=== PATIENT | male | born 1940 | race Caucasian/White ===

== ENCOUNTER → 2023-09-11 | Outpatient (CLI) | payer MEDICARE, OTHER, SELFPAY ==
--- NOTE | 2023-09-11 16:02 | CT_ITS ---
INDICATION: SIXTH NERVE PALSY RIGHT EYE EXAMINATION: CT BRAIN WITH AND WITHOUT CONTRAST - CT Head or Brain WO/W Contrast Injection TECHNIQUE: Multiple axial images were obtained of the brain with and without IV contrast. A radiation dose optimization technique was used for this scan. IV Contrast dosage and agent: RADIATION DOSAGE (If Supplied By Facility): CTDIvol = ( 44.99 ) mGy, DLP = ( 1715.95 ) mGycm COMPARISON: FINDINGS: BRAIN PARENCHYMA: No intra- or extra-axial hemorrhage. No evidence of acute infarct. No intracranial mass or mass effect. There is preservation of the pendleton/white matter interface. Posterior fossa structures are unremarkable. No abnormal contrast enhancement. Questionable 2 mm slightly hyperdense nodular density may be present in the region of the foramen of Sullivan. A small colloid cyst cannot be excluded. CSF SPACES: Appropriate for age. No hydrocephalus. Basal cisterns are patent. CALVARIUM, SKULL BASE, PARANASAL SINUSES AND MASTOID AIR CELLS: Clear. No discrete lytic or blastic abnormalities. ORBITS: Both globes, extraocular muscles, optic nerves and retrobulbar fat appear unremarkable. CT/Brain/Head W/WO Contrast IMPRESSION: Questionable 2 mm slightly hyperdense nodular density may be present in the region of the foramen of Sullivan. A small colloid cyst cannot be excluded. Correlate with MRI if needed. Electronically Signed: Nikos Olvera DO at 17:03 EST ,
[2023-09-11 16:30] LABS: CREATININE FINGERSTICK 1.3 mg/dL (0.70-1.30)
== END | disposition home or self-care (01) ==
PROVIDERS: PCP Internal Medicine; Referring Provider Ophthalmology; Visit Provider Ophthalmology
DX: H49.21 Sixth [abducent] nerve palsy, right eye (principal)
CPT/HCPCS: 70470; Q9967

== ENCOUNTER 2025-05-08 11:43 | Day surgery (SDC) | payer MEDICARE, OTHER, SELFPAY ==
[2025-05-08] VITALS (10 sets, daily range): BP systolic 141–154; BP diastolic 70–89; PULSE 71–83; RESP 16–18; TEMP 36.3–37.1; O2SAT 92–99; BMI 44.0
--- OUTSIDE RECORDS SUMMARY | 2025-05-08 12:11 | XMS RPT_ITS | CCD ---
Author Organization [facility] Care Team Providers Care Water Commissioner Name Role Phone Gonzales Gray Unavailable Unavailable Unavailable Gonzales Gray Primary Care Provider Gonzales Gray Primary Care Provider ANGELA MENDIOLA Admitting Unavailable ITZ TERAN Referring Unavailable OBGONZALES VALENZUELA Primary Care Unavailable JAYA NEGRON Attending Unavailable TERRY JULIAN Consulting Unavailabl e Obsy, Dr. Gonzales Estevez Referring Unava ilable Oberhauser, Dr. Gonzales Estevez Attending Unava ilable Oberhauser, Dr. Gonzales Estevez Primary Care Unava ilable Oberhauser, Dr. Gonzales Estevez Referring Unava ilable Oberhauser, Dr. Gonzales Estevez Attending Unava ilable Oberhauser, Dr. Gonzales Estevez Primary Care Unava ilable Oberhauser, Dr. Gonzales Estevez Referring Unava ilable Oberhauser, Dr. Gonzales Estevez Attending Unava ilable Oberhauser, Dr. Gonzales Estevez Primary Care Unava ilable Oberhauser, Dr. Gonzales Estevez Referring Unava ilable Oberhauser, Dr. Gonzales Estevez Attending Unava ilable Oberhauser, Dr. Gonzales Estevez Primary Care Unava ilable Zanthony, Dr. Sara Juarez Attending Unav ailable Oberhauser, Dr. Gonzales Estevez Primary Care Unava ilable Malvin, Dr. Sara Juarez Attending Unav ailable Oberhauser, Dr. Gonzales Estevez Primary Care Unava ilable Malvin, Dr. Sara Juarez Attending Unav ailable Oberhauser, Dr. Gonzales Estevez Primary Care Unava ilable Radhaumbpierre, Dr. Sara Juarez Attending Unav ailable Oberhauser, Dr. Gonzales Estevez Primary Care Unava ilable Oberhauser DO, Gonzales L Primary Care Provider Oberhauser DO, Gonzales L Primary Care Provider Oberhauser DO, Gonzales L Unavailable Jessy Sweet MD Unavailable Oberhauser DO, Gonzales L Primary Care Provider EMANUEL COLON Attending Unavailable OBERHAUSER, GONZALES L Primary Care Unavailable Oberhauser DO, Gonzales L Primary Care Provider OBERHAUSER, GONZALES L Referring Unavailable OBERHAUSER, GONZALES L Primary Care Unavailable OBERHAUSER, GONZALES L Referring Unavailable OBERHAUSER, GONZALES L Primary Care Unavailable Oberhauser DO, Gonzales Primary Care Provider Oberhauser DO, Gonzales L Unavailable Yimi De La Cruz PA-C Unavailable Oberhauser DO, Gonzales L Primary Care Provider Jessy Sweet MD Unavailable Oberhauser DO, Gonzales L Unavailable Gaby Mendez Primary Care Provider Oberhauser, Gonzales L Unavailable Unavailable Gaby Ann CNP Primary Care Provider Oberhauser DO, Gonzales L Unavailable OBERHAUSER, GONZALES Primary Care Unavailable REHAN LALA Attending Unavailable SPIKEREHAN Attending Unavailable OBERHAUSER, GONZALES Primary Care Unavailable REHAN LALA Attending Unavailable GABY ANN Primary Care Unavailable REHAN LALA Attending Unavailable GABY ANN Primary Care Unavailable Oberhauser DO, Gonzales L Unavailable DANICA QUIÑONEZ Attending Unavailable ANN, GABY M Primary Care Unavailable ANN, GABY M Referring Unavailable ANN, GABY M Primary Care Unavailable ANN, GABY M Referring Unavailable ANN, GABY M Primary Care Unavailable ANN, GABY M Referring Unavailable ANN, GABY M Primary Care Unavailable ANN, GABY M Referring Unavailable ANN, GABY M Primary Care Unavailable ANN, GABY M Referring Unavailable ANN, GABY M Primary Care Unavailable OBERHAUSER, GONZALES L Primary Care Unavailable JESSY KRAMER Attending Unavailable DANICA QUIÑONEZ Attending Unavailable OBERHAUSER, GONZALES L Primary Care Unavailable AROLDO ANN Attending Unavailable DANICA QUIÑONEZ Referring Unavailable OBERHAUSER, GONZALES L Primary Care Unavailable MELISA STREETER Attending Unavailable OBERHAUSER, GONZALES L Primary Care Unavailable ANN, GABY M Primary Care Unavailable DANICA QUIÑONEZ Attending Unavailable ANN, GABY M Primary Care Unavailable ANN, GABY M Primary Care Unavailable JOSE E OSPINA Attending Unavailable ANN, GABY M Primary Care Unavailable MEI MAYO Attending Unavailable MEI MAYO Referring Unavailable MELISA STREETER Referring Unavailable OBERHAUSER, GONZALES L Primary Care Unavailable MELISA STREETER C Attending Unavailable OBERHAUSER, GONZALES L Primary Care Unavailable ELIZABETH MANRIQUEZ Attending Unavailable ANN, GABY M Primary Care Unavailable ANN, GABY M Attending Unavailable ANN, GABY M Primary Care Unavailable OBERHAUSER, GONZALES L Attending Unavailable OBERHAUSER, GONZALES L Referring Unavailable OBERHAUSER, GONZALES L Primary Care Unavailable ANN, GABY M Attending Unavailable ANN, GABY M Primary Care Unavailable GRIS DÍAZ Attending Unavailable ANN, GABY M Primary Care Unavailable ANN, GABY M Attending Unavailable ANN, GABY M Primary Care Unavailable ANN, GABY M Attending Unavailable MADDIE SCOTT Referring Unavailable ANN, GABY M Primary Care Unavailable Oberhauser, Gonzales Primary Care Unavailable Matheus Mckinley Attending Unavailable Allergies Allergy Classification Reported Allergen(s) Allergy Type Date of Onset Reaction(s) Facility Acetaminophen (1 source) Acetaminophen Drug Allergy 6 Other: See Comments [facility] (20 sources) Acetaminophen; Translations: [ACETAMINOPHEN] Drug Allergy 6 Other: See Comments, Other (See Comments), Other, Hallucinations [facility] (17 sources) Metoprolol; Translations: [METOPROLOL] Drug Allergy 5 Diarrhea [facility] Work Phone: (2 sources) Sulfonamides (Antibiotic); Translations: [SULFA (SULFONAMIDE ANTIBIOTICS)] Drug Allergy 5 Hives [facility] Work Phone: (1 source) Metoprolol Drug Allergy 5 [facility] Repository Medications Current Medications Medication Drug Class(es) Dates Sig (Normalized) Sig (Original) acetaminophen 325 mg / oxyCODONE hydrochloride 5 mg oral tablet (7 sources) Opioid Agonist Start: 07-22-2024 End: 10-21-2024 take 1 tablet by mouth every six hours for pain oxyCODONE-acetaminop hen (Percocet) 5-325 mg tablet Indications: Sciatica, unspecified laterality Take 1 tablet by mouth every 6 hours if needed for severe pain (7 - 10). 15 tablet 07/22/2024 10/21/2024 Discontinued (Med List Cleanup) amitriptyline hydrochloride 10 mg oral tablet (3 sources) Tricyclic Antidepressant Start: 10-09-2024 End: 10-09-2025 take 1 tablet by mouth once daily at bedtime amitriptyline (Elavil) 10 mg tablet Indications: Lumbar radiculopathy , Postlaminectomy syndrome, lumbar region , S/P spinal fusion , 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 stenosis Take 1 tablet (10 mg) by mouth once daily at bedtime. TAKE 1 TABLET at bedtime X 1 WEEK AND IF DOING WELL STAY THERE. IF TOLERATING BUT NO IMPROVEMENT GO TO 20 MG QHS 60 tablet 1 10/09/2024 10/21/2024 Discontinued (Med List Cleanup) aspirin 81 mg delayed release oral tablet (20 sources) Platelet Aggregation Inhibitor, Nonsteroidal Anti-inflammatory Drug Start: 05-05-2016 take 1 tablet by mouth once daily aspirin 81 mg EC tablet Take 1 tablet (81 mg) by mouth once daily. 11/22/2021 Active Comment on above: Take 1 tablet by sancho once daily. baclofen 5 mg oral tablet (10 sources) gamma-Aminobutyric Acid-ergic Agonist Start: 12-23-2024 End: 02-21-2025 take 1 tablet by mouth once daily at bedtime baclofen (Lioresal) 5 mg tablet Indications: Spondylosis of lumbosacral region without myelopathy or radiculopathy Take 1 tablet (5 mg) by mouth once daily at bedtime. 30 tablet 1 12/23/2024 Active blood-glucose meter misc (20 sources) Start: 10-09-2023 blood-glucose meter misc Indications: Controlled type 2 diabetes mellitus without complication, without long-term current use of insulin TEST SUGARS ONCE DAILY 1 each 10/09/2023 Active Start: 10-09-2023 blood-glucose meter misc Indications: Controlled type 2 diabetes mellitus without complication, without long-term current use of insulin (Multi) TEST SUGARS ONCE DAILY 1 each 10/09/2023 Active Start: 10-09-2023 blood-glucose meter misc Indications: Controlled type 2 diabetes mellitus without complication, without long-term current use of insulin (CMS/HCC) TEST SUGARS ONCE DAILY 1 each 0 10/09/2023 Active celecoxib 100 mg oral capsule (12 sources) Nonsteroidal Anti-inflammatory Drug Start: 12-26-2022 End: 09-18-2024 celecoxib (CeleBREX) 100 mg capsule Indications: Thoracic myofascial strain, initial encounter , Hand arthritis Take one pill twice daily for one week then take twice daily as needed thereafter 60 capsule 2 12/26/2022 09/18/2024 Discontinued (Therapy completed) cyclobenzaprine hydrochloride 10 mg oral tablet (7 sources) Muscle Relaxant Start: 12-18-2024 End: 02-16-2025 take 1 tablet by mouth three times daily as needed for muscle spasms cyclobenzaprine (Flexeril) 10 mg tablet Indications: Acute exacerbation of chronic low back pain , Sciatica of left side Take 1 tablet (10 mg) by mouth 3 times a day as needed for muscle spasms. 30 tablet 12/18/2024 02/09/2025 Discontinued (Med List Cleanup) Start: 12-10-2024 End: 12-13-2024 take 1 tablet by mouth three times daily as needed for muscle spasms cyclobenzaprine (Flexeril) 10 mg tablet Indications: Acute exacerbation of chronic low back pain , Sciatica of left side Take 1 tablet (10 mg) by mouth 3 times a day as needed for muscle spasms for up to 3 days. 9 tablet 12/10/2024 12/13/2024 Active Start: 07-22-2024 End: 09-20-2024 cyclobenzaprine (Flexeril) 5 mg tablet Indications: Sciatica, unspecified laterality Take 1 tablet (5 mg) by mouth as needed at bedtime for muscle spasms. 30 tablet 07/22/2024 09/18/2024 Discontinued (Therapy completed) doxycycline hyclate 100 mg oral capsule (3 sources) Tetracycline-class Drug Start: 03-10-2025 End: 03-15-2025 doxycycline (Vibramycin) 100 mg capsule Indications: Cellulitis of leg, right Take 1 capsule (100 mg) by mouth 2 times a day for 5 days. Take with at least 8 ounces (large glass) of water, do not lie down for 30 minutes after 10 capsule 03/10/2025 03/15/2025 Active Start: 03-02-2025 End: 03-12-2025 take 1 tablet by mouth twice daily in the evening doxycycline (Adoxa) 100 mg tablet Indications: Cellulitis of right anterior lower leg Take 1 tablet (100 mg) by mouth 2 times a day for 10 days. Take with a full glass of water and do not lie down for at least 30 minutes after 20 tablet 03/02/2025 4:27 PM EDT 03/02/2025 03/12/2025 Active gabapentin 300 mg oral capsule (20 sources) Anti-epileptic Agent Start: 01-09-2025 End: 02-08-2025 take 1 capsule by mouth once daily at bedtime gabapentin (Neurontin) 300 mg capsule Indications: Acute exacerbation of chronic low back pain Take 1 capsule (300 mg) by mouth once daily at bedtime. 30 capsule 01/09/2025 Active Start: 04-05-2022 End: 10-24-2022 take 1 capsule by mouth three times daily gabapentin (Neurontin) 100 mg capsule Take 1 capsule (100 mg) by mouth. 3 times daily 0 04/05/2022 10/24/2022 Discontinued (Therapy completed) Start: 04-05-2022 End: 09-18-2024 take 1 capsule by mouth three times daily Gabapentin 300 MG Oral Capsule TAKE 1 CAPSULE 3 times daily Quantity: 270 Refills: 0 Ordered: 25-Jul-2022 Sara Coombs MD Start : 05-Apr-2022 Active glipiZIDE 10 mg oral tablet (20 sources) Sulfonylurea Start: 10-29-2024 End: 04-27-2025 take 1 tablet by mouth twice daily before mealtime glipiZIDE (Glucotrol) 10 mg tablet Indications: Controlled type 2 diabetes mellitus without complication, without long-term current use of insulin Take 1 tablet (10 mg) by mouth 2 times a day before meals. 180 tablet 1 10/29/2024 Active Start: 09-19-2022 End: 08-04-2024 take 1 tablet by mouth once daily glipiZIDE XL (Glucotrol XL) 5 mg 24 hr tablet Take 1 tablet (5 mg) by mouth once daily. 10/19/2022 Active take 1 tablet by sancho th once daily glipiZIDE 5 MG Oral Tablet TAKE 1 TABLET DAILY. Quantity: 0 Refills: 0 Ordered: 26-Sep-2022 DO Active Comment on above: Take 1 tablet by sancho th once daily. 3 ml insulin degludec 100 unt/ml pen injector (20 sources) Insulin Analog Start: 02-19-2024 insulin degludec 100 unit/mL (3 mL) InPn Inject 16 (sixteen) Units under the skin every morning . 02/19/2024 Active Start: 02-19-2024 insulin deglud ec (TRESIBA FLEXTOUCH U-100) 100 unit/mL (3 mL) injection pen Inject subcutaneous 17 units daily in the morning. 15 mL 3 02/19/2024 Active Start: 10-23-2023 End: 02-19-2024 insulin degludec (TRESIBA FL EXTOUCH U-100) 100 unit/mL (3 mL) injection pen Indications: Poorly controlled type 2 diabetes mellitus (HCC) Inject subcutaneous 15 units daily in the morning. 15 mL 3 10/30/2023 02/19/2024 Discontinued (Adjust Sig - Block E-Cancel) Comment on above: Inject subcutaneous 15 units daily in the morning. 3 ml insulin glargine 100 unt/ml pen injector (20 sources) Insulin Analog Start: 02-04-2025 End: 02-14-2026 insulin glargine (Basaglar KwikPen U-100 Insulin) 100 unit/mL (3 mL) pen Indications: Controlled type 2 diabetes mellitus without complication, without long-term current use of insulin Inject 16 Units under the skin once daily at bedtime. Take as directed per insulin instructions. 6 mL 9 04/24/2025 4:03 PM EDT 02/04/2025 02/14/2026 Active Start: 08-15-2023 End: 11-27-2023 insulin glargine (LANTUS CHARLEE OSTAR U-100 INSULIN) 100 unit/mL (3 mL) Inject 15 Units subcutaneously every morning. 15 mL 3 08/15/2023 10/23/2023 Discontinued Start: 09-19-2022 inject 16 [IU] by schwarz bcutaneous injection every twenty-four hours insulin glargine (LANTUS) 100 unit/mL injection Inject 16 Units subcutaneously every 24 hours. 10 mL 5 09/19/2022 Active Start: 09-13-2022 Lantus SoloSta r 100 UNIT/ML Subcutaneous Solution Pen-injector INJECT 20 units DAILY Quantity: 1 Refills: 3 Ordered: 13-Sep-2022 Gonzales Gray DO Start : 13-Sep-2022 Active Start: 09-11-2022 End: 09-19-2022 inject 20 [IU] by subcutaneous injection every twenty-four hours insulin glargine (LANTUS) 100 unit/mL injection Inject 20 Units subcutaneously every 24 hours. 10 mL 5 09/11/2022 09/19/2022 Discontinued insulin glargine (Lantus Solostar U-100 Insulin) 100 unit/mL (3 mL) pen Inject 15 Units under the skin once daily in the morning. Take as directed per insulin instructions. 0 Active Comment on above: Inject 16 Units subc utaneously every 24 hours. Inject 20 Units subc utaneously every 24 hours. Inject 15 Units subc utaneously every morning. metFORMIN hydrochloride 1000 mg oral tablet (20 sources) Biguanide Start: 05-24-20 23 take 1 tablet by mouth twice daily at mealtime metFORMIN (Glucophage) 1,000 mg tablet Indications: Controlled type 2 diabetes mellitus without complication, without long-term current use of insulin Take 1 tablet (1,000 mg) by mouth 2 times a day with meals. 180 tablet 3 04/21/2024 Active Start: 11-22-2021 End: 12-10-2022 take 1 tablet by mouth twice daily metFORMIN (Glucophage) 1,000 mg tablet Take 1 tablet (1,000 mg) by mouth. 2 times daily 0 11/22/2021 Active Start: 09-14-2021 take 1 tablet by sancho th twice daily at mealtime metFORMIN (GLUCOPHAGE) 500 mg tablet Take 1 tablet by mouth twice daily with meals. 180 tablet 1 09/14/2021 Active Comment on above: Take 1 tablet by sancho th twice daily with meals. Take 1 tablet by sancho th two times a day with meals. methocarbamol 500 mg oral tablet (15 sources) Muscle Relaxant Start: End: take 1 tablet by mouth four times daily as needed methocarbamoL (ROBAXIN) 500 MG tablet Take 1 (one) tablet (500 mg total) by mouth 4 (four) times a day as needed . 11/07/2023 Active Start: 08-08-2023 take 1 tablet by sancho th four times daily as needed for muscle spasms methocarbamol (Robaxin) 500 mg tablet Indications: Thoracic myofascial strain, initial encounter TAKE 1 TABLET BY MOUTH FOUR TIMES DAILY NEEDED FOR MUSCLE SPASMS 40 tablet 0 08/08/2023 Active Start: 12-26-2022 End: 02-24-2023 take 1 tablet by mouth four times daily as needed for muscle spasms methocarbamol (Robaxin) 500 mg tablet Indications: Thoracic myofascial strain, initial encounter TAKE 1 TABLET BY MOUTH FOUR TIMES DAILY NEEDED FOR MUSCLE SPASMS 40 tablet 0 02/07/2023 Active 24 hr metoprolol succinate 25 mg extended release oral tablet (20 sources) beta-Adrenergic Cindy Start: 11-22-2021 take 1 tablet by mouth once daily Metoprolol Tartrate 25 MG Oral Tablet TAKE 1 TABLET DAILY. Quantity: 90 Refills: 3 Ordered: 22-Nov-2021 Gonzales Gray DO Start : 22-Nov-2021 Active Start: 09-14-2021 take 1 tablet by sancho th once daily metoprolol succinate XL (Toprol-XL) 25 mg 24 hr tablet Indications: Essential (primary) hypertension TAKE 1 TABLET BY MOUTH ONCE DAILY 90 tablet 3 02/12/2024 Active Comment on above: Take 1 tablet by sancho th once daily. multivitamin (THERAGRAN) per tablet (6 sources) Start: 11-22-2021 take 1 tablet by mouth once daily multivitamin (THERAGRAN) per tablet Take 1 (one) tablet by mouth daily . 11/22/2021 Active multivitamin tablet (20 sources) Start: 11-22-2021 take 1 tablet by mouth once daily multivitamin tablet Take 1 tablet by mouth once daily. 11/22/2021 Active Start: 11-22-2021 take 1 tablet by sancho th once daily multivitamin tablet Take 1 tablet by mouth once daily. 0 11/22/2021 Active Start: 11-22-2021 take 1 tablet by sancho th once daily multivitamin tablet Take 1 tablet by mouth 1 (one) time each day. 0 11/22/2021 Active naproxen sodium 220 mg oral capsule (19 sources) Nonsteroidal Anti-inflammatory Drug take 1 capsule by mouth twice daily naproxen sodium 220 mg cap Take 1 capsule by mouth 2 (two) times a day . Active Comment on above: Take 1 capsule by mo ut twice daily. Take 1 capsule by mo [facility] twice daily. PRN NON FORMULARY (1 source) End: 10-25-19 take 1 tablet by mouth once daily NON FORMULARY Prevagen 10 MG Oral Capsule; Take 1 tablet by mouth daily. 0 10/24/2022 Discontinued (Therapy completed) predniSONE 10 mg oral tablet (2 sources) Start: 04-27-20 predniSONE (Deltasone) 10 mg tablet Indications: Allergic reaction, initial encounter 60 mg once daily x 1 days, then 50 mg once daily x 1 days, then 40 mg once daily x 1 days, then 30 mg once daily x 1 days, then 20 mg once daily x 1 days, then 10 mg once daily x 1 days. 21 tablet 04/27/2025 Active Start: 12-10-2024 End: 12-15-2024 take 1 tablet by mouth once daily predniSONE (Deltasone) 50 mg tablet Indications: Acute exacerbation of chronic low back pain , Sciatica of left side Take 1 tablet (50 mg) by mouth once daily for 5 days. 5 tablet 12/10/2024 12/15/2024 Active simvastatin 40 mg oral tablet (20 sources) HMG-CoA Reductase Inhibitor Start: 04-23-2024 take 1 tablet by mouth at bedtime simvastatin (Zocor) 40 mg tablet Indications: Controlled type 2 diabetes mellitus without complication, without long-term current use of insulin TAKE 1 TABLET BY MOUTH AT BEDTIME 90 tablet 3 04/23/2024 Active Start: 10-24-2022 take 1 tablet by sancho th once daily at bedtime simvastatin (Zocor) 40 mg tablet Indications: Controlled type 2 diabetes mellitus without complication, without long-term current use of insulin (CMS/HCC) Take 1 tablet (40 mg) by mouth once daily at bedtime. 90 tablet 1 10/24/2022 Active Start: 09-14-2021 End: 10-24-2022 take 1 tablet by mouth once daily simvastatin (ZOCOR) 40 MG tablet Take 1 (one) tablet (40 mg total) by mouth nightly . 09/14/2021 Active Comment on above: Take 1 tablet by sancho th daily at bedtime. solifenacin succinate 5 mg oral tablet (2 sources) Cholinergic Muscarinic Antagonist Start: 04-14-20 take 1 tablet by mouth in the morning solifenacin (VESIcare) 5 mg tablet Take 1 tablet (5 mg) by mouth early in the morning.. 04/14/2025 Active traMADol hydrochloride 50 mg oral tablet (1 source) Opioid Agonist Start: 12-11-19 End: 12-14-19 take 1 tablet by mouth every six hours for pain traMADol (Ultram) 50 mg tablet Indications: Acute exacerbation of chronic low back pain , Sciatica of left side Take 1 tablet (50 mg) by mouth every 6 hours if needed for severe pain (7 - 10) for up to 3 days. 12 tablet 12/10/2024 12/13/2024 Active valACYclovir 1000 mg oral tablet (9 sources) Herpesvirus Nucleoside Analog DNA Polymerase Inhibitor, Herpes Simplex Virus Nucleoside Analog DNA Polymerase Inhibitor, Herpes Zoster Virus Nucleoside Analog DNA Polymerase Inhibitor take 1 tablet by mouth three times daily valACYclovir (VALTREX) 1 gram Take 1,000 mg by mouth once daily. 1 tablet TID for 21 doses Active Comment on above: Take 1,000 mg by sancho th once daily. 1 tablet TID for 21 doses Completed/Discontinued Medications Medication Drug Class(es) Dates Sig (Normalized) Sig (Original) 30 ml bupivacaine hydrochloride 5 mg/ml injection (1 source) Amide Local Anesthetic Start: 08-29-2024 End: 08-29-2024 As needed, Starting on Sun08/29/24 at 1400, Intraprocedure dapagliflozin 10 mg oral tablet (1 source) Sodium-Glucose Cotransporter 2 Inhibitor Start: 07-11-2022 take 1 tablet by mouth once daily in the morning Farxiga 10 MG Oral Tablet TAKE 1 TABLET BY MOUTH EVERY MORNING Quantity: 90 Refills: 3 Ordered: 11-Jul-2022 Gonzales Gray DO Start : 11-Jul-2022 Active 1 ml HYDROmorphone hydrochloride 1 mg/ml cartridge (2 sources) Opioid Agonist Start: 12-10-2024 End: 12-10-2024 inject 1 mg by intramuscular injection once 1 mg, intramuscular, Once, On Sun12/10/24 at 1540, For 1 dose Start: 07-22-2024 End: 07-22-2024 inject 1 mg by intramuscular injection once 1 mg, intramuscular, Once, On Sun07/22/24 at 1300, For 1 dose iohexol (OMNIPaque) 300 mg iodine/mL solution (1 source) Start: 08-29-2024 End: 08-29-2024 As needed, Starting on Sun08/29/24 at 1401, Intraprocedure 10 ml lidocaine hydrochloride 20 mg/ml injection (1 source) Antiarrhythmic, Amide Local Anesthetic Start: 08-29-2024 End: 08-29-2024 As needed, Starting on Sun08/29/24 at 1401, Intraprocedure 1 ml methylPREDNISolone acetate 80 mg/ml injection (8 sources) Corticosteroid Start: 04-27-2025 End: 04-27-2025 methylPREDNISolone sodium succinate (PF) (SOLU-Medrol) injection 62.5 mg Start: 04-27-2025 End: 04-27-2025 inject 62.5 mg by intramuscular injection once 62.5 mg, intramuscular, Once, On Sun04/27/25 at 1335, For 1 dose Start: 04-27-2025 End: 04-27-2025 methylPREDNISolone acetate (DEPO-Medrol) injection 40 mg Start: 04-27-2025 End: 04-27-2025 inject 40 mg by intramuscular injection once 40 mg, intramuscular, Once, On Sun04/27/25 at 1335, For 1 dose Start: 12-10-2024 End: 12-10-2024 inject 125 mg by intramuscular injection once 125 mg, intramuscular, Once, On Sun12/10/24 at 1540, For 1 dose Start: 08-29-2024 End: 08-29-2024 As needed, Starting on Sun at 1400, Intraprocedure Start: 07-22-2024 End: 07-28-2024 methylPREDNISolone (Medrol D [place]) 4 mg tablets Indications: Sciatica, unspecified laterality Take as directed on package. 21 tablet 07/22/2024 07/28/2024 Active Start: 07-22-2024 End: 07-22-2024 inject 125 mg by intramuscular injection once 125 mg, intramuscular, Once, On Sun07/22/24 at 1300, For 1 dose Multivitamin Oral Tablet (13 sources) Start: 11-22-2021 take 1 tablet by mouth once daily Multivitamin Oral Tablet TAKE 1 TABLET DAILY. Quantity: 90 Refills: 3 Ordered: 22-Nov-2021 Gonzales Gray DO Start : 22-Nov-2021 Active ondansetron 4 mg disintegrating oral tablet (1 source) Serotonin-3 Receptor Antagonist Start: 12-10-2024 End: 12-10-2024 take 4 mg by mouth once 4 mg, oral, Once, On Sun12/10/24 at 1540, For 1 dose Prevagen 10 MG Oral Capsule (12 sources) Start: 11-22-2021 End: 09-26-2022 take 1 tablet by mouth once daily Prevagen 10 MG Oral Capsule TAKE 1 TABLET BY MOUTH DAILY Quantity: 90 Refills: 1 Ordered: 22-Nov-2021 Gonzales Gray DO Start : 22-Nov-2021 End : 26-Sep-2022 Complete Start: 11-22-2021 take 1 tablet by sancho th once daily Prevagen 10 MG Oral Capsule TAKE 1 TABLET BY MOUTH DAILY Quantity: 90 Refills: 1 Ordered: 22-Nov-2021 Gonzales Gray DO Start : 22-Nov-2021 Active sulfamethoxazole 800 mg / trimethoprim 160 mg oral tablet (2 sources) Dihydrofolate Reductase Inhibitor Antibacterial, Sulfonamide Antimicrobial Start: 04-17-2025 End: 05-01-2025 take 2 tablets by mouth twice daily in the evening sulfamethoxazole-trimethoprim (Bactrim DS) 800-160 mg tablet Indications: Cellulitis of right lower extremity Take 2 tablets by mouth 2 times a day for 14 days. 56 tablet 04/18/2025 1:41 PM EDT 04/17/2025 04/27/2025 Discontinued (Side effects) tamsulosin hydrochloride 0.4 mg oral capsule (8 sources) alpha-Adrenergic Cindy Start: 08-16-2023 End: 08-15-2024 take 1 capsule by mouth once daily tamsulosin (Flomax) 0.4 mg 24 hr capsule Indications: Benign prostatic hyperplasia with urinary frequency Take 1 capsule (0.4 mg) by mouth once daily. 30 capsule 11 08/16/2023 06/24/2024 Discontinued (Therapy completed) Problems Active Problems Problem Classification Problem Date Documented Da te Episodic/Chronic Acute cerebrovascular disease (10 sources) Cerebral infarction, unspecified; Translations: [Cerebrovascular accident] Onset: 09-11-2022 09-11-2022 Chronic Allergic reactions (4 sources) Allergic reaction; Translations: [Allergy, unspecified, initial encounter] Onset: 04-27-2025 04-27-2025 Episodic Chronic kidney disease (13 sources) Chronic kidney disease stage 3; Translations: [CKD (chronic kidney disease) stage 3, GFR 30-59 ml/min] Onset: 08-11-2018 08-12-2018 Chronic Chronic ulcer of skin (1 source) Pressure ulcer of unspecified ankle, unspecified stage; Translations: [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 (HCC)] Onset: 04-28-2023 Chronic Deficiency and other anemia (1 source) Iron deficiency anemia; Translations: [Iron deficiency anemia, unspecified] 04-26-2023 Episodic Diabetes mellitus with complications (14 sources) Type 2 diabetes mellitus; Translations: [Type 2 diabetes mellitus with hyperglycemia] Onset: 08-26-2024 Chronic Diabetes mellitus without complication (20 sources) Diabetes mellitus; Translations: [Diabetes mellitus without mention of complication, type II or unspecified type, not stated as uncontrolled] Onset: 09-04-2022 09-11-2022 Chronic Disorders of lipid metabolism (20 sources) Hyperlipidemia; Translations: [Other and unspecified hyperlipidemia] Onset: 09-04-2022 09-04-2022 Chronic Diverticulosis and diverticulitis (20 sources) Diverticulitis of sigmoid colon; Translations: [Diverticulitis of large intestine without perforation or abscess without bleeding] Onset: 08-11-2018 08-12-2018 Chronic Essential hypertension (20 sources) Hypertensive disorder; Translations: [Unspecified essential hypertension] Onset: 09-04-2022 04-20-2016 Chronic Hyperplasia of prostate (20 sources) Urinary frequency due to benign prostatic hypertrophy; Translations: [Benign prostatic hyperplasia with lower urinary tract symptoms] Onset: 09-19-2023 09-19-2023 Chronic Osteoarthritis (1 source) Arthritis of hand; Translations: [Primary osteoarthritis, unspecified hand] 12-26-2022 Chronic Other acquired deformities (1 source) Spondylolisthesis, lumbar region; Translations: [Spondylolisthesis, lumbar region] Onset: 07-14-2022 Episodic Other connective tissue disease (1 source) History of spinal fusion; Translations: [Arthrodesis status] 10-09-2024 Episodic Other eye disorders (1 source) Esotropia of right eye; Translations: [Monocular esotropia, right eye] 09-06-2023 Episodic Other male genital disorders (3 sources) Swelling of scrotum ; Translations: [Other specified disorders of the male genital organs] 09-20-2023 Episodic Other male genital disorders (2 sources) Other specified disorders of the male genital organs; Translations: [Other specified disorders of the male genital organs] Onset: 03-02-2025 Episodic Other nervous system disorders (5 sources) Other chronic pain; Translations: [Other chronic pain] Onset: 07-11-2022 Chronic Other nervous system disorders (1 source) Disorder of left sciatic nerve 12-10-2024 Chronic Other nervous system disorders (4 sources) Neurogenic claudication 08-29-2024 Episodic Other non-traumatic joint disorders (1 source) Osteophyte, vertebrae; Translations: [Osteophyte, vertebrae] Onset: 07-14-2022 Chronic Other nutritional; endocrine; and metabolic disorders (20 sources) Body mass index 40+ - severely obese; Translations: [Morbid (severe) obesity due to excess calories] Onset: 03-27-2018 Resolved: 05-20-2020 05-20-2020 Chronic Residual codes; unclassified (13 sources) History finding; Translations: [Other specified conditions influencing health status] Episodic Skin and subcutaneous tissue infections (7 sources) Cellulitis of lower leg; Translations: [Cellulitis of right lower limb] Onset: 03-02-2025 03-02-2025 Episodic Spondylosis; intervertebral disc disorders; other back problems (20 sources) Lumbosacral spondylosis; Translations: [Lumbosacral spondylosis without myelopathy] Onset: 07-14-2022 Chronic Sprains and strains (1 source) Strain of muscle at thorax level; Translations: [Strain of muscle and tendon of unspecified wall of thorax, initial encounter] 12-26-2022 Episodic Unclassified (2 sources) Diabetic Foot Exam Onset: 05-26-2024 Unclassified (2 sources) Low back pain, unspecified; Translations: [Low back pain, unspecified] Onset: 12-10-2024 Past or Other Problems Problem Classification Problem Date Documented Date Episodic/Chronic Deficiency and other anemia (1 source) Iron deficiency anemia, unspecified; Translations: [Normocytic hypochromic anemia] Onset: 04-28-2023 Episodic Diabetes mellitus without complication (13 sources) Hyperglycemia; Translations: [Hyperglycemia, unspecified] Onset: 08-11-2018 08-12-2018 Episodic Genitourinary symptoms and ill-defined conditions (20 sources) Increased frequency of urination; Translations: [Frequency of micturition] Onset: 09-19-2023 09-19-2023 Episodic Immunizations and screening for infectious disease (4 sources) Needs influenza immunization; Translations: [Encounter for immunization] Onset: 06-24-2024 04-26-2023 Episodic Mycoses (20 sources) Onychomycosis; Translations: [Tinea unguium] Onset: 08-26-2024 05-26-2024 Episodic Nonspecific chest pain (13 sources) Chest pain; Translations: [Chest pain, unspecified] Onset: 08-11-2018 08-12-2018 Episodic Other aftercare (1 source) 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; Translations: [Encounter for long-term (current) use of insulin (HCC)] Onset: 04-28-2023 Episodic Other connective tissue disease (13 sources) Swelling of bilateral lower limbs; Translations: [Other specified soft tissue disorders] Onset: 08-11-2018 08-12-2018 Episodic Other connective tissue disease (9 sources) Weakness of face muscles; Translations: [Facial weakness] Onset: 09-11-2022 09-11-2022 Episodic Other connective tissue disease (2 sources) Pain in left toe(s); Translations: [Pain in left toe(s)] Onset: 08-26-2024 Episodic Other connective tissue disease (2 sources) Pain in right toe(s); Translations: [Pain in right toe(s)] Onset: 08-26-2024 Episodic Other connective tissue disease (2 sources) Arthrodesis status; Translations: [Arthrodesis status] Onset: 10-09-2024 Episodic Other lower respiratory disease (13 sources) Nodule of lung; Translations: [Solitary pulmonary nodule] Onset: 08-11-2018 10-14-2018 Episodic Other male genital disorders (4 sources) Disorder of male genital organ; Translations: [Hydrocele, unspecified] 09-19-2023 Episodic Other male genital disorders (19 sources) Adult hydrocele; Translations: [Hydrocele, unspecified] Onset: 04-30-2024 04-30-2024 Episodic Other nervous system disorders (20 sources) Numbness; Translations: [Disturbance of skin sensation] Onset: 09-04-2022 09-04-2022 Episodic Other nervous system disorders (15 sources) Abnormal gait; Translations: [Unspecified abnormalities of gait and mobility] Onset: 08-08-2022 Episodic Other nervous system disorders (12 sources) Kiser's palsy; 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] Onset: 09-11-2022 09-11-2022 Episodic Other nervous system disorders (9 sources) H/O: Kiser's palsy; Translations: [Personal history of other diseases of the nervous system and sense organs] Onset: 09-11-2022 09-11-2022 Episodic Other nervous system disorders (9 sources) Reduced mobility; Translations: [Other abnormalities of gait and mobility] Onset: 10-27-2024 10-27-2024 Episodic Other nervous system disorders (2 sources) Other abnormalities of gait and mobility; Translations: [Other abnormalities of gait and mobility] Onset: 10-27-2024 Episodic Other nervous system disorders (2 sources) Anesthesia of skin; Translations: [Anesthesia of skin] Onset: 09-04-2022 Episodic Other screening for suspected conditions (not mental disorders or infectious disease) (6 sources) Patient encounter status; Translations: [Encounter for screening for malignant neoplasm of prostate] Onset: 04-28-2023 04-26-2023 Episodic Spondylosis; intervertebral disc disorders; other back problems (20 sources) Spinal stenosis of lumbar region; Translations: [Spinal stenosis, lumbar region without neurogenic claudication] Onset: 03-29-2016 03-29-2016 Episodic Unclassified (20 sources) Onset: 12-26-2022 Resolved: 04-17-2025 12-26-2022 Unclassified (2 sources) Low back pain, unspecified; Translations: [Low back pain, unspecified] Onset: 12-10-2024 Results Test Name Value Interpretation Reference Range Facility ALBUMIN, RANDOM URINE W/CREA TININEon 04-20-2025 ALBUMIN, URINE 2.3 mg/dL Normal See Note: [facility] Comment on above: Order Comment: SPLIT 04/17/2025 FROM [id number] Result Comment: Refe rence Range: Reference Range Not established Performed By: #### 6 517 #### [facility] [address], [address] [place] [address] Survey Rodman: Derick Wilson MD ALBUMIN/CREATININE RATIO, RANDOM URINE 28 mg/g creat Normal <30 [facility] Comment on above: Order Comment: SPLIT 04/17/2025 FROM [id number] Result Comment: The ADA defines abnormalities in albumin excretion as follows: Albuminuria Category Result (mg/g creatinine) Normal to Mildly increased <30 Moderately increased 30-299 Severely increased > OR = 300 The ADA recommends that at least two of three specimens collected within a 3-6 month period be abnormal before considering a patient to be within a diagnostic category. Performed By: #### 6 517 #### [facility] [address], [address] [place] [address] Survey Rodman: Derick Wilson MD Creatinine (U) [Mass/Vol] 82 mg/dL Normal 20-320 [facility] Comment on above: Order Comment: SPLIT 04/17/2025 FROM [id number] Performed By: #### 6 517 #### [facility] [address], [address] [place] [address] Survey Rodman: Derick Wilson MD BASIC METABOLIC PANEL WITH A NION GAPon 04-18-2025 Calcium [Mass/Vol] 9.7 mg/dL Normal 8.6-10.3 [facility] Comment on above: Order Comment: COLLE CTION KIT GIVEN TO PATIENT. PATIENT ADVISED TO RETURN. Performed By: #### 1 680, [id number] #### [facility] [address], [address] [place] [address] Survey Rodman: Derick Wilson MD Chloride [Moles/Vol] 104 mmol/L Normal 98-110 [facility] Comment on above: Order Comment: COLLE CTION KIT GIVEN TO PATIENT. PATIENT ADVISED TO RETURN. Performed By: #### 1 6802, 73276 #### [facility] [address], [address] [place] [address] Survey Rodman: Derick Wilson MD CO2 [Moles/Vol] 22 mmol/L Normal 20-32 [facility] Comment on above: Order Comment: COLLE CTION KIT GIVEN TO PATIENT. PATIENT ADVISED TO RETURN. Performed By: #### 1 6801, [id number] #### [facility] [address], [address] [place] [address] Survey [employer]man: Derick Wilson MD Creatinine [Mass/Vol] 1.44 mg/dL High 0.70-1.22 [facility] Comment on above: Order Comment: COLLE CTION KIT GIVEN TO PATIENT. PATIENT ADVISED TO RETURN. Performed By: #### 1 680, 74519 #### [facility] [address], [address] [place] [address] Survey Rodman: Derick Wilson MD ELECTROLYTE BALANCE 12 mmol/L (calc) Normal 7-17 [facility] Comment on above: Order Comment: COLLE CTION KIT GIVEN TO PATIENT. PATIENT ADVISED TO RETURN. Performed By: #### 1 6802, 07962 #### [facility] [place] [address] Survey Rodman: Derick Wilson MD GFR/1.73 sq M.predicted among non-blacks MDRD (S/P/Bld) [Vol rate/Area] 48 mL/min/{1.73_m2} Low > OR = 60 [facility] Comment on above: Order Comment: COLLE CTION KIT GIVEN TO PATIENT. PATIENT ADVISED TO RETURN. Performed By: #### 1 680, 22588 #### [facility] [address], [address] [place] [address] Survey Rodman: Derick Wilson MD Glucose [Mass/Vol] 183 mg/dL High 65-99 [facility] Comment on above: Order Comment: COLLE CTION KIT GIVEN TO PATIENT. PATIENT ADVISED TO RETURN. Result Comment: Fasting reference interval For someone without known diabetes, a glucose value >125 mg/dL indicates that they may have diabetes and this should be confirmed with a follow-up test. Performed By: #### 1 680, 25504 #### [facility] [address], [address] [place] [address] Survey Rodman: Derick Wilson MD Potassium [Moles/Vol] 4.7 mmol/L Normal 3.5-5.3 [facility] Comment on above: Order Comment: COLLE CTION KIT GIVEN TO PATIENT. PATIENT ADVISED TO RETURN. Performed By: #### 1 6801, 80495 #### [facility] [address], [address] [place] [address] Survey Rodman: Derick Wilson MD Sodium [Moles/Vol] 138 mmol/L Normal 135-146 [facility] Comment on above: Order Comment: COLLE CTION KIT GIVEN TO PATIENT. PATIENT ADVISED TO RETURN. Performed By: #### 1 680, 13509 #### [facility] [address], [address] [place] [address] Survey Rodman: Derick Wilson MD Urea nitrogen [Mass/Vol] 16 mg/dL Normal 7-25 [facility] Comment on above: Order Comment: COLLE CTION KIT GIVEN TO PATIENT. PATIENT ADVISED TO RETURN. Performed By: #### 1 6802, 60928 #### [facility] [address], [address] [place] [address] Survey Rodman: Derick Wilson MD Urea nitrogen/Creatinine [Mass ratio] 11 mg/mg Normal 6-22 [facility] Comment on above: Order Comment: COLLE CTION KIT GIVEN TO PATIENT. PATIENT ADVISED TO RETURN. Performed By: #### 1 6802, 68548 #### [facility] [address], [address] [place] [address] Survey Rodman: Derick Wilson MD HEMOGLOBIN A1c WITH eAGon eAG (mmol/L) 9.0 mmol/L Normal [facility] Comment on above: Performed By: #### 1 6802, 63178 #### [facility] [address], [address] [place] [address] Survey Rodman: Derick Wilson MD HbA1c (Bld) [Mass fraction] 7.3 % High <5.7 [facility] Comment on above: Result Comment: For someone without known diabetes, a hemoglobin A1c value of 6.5% or greater indicates that they may have diabetes and this should be confirmed with a follow-up test. For someone with known diabetes, a value <7% indicates that their diabetes is well controlled and a value greater than or equal to 7% indicates suboptimal control. A1c targets should be individualized based on duration of diabetes, age, comorbid conditions, and other considerations. Currently, no consensus exists regarding use of hemoglobin A1c for diagnosis of diabetes for children. Performed By: #### 1 6802, 47490 #### [facility] [address], [address] [place] [address] Survey Rodman: Derick Wilson MD Magnesium [Mass/Vol] 163 mg/dL Normal [facility] Comment on above: Performed By: #### 1 6802, 84039 #### [facility] [address], [address] [place] [address] Survey Rodman: Derick Wilson MD No Panel Informationon 02-24 Double layer tubigri p Rt leg [facility] No Panel InformationOrdered By: Carleen Rowell on 02-24-2025 [facility] REFLEXIVE URINE CULTUREon REFLEXIVE URINE CULTURE Normal [facility] Comment on above: Result Comment: NO C ULTURE INDICATED Performed By: #### 1 7667, %SBNOCULI #### [facility] [address], [address] [place] [address] Survey Rodman: Derick Wilson MD URINALYSIS, COMPLETE W/RFL C ULTURE (REFL)on 12-24-2024 Appearance (U) CLEAR Normal CLEAR [facility] Comment on above: Performed By: #### 1 5475, %SBNOCULI #### [facility] of [place] [address] , [address] [place] [address] Survey Rodman: Derick Wilson MD BACTERIA NONE SEEN Normal NONE SEEN [facility] Comment on above: Performed By: #### 1 2293, %SBNOCULI #### [facility] [place] [address] , [address] [place] [address] Survey Rodman: Derick Wilson MD Bilirubin Ql (U) Negative Normal NEGATIVE [facility] Comment on above: Performed By: #### 1 0685, %SBNOCULI #### [facility] [place] [address] , [address] [place] [address] Survey Rodman: Derick Wilson MD Color (U) YELLOW Normal YELLOW [facility] Comment on above: Performed By: #### 1 1673, %SBNOCULI #### [facility] [place] [address] [place] [address] Survey Rodman: Derick Wilson MD Glucose Ql (U) Negative Normal NEGATIVE [facility] Comment on above: Performed By: #### 1 8492, %SBNOCULI #### [facility] of [place] [address] Survey Rodman: Derick Wilson MD HYALINE CAST NONE SEEN Normal NONE SEEN [facility] Comment on above: Performed By: #### 1 2114, %SBNOCULI #### [facility] of [address], [address] [place] [address] Survey Rodman: Derick Wilson MD Ketones Ql (U) TRACE Abnormal NEGATIVE [facility] Comment on above: Performed By: #### 1 3017, %SBNOCULI #### [facility] of [address], [address] [place] [address] Survey Rodman: Derick Wilson MD Leukocyte esterase Test strip Ql (U) Negative Normal NEGATIVE [facility] Comment on above: Performed By: #### 1 7644, %SBNOCULI #### [facility] of [place] [address] Survey Rodman: Derick Wilson MD Nitrite Ql (U) Negative Normal NEGATIVE [facility] Comment on above: Performed By: #### 1 7600, %SBNOCULI #### [facility] [place] [address] Survey [employer]man: Derick Wilson MD NOTE Normal [facility] Comment on above: Result Comment: This urine was analyzed for the presence of WBC, RBC, bacteria, casts, and other formed elements. Only those elements seen were reported. Performed By: #### 1 7679, %SBNOCULI #### [facility] of [place] [address] Survey [employer]man: Derick Wilson MD OCCULT BLOOD Negative Normal NEGATIVE [facility] Comment on above: Performed By: #### 1 7626, %SBNOCULI #### [facility] [place] [address] Survey Rodman: Derick Wilson MD pH (U) 7.0 [pH] Normal 5.0-8.0 [facility] Comment on above: Performed By: #### 1 7661, %SBNOCULI #### [facility] [place] [address] Survey Rodman: Derick Wilson MD Protein Ql (U) TRACE Abnormal NEGATIVE [facility] Comment on above: Performed By: #### 1 7654, %SBNOCULI #### [facility] [place] [address] Survey Rodman: Derick Wilson MD RBC NONE SEEN Normal < OR = 2 [facility] Comment on above: Performed By: #### 1 7685, %SBNOCULI #### [facility] [address] Survey [place]man: Derick Wilson MD Specific gravity (U) [Rel density] 1.013 Normal 1.001-1.035 [facility] Comment on above: Performed By: #### 1 7667, %SBNOCULI #### [facility] of [address], [address] [place] [address] Survey Rodman: Derick Wilson MD SQUAMOUS EPITHELIAL CELLS NONE SEEN Normal < OR = 5 [facility] Comment on above: Performed By: #### 1 7667, %SBNOCULI #### [facility] of [address], [address] [place] [address] Survey Rodman: Derick Wilson MD WBC NONE SEEN Normal < OR = 5 [facility] Comment on above: Performed By: #### 1 7667, %SBNOCULI #### [facility] of [place] [address] Survey Rodman: Derick Wilson MD BASIC METABOLIC PANEL WITH A AIDA THORNTONpranav 10-17-2024 Calcium [Mass/Vol] 9.5 mg/dL Normal 8.6-10.3 [facility] Comment on above: Order Comment: FASTI NG:NO FASTING: NO Performed By: #### 1 6802, 5363, 16209 #### [facility] [address], [address] [place] [address] Survey Rodman: Derick Wilson MD Chloride [Moles/Vol] 104 mmol/L Normal 98-110 [facility] Comment on above: Order Comment: FASTI NG:NO FASTING: NO Performed By: #### 1 6802, 5363, 78617 #### [facility] of [place] [address] Survey Rodman: Derick Wilson MD CO2 [Moles/Vol] 25 mmol/L Normal 20-32 [facility] Comment on above: Order Comment: FASTI NG:NO FASTING: NO Performed By: #### 1 6802, 5363, 80728 #### [facility] of [address], [address] [place] [address] Survey Rodman: Derick Wilson MD Creatinine [Mass/Vol] 1.52 mg/dL High 0.70-1.22 [facility] Comment on above: Order Comment: FASTI NG:NO FASTING: NO Performed By: #### 1 6802, 5363, 01557 #### [facility] [address], [address] [place] [address] Survey Rodman: Derick Wilson MD ELECTROLYTE BALANCE 10 mmol/L (calc) Normal 7-17 [facility] Comment on above: Order Comment: FASTI NG:NO FASTING: NO Performed By: #### 1 6802, 5363, 34634 #### [facility] [place] [address] Survey Rodman: Derick Wilson MD GFR/1.73 sq M.predicted among non-blacks MDRD (S/P/Bld) [Vol rate/Area] 45 mL/min/{1.73_m2} Low > OR = 60 [facility] Comment on above: Order Comment: FASTI NG:NO FASTING: NO Performed By: #### 1 6802, 5363, 29941 #### [facility] [place] [address] Survey Rodman: Derick Wilson MD Glucose [Mass/Vol] 126 mg/dL Normal 65-139 [facility] Comment on above: Order Comment: FASTI NG:NO FASTING: NO Result Comment: Non-fasting reference interval For someone without known diabetes, a glucose value >125 mg/dL indicates that they may have diabetes and this should be confirmed with a follow-up test. Performed By: #### 1 6802, 5363, 66953 #### [facility] [address], [address] [place] [address] Survey Rodman: Derick Wilson MD Potassium [Moles/Vol] 4.6 mmol/L Normal 3.5-5.3 [facility] Comment on above: Order Comment: FASTI NG:NO FASTING: NO Performed By: #### 1 6802, 5363, 64604 #### [facility] of [address], [address] [place] [address] Survey Rodman: Derick Wilson MD Sodium [Moles/Vol] 139 mmol/L Normal 135-146 [facility] Comment on above: Order Comment: FASTI NG:NO FASTING: NO Performed By: #### 1 6802, 5363, 85650 #### [facility] of [address], [address] [place] [address] Survey Rodman: Derick Wilson MD Urea nitrogen [Mass/Vol] 14 mg/dL Normal 7- [facility] Comment on above: Order Comment: FASTI NG:NO FASTING: NO Performed By: #### 1 6802, 5363, 43576 #### [facility] of [address], [address] [place] [address] Survey Rodman: Derick Wilson MD Urea nitrogen/Creatinine [Mass ratio] 9 mg/mg Normal - [facility] Comment on above: Order Comment: FASTI NG:NO FASTING: NO Performed By: #### 1 6802, 5363, 63568 #### [facility] of [address], [address] [place] [address] Survey Rodman: Derick Wilson MD HEMOGLOBIN A1c WITH eAGon eAG (mg/dL) Normal [facility] Comment on above: Performed By: #### 1 6802, 5363, 24377 #### [facility] of [address], [address] [place] [address] Survey Rodman: Derick Wilson MD eAG (mmol/L) Normal [facility] Comment on above: Performed By: #### 1 6802, 5363, 01714 #### [facility] of [address], [address] [place] [address] Survey Rodman: Derick Wilson MD HEMOGLOBIN A1c Normal [facility] Comment on above: Performed By: #### 1 6802, 5363, 92241 #### [facility] of [address], [address] [place] [address] Survey Rodman: Derick Wilson MD PSA, TOTALon 10-17-2024 PSA, TOTAL 0.54 ng/mL Normal < OR = 4.00 [facility] Comment on above: Result Comment: The total PSA value from this assay system is standardized against the WHO standard. The test result will be approximately 20% lower when compared to the equimolar-standardized total PSA (Argenis Barnard). Comparison of serial PSA results should be interpreted with this fact in mind. This test was performed using the Siemens chemiluminescent method. Values obtained from different assay methods cannot be used interchangeably. PSA levels, regardless of value, should not be interpreted as absolute evidence of the presence or absence of disease. Performed By: #### 1 6802, 5363, 26356 #### [facility] [address], [address] [place] [address] Survey Rodman: Derick Wilson MD MR LUMBAR SPINE WO IV CONTRA STon 09-19-2024 MR LUMBAR SPINE WO IV CONTRAST Interpreted By: Cy Marie, and Phil Larios STUDY: MR LUMBAR SPINE WO IV CONTRAST; 09/19/2024 2:14 pm INDICATION: Signs/Symptoms:lower back and leg pain and leg fatigue and coldness. ,M54.16 Radiculopathy, lumbar region,M48.062 Spinal stenosis, lumbar region with neurogenic claudication,M54.42 Lumbago with sciatica, left side,M54.41 Lumbago with sciatica, right side,G89.29 Other chronic pain,M47.27 Other spondylosis with radiculopathy, lumbosacral region,R20.0 Anesthesia of skin COMPARISON: MR lumbar spine 07/14/2022. ACCESSION NUMBER(S): [id number] ORDERING CLINICIAN: MELISA STREETER TECHNIQUE: Sagittal T1, T2, STIR, axial T1 and T2 weighted images of the lumbar spine were acquired. FINDINGS: Segmentation: 5 lumbar-type vertebrae are noted. Alignment: Grade 1 retrolisthesis of L1 on L2, L2 on L3, and L3 on L4 is noted. Grade 1 anterolisthesis of L5 on S1 is noted. Findings are similar compared to 07/14/2022. Vertebrae/Intervertebral Discs: Status post laminectomies of L2 through L5. The vertebral bodies demonstrate expected height. Multilevel disc height loss and disc desiccation is noted, most pronounced and severe at L5-S1 with associated type 2 Modic changes, similar prior. Additional [id number] disc height loss and disc desiccation is present at L2-L3 and L3-L4. mixed type 1 and type 2 Modic changes noted involving the endplates of at L4-L5. Surgical hyperintensity is noted in the mid to posterior aspect of the L1-L2 intervertebral disc. Conus medullaris: The lower thoracic cord appears unremarkable. The conus medullaris terminates at L2. T12-L1: Disc osteophyte complex minimally effaces the ventral thecal sac. No spinal canal stenosis or neural foraminal narrowing. L1-2: Disc osteophyte complex asymmetric to the right and facet arthropathy. Minimal effacement of ventral thecal sac without significant spinal canal stenosis. Moderate right neural foraminal narrowing, similar to prior. No left neural foraminal narrowing. L2-3: Status post laminectomy. Disc osteophyte complex and facet arthropathy. No spinal canal stenosis. Moderate bilateral neural foraminal narrowing, similar to prior. L3-4: Status post laminectomy. Disc bulge and facet arthropathy. No spinal canal stenosis. Moderate to severe bilateral neural foraminal narrowing, similar to prior. L4-5: Status post laminectomy. Disc bulge and facet arthropathy. Interval development of a 5 mm x 10 mm herniated disc fragment ventral to the thecal sac and extending into the left lateral recess best appreciated on axial T2 weighted image 06/04 flattening and deformity of the anterior contour of the thecal sac in the interval since the previous exam. Marked narrowing of the left lateral recess and neural foramen. L5-S1: Status post laminectomy. Trace spondylolisthesis with pseudo bulging intervertebral disc. No measurable canal stenosis. Severe bilateral foraminal narrowing. Diffuse fatty atrophy of the paraspinal musculature. There is similar nonspecific STIR hyperintensity within the posterior spinal soft tissues L4 through S1. IMPRESSION: 1. Postsurgical changes from laminectomies of L2 through L5. 2. Interval progression of broad-based bulging or herniated nucleus polyposis at L4/L5 to the left since the previous exam. Marked narrowing of the left lateral recess and neural foramen 3. Spondylolisthesis with severe bilateral foraminal narrowing at L5/S1 is unchanged compared to the previous exam 4. Severe foraminal narrowing at L3/L4 bilaterally is unchanged compared to the previous exam. I personally reviewed the images/study and I agree with the findings as stated by Harriet Villarreal MD. This study was interpreted at [facility], [place], [place]. MACRO: None Signed by: Cy Marie 09/22/2024 6:55 AM Dictation workstation: [id number] Normal [facility] [place] PAIN MANAGEMENTon 025 [place] PAIN MANAGEMENT These images are not reportable by radiology and will not be interpreted by Radiologists. Normal [facility] FL pain managementon 025 These images are not reportable by radiology and will not be interpreted by Radiologists. [facility] Work Phone: Glucose Test strip manual (B ld) [Mass/Vol]on 08-29-2024 Glucose [Mass/Vol] 183 mg/dL High 74 - 99 mg/dL [facility] Interpretation and review of laboratory results Abnormal [facility] Glucose [Mass/Vol] 183 mg/dL High 74-99 [facility] Comment on above: Performed By: #### 2 341-6 #### AISHWARYA CELESTIN ([id number]) [facility] ([facility]) [address] [place] [address] Transforaminalon 08-29-2024 [facility] Work Phone: Radiology Study observation (narrative) [facility] Work Phone: CBC W Auto Differential pane l (Bld)on 03-20-2024 Basophils (Bld) [#/Vol] 0.04 10*3/uL Normal <0.11 [facility] Comment on above: Order Comment: Speci men Type: BLOOD SPECIMEN Ordering Facility: External Submitter Address: , , Performed By: #### 5 7021-8 #### [facility] CLIA [id number] [address] [place] [address] [place] Basophils/100 WBC (Bld) 0.6 % Normal [facility] Comment on above: Order Comment: Speci men Type: BLOOD SPECIMEN Ordering Facility: External Submitter Address: , , Performed By: #### 5 7021-8 #### [facility] CLIA [id number] [address] [place] [address] [facility] [place] Differential cell count method Nom (Bld) Auto Normal [facility] Comment on above: Order Comment: Speci men Type: BLOOD SPECIMEN Ordering Facility: External Submitter Address: , , Performed By: #### 5 7021-8 #### [facility] CLIA [id number] [address] [place] [address] [facility] [place] Eosinophils (Bld) [#/Vol] 0.14 10*3/uL Normal <0.46 [facility] Comment on above: Order Comment: Speci men Type: BLOOD SPECIMEN Ordering Facility: External Submitter Address: , , Performed By: #### 5 7021-8 #### [facility] CLIA [id number] [address] [place], [place] [address] [place] [address] [place] Eosinophils/100 WBC (Bld) 2.1 % Normal [facility] Comment on above: Order Comment: Speci men Type: BLOOD SPECIMEN Ordering Facility: External Submitter Address: , , Performed By: #### 5 7021-8 #### [facility] CLIA [id number] [address] [place] [address] [facility] [place] Erythrocyte distribution width (RBC) [Ratio] 13.0 % Normal 11.5-15.0 [facility] Comment on above: Order Comment: Speci men Type: BLOOD SPECIMEN Ordering Facility: External Submitter Address: , , Performed By: #### 5 7021-8 #### [facility] CLIA [id number] [address] [place] [address] [facility] [place] Hematocrit (Bld) [Volume fraction] 44.3 % Normal 39.0-51.0 [facility] Comment on above: Order Comment: Speci men Type: BLOOD SPECIMEN Ordering Facility: External Submitter Address: , , Performed By: #### 5 7021-8 #### [facility] CLIA [id number] [address] [place] [address] [facility] [place] Hemoglobin (Bld) [Mass/Vol] 14.3 g/dL Normal 13.0-17.0 [facility] Comment on above: Order Comment: Speci men Type: BLOOD SPECIMEN Ordering Facility: External Submitter Address: , , Performed By: #### 5 7021-8 #### [facility] CLIA [id number] [address] [place], [place] [id number] [place] [address] [place] Immature granulocytes (Bld) [#/Vol] 10*3/uL Normal <0.10 [facility] Comment on above: Order Comment: Speci men Type: BLOOD SPECIMEN Ordering Facility: External Submitter Address: , , Performed By: #### 5 7021-8 #### [facility] CLIA [id number] [address] [place], [place] [address] [place] [address] Immature granulocytes/100 WBC (Bld) 0.2 % Normal [facility] Comment on above: Order Comment: Speci men Type: BLOOD SPECIMEN Ordering Facility: External Submitter Address: , , Performed By: #### 5 7021-8 #### [facility] CLIA [id number] [address] [place] Lymphocytes (Bld) [#/Vol] 1.50 10*3/uL Normal 1.00-4.00 [facility] Comment on above: Order Comment: Speci men Type: BLOOD SPECIMEN Ordering Facility: External Submitter Address: , , Performed By: #### 5 7021-8 #### [facility] CLIA [id number] [address] [place], [place] [address] [place] [address] [place] Lymphocytes/100 WBC (Bld) 22.7 % Normal [facility] Comment on above: Order Comment: Douglasi men Type: BLOOD SPECIMEN Ordering Facility: External Submitter Address: , , Performed By: #### 5 7021-8 #### [facility] CLIA [id number] [address] [place] [address] [place] MCH (RBC) [Entitic mass] 32.9 pg Normal 26.0-34.0 [facility] Comment on above: Order Comment: Speci men Type: BLOOD SPECIMEN Ordering Facility: External Submitter Address: , , Performed By: #### 5 7021-8 #### [facility] CLIA [id number] [address] [place] [address] MCHC (RBC) [Mass/Vol] 32.3 g/dL Normal 30.5-36.0 [facility] Comment on above: Order Comment: Speci men Type: BLOOD SPECIMEN Ordering Facility: External Submitter Address: , , Performed By: #### 5 7021-8 #### [facility] CLIA [id number] [address] [place] [address] MCV (RBC) [Entitic vol] 101.8 fL High 80.0-100.0 [facility] Comment on above: Order Comment: Speci men Type: BLOOD SPECIMEN Ordering Facility: External Submitter Address: , , Performed By: #### 5 7021-8 #### [facility] CLIA [id number] [address] [place] [address] Monocytes (Bld) [#/Vol] 0.39 10*3/uL Normal <0.87 [facility] Comment on above: Order Comment: Speci men Type: BLOOD SPECIMEN Ordering Facility: External Submitter Address: , , Performed By: #### 5 7021-8 #### [facility] CLIA [id number] [address] [place] [address] Monocytes/100 WBC (Bld) 5.9 % Normal [facility] Comment on above: Order Comment: Speci men Type: BLOOD SPECIMEN Ordering Facility: External Submitter Address: , , Performed By: #### 5 7021-8 #### [facility] CLIA [id number] [address] [place] [address] Neutrophils (Bld) [#/Vol] 4.53 10*3/uL Normal 1.45-7.50 [facility] Comment on above: Order Comment: Speci men Type: BLOOD SPECIMEN Ordering Facility: External Submitter Address: , , Performed By: #### 5 7021-8 #### [facility] CLIA [id number] [address] [place] [address] [facility] [place] Neutrophils/100 WBC (Bld) 68.5 % Normal [facility] Comment on above: Order Comment: Speci men Type: BLOOD SPECIMEN Ordering Facility: External Submitter Address: , , Performed By: #### 5 7021-8 #### [facility] CLIA [id number] [address] [place] [address] [place] Nucleated RBC (Bld) [#/Vol] Normal [facility] Comment on above: Order Comment: Douglasi men Type: BLOOD SPECIMEN Ordering Facility: External Submitter Address: , , Performed By: #### 5 7021-8 #### [facility] CLIA [id number] [address] [place] [address] [facility] [place] Nucleated RBC/100 WBC (Bld) [Ratio] Normal [facility] Comment on above: Order Comment: Speci men Type: BLOOD SPECIMEN Ordering Facility: External Submitter Address: , , Performed By: #### 5 7021-8 #### [facility] CLIA [id number] [address] [place] [address] [place] Platelet mean volume (Bld) [Entitic vol] 10.5 fL Normal 9.0-12.7 [facility] Comment on above: Order Comment: Speci men Type: BLOOD SPECIMEN Ordering Facility: External Submitter Address: , , Performed By: #### 5 7021-8 #### [facility] CLIA [id number] [address] [place] [address] [place] Platelets (Bld) [#/Vol] 256 10*3/uL Normal 150-400 [facility] Comment on above: Order Comment: Speci men Type: BLOOD SPECIMEN Ordering Facility: External Submitter Address: , , Performed By: #### 5 7021-8 #### [facility] CLIA [id number] [address] [place] [address] [place] RBC (Bld) [#/Vol] 4.35 10*6/uL Normal 4.20-6.00 [facility] Comment on above: Order Comment: Speci men Type: BLOOD SPECIMEN Ordering Facility: External Submitter Address: , , Performed By: #### 5 7021-8 #### [facility] CLIA [id number] [address] [place] [address] [facility] WBC (Bld) [#/Vol] 6.61 10*3/uL Normal 3.70-11.00 [facility] Comment on above: Order Comment: Speci men Type: BLOOD SPECIMEN Ordering Facility: External Submitter Address: , , Performed By: #### 5 7021-8 #### [facility] CLIA [id number] [address] [place] [address] [facility] Comprehensive metabolic 2000 panelon 03-20-2024 Albumin [Mass/Vol] 4.3 g/dL Normal 3.9-4.9 [facility] Comment on above: Order Comment: Speci men Type: BLOOD SPECIMEN Ordering Facility: External Submitter Address: , , Performed By: #### 2 4331-1, 23785-7 #### [facility] CLIA [id number] [address] ALP [Catalytic activity/Vol] 73 U/L Normal 38-113 [facility] Comment on above: Order Comment: Speci men Type: BLOOD SPECIMEN Ordering Facility: External Submitter Address: , , Performed By: #### 2 4331-1, 40341-7 #### [facility] CLIA [id number] [address] [place] [address] [facility] ALT With P-5'-P [Catalytic activity/Vol] 36 U/L Normal 10-54 [facility] Comment on above: Order Comment: Speci men Type: BLOOD SPECIMEN Ordering Facility: External Submitter Address: , , Performed By: #### 2 4331-1, 65318-7 #### [facility] CLIA [id number] [address] [place], [place] [address] [place] [address] [place] Anion gap [Moles/Vol] 16 mmol/L High 8-15 [facility] Comment on above: Order Comment: Speci men Type: BLOOD SPECIMEN Ordering Facility: External Submitter Address: , , Performed By: #### 2 433-1, #### [facility] CLIA [id number] [address] [facility] [place] [address] [place] AST With P-5'-P [Catalytic activity/Vol] 42 U/L High 14-40 [facility] Comment on above: Order Comment: Speci men Type: BLOOD SPECIMEN Ordering Facility: External Submitter Address: , , Performed By: #### 2 489-1, #### [facility] CLIA [id number] [address] [facility] [address] [place] Bilirubin [Mass/Vol] 1.4 mg/dL High 0.2-1.3 [facility] Comment on above: Order Comment: Speci men Type: BLOOD SPECIMEN Ordering Facility: External Submitter Address: , , Performed By: #### 2 433-1, #### [facility] CLIA [id number] [address] [place] [address] [place] Calcium [Mass/Vol] 9.3 mg/dL Normal 8.5-10.2 [facility] Comment on above: Order Comment: Speci men Type: BLOOD SPECIMEN Ordering Facility: External Submitter Address: , , Performed By: #### 2 4331-1, #### [facility] CLIA [id number] [address] [place] [address] [place] Chloride [Moles/Vol] 105 mmol/L Normal 98-107 [facility] Comment on above: Order Comment: Speci men Type: BLOOD SPECIMEN Ordering Facility: External Submitter Address: , , Performed By: #### 2 4331-1, #### [facility] CLIA [id number] [address] [facility] [address] [place] CO2 [Moles/Vol] 21 mmol/L Low 22-30 [facility] Comment on above: Order Comment: Megan harris Type: BLOOD SPECIMEN Ordering Facility: External Submitter Address: , , Performed By: #### 2 4331-1, #### [facility] CLIA [id number] [address] [place] [address] [place] Creatinine [Mass/Vol] 1.34 mg/dL High 0.73-1.22 [facility] Comment on above: Order Comment: Megan harris Type: BLOOD SPECIMEN Ordering Facility: External Submitter Address: , , Performed By: #### 2 4331-1, #### [facility] CLIA [id number] [address] [place] [address] [facility] Creatinine and Glomerular filtration rate.predicted panel (S/P/Bld) 53 mL/min/1.73m??? Low >=60 [facility] Comment on above: Order Comment: Megan harris Type: BLOOD SPECIMEN Ordering Facility: External Submitter Address: , , Result Comment: Akila mated Glomerular Filtration Rate (eGFR) is calculated using the 2020 CKD-EPI creatinine equation. This equation utilizes serum creatinine, sex, and age as parameters. The creatinine assay has traceable calibration to isotope dilution-mass spectrometry. Refer to KDIGO guidelines for clinical interpretation. In patients with unstable renal function, e.g. those with acute kidney injury, the eGFR may not accurately reflect actual GFR. Performed By: #### 2 4331-1, #### [facility] CLIA [id number] [address] [place] [address] [place] Glucose [Mass/Vol] 179 mg/dL High 74-99 [facility] Comment on above: Order Comment: Megan harris Type: BLOOD SPECIMEN Ordering Facility: External Submitter Address: , , Result Comment: The [place] Diabetes Association (ADA) provides guidance for cutoff values for fasting glucose and random glucose. The ADA defines fasting as no caloric intake for at least 8 hours. Fasting plasma glucose results between 100 to 125 mg/dL indicate increased risk for diabetes (prediabetes). Fasting plasma glucose results greater than or equal to 126 mg/dL meet the criteria for diagnosis of diabetes. In the absence of unequivocal hyperglycemia, results should be confirmed by repeat testing. In a patient with classic symptoms of hyperglycemia or hyperglycemic crisis, random plasma glucose results greater than or equal to 200 mg/dL meet the criteria for diagnosis of diabetes. Reference: Standards of Medical Care in Diabetes 2016, [place] Diabetes Association. Diabetes Care. 2016.39(Suppl 1). Performed By: #### 2 4330-, #### [facility] CLIA [id number] [address] [place] [address] [place] Potassium [Moles/Vol] 4.5 mmol/L Normal 3.7-5.1 [facility] Comment on above: Order Comment: Megan harris Type: BLOOD SPECIMEN Ordering Facility: External Submitter Address: , , Performed By: #### 2 4330-08, #### [facility] CLIA [id number] [address] [place] [address] [place] Protein [Mass/Vol] 7.3 g/dL Normal 6.3-8.0 [facility] Comment on above: Order Comment: Megan harris Type: BLOOD SPECIMEN Ordering Facility: External Submitter Address: , , Performed By: #### 2 4330-08, #### [facility] CLIA [id number] [address] [place] [address] [place] Sodium [Moles/Vol] 142 mmol/L Normal 136-144 [facility] Comment on above: Order Comment: Megan harris Type: BLOOD SPECIMEN Ordering Facility: External Submitter Address: , , Performed By: #### 2 4330-08, #### [facility] CLIA [id number] [address] [place] [address] [place] Urea nitrogen [Mass/Vol] 14 mg/dL Normal 9-24 [facility] Comment on above: Order Comment: Megan harris Type: BLOOD SPECIMEN Ordering Facility: External Submitter Address: , , Performed By: #### 2 4330-08, #### [facility] CLIA [id number] [address] [place], [place] [address] [place] [address] [place] Ferritin SerPl-mCncon 2023 Ferritin [Mass/Vol] 109.0 ng/mL Normal 30.3-565.7 [facility] Comment on above: Order Comment: Megan harris Type: BLOOD SPECIMEN Ordering Facility: External Submitter Address: , , Performed By: #### 5 0190-8, PSAS1, 2276-4 #### [facility] CLIA [id number] [address] HbA1c (Bld)on 03-20-2024 Average glucose Estimated from glycated hemoglobin (Bld) [Mass/Vol] 157 mg/dL Normal [facility] Comment on above: Order Comment: Megan harris Type: BLOOD SPECIMEN Ordering Facility: External Submitter Address: , , Result Comment: eAG: (Estimated average glucose) is a calculated value from HgbA1c and is patient service representative of the average blood glucose level in the last 2-3 month period. Performed By: #### 5 7021-8 #### [facility] CLIA [id number] [address] OF [facility] HbA1c (Bld) [Mass fraction] 7.1 % High 4.3-5.6 [facility] Comment on above: Order Comment: Megan harris Type: BLOOD SPECIMEN Ordering Facility: External Submitter Address: , , Result Comment: [place] Diabetes Association guidelines indicate that patients with HgbA1c in the range 5.7-6.4% are at increased risk for development of diabetes, and intervention by lifestyle modification may be beneficial. HgbA1c greater or equal to 6.5% is considered diagnostic of diabetes. Performed By: #### 5 7021-8 #### [facility] CLIA [id number] [address] [place] [id number] [facility] Iron and Iron binding capaci ty panelon 03-20-2024 Iron [Mass/Vol] 121 ug/dL Normal 41-186 [facility] Comment on above: Order Comment: Megan kimberly Type: BLOOD SPECIMEN Ordering Facility: External Submitter Address: , , Performed By: #### 5 0190-8, PSAS1, 2275-11 #### [facility] CLIA [id number] [address] Iron binding capacity [Mass/Vol] 396 ug/dL High 232-386 [facility] Comment on above: Order Comment: Speci men Type: BLOOD SPECIMEN Ordering Facility: External Submitter Address: , , Performed By: #### 5 0190-8, PSAS1, 2275-11 #### [facility] CLIA [id number] [address] Iron saturation [Mass fraction] 30.6 % Normal 15.0-57.0 [facility] Comment on above: Order Comment: Speci men Type: BLOOD SPECIMEN Ordering Facility: External Submitter Address: , , Performed By: #### 5 0190-8, PSAS1, 2275-11 #### [facility] CLIA [id number] [address] Lipid 1996 panelon 4 Cholesterol [Mass/Vol] 92 mg/dL Normal <200 [facility] Comment on above: Order Comment: Speci men Type: BLOOD SPECIMEN Ordering Facility: External Submitter Address: , , Result Comment: <200 mg/dL, Desirable 200-239 mg/dL, Borderline high >239 mg/dL, High Performed By: #### 2 4331-1, 36829-9 #### [facility] CLIA [id number] [address] [place] [address] [place] Cholesterol in HDL [Mass/Vol] 29 mg/dL Low >39 [facility] Comment on above: Order Comment: Speci men Type: BLOOD SPECIMEN Ordering Facility: External Submitter Address: , , Result Comment: 40-5 9 mg/dL, Acceptable >59 mg/dL, High: Negative risk factor for coronary heart disease <40 mg/dL, Low: Positive risk factor for coronary heart disease Performed By: #### 2 4331-1, 09460-4 #### [facility] CLIA [id number] [address] [place] [address] Cholesterol in LDL [Mass/Vol] 31 mg/dL Normal <100 [facility] Comment on above: Order Comment: Megan kimberly Type: BLOOD SPECIMEN Ordering Facility: External Submitter Address: , , Result Comment: <100 mg/dL, Optimal 100-129 mg/dL, Near optimal/above optimal 130-159 mg/dL, Borderline high 160-189 mg/dL, High >189 mg/dL, Very high Secondary prevention optimal LDL Cholesterol levels are recommended to be < 70 mg/dL Performed By: #### 2 4331-1, #### [facility] CLIA [id number] [address] [place] [address] [facility] Cholesterol in LDL/Cholesterol in HDL [Mass ratio] 1.07 {ratio} Normal <2.54 [facility] Comment on above: Order Comment: Megan kimberly Type: BLOOD SPECIMEN Ordering Facility: External Submitter Address: , , Result Comment: Refe rence: 1. National Cholesterol Education Program ATP III Guideline At-A-Glance Quick Desk Reference: National Heart, Lung, and Blood [place]. National Institutes of Health. 2001: NIH Publication No. 01-3305. 2. An International Atherosclerosis Society position paper: global recommendations for the management of dyslipidemia: executive summary, Atherosclerosis. 2014: 232(2):410-413. Performed By: #### 2 433-, #### [employer] [facility] CLIA [id number] [address] [place] [address] [facility] Cholesterol in VLDL [Mass/Vol] 32 mg/dL High <30 [facility] Comment on above: Order Comment: Douglasyareli harris Type: BLOOD SPECIMEN Ordering Facility: External Submitter Address: , , Performed By: #### 2 4331-1, #### [facility] [employer] [facility] CLIA [id number] [address] [place] [address] [facility] Cholesterol non HDL [Mass/Vol] 63 mg/dL Normal <130 [facility] Comment on above: Order Comment: Megan kimberly Type: BLOOD SPECIMEN Ordering Facility: External Submitter Address: , , Result Comment: <130 mg/dL, Optimal 130-159 mg/dL, Near optimal/above optimal 160-189 mg/dL, Borderline high 190-219 mg/dL, High >219 mg/dL, Very high Secondary prevention optimal non HDL Cholesterol levels are recommended to be <100 mg/dL Performed By: #### 2 4331-1, #### [facility] [employer] [facility] CLIA [id number] [address] [place] [address] [facility] Cholesterol.total/Ch olesterol in HDL [Mass ratio] 3.17 {ratio} Normal <5.10 [facility] Comment on above: Order Comment: Speci men Type: BLOOD SPECIMEN Ordering Facility: External Submitter Address: , , Performed By: #### 2 4331-1, #### [employer] [facility] CLIA [id number] [address] [place] [address] [facility] FASTING TIME 12 hrs Normal [facility] Comment on above: Order Comment: Speci men Type: BLOOD SPECIMEN Ordering Facility: External Submitter Address: , , Performed By: #### 2 4331-1, #### [employer] [facility] CLIA [id number] [address] [place] [address] [facility] Triglyceride [Mass/Vol] 158 mg/dL High <150 [facility] Comment on above: Order Comment: Speci men Type: BLOOD SPECIMEN Ordering Facility: External Submitter Address: , , Result Comment: <150 mg/dL, Normal 150-199 mg/dL, Borderline high 200-499 mg/dL, High >499 mg/dL, Very high Performed By: #### 2 4331-1, #### [facility] [employer] [facility] CLIA [id number] [address] [place] [address] [facility] PSA/PROSTATE SPECIFIC ANTIGE N SCREENINGon 03-20-2024 Prostate specific Ag [Mass/Vol] 0.63 ng/mL Normal <2.60 [facility] Comment on above: Order Comment: Speci men Type: BLOOD SPECIMEN Ordering Facility: External Submitter Address: , , Result Comment: Tota l PSA test methodology used is the Electrochemiluminescence Immunoassay by Karie Jounce. Total PSA values by differing methodologies cannot be interchanged. Performed By: #### 5 0190-8, PSAS1, 2276-4 #### [facility] CLIA [id number] [address] [place] [address] [place] HEMOGLOBIN A1C (POC)on 02-18 HbA1c (Bld) [Mass fraction] 6.8 % Abnormal 4.3 - 5.6 % [facility] Comment on above: Location:[facility], [address] [place] [address], [address] Point of care (POC) Hemoglobin A1c (HGBA1C) testing is intended to assess glucose control and provide a management tool for patients known to have diabetes and their healthcare providers. Target HGBA1C levels may depend on specific clinical circumstances. POC HGBA1C is not intended for use as a diagnostic or screening test; laboratory-based testing should be used for diagnostic purposes. The following information is supplemental and may not be applicable to specific diabetes management situations: The POC device theatrical rigger provides a normal range of 4.2% to 6.5% for the HGBA1C POC test. However, the [place] [employer] guidelines indicate that patients with HGBA1C in the range of 5.7% to 6.4% are at increased risk for development of diabetes and that intervention by lifestyle modification may be beneficial. A HGBA1C level greater than or equal to 6.5% is considered diagnostic of diabetes, pending confirmatory testing. Use of HGBA1C testing to evaluate glucose control may not be appropriate for patients with hemoglobin variants or other conditions (e.g. anemia) that alter red blood cell lifespan. Interpretation and review of laboratory results Abnormal [facility] Dilan 10-26-2023 PATRICIA Telephone (KYRIE) -- DEVI THOMPSON ([id number]) 1940 M Date Time Provider Department 10/26/23 EMANUEL COLON During your visit today, we recorded the following information about you: Rajesh Ponce 10/26/2023 4:07 PM Signed Patient went to [facility] at the pharmacy and it will cost $150. Patient would like an alternative RX. Please advise and call patient [phone]. Thank you Mariana Reyes RN 10/30/2023 11:02 AM Signed Please advise. Emanuel Colon MD 10/30/2023 12:42 PM Signed There was a message about formulary switch from Lantus to Tresiba on 10/23/2023. I am not sure which one is covered by his insurance Thank you Mariana Harmon RN 10/30/2023 2:29 PM Signed Called and spoke to the pharmacy, patient got generic medication for $62.95. Will send a refill request for generic. Closed Allergies As of Date: 10/26/2023 Noted Allergy Reaction ACETAMINOPHEN 03/23/2016 14 - Other: See Comments Comments: Hallucinations-doesn't like it either Date Reviewed: 08/15/2023 Reviewed by: Katherin Steen MA - Fully Assessed Prescriptions as of 11/21/2023 - insulin degludec (TRESIBA FLEXTOUCH U-100) 100 unit/mL (3 mL) injection pen Inject subcutaneous 15 units daily in the morning. - metFORMIN (GLUCOPHAGE) 1,000 mg tablet Take 1 tablet by mouth two times a day with meals. - glipiZIDE (GLUCOTROL XL) 5 mg 24 hr tablet Take 1 tablet by mouth once daily. - insulin needles, DISPOSABLE, (PEN NEEDLE) 31 gauge x 5/16" 1 Each once daily. - valACYclovir (VALTREX) 1 gram Take 1,000 mg by mouth once daily. 1 tablet TID for 21 doses - metoprolol succinate ER (TOPROL XL) 25 mg 24 hr tablet Take 1 tablet by mouth once daily. - simvastatin (ZOCOR) 40 mg tablet Take 1 tablet by mouth daily at bedtime. - naproxen sodium 220 mg cap Take 1 capsule by mouth twice daily. PRN - aspirin, enteric coated (ADULT LOW DOSE ASPIRIN) 81 mg EC tablet Take 1 tablet by mouth once daily. Problem List As Of Date 10/26/2023 Noted Resolved Spinal stenosis, lumbar region, without neuroge*03/29/2016 Essential hypertension [I10] Radiculopathy, lumbar region [M54.16] Chronic bilateral low back pain without sciatic*05/25/2016 Morbid obesity with body mass index (BMI) of 40*03/27/2018 Sigmoid diverticulitis [K57.32] 08/11/2018 Chest pain [R07.9] 08/11/2018 CKD (chronic kidney disease) stage 3, GFR 30-59*08/11/2018 Hyperglycemia [R73.9] 08/11/2018 Lung nodule - Right upper lobe [R91.1] 08/11/2018 Swelling of both lower extremities [M79.89] 08/11/2018 Diverticulitis [K57.92] Obesity, Class III, BMI >= 40 [E66.01] 05/02/2019 05/20/2020 Abnormality of gait [R26.9] 08/08/2022 Lumbosacral spondylosis without myelopathy [M47*08/08/2022 Type 2 diabetes mellitus, without long-term cur*09/11/2022 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] 09/11/2022 Facial droop [R29.810] 09/11/2022 CVA (cerebral vascular accident) (HCC) [I63.9] 09/11/2022 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 Please contact Elida at [phone] to inform them when RX is sent to preferred pharmacy. Katherin Blum MA 10/24/2023 2:10 PM Signed The patient is able to call and have this transferred themselves if it is retail to retail. Isabel Bai 10/24/2023 3:40 PM Signed Called and relayed update to Elida. She confirmed understanding. Isabel Bai Allergies As of Date: 10/24/2023 Noted Allergy Reaction ACETAMINOPHEN 03/23/2016 14 - Other: See Comments Comments: Hallucinations-doesn't like it either Date Reviewed: 08/15/2023 Reviewed by: Katherin Steen MA - Fully Assessed Reason for Visit: Medication Problem [65] Cmt: TRESIBA FLEXTOUCH U-100 100 unit/mL (3 mL) injection pen Prescriptions as of 10/24/2023 - TRESIBA FLEXTOUCH U-100 100 unit/mL (3 mL) injection pen Inject subcutaneous 15 units daily in the morning. - metFORMIN (GLUCOPHAGE) 1,000 mg tablet Take 1 tablet by mouth two times a day with meals. - glipiZIDE (GLUCOTROL XL) 5 mg 24 hr tablet Take 1 tablet by mouth once daily. - insulin needles, DISPOSABLE, (PEN NEEDLE) 31 gauge x 5/16" 1 Each once daily. - valACYclovir (VALTREX) 1 gram Take 1,000 mg by mouth once daily. 1 tablet TID for 21 doses - metoprolol succinate ER (TOPROL XL) 25 mg 24 hr tablet Take 1 tablet by mouth once daily. - simvastatin (ZOCOR) 40 mg tablet Take 1 tablet by mouth daily at bedtime. - naproxen sodium 220 mg cap Take 1 capsule by mouth twice daily. PRN - aspirin, enteric coated (ADULT LOW DOSE ASPIRIN) 81 mg EC tablet Take 1 tablet by mouth once daily. Problem List As Of Date 10/24/2023 Noted Resolved Spinal stenosis, lumbar region, without neuroge*03/29/2016 Essential hypertension [I10] Radiculopathy, lumbar region [M54.16] Chronic bilateral low back pain without sciatic*05/25/2016 Morbid obesity with body mass index (BMI) of 40*03/27/2018 Sigmoid diverticulitis [K57.32] 08/11/2018 Chest pain [R07.9] 08/11/2018 CKD (chronic kidney disease) stage 3, GFR 30-59*08/11/2018 Hyperglycemia [R73.9] 08/11/2018 Lung nodule - Right upper lobe [R91.1] 08/11/2018 Swelling of both lower extremities [M79.89] 08/11/2018 Diverticulitis [K57.92] Obesity, Class III, BMI >= 40 [E66.01] 05/02/2019 05/20/2020 Abnormality of gait [R26.9] 08/08/2022 Lumbosacral spondylosis without myelopathy [M47*08/08/2022 Type 2 diabetes mellitus, without long-term cur*09/11/2022 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 - Chemistry and C hemistry - challengeOrdered By: Justino Rios on 09-11-2023 GFR/1.73 sq M.predicted among non-blacks MDRD (S/P/Bld) [Vol rate/Area] 57.0000 mL/min/{1.73_m2} >60 [facility] CNOVon 08-15-2023 CNOV Office Visit (ENDMED ) -- DEVI THOMPSON ([id number]) 1940 M Date Time Provider Department 08/15/23 4:40 PM EMANUEL COLON ENDMED During your visit today, we recorded the following information about you: Pulse Blood pressure Weight Height 85/minute 138/75 144.8 kg 1.763 m Emanuel Colon MD 08/15/2023 4:58 PM Signed ENDOCRINOLOGY CLINIC NOTE Mr. Thompson is a 83 year old male with T2DM, HTN, CKD stage 2presented for post hospital follow up of diabetes HPI He was not sure when he was diagnosed with diabetes. He was admitted to the hospital in 08/2022 with facial droop. His glucose was 427. He was on metformin, and was started on basal insulin during and after the hospitalization. He was diagnosed Farxiga was suggested but cost was an issue, same with GLP-1 agonist. We added glipizide A1c: 6.6% today 07/10/22 09:32 09/11/22 04:54 04/28/23 09:45 Hemoglobin A1C 10.9 (H) 10.0 (H) 7.0 (H) Current regimen: Metformin 1000 mg twice a day Glipizide XL 5 mg once a day Lantus 15 units daily in the morning Home glucose monitoring: He checks once a day in the morning and the range is in the mid 100s Hypoglycemia: None Diet: He eats 3 meals Complications: Retinopathy: last year with no reported retinopathy Nephropathy: GFR 48 in 04/2023 Neuropathy: no suggestive of neuropathy CVS: lipid profile 06/2023: LDL 42, TG 106 on simvastatin 40 mg BP: 138/75 PAST MEDICAL HISTORY Diagnosis Date Abnormal stress test Angina pectoris (HCC) Kiser's palsy Chronic kidney disease (CKD) Stage 2 Diverticulitis Essential hypertension Impaired fasting glucose Influenza vaccination declined by patient 05/24/2015 Lumbar radiculopathy Urinary outflow obstruction PAST SURGICAL HISTORY Procedure Laterality Date CHOLECYSTECTOMY CHOLECYSTECTOMY HX LOW BACK DISK SURGERY NUCLEAR STRESS LEXISCAN (CARD) 04/03/2016 PAST SURGICAL HISTORY OF 1986 back surgery TONSILLECTOMY HX FAMILY HISTORY Problem Relation Age of Onset Hypertension Mother Diabetes Mother other (lung cancer) Father Hearing Loss Paternal Grandfather Heart Brother Heart Sister Social History Tobacco Use Smoking status: Former Packs/day: 2.00 Years: 10.00 Additional pack years: 0.00 Total pack years: 20.00 Types: Cigarettes Start date: 08/13/1960 Quit date: 12/13/1970 Years since quittin.7 Smokeless tobacco: Never Substance Use Topics Alcohol use: Yes Comment: yearly use Drug use: No (Not in a hospital admission) Allergies As of Date: 08/15/2023 Allergen Noted Reaction ACETAMINOPHEN 03/23/2016 Other: See Comments Fully Assessed 09/19/2022 Current Outpatient Medications Medication Sig Dispense Refill glipiZIDE (GLUCOTROL XL) 5 mg 24 hr tablet take 1 tablet by mouth once daily 30 tablet 3 valACYclovir (VALTREX) 1 gram Take 1,000 mg by mouth once daily. 1 tablet TID for 21 doses insulin glargine (LANTUS) 100 unit/mL injection Inject 16 Units subcutaneously every 24 hours. 10 mL 5 metFORMIN (GLUCOPHAGE) 1,000 mg tablet Take 1 tablet by mouth twice daily with meals. 180 tablet 0 metoprolol succinate ER (TOPROL XL) 25 mg 24 hr tablet Take 1 tablet by mouth once daily. 90 tablet 1 simvastatin (ZOCOR) 40 mg tablet Take 1 tablet by mouth daily at bedtime. 90 tablet 1 naproxen sodium 220 mg cap Take 1 capsule by mouth twice daily. PRN aspirin, enteric coated (ADULT LOW DOSE ASPIRIN) 81 mg EC tablet Take 1 tablet by mouth once daily. 30 tablet 4 No current facility-administered medications for this visit. COMPLETE REVIEW OF SYSTEMS: 10 point review of systems was negative other than what is mentioned in the HANDP PHYSICAL EXAM: 08/15/23 1632 BP: 138/75 Pulse: 85 SpO2: 96% Weight: (!) 144.8 kg (319 lb 3.6 oz) Height: 176.3 cm (5' 9.41") General: NAD, alert and cooperative, no facial plethora Previous exam: HEENT: EOMI, no proptosis/stare. Cardiovascular: RRR, +S1 and S2, no MRG appreciated Lungs: Clear to auscultation bilaterally Extremities: No LE oedema Neuro: Alert and oriented Psych: Normal affect Labs: As mentioned above Assessment and Recommendations: Mr. Thompson is a pleasant 83-year-old man presented with his for follow-up of T2DM with CKD stage III. Our goal is to achieve an A1c around 7.5% to lower the risks of diabetes related complications, while not significantly increasing the risk of hypoglycemia. Has been significant improvement in the glycemic control. We will continue with the current doses of metformin, glipizide and Lantus. However, we switched from Lantus vials to Lantus pens and he received teaching by my colleague nurse today. The use of SGLT2 inhibitors and GLP-1 agonists is limited by cost. Instructions on how to adjust the Lantus doses were discussed and provided in the after visit summary Follow-up in 6 months Some of the above has (more content not included)... Normal [facility] CBC W Auto Differential pane l (Bld)on 04-28-2023 Basophils (Bld) [#/Vol] 0.04 10*3/uL Normal <0.11 [facility] Comment on above: Order Comment: Megan harrsi Type: BLOOD SPECIMEN Ordering Facility: External Submitter Address: , , Performed By: #### 5 7021-8 #### [facility] CLIA [id number] [address] Basophils/100 WBC (Bld) 0.6 % Normal [facility] Comment on above: Order Comment: Megan harris Type: BLOOD SPECIMEN Ordering Facility: External Submitter Address: , , Performed By: #### 5 7021-8 #### [facility] CLIA [id number] [address] [place] [address] [facility] Differential cell count method Nom (Bld) Auto Normal [facility] Comment on above: Order Comment: Megan harris Type: BLOOD SPECIMEN Ordering Facility: External Submitter Address: , , Performed By: #### 5 7021-8 #### [facility] CLIA [id number] [address] [place] [address] [facility] Eosinophils (Bld) [#/Vol] 0.20 10*3/uL Normal <0.46 [facility] Comment on above: Order Comment: Megan harris Type: BLOOD SPECIMEN Ordering Facility: External Submitter Address: , , Performed By: #### 5 7021-8 #### [facility] CLIA [id number] [address] [place] [address] [place] Eosinophils/100 WBC (Bld) 2.9 % Normal [facility] Comment on above: Order Comment: Megan harris Type: BLOOD SPECIMEN Ordering Facility: External Submitter Address: , , Performed By: #### 5 7021-8 #### [facility] CLIA [id number] [address] [place] Erythrocyte distribution width (RBC) [Ratio] 13.2 % Normal 11.5-15.0 [facility] Comment on above: Order Comment: Speci men Type: BLOOD SPECIMEN Ordering Facility: External Submitter Address: , , Performed By: #### 5 7021-8 #### [facility] CLIA [id number] [address] [place] [address] Hematocrit (Bld) [Volume fraction] 43.7 % Normal 39.0-51.0 [facility] Comment on above: Order Comment: Megan harris Type: BLOOD SPECIMEN Ordering Facility: External Submitter Address: , , Performed By: #### 5 7021-8 #### [facility] CLIA [id number] [address] [place] [address] [place] Hemoglobin (Bld) [Mass/Vol] 14.0 g/dL Normal 13.0-17.0 [facility] Comment on above: Order Comment: Megan harris Type: BLOOD SPECIMEN Ordering Facility: External Submitter Address: , , Performed By: #### 5 7021-8 #### [facility] CLIA [id number] [address] [place] [address] Immature granulocytes (Bld) [#/Vol] 10*3/uL Normal <0.10 [facility] Comment on above: Order Comment: Megan harris Type: BLOOD SPECIMEN Ordering Facility: External Submitter Address: , , Performed By: #### 5 7021-8 #### [facility] CLIA [id number] [address] [place] Immature granulocytes/100 WBC (Bld) 0.3 % Normal [facility] Comment on above: Order Comment: Speci men Type: BLOOD SPECIMEN Ordering Facility: External Submitter Address: , , Performed By: #### 5 7021-8 #### [facility] CLIA [id number] [address] [place], [place] [address] [place] [address] Lymphocytes (Bld) [#/Vol] 1.66 10*3/uL Normal 1.00-4.00 [facility] Comment on above: Order Comment: Speci men Type: BLOOD SPECIMEN Ordering Facility: External Submitter Address: , , Performed By: #### 5 7021-8 #### [facility] CLIA [id number] [address] Lymphocytes/100 WBC (Bld) 23.9 % Normal [facility] Comment on above: Order Comment: Speci men Type: BLOOD SPECIMEN Ordering Facility: External Submitter Address: , , Performed By: #### 5 7021-8 #### [facility] CLIA [id number] [address] [place], [place] [id number] [place] [address] MCH (RBC) [Entitic mass] 32.3 pg Normal 26.0-34.0 [facility] Comment on above: Order Comment: Speci men Type: BLOOD SPECIMEN Ordering Facility: External Submitter Address: , , Performed By: #### 5 7021-8 #### [facility] CLIA [id number] [address] MCHC (RBC) [Mass/Vol] 32.0 g/dL Normal 30.5-36.0 [facility] Comment on above: Order Comment: Speci men Type: BLOOD SPECIMEN Ordering Facility: External Submitter Address: , , Performed By: #### 5 7021-8 #### [facility] CLIA [id number] [address] MCV (RBC) [Entitic vol] 100.9 fL High 80.0-100.0 [facility] Comment on above: Order Comment: Speci men Type: BLOOD SPECIMEN Ordering Facility: External Submitter Address: , , Performed By: #### 5 7021-8 #### [facility] CLIA [id number] [address] [place] [address] [place] Monocytes (Bld) [#/Vol] 0.50 10*3/uL Normal <0.87 [facility] Comment on above: Order Comment: Speci men Type: BLOOD SPECIMEN Ordering Facility: External Submitter Address: , , Performed By: #### 5 7021-8 #### [facility] CLIA [id number] [address] [place] [address] [place] Monocytes/100 WBC (Bld) 7.2 % Normal [facility] Comment on above: Order Comment: Speci men Type: BLOOD SPECIMEN Ordering Facility: External Submitter Address: , , Performed By: #### 5 7021-8 #### [facility] CLIA [id number] [address] [place] [address] [place] Neutrophils (Bld) [#/Vol] 4.52 10*3/uL Normal 1.45-7.50 [facility] Comment on above: Order Comment: Speci men Type: BLOOD SPECIMEN Ordering Facility: External Submitter Address: , , Performed By: #### 5 7021-8 #### [facility] CLIA [id number] [address] [place] [address] [facility] [place] Neutrophils/100 WBC (Bld) 65.1 % Normal [facility] Comment on above: Order Comment: Speci men Type: BLOOD SPECIMEN Ordering Facility: External Submitter Address: , , Performed By: #### 5 7021-8 #### [facility] CLIA [id number] [address] [place] [address] [place] Nucleated RBC (Bld) [#/Vol] Normal [facility] Comment on above: Order Comment: Speci men Type: BLOOD SPECIMEN Ordering Facility: External Submitter Address: , , Performed By: #### 5 7021-8 #### [facility] CLIA [id number] [address] [place] [address] [place] Nucleated RBC/100 WBC (Bld) [Ratio] Normal [facility] Comment on above: Order Comment: Speci men Type: BLOOD SPECIMEN Ordering Facility: External Submitter Address: , , Performed By: #### 5 7021-8 #### [facility] CLIA [id number] [address] [place] [address] [place] Platelet mean volume (Bld) [Entitic vol] 10.1 fL Normal 9.0-12.7 [facility] Comment on above: Order Comment: Speci men Type: BLOOD SPECIMEN Ordering Facility: External Submitter Address: , , Performed By: #### 5 7021-8 #### [facility] CLIA [id number] [address] [place] [address] [place] Platelets (Bld) [#/Vol] 258 10*3/uL Normal 150-400 [facility] Comment on above: Order Comment: Speci men Type: BLOOD SPECIMEN Ordering Facility: External Submitter Address: , , Performed By: #### 5 7021-8 #### [facility] CLIA [id number] [address] [place] [address] [place] RBC (Bld) [#/Vol] 4.33 10*6/uL Normal 4.20-6.00 [facility] Comment on above: Order Comment: Speci men Type: BLOOD SPECIMEN Ordering Facility: External Submitter Address: , , Performed By: #### 5 7021-8 #### [facility] CLIA [id number] [address] [place] [address] [place] WBC (Bld) [#/Vol] 6.94 10*3/uL Normal 3.70-11.00 [facility] Comment on above: Order Comment: Speci men Type: BLOOD SPECIMEN Ordering Facility: External Submitter Address: , , Performed By: #### 5 7021-8 #### [facility] CLIA [id number] [address] [place] [address] [facility] [place] Comprehensive metabolic 2000 panelon 04-28-2023 Albumin [Mass/Vol] 4.3 g/dL Normal 3.9-4.9 [facility] Comment on above: Order Comment: Speci men Type: BLOOD SPECIMEN Ordering Facility: External Submitter Address: , , Performed By: #### 2 4331-1, #### [facility] CLIA [id number] [address] [facility] [place] [address] [facility] ALP [Catalytic activity/Vol] 74 U/L Normal 38-113 [facility] [facility] Comment on above: Order Comment: Speci men Type: BLOOD SPECIMEN Ordering Facility: External Submitter Address: , , Performed By: #### 2 4331-1, #### [facility] CLIA [id number] [address] [place] [address] [facility] ALT With P-5'-P [Catalytic activity/Vol] 23 U/L Normal 10-54 [facility] Comment on above: Order Comment: Speci men Type: BLOOD SPECIMEN Ordering Facility: External Submitter Address: , , Performed By: #### 2 4331-1, #### [facility] CLIA [id number] [address] [place] [address] [facility] Anion gap [Moles/Vol] 11 mmol/L Normal 9-18 [facility] Comment on above: Order Comment: Speci men Type: BLOOD SPECIMEN Ordering Facility: External Submitter Address: , , Performed By: #### 2 4331-1, #### [facility] CLIA [id number] [address] [facility] [place] [address] [facility] AST With P-5'-P [Catalytic activity/Vol] 26 U/L Normal 14-40 [facility] Comment on above: Order Comment: Speci men Type: BLOOD SPECIMEN Ordering Facility: External Submitter Address: , , Performed By: #### 2 4331-1, #### [facility] CLIA [id number] [address] [facility] [address] [place] Bilirubin [Mass/Vol] 1.3 mg/dL Normal 0.2-1.3 [facility] Comment on above: Order Comment: Speci men Type: BLOOD SPECIMEN Ordering Facility: External Submitter Address: , , Performed By: #### 2 4331-1, #### [facility] CLIA [id number] [address] [place] [address] [place] Calcium [Mass/Vol] 9.3 mg/dL Normal 8.5-10.2 [facility] Comment on above: Order Comment: Speci men Type: BLOOD SPECIMEN Ordering Facility: External Submitter Address: , , Performed By: #### 2 4331-1, #### [facility] CLIA [id number] [address] [place] [address] [place] Chloride [Moles/Vol] 104 mmol/L Normal 97-105 [facility] Comment on above: Order Comment: Speci men Type: BLOOD SPECIMEN Ordering Facility: External Submitter Address: , , Performed By: #### 2 43308-13, #### [facility] CLIA [id number] [address] [place] [address] [place] CO2 [Moles/Vol] 24 mmol/L Normal 22-30 [facility] Comment on above: Order Comment: Speci men Type: BLOOD SPECIMEN Ordering Facility: External Submitter Address: , , Performed By: #### 2 4331-, #### [facility] CLIA [id number] [address] [place] [address] [place] Creatinine [Mass/Vol] 1.47 mg/dL High 0.73-1.22 [facility] Comment on above: Order Comment: Speci men Type: BLOOD SPECIMEN Ordering Facility: External Submitter Address: , , Performed By: #### 2 4331-, #### [facility] CLIA [id number] [address] [place] [address] [place] Creatinine and Glomerular filtration rate.predicted panel (S/P/Bld) 48 mL/min/1.73m??? Low >=60 [facility] Comment on above: Order Comment: Megan harris Type: BLOOD SPECIMEN Ordering Facility: External Submitter Address: , , Result Comment: Akila mated Glomerular Filtration Rate (eGFR) is calculated using the 2020 CKD-EPI creatinine equation. This equation utilizes serum creatinine, sex, and age as parameters. The creatinine assay has traceable calibration to isotope dilution-mass spectrometry. Refer to KDIGO guidelines for clinical interpretation. In patients with unstable renal function, e.g. those with acute kidney injury, the eGFR may not accurately reflect actual GFR. Performed By: #### 2 4331-1, 74779-2 #### [facility] CLIA [id number] [address] [place] [address] [place] Glucose [Mass/Vol] 170 mg/dL High 74-99 [facility] Comment on above: Order Comment: Megan harris Type: BLOOD SPECIMEN Ordering Facility: External Submitter Address: , , Result Comment: The [place] Diabetes Association (ADA) provides guidance for cutoff values for fasting glucose and random glucose. The ADA defines fasting as no caloric intake for at least 8 hours. Fasting plasma glucose results between 100 to 125 mg/dL indicate increased risk for diabetes (prediabetes). Fasting plasma glucose results greater than or equal to 126 mg/dL meet the criteria for diagnosis of diabetes. In the absence of unequivocal hyperglycemia, results should be confirmed by repeat testing. In a patient with classic symptoms of hyperglycemia or hyperglycemic crisis, random plasma glucose results greater than or equal to 200 mg/dL meet the criteria for diagnosis of diabetes. Reference: Standards of Medical Care in Diabetes 2016, [place] Diabetes Association. Diabetes Care. 2016.39(Suppl 1). Performed By: #### 2 4331-1, 75482-2 #### [facility] CLIA [id number] [address] [place] [address] [place] Potassium [Moles/Vol] 4.6 mmol/L Normal 3.7-5.1 [facility] Comment on above: Order Comment: Megan harris Type: BLOOD SPECIMEN Ordering Facility: External Submitter Address: , , Performed By: #### 2 4331-1, 27295-2 #### [facility] CLIA [id number] [address] [place] [address] [place] Protein [Mass/Vol] 7.3 g/dL Normal 6.3-8.0 [facility] Comment on above: Order Comment: Megan harris Type: BLOOD SPECIMEN Ordering Facility: External Submitter Address: , , Performed By: #### 2 4331-1, #### [facility] CLIA [id number] [address] [place] [address] [place] Sodium [Moles/Vol] 139 mmol/L Normal 136-144 [facility] Comment on above: Order Comment: Megan harris Type: BLOOD SPECIMEN Ordering Facility: External Submitter Address: , , Performed By: #### 2 4331-1, #### [facility] CLIA [id number] [address] [place] [address] [place] Urea nitrogen [Mass/Vol] 16 mg/dL Normal 9-24 [facility] Comment on above: Order Comment: Megan harris Type: BLOOD SPECIMEN Ordering Facility: External Submitter Address: , , Performed By: #### 2 4331-1, #### [facility] CLIA [id number] [address] [place] [address] [place] Ferritin SerPl-mCncon 2022 Ferritin [Mass/Vol] 88.1 ng/mL Normal 30.3-565.7 [facility] Comment on above: Order Comment: Megan harris Type: BLOOD SPECIMEN Ordering Facility: External Submitter Address: , , Performed By: #### 5 0190-8, PSAS1, 2276-4 #### [facility] CLIA [id number] [address] [place] [address] [place] HbA1c (Bld)on 04-28-2023 Average glucose Estimated from glycated hemoglobin (Bld) [Mass/Vol] 154 mg/dL Normal [facility] Comment on above: Order Comment: Megan harris Type: BLOOD SPECIMEN Ordering Facility: External Submitter Address: , , Result Comment: eAG: (Estimated average glucose) is a calculated value from HgbA1c and is patient service representative of the average blood glucose level in the last 2-3 month period. Performed By: #### 5 5454-3 #### [facility] CLIA [id number] [address] HbA1c (Bld) [Mass fraction] 7.0 % High 4.3-5.6 [facility] Comment on above: Order Comment: [facility] Type: BLOOD SPECIMEN Ordering Facility: External Submitter Address: , , Result Comment: Amer [place] Diabetes Association guidelines indicate that patients with HgbA1c in the range 5.7-6.4% are at increased risk for development of diabetes, and intervention by lifestyle modification may be beneficial. HgbA1c greater or equal to 6.5% is considered diagnostic of diabetes. Performed By: #### 5 5454-3 #### [facility] CLIA [id number] [address] Iron and Iron binding capaci ty panelon 04-28-2023 Iron [Mass/Vol] 99 ug/dL Normal 41-186 [facility] Comment on above: Order Comment: [facility] Type: BLOOD SPECIMEN Ordering Facility: External Submitter Address: , , Performed By: #### 5 7021-8 #### [facility] CLIA [id number] [address] Iron binding capacity [Mass/Vol] 369 ug/dL Normal 232-386 [facility] Comment on above: Order Comment: [facility] Type: BLOOD SPECIMEN Ordering Facility: External Submitter Address: , , Performed By: #### 5 7021-8 #### [facility] CLIA [id number] [address] [place] [address] [facility] Iron saturation [Mass fraction] 26.8 % Normal 15.0-57.0 [facility] Comment on above: Order Comment: [facility] Type: BLOOD SPECIMEN Ordering Facility: External Submitter Address: , , Performed By: #### 5 7021-8 #### [facility] CLIA [id number] [address] [place] [address] [facility] Lipid 1996 panelon Cholesterol [Mass/Vol] 97 mg/dL Normal <200 [facility] Comment on above: Order Comment: Megan kimberly Type: BLOOD SPECIMEN Ordering Facility: External Submitter Address: , , Result Comment: <200 mg/dL, Desirable 200-239 mg/dL, Borderline high >239 mg/dL, High Performed By: #### 2 4331-1, #### [facility] CLIA [id number] [address] [place] [address] [facility] Cholesterol in HDL [Mass/Vol] 34 mg/dL Low >39 [facility] Comment on above: Order Comment: Megan kimberly Type: BLOOD SPECIMEN Ordering Facility: External Submitter Address: , , Result Comment: 40-5 9 mg/dL, Acceptable >59 mg/dL, High: Negative risk factor for coronary heart disease <40 mg/dL, Low: Positive risk factor for coronary heart disease Performed By: #### 2 4331-1, #### [facility] CLIA [id number] [address] [place] [address] [facility] Cholesterol in LDL [Mass/Vol] 42 mg/dL Normal <100 [facility] Comment on above: Order Comment: Megan kimberly Type: BLOOD SPECIMEN Ordering Facility: External Submitter Address: , , Result Comment: <100 mg/dL, Optimal 100-129 mg/dL, Near optimal/above optimal 130-159 mg/dL, Borderline high 160-189 mg/dL, High >189 mg/dL, Very high Secondary prevention optimal LDL Cholesterol levels are recommended to be < 70 mg/dL Performed By: #### 2 4331-1, #### [facility] CLIA [id number] [address] [place] [address] [facility] Cholesterol in LDL/Cholesterol in HDL [Mass ratio] 1.24 {ratio} Normal <2.54 [facility] Comment on above: Order Comment: Megan harris Type: BLOOD SPECIMEN Ordering Facility: External Submitter Address: , , Result Comment: Refe rence: 1. National Cholesterol Education Program ATP III Guideline At-A-Glance Quick Desk Reference: National Heart, Lung, and Blood [place]. National Institutes of Health. 2001: NIH Publication No. 01-3305. 2. An International Atherosclerosis Society position paper: global recommendations for the management of dyslipidemia: executive summary, Atherosclerosis. 2014: 232(2):410-413. Performed By: #### 2 4331-1, #### [facility] CLIA [id number] [address] [place] [address] [facility] Cholesterol in VLDL [Mass/Vol] 21 mg/dL Normal <30 [facility] Comment on above: Order Comment: [facility] Type: BLOOD SPECIMEN Ordering Facility: External Submitter Address: , , Performed By: #### 2 4330-1, #### [facility] CLIA [id number] [address] [place] [address] [facility] Cholesterol non HDL [Mass/Vol] 63 mg/dL Normal <130 [facility] Comment on above: Order Comment: [facility] Type: BLOOD SPECIMEN Ordering Facility: External Submitter Address: , , Result Comment: <130 mg/dL, Optimal 130-159 mg/dL, Near optimal/above optimal 160-189 mg/dL, Borderline high 190-219 mg/dL, High >219 mg/dL, Very high Secondary prevention optimal non HDL Cholesterol levels are recommended to be <100 mg/dL Performed By: #### 2 4330-, #### [facility] CLIA [id number] [address] [place] [address] [facility] Cholesterol.total/Ch olesterol in HDL [Mass ratio] 2.85 {ratio} Normal <5.10 [facility] Comment on above: Order Comment: [facility] Type: BLOOD SPECIMEN Ordering Facility: External Submitter Address: , , Performed By: #### 2 433-1, #### [facility] CLIA [id number] [address] [place] [address] [facility] FASTING TIME 12 hrs Normal [facility] Comment on above: Order Comment: [facility] Type: BLOOD SPECIMEN Ordering Facility: External Submitter Address: , , Performed By: #### 2 433-1, #### [facility] CLIA [id number] [address] [place] [address] [place] Triglyceride [Mass/Vol] 106 mg/dL Normal <150 [facility] Comment on above: Order Comment: Speci men Type: BLOOD SPECIMEN Ordering Facility: External Submitter Address: , , Result Comment: <150 mg/dL, Normal 150-199 mg/dL, Borderline high 200-499 mg/dL, High >499 mg/dL, Very high Performed By: #### 2 4331-1, #### [facility] CLIA [id number] [address] [place] [address] [facility] [place] PSA/PROSTSPECAG SCRNon 04-28 Prostate specific Ag [Mass/Vol] 0.53 ng/mL Normal <2.60 [facility] Comment on above: Order Comment: Speci men Type: BLOOD SPECIMEN Ordering Facility: External Submitter Address: , , Result Comment: Tota brayden PSA test methodology used is the Electrochemiluminescence Immunoassay by Karie Jounce. Total PSA values by differing methodologies cannot be interchanged. 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 He has a grade 1 anterolisthesis of L5 on S1. He has had a previous L2-5 laminectomy and has a patent central canal. He has numerous areas of severe neuroforaminal stenosis particularly at the L3-4, L4-5, and L5-S1 levels bilaterally. At say the L4-5 level is the worst. We discussed options and he is still having significant functional limitations due to his lumbar issues that are not responded to therapy or medications he would be an appropriate candidate for a bilateral L4 transforaminal epidural steroid injection. I went over the pros and cons of this plan and he voiced understanding. He is going to think it over and let us know 1 where the other. I will see him for follow-up on a as needed basis. Chief Complaint Pain In relationFUV for abundio low back pain; 03/22 today. Was doing PT once a week x 3 weeks until diagnosed with [place] Palsy. Patient states pain increases when standing or walking. This is an 82-year-old male here for a follow-up appointment for chief complaint of bilateral lower back pain. He reports since his last visit the symptoms have been persistent and unchanged. He reports the pain is constant to an extent but its only severe when he is standing or walking. It limits his. He will get a sensation of heaviness in the legs when he stands. He reports the pain starts on the left but it will eventually get to both sides and both sides are bad enough to limit his function. He reports at this point the 2 sides are roughly equal. He went through physical therapy but did not get any real long-term relief. He has also not sure that the gabapentin is doing much. He denies side effects. He is undergoing more treatment now for his diabetes and has been able to lose a little bit of weight. He is hopeful that would help. He denies additional neurologic symptoms or issues with bladder or bowel control. The patient's past medical, social, and family history along with medications and allergies are available and were reviewed. Adult Risk Screening Living Will. Living Will: Living will on file. Healthcare POA: Health care proxy on file. Domestic Violence Screen: Does not feel threatened or abused physically, emotionally or sexually. Do you feel UNSAFE? The patient feels safe in the home. Depression/Suicide Screening: He does not have a risk of suicide. He has not had thoughts of harming others. History of Present Illness On a scale of 0 to 10, the patient rates the pain at 8. Pain Location: Low Back Pain. Pain Quality: Aching. Sensory/ Motor: Numbness, Pins and [place] and fingers on left hand. Timing/Duration: Intermittent and > 12 weeks duration. Controlled Substance: I have personally reviewed the [place]AR[place] report for DEVI THOMPSON. I have considered the risks of abuse, dependence, addiction and diversion. Goals for Pain Management: Oswestry Disability Index = 21. Review of Systems All 13 systems were reviewed and are within normal levels except as noted below or per HPI. Positive and pertinent negative responses are noted below or in the HPI. 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) Past Medical History No pertinent past medical history (V49.89) (Z78.9) Surgical History History of Back surgery History of Gallbladder surgery History of Tonsillectomy Family History Family history of myocardial infarction (V17.3) (Z82.49) Family history of Non-small cell carcinoma of lung Family history of malignant neoplasm of breast (V16.3) (Z80.3) Family history of malignant neoplasm (V16.9) (Z80.9) Social History Daily caffeine consumption, 2-3 servings a day Former smoker (V15.82) (Z87.891) No illicit drug use Social alcohol use (V49.89) (Z78.9) Allergies No Known Drug Allergies Recorded By: Janay Juan; 11/22/2021 2:25:06 PM Current Meds Medication NameInstruction Aspirin 81 MG Oral Tablet Delayed ReleaseTAKE 1 TABLET DAILY. Gabapentin 300 MG Oral CapsuleTAKE 1 CAPSULE 3 times daily glipiZIDE 5 MG Oral TabletTAKE 1 TABLET VICKI (more content not included)... 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 Type II DM - a1c was 9.3%, then 10.2% - farxiga and jardiance were too expensive as had tried to add another agent - continue metformin 1000mg po bid - started on lantus 20 units qhs in the hospital - was referred to endocrinology 2. HLD - continue simvastatin 40mg po daily 3. HTN - continue metoprolol Er 25mg po daily 4. Chronic back pain s/p surgery - seeing Dr Coombs - uses nsaids prn - gabapenin 100mg po tid 5. Hospital admission for bells palsy - CT head, brain mri negative - sent home with valtrex, advised to finish whole course - use refresh eye drops and may need to tape eye shut Addendum: Pt checking blood sugars 2-3 x a day, has hypoglycemia unawareness and hyperglycemia often, needs to check more often to try to improve glycemic control, has difficulty utilizing regular strips so will order FreeStyle marshall to improve compliance and glycemic control1 1 Amended By: Gonzales Gray; Oct 04 2022 2:26 PM ESTChief Complaint 82 y/o male presents for hospital f/u for [place] Palsy Pt is currently on Valtrex for treatment and feels it is not helping He states his LT eyes has also been watering constantly He was also placed on insulin which he states he has been having trouble with Requesting that the Lantus pen be sent instead of the solution Originally they thought the patient had a stroke but that was ruled out after brain MRI and echo History of Present IllnessPatient is here today for hospital follow up Pt presented to [facility] on 08/3022 for facial droop, he has a History of bells palsy but this seemed different. Pt was noted to have a glucose of 427, negative troponins, CXR negative, CT brain negative. We got the original ED note but no further notes. Pt STAtes that he had Brain MRI and saw neurology and they did not think that he had a stroke. Patient was discharged home with valtrex. Was started on Insulin. Lantus. A1c was 10.9.% Pt has been having trouble with getting reading of blood sugars Able to check it in the office and it was 329. He has an appt with an [facility] on 09/19 at [facility]. Review of Systems Constitutional: no fever, no chills and not feeling poorly. ENT: no nosebleeds, no nasal discharge and no sore throat. Cardiovascular: no chest pain, no palpitations and no intermittent leg claudication. Respiratory: no cough and not coughing up sputum. 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) Past Medical History Problems No pertinent past medical history (V49.89) (Z78.9) Surgical History Problems History of Back surgery History of Gallbladder surgery History of Tonsillectomy Family History Mother Family history of myocardial infarction (V17.3) (Z82.49) Father Family history of Non-small cell carcinoma of lung Sister Family history of malignant neoplasm of breast (V16.3) (Z80.3) Other Family history of malignant neoplasm (V16.9) (Z80.9) Social History Problems Daily caffeine consumption, 2-3 servings a day Former smoker (V15.82) (Z87.891) No illicit drug use Social alcohol use (V49.89) (Z78.9) Allergies Medication No Known Drug Allergies Recorded By: Janay Juan; 11/22/2021 2:25:06 PM Current Meds Medication NameInstruction Aspirin 81 MG Oral Tablet Delayed ReleaseTAKE 1 TABLET DAILY. Gabapentin 300 MG Oral CapsuleTAKE 1 CAPSULE 3 times daily Lantus SoloStar 100 UNIT/ML Subcutaneous Solution Pen-injectorINJECT 20 units DAILY metFORMIN HCl - 1000 MG Oral TabletTAKE 1 TABLET BY MOUTH TWICE DAILY Metoprolol Succinate ER 25 MG Oral Tablet Extended Release 24 Ngoc (more content not included)... Normal [facility] Tobacco Screening.on 023 Fall risk assessment a) No falls within the last year [facility] Work Phone: Tobacco use status [facility] b) No [facility] Work Phone: [facility] 09-11-2022 [facility] HNO ID: [id number] Author: CARRIE Luque Service: Radiology Author Type: Technologist Type: Allied Health Filed: 09/11/2022 12:11 PM Note Text: Radiology Service Progress Note PATIENT NAME: Devi Thompson DATE OF SERVICE: September 11, 2022 TIME: 12:10 PM PATIENT IDENTITY VERIFICATION COMPLETED USING TWO (2) IDENTIFIERS: Name and Date of confirmed by patient verbally. FALL SCREENING: Has the patient had 2 falls in the last year or 1 fall with injury or currently using an Ambulatory Assistive Device (Walker, Cane, Wheelchair, Crutches, etc.)? Inpatient: Screened on floor PATIENT GENDER DATA: Male PATIENT RELEVANT IMPLANT DATA REVIEWED: Yes RADIOLOGY DEPARTMENT: MR; Exam(s) Completed: Head: Routine Brain [place] MRA MRA Carotid PERIPHERAL IV DATA: Not applicable SIGNED BY: CARRIE Luque September 11, 2022 12:10 PM Normal [facility] Basic metabolic 2000 panelon 09-11-2022 Anion gap [Moles/Vol] 9 mmol/L Normal 9-18 [facility] Comment on above: Order Comment: Speci men Type: BLOOD SPECIMENOrdering Facility: [facility] Address: [address] [place] [address] Performed By: #### 2 4321-2, LIPNF ####[facility]ATORYCLIA [id number] [place] [address] [place] Calcium [Mass/Vol] 9.6 mg/dL Normal 8.5-10.2 [facility] Comment on above: Order Comment: Speci men Type: BLOOD SPECIMENOrdering Facility: [facility] Address: [address] [place] [address] Performed By: #### 2 4321-2, LIPNF ####[facility]ORYCLIA [id number] [place] [address] [place] Chloride [Moles/Vol] 103 mmol/L Normal 97-105 [facility] Comment on above: Order Comment: Speci men Type: BLOOD SPECIMENOrdering Facility: [facility] Address: [address] [place] [address] Performed By: #### 2 4321-2, LIPNF ####[facility]ORYCLIA [id number] [place] [address] [place] CO2 [Moles/Vol] 27 mmol/L Normal 22-30 [facility] Comment on above: Order Comment: Speci men Type: BLOOD SPECIMENOrdering Facility: [facility] Address: [address] [address] Performed By: #### 2 4321-2, LIPNF ####[facility]ORYCLIA [id number] [address] Creatinine [Mass/Vol] 1.29 mg/dL High 0.73-1.22 [facility] Comment on above: Order Comment: Megan men Type: BLOOD SPECIMENOrdering Facility: [facility] Address: [address] [address] Performed By: #### 2 4321-2, LIPNF ####[facility]ORYCLIA [id number] [address] ESTIMATED GLOMERULAR FILTRATION RATE 56 mL/min/1.73m??? Low >=60 [facility] Comment on above: Order Comment: Megan harris Type: BLOOD SPECIMENOrdering Facility: [facility] Address: [address] [place] [address] Result Comment: Akila mated Glomerular Filtration Rate (eGFR) is calculated using the 2020 CKD-EPI creatinine equation. This equation utilizes serum creatinine, sex, and age as parameters. The creatinine assay has traceable calibration to isotope dilution-mass spectrometry. Refer to KDIGO guidelines for clinical interpretation. In patients with unstable renal function, e.g. those with acute kidney injury, the eGFR may not accurately reflect actual GFR. Performed By: #### 2 4321-2, LIPNF ####[facility]ORYCL[facility] [id number] [address] [place] Glucose [Mass/Vol] 278 mg/dL High 74-99 [facility] Comment on above: Order Comment: Megan harris Type: BLOOD SPECIMENOrdering Facility: [facility] Address: [address] [place] [address] Result Comment: The [place] Diabetes Association (ADA) provides guidance for cutoff values for fasting glucose and random glucose. The ADA defines fasting as no caloric intake for at least 8 hours. Fasting plasma glucose results between 100 to 125 mg/dL indicate increased risk for diabetes (prediabetes). Fasting plasma glucose results greater than or equal to 126 mg/dL meet the criteria for diagnosis of diabetes. In the absence of unequivocal hyperglycemia, results should be confirmed by repeat testing. In a patient with classic symptoms of hyperglycemia or hyperglycemic crisis, random plasma glucose results greater than or equal to 200 mg/dL meet the criteria for diagnosis of diabetes. Reference: Standards of Medical Care in Diabetes 2016, [place] [employer] Association. Diabetes Care. 2016.39(Suppl 1). Performed By: #### 2 4321-2, LIPNF ####[facility]ORYCLIA [id number] [address] STATES OF [facility] Potassium [Moles/Vol] 4.8 mmol/L Normal 3.7-5.1 [facility] Comment on above: Order Comment: Megan harris Type: BLOOD SPECIMENOrdering Facility: [facility] Address: [address] [place] [address] Performed By: #### 2 4321-2, LIPNF ####[facility]ORYCLIA [id number] [address] Sodium [Moles/Vol] 139 mmol/L Normal 136-144 [facility] Comment on above: Order Comment: Megan harris Type: BLOOD SPECIMENOrdering Facility: [facility] Address: [address] [place] [address] Performed By: #### 2 4321-2, LIPNF ####[facility]ORYCLIA [id number] [address] STATES [facility] Urea nitrogen [Mass/Vol] 14 mg/dL Normal 9-24 [facility] Comment on above: Order Comment: Megan harris Type: BLOOD SPECIMENOrdering Facility: [facility] Address: [address] [place] [address] Performed By: #### 2 4321-2, LIPNF ####[facility]ORYCLIA [id number] [address] OF [facility] CASE MANAGEMon 09-11-2022 CASE MANAGEM HNO ID: [id number] Author: ERNESTO Whittington Service: ASSESSMENT Author Type: Program Dir Type: Care Mgt Progress Note Filed: 09/11/2022 3:28 PM Note Text: CARE MANAGEMENT DISCHARGE NOTE SERVICE DATE: 09/11/2022 SERVICE TIME: 3:27 PM LOS: 0 days Admission Date: 09/11/2022 DISCHARGE ARRANGEMENT (list agency and phone number) Discharge Arrangement: Home with Relative Provider Name: N/A Phone: N/A CAREGIVER ASSESSMENT: Caregiver is ready, willing and able to meet the patient's needs as recommended by the inter-professional team:: No Caregiver needed Patient's transition needs and plan for meeting these needs: Pt. able to meet his own basic needs upon discharge. HANDOFF COMMUNICATION: Handoff to: Primary Care Physician Primary Care Physician Name/Phone: Dr. Gray [phone] TRANSPORTATION ARRANGEMENTS: Transportation Arrangements: Car ADDITIONAL CONTACT RESOURCES: N/A Needs Prior to Discharge: None;Ready for Discharge Transportation Arrangements: Car Discharge Time Out Yes Bedside RN present No Does pt have transport home? Yes Did pt use bedside pharmacy? No Pt. Will discharge home today w/basic needs. Pts. Spouse will transport him home. SW will remain available should any further discharge planning needs arise. SIGNATURE: ERNESTO Beltran PATIENT NAME: Devi Thompson DATE: September 11, 2022 TIME: 3:27 PM PAGER/CONTACT #: [facility] CASE MGT INIT [facility] 2022 CASE MGT INIT [facility] HNO ID: [id number] Author: ERNESTO Whittington Service: ASSESSMENT Author Type: Program Dir Type: Care Mgt Initial Assessment Filed: 09/11/2022 11:41 AM Note Text: CARE MANAGEMENT: ASSESSMENT AND DISCHARGE PLAN SERVICE DATE: September 11, 2022 SERVICE TIME: 11:38 AM PRIMARY CARE PHYSICIAN: Gonzales Gray DO-ranjith Primary Contact: Extended Emergency Contact Information Primary Emergency Contact: Elida Thompson Address: [address] [place] [address] [id number] [address] Relation: Spouse ADMISSION STATUS: Observation Insurance Provider: MEDICARE A AND B NEEDS PRIOR TO DISCHARGE Needs Prior to Discharge: To Be Determined POTENTIAL TRANSITION PLANS Home;Outpatient Therapy;To Be Determined Based on clinical judgement, Care Management will address the following needs: Medical;Cognitive;Social;F unctional Patient's perception of need for this admission: Facial Droop ADVANCE DIRECTIVES Current Advance Directive: None [place] Management Professor Attempted to Assist with AD Completion: Yes Action: Education Provided MS/BEHAVIOR Baseline Mental Status Prior to this Illness what was the patient's Baseline Mental Status?: Alert AND Oriented Prior to this illness, has anyone described the patient having any of the following behaviors?: Not Applicable Relationship of the informant to the patient:: Self READMISSION Last Discharge Date: 09/11/22 Is this Within the Past 30 days? 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 Gray [phone] Last Known Visit: This summer. Upcoming visit September 2022 Does the patient have transportation upon discharge?: Yes Situation: Spouse to transort pt. home. Use of any community resources?: Yes Situation: Outpatient PT through [facility]. Recommendation: Continue upon discharge. Does the patient have a stable and supportive living arrangement and home setting?: Yes Situation: From home w/spouse Recommendation: Will return home upon discharge. Are there any potential risks or gaps identified by risk/functional/fall,etc. scores in the EMR?: (TBD) Situation: TBD Recommendation: TBD closer to discharge Any potential risks related to substance abuse and/or behavioral health?: No Situation: N/A Recommendation: N/A Based on clinical judgement, Care Management will address the following needs: Medical, Cognitive, Social, Functional CAREGIVER ASSESSMENT Caregiver is ready, willing and able to meet the patient's needs as recommended by the inter-professional team:: Yes Name of Caregiver: SpouseElida Patient's transition needs and plan for meeting these needs: Spouse to assist pt. in meeting his needs upon discharge. MEDICAL Medical Needs: Two or more chronic diseases Health Issues Impacting Discharge Plan: Newly diagnosed;Chronic Newly Diagnosed: Facial Droop Chronic: Hx. Kiser's Palsy, Angina PEctoris, CKD Stage II, Diverticulitis, HTN, DM Type II Medication Adherance I am convinced of the importance of my prescription medication: 0 - Agree Completely I worry that my prescription medication will do more harm than good to me : 0 - Disagree Completely I feel financially burdened by my [id number]-[id number] expenses for my prescription medication:: 0 - Disagree Completely Risk Score: 0 Patient is categorized as: Low risk < 2 SOCIAL Living Arrangements: Home Lives With: Spouse Financial Resources: Retired Supportive Patient Contact:: Yes Is Patient Psychosocially Complex?: No Health Literacy How often do you need to have someone help you when you read instructions, pamphlets, or other written material from your doctor or pharmacy? : 2 - Rarely How confident are you filling out medical forms by yourself?: 2 - Quite a bit If Patient scores > 3 on either question, the following interventions were put into place:: Sit with Patient;Gave Patient the opportunity to ask questions Food Insecurity: No Food Insecurity Worried About Running Out of Food in the Last Year: Never true Ran Out of Food in the Last Year: Never true Financial Resource Strain: Low Risk Difficulty of Paying Living Expenses: Not hard at all Transportation Needs: No Transportation Needs Lack of Transportation (Medical): No Lack of Transportation (Non-Medical): No Housing Stability: Low Risk Unable to Pay for Housing in the Last Year: No Number of Places Lived in the Last Year: 1 Unstable Housing in the Last Year: No BEHAVIORAL/COGNITIVE Psychosocial Psychosocial Needs: None FUNCTIONAL How do you manage to accomplish the following: Independent: Bathe/Shower;Dress;Meals/M eal Prep;Going to the bathroom;Medication Management;Transportation to appointments/comm (more content not included)... Normal [facility] CBC panel Auto (Bld)on 09-11 Erythrocyte distribution width (RBC) [Ratio] 13.4 % Normal 11.5-15.0 [facility] Comment on above: Order Comment: Speci men Type: BLOOD SPECIMENOrdering Facility: [facility] Address: [address] [place] [address] Performed By: #### 5 8410-2 ####[facility]ORYCLIA [id number] [address] Hematocrit (Bld) [Volume fraction] 43.4 % Normal 39.0-51.0 [facility] Comment on above: Order Comment: Speci men Type: BLOOD SPECIMENOrdering Facility: [facility] Address: [address] [place] [address] Performed By: #### 5 8410-2 ####[facility]ORYCLIA [id number] [address] Hemoglobin (Bld) [Mass/Vol] 14.1 g/dL Normal 13.0-17.0 [facility] Comment on above: Order Comment: Speci men Type: BLOOD SPECIMENOrdering Facility: [facility] Address: [address] [place] [address] Performed By: #### 5 8410-2 ####[facility]ORYCLIA [id number] [address] MCH (RBC) [Entitic mass] 31.8 pg Normal 26.0-34.0 [facility] Comment on above: Order Comment: Speci men Type: BLOOD SPECIMENOrdering Facility: [facility] Address: [address] [place] [address] Performed By: #### 5 8410-2 ####[facility]ORYCLIA [id number] [address] MCHC (RBC) [Mass/Vol] 32.5 g/dL Normal 30.5-36.0 [facility] Comment on above: Order Comment: Speci men Type: BLOOD SPECIMENOrdering Facility: [facility] Address: [address] [place] [address] Performed By: #### 5 8410-2 ####[facility]ORYCLIA [id number] [address] MCV (RBC) [Entitic vol] 98.0 fL Normal 80.0-100.0 [facility] Comment on above: Order Comment: Speci men Type: BLOOD SPECIMENOrdering Facility: [facility] Address: [address] [address] Performed By: #### 5 8410-2 ####[facility]ORYCLIA [id number] [address] Nucleated RBC (Bld) [#/Vol] 10*3/uL Normal <0.01 [facility] Comment on above: Order Comment: Speci men Type: BLOOD SPECIMENOrdering Facility: [facility] Address: [address] [place] [address] Performed By: #### 5 8410-2 ####[facility]ORYCLIA [id number] [place] [address] [facility] [place] Platelet mean volume (Bld) [Entitic vol] 10.3 fL Normal 9.0-12.7 [facility] Comment on above: Order Comment: Speci men Type: BLOOD SPECIMENOrdering Facility: [facility] Address: [address] [place] [address] Performed By: #### 5 8410-2 ####[facility]ATORYCLIA [id number] [place] [address] [facility] [place] Platelets (Bld) [#/Vol] 263 10*3/uL Normal 150-400 [facility] Comment on above: Order Comment: Speci men Type: BLOOD SPECIMENOrdering Facility: [facility] Address: [address] [place] [address] Performed By: #### 5 8410-2 ####[facility]ATORYCLIA [id number] [place] [address] [facility] [place] RBC (Bld) [#/Vol] 4.43 10*6/uL Normal 4.20-6.00 [facility] Comment on above: Order Comment: Speci men Type: BLOOD SPECIMENOrdering Facility: [facility] Address: [address] [place] [address] Performed By: #### 5 8410-2 ####[facility]ORYCLIA [id number] [address] [place] WBC (Bld) [#/Vol] 7.72 10*3/uL Normal 3.70-11.00 [facility] Comment on above: Order Comment: Speci men Type: BLOOD SPECIMENOrdering Facility: [facility] Address: [address] [place] [address] Performed By: #### 5 8410-2 ####[facility]ORYCLIA [id number] [address] [place] CNCOon 09-11-2022 CNCO Letter Text Normal [facility] CNDSon 09-11-2022 CNDS HNO ID: [id number] Author: Jaya Negron MD Service: Hospital Medicine Author Type: Physician Type: Discharge Summary Filed: 09/11/2022 5:35 PM Note Text: DISCHARGE SUMMARY PATIENT NAME: Devi Thompson ADMISSION DATE: 09/11/2022 DISCHARGE DATE: 09/11/2022 ATTENDING PHYSICIAN: Jaya Negron MD Code Status: Not on file PCP: Gonzales Gray DO Highest Readmission Risk Score: 9 The 30 day readmissions risk score is derived from an internally validated risk model which evaluates patient level characteristics, utilization history, medication orders and lab results up until the day of discharge. Patients with a score of 40 or above are considered highest risk for readmission. Specific patient level drivers will be listed at the bottom of the summary. TRANSITIONS OF CARE CRITICAL ISSUES: ALVAREZ MEDICATION CHANGES: Valtrex x1 week, Metformin 1g BID, Lantus 20 units QHS LAB MONITORING NEEDED: Not applicable IMAGING FOLLOW-UP: Not applicable LABS AND PROCEDURES PENDING AT DISCHARGE: Test Results Not Yet Available from This Hospitalization: Please Review at Your Follow Up Appointment Order Current Status PROTEIN CREATININE RATIO In process No pending results. FOLLOW UP: PCP, Endocrinology REASON FOR HOSPITALIZATION: Facial Droop PRINCIPAL DIAGNOSIS: Kiser's Palsy SECONDARY DIAGNOSIS: Principal Problem: CVA (cerebral vascular accident) ([facility]) POA: Yes Active Problems: Essential hypertension POA: Yes Morbid obesity with body mass index (BMI) of 40.0 to 44.9 in adult ([facility]) POA: Yes CKD (chronic kidney disease) stage 3, GFR 30-59 ml/min ([facility]) POA: Yes Type 2 diabetes mellitus, without long-term current use of insulin ([facility]) POA: Yes History of Kiser's palsy POA: Yes Resolved Problems: * No resolved hospital problems. * HOSPITAL COURSE: Mr. Thompson is an 82 y/o M with a hx of Kiser's Palsy, CKD Stage III, T2DM, HTN presentign with facial droop; he woke up at the patience of last week with trouble drinking and chewing, and Sunday morning felt a facial droop on the left side. He had an MRI performed that was negative for acute stroke, and patient will be discharged on a course of Valtrex. He is notably hyperglycemic, and after discussions with Endocrinology, we are now initiating lantus at 20 units every night and metformin 1g BID. He will follow with Endocrinology at discharge. CONSULTS DURING HOSPITALIZATION: Treatment Team: Attending Provider: Jaya Negron MD Primary Service: [facility] 1 Consulting: Terry Julian MD Orders Placed This Encounter CONSULT TO NEUROLOGY (TELEMEDICINE) PHYSICIAN CONSULT FOLLOW UP PROVIDER FOR SUMMARY OF CARE - MEASURE PATIENT CONDITION AT DISCHARGE: Stable DISCHARGE DISPOSITION: Home with Relative Discharge Physical Exam: VITAL SIGNS: BP 147/81 Pulse 79 Temp 36.4 ?C (97.5 ?F) (Temporal) Resp 18 Ht 182.9 cm (6') Wt 133.4 kg (294 lb 1.5 oz) SpO2 94% BMI 39.89 kg/m? GENERAL: Alert, no distress, cooperative SKIN: Skin color, texture, turgor normal. No rashes or lesions. HEAD/SINUSES: No significant findings EYES: EOMI BACK: Back symmetric, Normal curvature, ROM normal LUNGS: Lungs clear to auscultation, Good diaphragmatic excursion CARDIAC: Normal S1 and S2; no rubs, murmurs, or gallops ABDOMEN: Abdomen soft, non-tender, BS normal, No masses or organomegaly EXTREMITIES: Normal exam of the extremities NEURO: Strength and sensation 5/5 in upper and lower extremities bilaterally. Left lower facial droop noted with seemingly equal forehead frowning. Equal strength to eye closure noted. Facial sensation fully intact. DIET: Resume pre-hospital diet ACTIVITY AND EXERCISE: Resume pre-hospital activity FOLLOW UP APPOINTMENTS: Future Appointments Date Time Provider Department Center 09/19/2022 11:20 AM Emanuel Colon MD [facility] Med C ALLERGIES Allergen Reactions Acetaminophen Other: See Comments Hallucinations-doesn't like it either DISCHARGE MEDICATION: Current Discharge Medication List START taking these medications valACYclovir (VALTREX) 1,000 mg Take 1,000 mg by mouth three times daily. Qty: 21 tablet Refills: 0 insulin glargine (LANTUS) 20 Units Inject 20 Units subcutaneously every 24 hours. Qty: 10 mL Refills: 5 Comments: Generic or brand: dispense product preferred by patient/insurance unless VANNESSA flag is selected. Insulin Syringe-Needle U-100 1 Each Inject 1 Each subcutaneously q 24 HR. class="HTML_HHS"> Give with each insulin administration. Qty: 90 Each Refills: 0 Comments: Please fill with brand covered by patient's insurance CONTINUE these medications which have CHANGED metFORMIN (GLUCOPHAGE) 1,000 mg Take 1,000 mg by mouth twice daily with meals. Qty: 180 tablet Refills: 0 CONTINUE these medications which have NOT CHANGED metoprolol succinate ER (TOPROL XL) 25 mg Take 25 mg by mouth once daily. Qty: 90 tablet Refills: 1 simvastati (more content not included)... [facility] CONSULTon 09-11-2022 CONSULT HNO ID: [id number] Author: Leilani Castellanos MD Service: Endocrinology Author Type: Physician Type: Consults Filed: 09/11/2022 10:57 AM Note Text: DIABETES INITIAL CONSULT PATIENT NAME: Devi Thompson SERVICE DATE: 09/11/2022 REASON FOR CONSULT: DM Type 2 and Uncontrolled blood glucose REQUESTING PHYSICIAN:Jaya Negron MD PRIMARY CARE PHYSICIAN: Gonzales Gray DO Subjective HISTORY OF PRESENT ILLNESS: Mr. Thompson is a 82 year old male with PMH significant for Kiser's Palsy, Stage III CKD, T2- DM, Hypertension, and Hyperlipidemia admitted to the hospital with facial droop. At the time of admission, his BG was 427 Patient is unsure when he was diagnosed with diabetes. He does have a family history of diabetes mellitus in his Mother. The patient reports the following microvascular complications: CKD. Devi reports the following diabetic macrovascular complications: Angina. He has been on oral agents the time of diagnosis- metformin 500 mg BID His current diabetes regimen is Metformin 500 mg BID Lantus 20 units daily Admelog 7 units with meals. Regarding symptoms of hyperglycemia, he is experiencing polyuria and weight loss. PAST MEDICAL HISTORY Diagnosis Date Abnormal stress test Angina pectoris (HCC) Kiser's palsy Chronic kidney disease (CKD) Stage 2 Diverticulitis Essential hypertension Impaired fasting glucose Influenza vaccination declined by patient 05/24/2015 Lumbar radiculopathy Urinary outflow obstruction PAST SURGICAL HISTORY Procedure Laterality Date CHOLECYSTECTOMY CHOLECYSTECTOMY HX LOW BACK DISK SURGERY NUCLEAR STRESS LEXISCAN (CARD) 04/03/2016 PAST SURGICAL HISTORY OF 1986 back surgery TONSILLECTOMY HX FAMILY HISTORY Problem Relation Age of Onset Hypertension Mother Diabetes Mother other (lung cancer) Father Hearing Loss Paternal Grandfather Heart Brother Heart Sister Social History Tobacco Use Smoking status: Former Packs/day: 2.00 Years: 10.00 Pack years: 20.00 Types: Cigarettes Start date: 08/13/1960 Quit date: 12/13/1970 Years since quittin.7 Smokeless tobacco: Never Substance Use Topics Alcohol use: Yes Comment: yearly use Drug use: No CURRENT MEDICATION: Current Facility-Administered Medications Medication Dose Route Frequency Provider Last Rate Last Admin dextrose 40 % 15 g 15 g ORAL PRN Glenny Lindsey PA-C Or glucagon 1 mg injection 1 mg INTRAMUSCULAR PRN Glenny Lindsey PA-C Or dextrose 10% iv bolus 12.5 g INTRAVENOUS PRN Glenny Lindsey PA-C sodium chloride 0.9 % (flush) 2-10 mL (BD POSIFLUSH) 2-10 mL INTRAVENOUS DIRECTED PRN Glenny Lindsey PA-C And perflutren lipid microspheres 1.1 mg/mL 1.3 mL injection (DEFINITY) 1.3 mL INTRAVENOUS DIRECTED PRN Glenny Lindsey PA-C NaCl 0.9% iv flush bag 20 mL INTRAVENOUS PRN Glenny Lindsey PA-C aluminum-magnesium hydroxide-simethicone 200-200-20 mg/5 mL 30 mL (MAALOX,MYLANTA,MAG-AL PLUS) 30 mL ORAL q 6 H PRN Glenny Lindsey PA-C aspirin, enteric coated 81 mg tab(s) 81 mg ORAL DAILY Glenny Lindsey PA-C 81 mg at 09/11/22 0814 atorvastatin 40 mg tab(s) (LIPITOR) 40 mg ORAL AT BEDTIME Jaya Negron MD insulin glargine 20 Units pen (long acting) (LANTUS SOLOSTAR, BASAGLAR KWIKPEN) 20 Units SUBCUTANEOUS DAILY (8 AM) Jaya Negron MD 20 Units at 09/11/22 1034 insulin lispro 7 Units injection (rapid acting) (ADMELOG) 7 Units SUBCUTANEOUS w MEALS aJya Negron MD 7 Units at 09/11/22 0926 insulin lispro injection (rapid acting) (ADMELOG) SUBCUTANEOUS w MEALS Jaya Negron MD 6 Units at 09/11/22 0926 insulin lispro injection (rapid acting) (ADMELOG) SUBCUTANEOUS AT BEDTIME Jaya Negron MD metFORMIN 1,000 mg tab(s) (GLUCOPHAGE) 1,000 mg ORAL BID w MEALS Jaya Negron MD 1,000 mg at 09/11/22 0926 Allergies As of Date: 09/11/2022 Allergen Noted Reaction ACETAMINOPHEN 03/23/2016 Other: See Comments Fully Assessed 09/11/2022 General: no fever, chills or acute changes in weight in the last 6 months Skin: no rashes, pruritis or dry skin Eyes: no blurred or double vision or eye pain Cardiac: denies chest pain, heart palpitations or orthopnea Pulmonary: denies wheezing, productive cough or exertional dyspnea GI: denies nausea, vomiting, diarrhea or constipation Neuro: see HPI Musc: denies history of upper or lower extremity weakness Endocrine: complains of polydipsia Hematology: Negative for anemia, easy bleeding and bruising. Objective PHYSICAL EXAM: BP 147/81 Pulse 79 Temp 36.4 ?C (97.5 ?F) (Temporal) Resp 18 Ht 182.9 cm (6') Wt 133.4 kg (294 lb 1.5 oz) SpO2 94% BMI 39.89 kg/m2 General: Well appearing, alert, in no acute distress, sitting in chair Skin: skin color, texture, turgor normal, no rashes or lesions. Head: normocephalic, no masses, lesions, tenderness or abnormalities. Eyes: Anicteric sclera. Extraocular movements are intact. Neck: Supple, no adenopathy; thyroid symmetric, no (more content not included)... [facility] CONSULT HNO ID: [id number] Author: Adriano Cisneros MD, PhD Service: Neurology General Author Type: Physician Type: Consults Filed: 09/11/2022 9:12 AM Note Text: TELENEUROLOGY INITIAL CONSULT Patient seen using [facility]. Recommendations are placed in the chart. Please review. For questions after hours, when teleneurologist is not available, for [place]: Please Page [phone] for the [facility] from 5 PM to 8 AM Please follow normal inpatient acute stroke procedures per routine as needed. SERVICE DATE: 09/11/2022 SERVICE TIME: 8:51 AM PRIMARY CARE PHYSICIAN: Gonzales Gray DO CURRENT ATTENDING PROVIDER: Jaya Negron MD Subjective REASON FOR EVALUATION: left facial droop HISTORY OF PRESENT ILLNESS / CHIEF COMPLAINT: Devi Thompson is a 82 year old right handed man seen for left facial droop. He has a history of left Kiser's palsy, recovered. He noted weakness on the left face, trouble holding liquids. Same type as before. Eyes is weeping. No hyperacuisis. He has some pain in the back of he head, no rash, no pain into the face or numbness. No other focal symptoms. Her has some trouble walking from surgery, but not focal weakness or numbness in the UE or LE. He has some tingling in his hands on the left which appears chronic. May have had recent cold. DATA: IMPRESSION: No acute intracranial findings. Component Latest Ref Rng AND Units 09/10/2022 09/10/2022 09/10/2022 09/11/2022 8:44 PM 10:14 PM 11:42 PM WBC 3.70 - 11.00 k/uL 6.08 7.72 RBC 4.20 - 6.00 m/uL 4.57 4.43 Hemoglobin 13.0 - 17.0 g/dL 14.7 14.1 Hematocrit 39.0 - 51.0 % 44.9 43.4 MCV 80.0 - 100.0 fL 98.2 98.0 MCH 26.0 - 34.0 pg 32.2 31.8 MCHC 30.5 - 36.0 g/dL 32.7 32.5 RDW-CV 11.5 - 15.0 % 13.3 13.4 Platelet Count 150 - 400 k/uL 260 263 MPV 9.0 - 12.7 fL 10.1 10.3 Neut% % 57.5 Abs Neut (ANC) 1.45 - 7.50 k/uL 3.50 Lymph% % 29.6 Abs Lymph 1.00 - 4.00 k/uL 1.80 Butte% % 8.7 Abs [place]te <0.87 k/uL 0.53 Eosin% % 3.3 Abs Eosin <0.46 k/uL 0.20 Baso% % 0.7 Abs Baso <0.11 k/uL 0.04 Immature Gran % % 0.2 IMMATURE GRANS (ABS) <0.10 k/uL <0.03 DTYPE Auto Absolute nRBC <0.01 k/uL <0.01 Glucose 74 - 99 mg/dL 427 (H) 278 (H) BUN 9 - 24 mg/dL 15 14 Creatinine 0.73 - 1.22 mg/dL 1.24 (H) 1.29 (H) Sodium 136 - 144 mmol/L 138 139 Potassium 3.7 - 5.1 mmol/L 4.4 4.8 Chloride 97 - 105 mmol/L 101 103 CO2 22 - 30 mmol/L 25 27 Anion Gap 9 - 18 mmol/L 12 9 Calcium 8.5 - 10.2 mg/dL 9.6 9.6 eGFR >=60 mL/min/1.73mA? 58 (L) 56 (L) Total Cholesterol, Nonfasting <200 mg/dL 89 Triglycerides, Nonfasting <150 mg/dL 124 HDL Cholesterol, Nonfasting >39 mg/dL 30 (L) LDL Cholesterol, Nonfasting <100 mg/dL 34 Non HDL Cholesterol, Nonfasting <130 mg/dL 59 VLDL Cholesterol, Nonfasting <30 mg/dL 25 Total Chol/HDL Ratio, Nonfasting <5.10 mg/dL 2.97 LDL/HDL Ratio, Nonfasting <2.54 mg/dL 1.13 COVID 19 Result Not Detected SARS-CoV-2 (Agent of COVID-19) Not Detected by RT-PCR or equivalent method. Influenza A PCR Negative for Influenza A by RT-PCR Negative for Influenza A by RT-PCR Influenza B PCR Negative for Influenza B by RT-PCR Negative for Influenza B by RT-PCR RSV PCR Negative for Respiratory Syncytial Virus (RSV) by PCR Negative for Respiratory Syncytial Virus (RSV) by PCR KENISHA High Sensitivity <12 ng/L 19 (H) 18 (H) 18 (H) Glucose, Point of Care 74 - 99 mg/dL 257 (A) FUNCTIONAL STATUS: Independent PAST MEDICAL HISTORY Diagnosis Date Abnormal stress test Angina pectoris (HCC) Kiser's palsy Chronic kidney disease (CKD) Stage 2 Diverticulitis Essential hypertension Impaired fasting glucose Influenza vaccination declined by patient 05/24/2015 Lumbar radiculopathy Urinary outflow obstruction Diabetes Hyperlipidemia PAST SURGICAL HISTORY Procedure Laterality Date CHOLECYSTECTOMY CHOLECYSTECTOMY HX LOW BACK DISK SURGERY NUCLEAR STRESS LEXISCAN (CARD) 04/03/2016 PAST SURGICAL HISTORY OF 1986 back surgery TONSILLECTOMY HX FAMILY HISTORY Problem Relation Age of Onset Hypertension Mother Diabetes Mother other (lung cancer) Father Hearing Loss Paternal Grandfather Heart Brother Heart Sister Social History Tobacco Use Smoking status: Former Packs/day: 2.00 Years: 10.00 Pack years: 20.00 Types: Cigarettes Start date: 08/13/1960 Quit date: 12/13/1970 Years since quittin.7 Smokeless tobacco: Never Substance Use Topics Alcohol use: Yes Comment: yearly use Drug use: No metoprolol succinate ER (TOPROL XL) 25 mg 24 hr tablet, Take 1 tablet by mouth once daily., Disp: 90 tablet, Rfl: 1 simvastatin (ZOCOR) 40 mg tablet, Take 1 tablet by mouth daily at bedtime., Disp: 90 tablet, Rfl: 1 metFORMIN (GLUCOPHAGE) 500 mg tablet, Take 1 tablet by mouth twice daily with meals., Disp: 180 tablet, Rfl: 1 aspirin, enteric coated (ADULT LOW DOSE ASPIRIN) 81 mg EC tablet, Take 1 tablet by mouth once daily., Disp: 30 tablet, R (more content not included)... Normal [facility] ECHO WITH AGITATED SALINE CO NTRASTon 09-11-2022 ECHO WITH AGITATED SALINE CONTRAST Echocardiography Report: Transthoracic Echo [facility] Date of service: 09/11/2022 1:02:09 PM Ordering physician: KAITLIN GALVEZ Indication: stroke Technologist: Luz Marina Melton [facility] Interpreting physician: Joshua Garcia DO PATIENT: Name: MR. DEVI THOMPSON : 1940 Age: 82 years Gender: M History of diabetes mellitus, chronic kidney disease, hypertension and dyslipidemia. Primary rhythm: sinus. Height: 180.30 cm BSA: 2.61 m Weight: 136.08 kg BMI: 41.9 kg/m Heart rate 78 bpm Blood pressure 134/68 mmHg Technically difficult exam due to body habitus. Agitated saline was administered to rule out shunt. Color Doppler was utilized to interrogate the cardiac valves assessed and spectral Doppler was utilized to determine the flow velocities and pressure gradients reported in this exam. MEASUREMENTS: Value Indexed Normal Max aortic dimension 3.5 cm Ao < 3.8 Left atrium diameter 3.9 cm (2D) Left atrial volume 51 ml (biplane A-L) 20 ml/m Arlyn <= 34 LV ID (diastole) 4.6 cm (2D) 1.77 cm/m LV ID (systole) 3.1 cm (2D) 1.20 cm/m IVS, leaflet tips 1.1 cm (2D) Posterior wall thickness 1.1 cm (2D) Left ventricular mass 180 g (2D) 69 g/m LV stroke volume 91 ml (2D biplane) LV end diastolic volume 143 ml (2D biplane) 54.7 ml/m 34<=EDVi<75 LV end systolic volume 52 ml (2D biplane) 19.8 ml/m Ejection Fraction 64 % (2D biplane) EF > 52 FINDINGS: LEFT VENTRICLE The left ventricle is normal in size. Left ventricular systolic function is normal. Normal left ventricular diastolic function. Mitral annular lateral E/e': 12.4. Mitral annular septal E/e': 9.8. Definity contrast used for endocardial border detection. Wall Motion: All scored segments are normal. RIGHT VENTRICLE The right ventricle is normal in size. Right ventricular systolic function is normal. RV systolic tissue Doppler velocity is 14.5 cm/s. Tricuspid annular displacement is 1.5 cm. LEFT ATRIUM The left atrial cavity is normal in size. Pulmonary Veins: The pulmonary venous pattern showed normal systolic flow. RIGHT ATRIUM The right atrial cavity is normal in size. MITRAL VALVE The mitral valve leaflets are structurally normal. There is no mitral valve regurgitation. The pressure half time is 73 msec. The peak mitral E/A ratio is 0.57. The average mitral E/e' ratio is 11.1. The mitral flow deceleration time is 251 msec. TRICUSPID VALVE The tricuspid valve leaflets are structurally normal. There is trace tricuspid valve regurgitation. AORTIC VALVE There is no aortic valve regurgitation. Tricuspid aortic valve. There is mild calcification. The peak gradient is 13 mmHg (peak velocity = 183.0 cm/s). The LVOT diameter is 2.2 cm. PULMONIC VALVE The pulmonic valve was not seen or not interrogated. There is trace pulmonic valve regurgitation. AORTA The visualized aorta is normal in size. Measurements - Aortic valve annulus 2.2 cm. Mid ascending aorta 3.5 cm. Visualized segments of the ascending, arch, and descending aorta without evidence of dissection. PULMONARY ARTERIES The pulmonary arteries are unseen or not interrogated. INTERATRIAL SEPTUM There is no patent foramen ovale as detected by saline contrast with valsalva. PERICARDIUM There is no pericardial effusion. CONCLUSIONS: - Technically difficult exam due to body habitus. - Exam indication: stroke - The left ventricle is normal in size. Left ventricular systolic function is normal. EF = 64 5% (2D biplane) Definity contrast used for endocardial border detection. Normal left ventricular diastolic function. - The right ventricle is normal in size. Right ventricular systolic function is normal. - There is no patent foramen ovale as detected by saline contrast with valsalva. Saline contrast study appears negative by limitations of this study. - Exam was compared with the prior CC echocardiographic exam performed on 08/12/18. * * * Final * * * CC Context Relevant Medical Image : [id number] Normal [facility] HISTORY PHYSICALon HISTORY PHYSICAL HNO ID: [id number] Author: Glenny Lindsey PA-C Service: Hospital Medicine Author Type: Physician Costume Director Type: HANDP Filed: 09/11/2022 3:43 AM Note Text: -- Attestation signed by Angela Mendiola MD at 09/11/2022 6:42 AM Attending Note I have personally performed assessment of the patient and have reviewed the FAIZAN note. I performed a substantive portion of the visit including all aspects of the following. My alvarez findings include: Medical Decision Making CVA; stroke pathway, ASA/statin, consult neuro, PT/OT Other additions or changes: None Signature: Angela Mendiola MD Date: 09/11/2022 Time: 6:41 AM -- DEPARTMENT OF [facility] MEDICINE HISTORY AND PHYSICAL EXAM SERVICE DATE: 09/11/2022 Code Status: Not on file SERVICE TIME: 3:10 AM Primary Care Physician: Gonzales Gray, NIGHT AND WEEKEND COVERAGE: [facility] COVERAGE: Days: [phone], please page attending physician. Nights: [phone], please page [place] Hospitalist Night coverage pager [phone]. Subjective CHIEF COMPLAINT: Facial droop HPI: This is a 82 year old male with a PMH significant for Kiser's Palsy, Stage III CKD, DM2, Hypertension, and Hyperlipidemia who presents today for evaluation of facial droop. The patient tells me that at the end of last week he noticed he was having trouble drinking or chewing his food on the left side. He tells me he didn't think much of it until he woke up with a left sided facial droop on Sunday morning. He has a history of Kiser's palsy and thought that might be what was going on however he does feel his symptoms and presentation seem different. No prior history of TIA or CVA. He denies GAMBLE, visual changes, other unilateral paresthesias or paralysis. No recent illnesses or sick contacts. No fever, chills, GAMBLE, visual changes, URI symptoms, chest pain, palpitations, SOB, cough, abdominal pain, N/V/D, urinary symptoms, skin changes, peripheral edema, or malaise/fatigue. [place] ED Course: HDS, afebrile. COVID negative. Glucose 427, Cr 1.24. HS Troponins 19, 18, 18. EkG negative for ST-T changes or STEMI. CXR negative for acute process. CT Brain negative for acute intracranial process. Patient transferred to [facility] under Medicine for further stroke evaluation. PAST MEDICAL HISTORY Diagnosis Date Abnormal stress test Angina pectoris (HCC) Kiser's palsy Chronic kidney disease (CKD) Stage 2 Diverticulitis Essential hypertension Impaired fasting glucose Influenza vaccination declined by patient 05/24/2015 Lumbar radiculopathy Urinary outflow obstruction PAST SURGICAL HISTORY Procedure Laterality Date CHOLECYSTECTOMY CHOLECYSTECTOMY HX LOW BACK DISK SURGERY NUCLEAR STRESS LEXISCAN (CARD) 04/03/2016 PAST SURGICAL HISTORY OF 1986 back surgery TONSILLECTOMY HX FAMILY HISTORY Problem Relation Age of Onset Hypertension Mother Diabetes Mother other (lung cancer) Father Hearing Loss Paternal Grandfather Heart Brother Heart Sister Social History Tobacco Use Smoking status: Former Packs/day: 2.00 Years: 10.00 Pack years: 20.00 Types: Cigarettes Start date: 08/13/1960 Quit date: 12/13/1970 Years since quittin.7 Smokeless tobacco: Never Substance Use Topics Alcohol use: Yes Comment: yearly use Drug use: No PRIOR TO ADMISSION MEDICATIONS: metoprolol succinate ER (TOPROL XL) 25 mg 24 hr tablet, Take 1 tablet by mouth once daily., Disp: 90 tablet, Rfl: 1 simvastatin (ZOCOR) 40 mg tablet, Take 1 tablet by mouth daily at bedtime., Disp: 90 tablet, Rfl: 1 metFORMIN (GLUCOPHAGE) 500 mg tablet, Take 1 tablet by mouth twice daily with meals., Disp: 180 tablet, Rfl: 1 naproxen sodium (ALEVE) 220 mg cap, Take 1 capsule by mouth twice daily., Disp: , Rfl: aspirin, enteric coated (ADULT LOW DOSE ASPIRIN) 81 mg EC tablet, Take 1 tablet by mouth once daily., Disp: 30 tablet, Rfl: 4 ALLERGIES Allergen Reactions Acetaminophen Other: See Comments Hallucinations-doesn't like it either REVIEW OF SYSTEM: GENERAL: No weight loss, malaise or fevers HEENT: Negative for frequent or significant headaches, No changes in hearing or vision, no nose bleeds or other nasal problems NECK: Negative for lumps, goiter, pain and significant neck swelling RESPIRATORY: Negative for cough, hemoptysis, wheezing, COPD, dyspnea or shortness of breath CARDIOVASCULAR: Negative for chest pain, leg swelling, hypertension, CHF or palpitations GI: No nausea, vomiting, or diarrhea : No history of dysuria, frequency or incontinence MUSCULOSKELETAL: Negative for joint pain or swelling, back pain or muscle pain SKIN: Negative for lesions, rash, and itching PSYCH: Negative for sleep disturbance, mood disorder and recent psychosocial stressors HEMATOLOGY/LYMPHOLOGY: Negative for prolonged b (more content not included)... Normal [facility] HbA1c (Bld)on 09-11-2022 Average glucose Estimated from glycated hemoglobin (Bld) [Mass/Vol] 240 mg/dL Normal [facility] Comment on above: Order Comment: Speci men Type: BLOOD SPECIMENOrdering Facility: [facility] Address: [address] [place] [id number] Result Comment: eAG: (Estimated average glucose) is a calculated value from HgbA1c and is patient service representative of the average blood glucose level in the last 2-3 month period. Performed By: #### 5 5454-3 ####[facility] LABCLIA [id number] [place] [address] [place] HbA1c (Bld) [Mass fraction] 10.0 % High 4.3-5.6 [facility] Comment on above: Order Comment: Megan harris Type: BLOOD SPECIMENOrdering Facility: [facility] Address: [address] [address] Result Comment: Amer ican Diabetes Association guidelines indicate that patients with HgbA1c in the range 5.7-6.4% are at increased risk for development of diabetes, and intervention by lifestyle modification may be beneficial. HgbA1c greater or equal to 6.5% is considered diagnostic of diabetes. Performed By: #### 5 5454-3 ####[facility] LABCLIA [id number] [address] [place] Hcys SerPl-sCncon 09-11-2022 Homocysteine [Moles/Vol] 9.4 umol/L Normal <15.1 [facility] Comment on above: Order Comment: Megan harris Type: BLOOD SPECIMENOrdering Facility: [facility] Address: [address] [place] [place] [address] Performed By: #### 1 3965-9 ####[facility] LABCLIA [id number] [address] [place] LIPID PANEL, NONFASTINGon Cholesterol [Mass/Vol] 89 mg/dL Normal <200 [facility] Comment on above: Order Comment: Megan harris Type: BLOOD SPECIMENOrdering Facility: [facility] Address: [address] Result Comment: <200 mg/dL, Desirable 200-239 mg/dL, Borderline high >239 mg/dL, High Performed By: #### 2 4321-2, LIPNF ####[facility]ORATORYCLIA [id number] [place], [place] [id number] [place] [address] [place] HDL CHOLESTEROL, NF 30 mg/dL Low >39 [facility] Comment on above: Order Comment: Specyareli harris Type: BLOOD SPECIMENOrdering Facility: [facility] Address: [address] [place] [address] Result Comment: 40-5 9 mg/dL, Acceptable >59 mg/dL, High: Negative risk factor for coronary heart disease <40 mg/dL, Low: Positive risk factor for coronary heart disease Performed By: #### 2 4321-2, LIPNF ####[facility] [id number] [address] LDL CHOLESTEROL, NF 34 mg/dL Normal <100 [facility] Comment on above: Order Comment: Douglasyareli harris Type: BLOOD SPECIMENOrdering Facility: [facility] Address: [address] [place] [address] Result Comment: <100 mg/dL, Optimal 100-129 mg/dL, Near optimal/above optimal 130-159 mg/dL, Borderline high 160-189 mg/dL, High >189 mg/dL, Very high Secondary prevention optimal LDL Cholesterol levels are recommended to be < 70 mg/dL Performed By: #### 2 4321-2, LIPNF ####[facility] [id number] [address] LDL/HDL RATIO, NF 1.13 mg/dL Normal <2.54 [facility] Comment on above: Order Comment: Megan harris Type: BLOOD SPECIMENOrdering Facility: [facility] Address: [address] [place] [address] Result Comment: Refe rence: 1. National Cholesterol Education Program ATP III Guideline At-A-Glance Quick Desk Reference: National Heart, Lung, and Blood [place]. National Institutes of Health. 2001: NIH Publication No. 01-3305. 2. An International Atherosclerosis Society position paper: global recommendations for the management of dyslipidemia: executive summary, Atherosclerosis. 2014: 232(2):410-413. Performed By: #### 2 4321-2, LIPNF ####[facility]ORY[facility] [id number] [address] NON HDL CHOL, NF 59 mg/dL Normal <130 [facility] Comment on above: Order Comment: Megan harris Type: BLOOD SPECIMENOrdering Facility: [facility] Address: [address] [place] [address] Result Comment: <130 mg/dL, Optimal 130-159 mg/dL, Near optimal/above optimal 160-189 mg/dL, Borderline high 190-219 mg/dL, High >219 mg/dL, Very high Secondary prevention optimal non HDL Cholesterol levels are recommended to be <100 mg/dL Performed By: #### 2 4321-2, LIPNF ####[facility] [id number] [address] T CHOL/HDL RATIO NF 2.97 mg/dL Normal <5.10 [facility] Comment on above: Order Comment: Speci men Type: BLOOD SPECIMENOrdering Facility: [facility] Address: [address] [place] [address] Performed By: #### 2 4321-2, LIPNF ####[facility] [id number] [address] TRIGLYCERIDES, NF 124 mg/dL Normal <150 [facility] Comment on above: Order Comment: Speci men Type: BLOOD SPECIMENOrdering Facility: [facility] Address: [address] [place] [address] Result Comment: <150 mg/dL, Normal 150-199 mg/dL, Borderline high 200-499 mg/dL, High >499 mg/dL, Very high Performed By: #### 2 4321-2, LIPNF ####[facility]ORY[facility] [id number] [address] VLDL CHOLESTEROL, NF 25 mg/dL Normal <30 [facility] Comment on above: Order Comment: Speci men Type: BLOOD SPECIMENOrdering Facility: [facility] Address: [address] [place] [address] Performed By: #### 2 4321-2, LIPNF ####[facility]ORY[facility]IA [id number] [address] MRA BRAIN WO IVCONon 023 MRA BRAIN WO IVCON * * *Final Report* * * DATE OF EXAM: Sep 11 2022 12:29PM [facility] 0272 - MRA BRAIN WO IVCON / PROCEDURE REASON: Transient ischemic attack (TIA) * * * * Physician Interpretation * * * * EXAMINATION: MRI BRAIN WO IVCON, MRA CAROTID WO IVCON, MRA BRAIN WO IVCON HISTORY: Transient ischemic attack (TIA) left-sided facial droop TECHNIQUE: Routine noncontrast MRI protocol including diffusion and gradient echo images. Intracranial and extracranial 3D [id number] MRA with 2D multiplanar and 3D maximum intensity projections calculated on the imaging workstation under physician supervision. MQ: [id number] COMPARISON: CT brain 09/10/2022 RESULT: BRAIN: Acute Change: Linear increased signal on diffusion imaging within the left inferomedial cerebellar hemisphere without associated signal abnormality on ADC or other pulse sequences is most likely artifactual. Hemorrhage: Curvilinear susceptibility with associated T2 hypointense hemosiderin deposition along the cerebellar vermis superiorly could reflect sequela of remote subarachnoid hemorrhage. Mass Lesion/ Mass Effect: No evidence of an intracranial mass or extra-axial fluid collection. No significant mass effect. Chronic Change: Scattered patchy areas of increased T2 and FLAIR signal are present in the supratentorial white matter which is a nonspecific finding but likely represents mild chronic microvascular ischemia. Parenchyma: There is moderate generalized parenchymal volume loss. The brain parenchyma is otherwise within normal limits of signal intensity and morphology. Ventricles: Ventriculomegaly corresponds to the degree of parenchymal volume loss. Skull Base: Hypothalamic and pituitary region are grossly normal. Craniocervical junction is normal. No significant marrow replacement process. Vasculature: Major intracranial arterial structures, and dural venous sinuses show typical flow void, suggesting patency by spin echo criteria. Other: Mucous retention cysts in the bilateral maxillary sinuses. The visualized paranasal sinuses and mastoid air cells are clear. The orbits and extracranial soft tissues are unremarkable. INTRACRANIAL MRA: Visualized distal cervical ICAs are patent and normal in caliber. Bilateral intracranial ICAs are patent without significant stenosis. There are codominant A1 segments with a small patent anterior communicating artery. The proximal LIZZY and MCA branches are patent without significant stenosis. Bilateral intradural vertebral arteries and basilar artery are patent without significant stenosis. The proximal bilateral second officer are patent and normal in caliber. There are patent bilateral posterior communicating arteries. The proximal bilateral SCA, right AICA and left PICA are patent. EXTRACRANIAL MRA: Carotid Stenosis: Right Common: No significant stenosis. Right Internal Plaque: No significant plaque formation. Right Internal Carotid Stenosis (% by NASCET Criteria): 0% Left Common: No significant stenosis. Left Internal Carotid Plaque: No significant plaque formation. Left Internal Carotid Stenosis (% by NASCET Criteria): 0% Cervical Vertebral Arteries: Patency: Bilateral Dominance: Left IMPRESSION: No evidence of an acute infarct or other acute intracranial process. Chronic microvascular ischemic changes and moderate generalized volume loss. Patent intracranial and extracranial arterial vasculature without significant stenosis, proximal occlusion or aneurysm. Oil Well Logger: ANH Transcribe Date/Time: Sep 11 2022 1:26P Dictated by : MICKEY SANCHEZ MD This examination was interpreted and the report reviewed and electronically signed by: MICKEY SANCHEZ MD on Sep 11 2022 1:39PM EST [id number] [facility] MRA CAROTID WO IVCONon 09-11 MRA CAROTID WO IVCON * * *Final Report* * * DATE OF EXAM: Sep 11 2022 12:29PM [facility] 0275 - MRA CAROTID WO IVCON / PROCEDURE REASON: Transient ischemic attack (TIA) * * * * Physician Interpretation * * * * EXAMINATION: MRI BRAIN WO IVCON, MRA CAROTID WO IVCON, MRA BRAIN WO IVCON HISTORY: Transient ischemic attack (TIA) left-sided facial droop TECHNIQUE: Routine noncontrast MRI protocol including diffusion and gradient echo images. Intracranial and extracranial 3D dwln-xn-fctovd MRA with 2D multiplanar and 3D maximum intensity projections calculated on the imaging workstation under physician supervision. MQ: [id number]_2 COMPARISON: CT brain 09/10/2022 RESULT: BRAIN: Acute Change: Linear increased signal on diffusion imaging within the left inferomedial cerebellar hemisphere without associated signal abnormality on ADC or other pulse sequences is most likely artifactual. Hemorrhage: Curvilinear susceptibility with associated T2 hypointense hemosiderin deposition along the cerebellar vermis superiorly could reflect sequela of remote subarachnoid hemorrhage. Mass Lesion/ Mass Effect: No evidence of an intracranial mass or extra-axial fluid collection. No significant mass effect. Chronic Change: Scattered patchy areas of increased T2 and FLAIR signal are present in the supratentorial white matter which is a nonspecific finding but likely represents mild chronic microvascular ischemia. Parenchyma: There is moderate generalized parenchymal volume loss. The brain parenchyma is otherwise within normal limits of signal intensity and morphology. Ventricles: Ventriculomegaly corresponds to the degree of parenchymal volume loss. Skull Base: Hypothalamic and pituitary region are grossly normal. Craniocervical junction is normal. No significant marrow replacement process. Vasculature: Major intracranial arterial structures, and dural venous sinuses show typical flow void, suggesting patency by spin echo criteria. Other: Mucous retention cysts in the bilateral maxillary sinuses. The visualized paranasal sinuses and mastoid air cells are clear. The orbits and extracranial soft tissues are unremarkable. INTRACRANIAL MRA: Visualized distal cervical ICAs are patent and normal in caliber. Bilateral intracranial ICAs are patent without significant stenosis. There are codominant A1 segments with a small patent anterior communicating artery. The proximal LIZZY and MCA branches are patent without significant stenosis. Bilateral intradural vertebral arteries and basilar artery are patent without significant stenosis. The proximal bilateral second officer are patent and normal in caliber. There are patent bilateral posterior communicating arteries. The proximal bilateral SCA, right AICA and left PICA are patent. EXTRACRANIAL MRA: Carotid Stenosis: Right Common: No significant stenosis. Right Internal Plaque: No significant plaque formation. Right Internal Carotid Stenosis (% by NASCET Criteria): 0% Left Common: No significant stenosis. Left Internal Carotid Plaque: No significant plaque formation. Left Internal Carotid Stenosis (% by NASCET Criteria): 0% Cervical Vertebral Arteries: Patency: Bilateral Dominance: Left IMPRESSION: No evidence of an acute infarct or other acute intracranial process. Chronic microvascular ischemic changes and moderate generalized volume loss. Patent intracranial and extracranial arterial vasculature without significant stenosis, proximal occlusion or aneurysm. Oil Well Logger: ANH Transcribe Date/Time: Sep 11 2022 1:26P Dictated by : MICKEY SANCHEZ MD This examination was interpreted and the report reviewed and electronically signed by: MICKEY SANCHEZ MD on Sep 11 2022 1:39PM EST [id number] [facility] MRI BRAIN WO IVCONon 023 MRI BRAIN WO IVCON * * *Final Report* * * DATE OF EXAM: Sep 11 2022 12:29PM [facility] 0294 - MRI BRAIN WO IVCON / PROCEDURE REASON: Transient ischemic attack (TIA) * * * * Physician Interpretation * * * * EXAMINATION: MRI BRAIN WO IVCON, MRA CAROTID WO IVCON, MRA BRAIN WO IVCON HISTORY: Transient ischemic attack (TIA) left-sided facial droop TECHNIQUE: Routine noncontrast MRI protocol including diffusion and gradient echo images. Intracranial and extracranial 3D hsff-mm-zutdio MRA with 2D multiplanar and 3D maximum intensity projections calculated on the imaging workstation under physician supervision. MQ: [id number]_2 COMPARISON: CT brain 09/10/2022 RESULT: BRAIN: Acute Change: Linear increased signal on diffusion imaging within the left inferomedial cerebellar hemisphere without associated signal abnormality on ADC or other pulse sequences is most likely artifactual. Hemorrhage: Curvilinear susceptibility with associated T2 hypointense hemosiderin deposition along the cerebellar vermis superiorly could reflect sequela of remote subarachnoid hemorrhage. Mass Lesion/ Mass Effect: No evidence of an intracranial mass or extra-axial fluid collection. No significant mass effect. Chronic Change: Scattered patchy areas of increased T2 and FLAIR signal are present in the supratentorial white matter which is a nonspecific finding but likely represents mild chronic microvascular ischemia. Parenchyma: There is moderate generalized parenchymal volume loss. The brain parenchyma is otherwise within normal limits of signal intensity and morphology. Ventricles: Ventriculomegaly corresponds to the degree of parenchymal volume loss. Skull Base: Hypothalamic and pituitary region are grossly normal. Craniocervical junction is normal. No significant marrow replacement process. Vasculature: Major intracranial arterial structures, and dural venous sinuses show typical flow void, suggesting patency by spin echo criteria. Other: Mucous retention cysts in the bilateral maxillary sinuses. The visualized paranasal sinuses and mastoid air cells are clear. The orbits and extracranial soft tissues are unremarkable. INTRACRANIAL MRA: Visualized distal cervical ICAs are patent and normal in caliber. Bilateral intracranial ICAs are patent without significant stenosis. There are codominant A1 segments with a small patent anterior communicating artery. The proximal LIZZY and MCA branches are patent without significant stenosis. Bilateral intradural vertebral arteries and basilar artery are patent without significant stenosis. The proximal bilateral second officer are patent and normal in caliber. There are patent bilateral posterior communicating arteries. The proximal bilateral SCA, right AICA and left PICA are patent. EXTRACRANIAL MRA: Carotid Stenosis: Right Common: No significant stenosis. Right Internal Plaque: No significant plaque formation. Right Internal Carotid Stenosis (% by NASCET Criteria): 0% Left Common: No significant stenosis. Left Internal Carotid Plaque: No significant plaque formation. Left Internal Carotid Stenosis (% by NASCET Criteria): 0% Cervical Vertebral Arteries: Patency: Bilateral Dominance: Left IMPRESSION: No evidence of an acute infarct or other acute intracranial process. Chronic microvascular ischemic changes and moderate generalized volume loss. Patent intracranial and extracranial arterial vasculature without significant stenosis, proximal occlusion or aneurysm. Oil Well Logger: PSCB Transcribe Date/Time: Sep 11 2022 1:26P Dictated by : MICKEY SANCHEZ MD This examination was interpreted and the report reviewed and electronically signed by: MICKEY SANCHEZ MD on Sep 11 2022 1:39PM EST [id number] Normal [facility] Prot/Creat Uron 09-11-2022 Protein/Creatinine (U) [Mass ratio] 0.24 mg/mg High <0.15 [facility] Comment on above: Order Comment: Speci men Type: URINE SPECIMENOrdering Facility: [facility] Address: [address] [place] [address] Result Comment: Adul t Proteinuria Categories: <0.15 mg/mg is considered normal to mildly increased 0.15 - 0.50 mg/mg is considered moderately increased >0.50 mg/mg is considered severely increased KDIGO. (2013). KDIGO 2012 Clinical Practice Guideline for the Evaluation and Management of Chronic Kidney Disease. Official Journal of the International Society of Nephrology, 3(1), 1-150. Performed By: #### 2 890-2 ####[facility] [id number] [place] [address] [place] Protein/Creatinine (U) [Mass ratio]on 09-11-2022 Creatinine (U) [Mass/Vol] 144.6 mg/dL Normal 20.0-300.0 [facility] Comment on above: Order Comment: Speci men Type: URINE SPECIMENOrdering Facility: [facility] Address: [address] [id number] Performed By: #### 2 890-2 ####[facility] [id number] [place] [address] [place] Protein (U) [Mass/Vol] 34 mg/dL High 0-20 [facility] Comment on above: Order Comment: Speci men Type: URINE SPECIMENOrdering Facility: [facility] Address: [address] [address] Performed By: #### 2 890-2 ####[facility] LABCLIA [id number] [facility] [id number] URINALYSIS, REFLEX MICROSCOP ICon 09-11-2022 Bacteria LM.HPF (Urine sed) [#/Area] Rare Abnormal None Seen [facility] Comment on above: Order Comment: Speci men Type: URINE SPECIMENOrdering Facility: [facility] Address: [address] [place] [address] Performed By: #### L [id number] ####[facility] [id number] [address] [place] Bilirubin Ql (U) Negative Normal Negative [facility] Comment on above: Order Comment: Speci men Type: URINE SPECIMENOrdering Facility: [facility] Address: [address] [place] [address] Performed By: #### L [id number] ####[facility] [id number] [address] Clarity (Unsp spec) Clear Normal Clear [facility] Comment on above: Order Comment: Speci men Type: URINE SPECIMENOrdering Facility: [facility] Address: [address] [place] [address] Performed By: #### L [id number] ####[facility] [id number] [address] Color (U) Yellow Normal Yellow [facility] Comment on above: Order Comment: Speci men Type: URINE SPECIMENOrdering Facility: [facility] Address: [address] [place] [address] Performed By: #### L [id number] ####[facility] [id number] [address] Glucose Test strip (U) [Mass/Vol] 3+ Abnormal Negative [facility] Comment on above: Order Comment: Speci men Type: URINE SPECIMENOrdering Facility: [facility] Address: [address] [address] Performed By: #### L [id number] ####[facility] [id number] [place] [address] [place] Hemoglobin Ql (U) Negative Normal Negative, Trace [facility] Comment on above: Order Comment: Speci men Type: URINE SPECIMENOrdering Facility: [facility] Address: [address] [place] [address] Performed By: #### L [id number] ####[facility] [id number] [place] [address] [place] Ketones Ql (U) Negative Normal Negative [facility] Comment on above: Order Comment: Speci men Type: URINE SPECIMENOrdering Facility: [facility] Address: [address] [place] [address] Performed By: #### L [id number] ####[facility] [id number] [address] [place] Leukocyte esterase Test strip Ql (U) Negative Normal Negative [facility] Comment on above: Order Comment: Speci men Type: URINE SPECIMENOrdering Facility: [facility] Address: [address] [place] [address] Performed By: #### L [id number] ####[facility] [id number] [place] [address] [place] Nitrite Ql (U) Negative Normal Negative [facility] Comment on above: Order Comment: Speci men Type: URINE SPECIMENOrdering Facility: [facility] Address: [address] [place] [address] Performed By: #### L [id number] ####[facility] [id number] [place] [address] [facility] [place] pH (U) 7.0 [pH] Normal 5.0-8.0 [facility] Comment on above: Order Comment: Speci men Type: URINE SPECIMENOrdering Facility: [facility] Address: [address] [place] [address] Performed By: #### L [id number] ####[facility] [id number] [place] [address] [place] Protein (U) [Mass/Vol] 1+ Abnormal Negative [facility] Comment on above: Order Comment: Speci men Type: URINE SPECIMENOrdering Facility: [facility] Address: [address] [place] [address] Performed By: #### L [id number] ####[facility] [id number] [address] RBC LM.HPF (Urine sed) [#/Area] 0-3 /HPF Normal 0-3 /HPF [facility] Comment on above: Order Comment: Speci men Type: URINE SPECIMENOrdering Facility: [facility] Address: [address] [place] [address] Performed By: #### L [id number] ####[facility] [id number] [address] Specific gravity (U) [Rel density] 1.020 Normal 1.005-1.030 [facility] Comment on above: Order Comment: Speci men Type: URINE SPECIMENOrdering Facility: [facility] Address: [address] [place] [address] Performed By: #### L [id number] ####[facility] [id number] [address] Urobilinogen Ql (U) 1.0 EU/dL Normal 0.2-1.0 EU/dL [facility] Comment on above: Order Comment: Speci men Type: URINE SPECIMENOrdering Facility: [facility] Address: [address] [place] [address] Performed By: #### L [id number] ####[facility] [id number] [address] WBC LM.HPF (Urine sed) [#/Area] 0-5 /HPF Normal 0-5 /HPF [facility] Comment on above: Order Comment: Speci men Type: URINE SPECIMENOrdering Facility: [facility] Address: [address] [place] [address] Performed By: #### L [id number] ####[facility] [id number] [address] [place] Established Visit (Pain Medi cine)on 2022 Established Visit (Pain Medicine) Diagnoses/Problems 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 stenosis (724.03) (M48.062) 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 He has a grade 1 anterolisthesis of L5 on S1. He has had a previous L2-5 laminectomy and has a patent central canal. He has numerous areas of severe neuroforaminal stenosis particularly at the L4-5 and L5-S1 levels bilaterally. We discussed options and he had to postpone physical therapy due to an illness so he is going to get started on that. If that is ineffective we will consider a transforaminal epidural injection. If that is ineffective then we could consider having a reconsult with a spine surgeon. I went over the pros and cons of this plan and he was in agreement with it. In the interim I am to try increasing the gabapentin to 300 mg 3 times a day and I will see her for follow-up in 8 weeks or sooner if needed. Chief Complaint Pain FUV for abundio low back pain -03/22 today. Patient states he has pain when walking or standing. Minimal pain when sitting. MRI done 07-14-2022 at . This is an 82-year-old male here for a follow-up for chief complaint of low back pain. He reports that the pain is still intermittent and only bothers him when he standing. It still significantly limits his function. It is pretty equal into his sides. He is using 100 mg of gabapentin 3 times a day. He has not noticed much benefit. He denies new neurologic symptoms or issues with bladder or bowel control. He got the MRI that I had ordered and is here to go over the results. The patient's past medical, social, and family history along with medications and allergies are available and were reviewed. Adult Risk Screening Living Will. Living Will: Living will on file. Healthcare POA: Health care proxy on file. Domestic Violence Screen: Does not feel threatened or abused physically, emotionally or sexually. Do you feel UNSAFE? The patient feels safe in the home. Depression/Suicide Screening: He does not have a risk of suicide. He has not had thoughts of harming others. History of Present Illness On a scale of 0 to 10, the patient rates the pain at 8. Pain Location: Low Back Pain. Pain Quality: Aching. Timing/Duration: Constant and > 12 weeks duration. Controlled Substance: I have personally reviewed the [place] report for DEVI THOMPSON. I have considered the risks of abuse, dependence, addiction and diversion. Review of Systems All 13 systems were reviewed and are within normal levels except as noted below or per HPI. Positive and pertinent negative responses are noted below or in the HPI. 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.26) Past Medical History No pertinent past medical history (V49.89) (Z78.9) Surgical History History of Back surgery History of Gallbladder surgery History of Tonsillectomy Family History Family history of myocardial infarction (V17.3) (Z82.49) Family history of Non-small cell carcinoma of lung Family history of malignant neoplasm of breast (V16.3) (Z80.3) Family history of malignant neoplasm (V16.9) (Z80.9) Social History Daily caffeine consumption, 2-3 servings a day Former smoker (V15.82) (Z87.891) No illicit drug use Social alcohol use (V49.89) (Z78.9) Allergies No Known Drug Allergies Recorded By: Janay Juan; 11/22/2021 2:25:06 PM Current Meds Medication NameInstruction Aspirin 81 MG Oral Tablet Delayed ReleaseTAKE 1 TABLET DAILY. Gabapentin 100 MG Oral Capsuletake 1 capsule by mouth three times a day metFORMIN HCl - 1000 MG Oral TabletTAKE 1 TABLET BY MOUTH TWICE DAILY Metoprolol Succinate ER 25 MG Oral Tablet Extended Release 24 Hourtake 1 tablet by mouth once daily Multivitamin Oral TabletTAKE 1 TABLET DAILY. Prevagen 10 MG Oral CapsuleTAKE 1 TABLET BY MOUTH DAILY Simvastatin 40 MG Oral TabletTAKE 1 TABLET AT BEDTIME. Vitals Vital Signs Recorded: [id number] 03:30PM Heart Rate89 Yncyxrrbclv72 Uokwdygf270 Hourjszrw49 Emnrnw296 lb BMI Kdjzwohatt45.7 kg/m2 BSA Calculated2 (more content not included)... Normal [facility] MRI L Spine without Contrast on 07-14-2022 MR Lumbar spine WO contrast Normal [facility] Work Phone: NR MRI L-SPINE WOon 07-14-20 22 NR MRI L-SPINE WO Patient Name: DEVI THOMPSON STUDY: MRI L-SPINE WO; 07/14/2022 7:30 pm INDICATION: pain M48.062: 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 stenosis M47.817: Lumbosacral spondylosis. COMPARISON: None. ACCESSION NUMBER(S): [id number] ORDERING CLINICIAN: SARA COOMBS TECHNIQUE: Sagittal T1, T2, STIR, axial T1 and T2 weighted images of the lumbar spine were acquired. FINDINGS: There are 5 lumbar type non rib-bearing vertebral bodies, with the lowest well-formed intervertebral disc space labeled L5-S1. There are postsurgical changes consistent with posterior decompression and laminectomies of L2 through L5. There is a 1-2 mm retrolisthesis of L1 on L2, 3-4 mm retrolisthesis of L2 on L3, 3-4 mm retrolisthesis of L3 on L4, and a 5-6 mm anterolisthesis of L5 on S1. There are multilevel insufficiency endplate changes, with mild associated height loss present along the L3-L4 and L5-S1 endplates, with minimal STIR hyperintense edema. There is no evidence of compression fractures. There is STIR hyperintense edema present along the L4-L5 facet joints bilaterally, and within the adjacent paraspinal musculature. No well-circumscribed fluid collections are identified. There is multilevel intervertebral disc height loss, severe at L5-S1, and mild to moderate at L2-L3 and L3-L4. Visualized lower thoracic spinal cord terminates at L2 and is unremarkable in appearance. T12-L1: Disc osteophyte complex, eccentric to the right, slightly deforms the anterior subarachnoid space, without significant spinal canal stenosis. No significant neural foraminal narrowing is present. L1-L2: Posterior disc bulge, eccentric to the right, slightly deforms the subarachnoid space, without significant spinal canal stenosis, and in combination with hypertrophic facet changes, causes tord-ua-afupmurl right-sided neural foraminal stenosis. No significant left-sided neural foraminal stenosis is present. L2-L3: Combination of disc bulge, spondylolisthesis, and hypertrophic facet changes deform the subarachnoid space, without significant spinal canal stenosis. There is moderate bilateral neural foraminal stenosis due to hypertrophic facet changes and para foraminal osteophytic spurring. L3-L4: Combination of disc osteophyte complex and hypertrophic facet changes with ligamentum flavum thickening somewhat deform the subarachnoid space without significant spinal canal stenosis. Moderate to severe bilateral neural foraminal stenosis is present due to hypertrophic facet changes and endplate spurring. L4-L5: Hypertrophic facet changes and disc osteophyte spurring deform the subarachnoid space and partially efface the subarticular recesses bilaterally, without significant spinal canal stenosis. There is severe bilateral neural foraminal narrowing due to endplate spurring and hypertrophic facet changes. L5-S1: Spondylolisthesis and endplate spurring slightly deform the subarachnoid space, without significant spinal canal stenosis. There is gyvb-si-ycupzfhx right-sided and moderate to severe right-sided neural foraminal stenosis due to spondylolisthesis and hypertrophic facet changes of endplate spurring. Diffuse fatty atrophy of the paraspinal musculature is present. STIR hyperintense signal within the paraspinal musculature overlying the posterior elements of L4 through S1 is nonspecific. IMPRESSION: 1. Postsurgical changes suggestive of prior laminectomy and posterior decompression of L2 through L5. 2. Multilevel degenerative changes of the cervical spine, with without evidence of high-grade spinal canal stenosis, although there are varying degrees of moderate to severe neural foraminal narrowing present at several levels, as detailed above. 3. STIR hyperintense signal is present within the paraspinal musculature overlying the lower lumbar spine, surrounding the L4-5 and L5-S1 facets, favored to be degenerative secondary to facet osteoarthropathy, although other infectious and inflammatory etiologies cannot be entirely excluded. 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 : No What are the patient's signs and symptoms? : pain Physical Therapy - General Referral Evaluation and Treatment Evaluate AND Treat Status: Hold For - Scheduling Requested for: 11Jul2022 Xray Lumbosacral Spine Complete (Bending); Status:Hold For - Scheduling; Requested for:11Jul2022; Radiologist to Determine Optimal Study : Y What are the patient's signs and symptoms? : pain Patient Discussion/Summary I discussed with the patient the likely etiology of his symptoms, as well as potential treatment options I addressed options with him. His signs and symptoms are very consistent with spinal stenosis. He has not had imaging in quite a while so we will obtain a new x-ray and MRI to evaluate for the degree of stenosis. I am also going to start him in some physical therapy. Depending on how he does we could consider epidural injections. I went over the pros and cons of this plan and he was in agreement with it. I will see him for follow-up after the MRI for repeat evaluation. Over 45 minutes was spent caring for the patient in total. Chief Complaint NPV here for evaluation of bilat lower back pain rates 1/10 sitting and 9/10 standing or walking describes as a ache that gets more intense with walking or standing, feels like his legs are weak and rt leg drags when walking, pain is relieved with sitting. The pain started years ago 1979's no obvious injury, he had surgery discectomy 1984 at [facility] in [place], he tried Aleve use to get relief and now no relief, GPN 100mg TID reports no side effects but no real pain relief, Chiropractor before surgery, no PT. This is an 81-year-old male here for a new patient appointment for chief complaint of bilateral lower back pain. He reports this has been going on for many years. He reports the pain is mild when he is sitting but gets much more severe when he stands and walks. It limits his ambulation. He has found that it will help if he can lean forward on something. He will get weakness and heaviness in the legs. He states the right is worse than the left. He underwent back surgery 30 years ago for right leg pain. He reports at that time the right leg was not completely numb and the surgery was successful. He has tried NSAIDs and gabapentin with limited relief. He has tried chiropractic treatments but no therapy recently. He denies additional neurologic symptoms or issues with bladder or bowel control. The patient's past medical, social, and family history along with medications and allergies are available and were reviewed. Adult Risk Screening Living Will. Living Will: Living will on file. Healthcare POA: Health care proxy on file. Domestic Violence Screen: Does not feel threatened or abused physically, emotionally or sexually. Do you feel UNSAFE? The patient feels safe in the home. Depression/Suicide Screening: He does not have a risk of suicide. He has not had thoughts of harming others. Reference Documentation See scanned note Opioid Risk Tool . History of Present Illness On a scale of 0 to 10, the patient rates the pain at 1. now and 9/10 with standing or walking. Pain Quality: Aching and gets very intense with standing. Sensory/ Motor: Weakness and Rt leg >lt leg. Timing/Duration: Constant and > 12 weeks duration. Controlled Substance: I have personally reviewed the [place]AR[place] report for DEVI NEFFY. I have considered the risks of abuse, dependence, addiction and diversion. Exacerbating Factors: standing, stairs, walking and weightbearing. Alleviating Factors: Moist Heat, Repositioning, Other: ___. 24 Hour Behavior: Symptoms are the same in the am. Symptoms are the same as the day progresses. Symptoms are the same in the pm. Symptoms are the same when lying down. Effect of Movement on Symptoms: Bending doesn't change symptoms. is unsteady. Lying doesn't change symptoms. Rising from sitting doesn't change symptoms. Sitting makes symptoms worse. gets stiff. Standing makes symptoms worse. Rising from supine to sitting doesn't change symptoms. Turning doesn't change symptoms. Walking makes symptoms worse. Twisting doesn't change symptoms. Weather doesn't change symptoms. Pushing motion doesn't change symptoms. Pulling motion doesn't change symptoms. Lifting: Same. cannot lift anymore. Psychosocial Factors vs Last Visit: Physical Functioning: Worse. Family Relationships: Same. Social Relationships: Same. Mood: Same. Sleep Pa (more content not included)... Normal [facility] - Chemistry and C hemistry - challengeon 07-10-2022 Glucose [Mass/Vol] 266 mg/dL Normal -[facility] n Management-[facility] Work Phone: Comment on above: eAG: (Estimated aver age glucose) is a calculated value from HgbA1c and is patient service representative of the average blood glucose level in the last 2-3 month period. Laboratory - Hematology and Cell countson 07-10-2022 HbA1c (Bld) [Mass fraction] 10.9 % above high threshold 4.3-5.6 [facility] Management-[facility] Work Phone: Comment on above: [place] Diabetes As sociation guidelines indicate that patients with HgbA1c in the range 5.7-6.4% are at increased risk for development of diabetes, and intervention by lifestyle modification may be beneficial. HgbA1c greater or equal to 6.5% is considered diagnostic of diabetes. No Panel Informationon 07-10 55 {mL/min/1.73m???} below low threshold >=60 [facility] Work Phone: Comment on above: Estimated Glomerular Filtration Rate (eGFR) is calculated using the 2020 CKD-EPI creatinine equation. This equation utilizes serum creatinine, sex, and age as parameters. The creatinine assay has traceable calibration to isotope dilution-mass spectrometry. Refer to KDIGO guidelines for clinical interpretation. In patients with unstable renal function, e.g. those with acute kidney injury, the eGFR may not accurately reflect actual GFR. 4.4 mmol/L Normal 3.7-5.1 [facility] Work Phone: [phone] mmol/L Normal 136-144 [facility] [place] Work Phone: [phone] 1.32 mg/dL above high threshold 0.73-1.22 [facility] Work Phone: [phone] 17 mg/dL Normal 9-24 [facility] Work Phone: [phone] mg/dL above high threshold 74-99 [facility] Work Phone: [phone] Comment on above: The [place] Diabete s Association (ADA) provides guidance for cutoff values for fasting glucose and random glucose. The ADA defines fasting as no caloric intake for at least 8 hours. Fasting plasma glucose results between 100 to 125 mg/dL indicate increased risk for diabetes (prediabetes).Fasting plasma glucose results greater than or equal to 126 mg/dL meet the criteria for diagnosis of diabetes. In the absence of unequivocal hyperglycemia, results should be confirmed by repeat testing. In a patient with classic symptoms of hyperglycemia or hyperglycemic crisis, random plasma glucose results greater than or equal to 200 mg/dL meet the criteria for diagnosis of diabetes.Reference: Standards of Medical Care in Diabetes 2016, [place] Diabetes Association. Diabetes Care. 2016.39(Suppl 1). 21 U/L Normal 10-54 [facility] Work Phone: [phone] mmol/L Normal 9-18 [facility] Work Phone: [phone] mmol/L Normal 22-30 [facility] Work Phone: [phone] mmol/L Normal 97-105 [facility] Work Phone: [phone] U/L Normal 14-40 [facility] Work Phone: [phone] 73 U/L Normal 38-113 [facility] Work Phone: [phone] 1.0 mg/dL Normal 0.2-1.3 [facility] Work Phone: [phone] 9.4 mg/dL Normal 8.5-10.2 [facility] Work Phone: [phone] 4.4 g/dL Normal 3.9-4.9 [facility] Work Phone: [phone] 7.3 g/dL Normal 6.3-8.0 [facility] Work Phone: [phone] Blood Pressure Cuff Sizeon 1 09-03-2021 Fall risk assessment a) No falls within the last year [facility] Work Phone: [phone] [facility] b) No [facility] Work Phone: [phone] Blood Pressure Cuff Size Adult [facility] Work Phone: Office Visit (Internal Medic ine)on 07-04-2022 Follow-up visit Diagnoses/Problems Assessed Chronic back pain (724.5,338.29) (M54.9,G89.29) Morbid obesity with BMI of 40.0-44.9, adult (278.01,V85.41) (E66.01,Z68.41) DM II (diabetes mellitus, type II), controlled (250.00) (E11.9) BMI 40.0-44.9, adult (V85.41) (Z68.41) HTN (hypertension) (401.9) (I10) Hyperlipidemia (272.4) (E78.5) Orders Chronic back pain Pain Management Referral Evaluation and Treatment Evaluate AND Treat Status: Hold For - Scheduling Requested for: 04Jul2022 Ordered;For: Chronic back pain; Ordered By: Gonzales Gray Performed: Due: 02Oct2022 Provider Impressions 1. Type II DM - a1c was 9.3%, will update - continue metformin 1000mg po bid 2. HLD - continue simvastatin 40mg po daily 3. HTN - continue metoprolol Er 25mg po daily 4. Chronic back pain s/p surgery - has seen pain management through [facility] 3 years ago, will refer to local pain - uses nsaids prn - gabapenin 100mg po tid Chief Complaint 81 y/o male presents for 3 month f/u Denies needing medication RF's Pt states it hurts to walk and it hurts to stand States its been this way for awhile History of Present IllnessPatient is here today for 3 mo follow up Patient reports that he has been having some back pain when he walks. He had a disc removed years ago. He does nnot have numbness or tingling or sciatica. Patient reports that he has to sit down after he walks for a while. He is not sure if the injection helped or not. LAst saw [facility] years ago. Tolerating higher dose of metformin well, doesn ot check blood sugars. Review of Systems Constitutional: no fever, no chills and not feeling poorly. ENT: no nosebleeds, no nasal discharge and no sore throat. Cardiovascular: no chest pain, no palpitations and no intermittent leg claudication. Respiratory: no cough and not coughing up sputum. Gastrointestinal: no abdominal pain and no melena. Musculoskeletal: arthralgias and back pain. Active Problems Problems BMI 40.0-44.9, adult (V85.41) (Z68.41) Chronic back pain (724.5,338.29) (M54.9,G89.29) Diabetes (250.00) (E11.9) DM II (diabetes mellitus, type II), controlled (250.00) (E11.9) HTN (hypertension) (401.9) (I10) Hyperlipidemia (272.4) (E78.5) Medicare annual wellness visit, subsequent (V70.0) (Z00.00) Morbid obesity with BMI of 40.0-44.9, adult (278.01,V85.41) (E66.01,Z68.41) Numbness (782.0) (R20.0) Past Medical History Problems No pertinent past medical history (V49.89) (Z78.9) Surgical History Problems History of Back surgery History of Gallbladder surgery History of Tonsillectomy Family History Mother Family history of myocardial infarction (V17.3) (Z82.49) Father Family history of Non-small cell carcinoma of lung Sister Family history of malignant neoplasm of breast (V16.3) (Z80.3) Other Family history of malignant neoplasm (V16.9) (Z80.9) Social History Problems Daily caffeine consumption, 2-3 servings a day Former smoker (V15.82) (Z87.891) No illicit drug use Social alcohol use (V49.89) (Z78.9) Allergies Medication No Known Drug Allergies Recorded By: Janay Juan; 11/22/2021 2:25:06 PM Current Meds Medication NameInstruction Aspirin 81 MG Oral Tablet Delayed ReleaseTAKE 1 TABLET DAILY. Gabapentin 100 MG Oral Capsuletake 1 capsule by mouth three times a day metFORMIN HCl - 1000 MG Oral TabletTAKE 1 TABLET BY MOUTH TWICE DAILY Metoprolol Succinate ER 25 MG Oral Tablet Extended Release 24 Hourtake 1 tablet by mouth once daily Multivitamin Oral TabletTAKE 1 TABLET DAILY. Prevagen 10 MG Oral CapsuleTAKE 1 TABLET BY MOUTH DAILY Simvastatin 40 MG Oral TabletTAKE 1 TABLET AT BEDTIME. Vitals Vital Signs Recorded: 04Jul2022 09:45AM Heart Rate83 [id number] [id number] Blood Pressure Cuff SizeAdult Height5 ft 11 in Yiqxku586 lb BMI Kfsekhdoma43.84 kg/m2 BSA Calculated2.51 Tobacco Useb) No Falls Screening (Age 18+)a) No falls within the last year Physical Exam Constitutional General appearance: Alert and in no acute distress. Eyes Inspection of eyes: Sclera and conjunctiva were normal. Pupil exam: Pupils were equal in size. Extraocular movements were intact. Pulmonary Respiratory assessment: No respiratory distress, normal respiratory rhythm and effort. Auscultation of Lungs: Clear bilateral breath sounds. Cardiovascular Auscultation of heart: Apical pulse normal, heart rate and rhythm normal, normal S1 and S2, no murmurs and no pericardial rub. Exam for edema: No peripheral edema. Musculoskeletal Inspection/palpation of joints, bones and muscles: No joint swelling. Normal movement of all extremities. Skin Skin inspection: Normal skin color and pigmentation, normal skin turgor and no visible rash. Psychiatric Orientation: Oriented to person, place, and time. Mood and affect: Normal. Signatures Electronically signed by : Gonzales Gray DO; Jul 04 2022 10:23AM EST (Author) Normal [facility] - Chemistry and C hemistry - challengeon 04-06-2022 Glucose [Mass/Vol] 235 mg/dL Normal [facility] Work Phone: [phone] Comment on above: eAG: (Estimated aver age glucose) is a calculated value from HgbA1c and is patient service representative of the average blood glucose level in the last 2-3 month period. Laboratory - Hematology and Cell countson 04-06-2022 HbA1c (Bld) [Mass fraction] 9.8 % above high threshold 4.3-5.6 [facility] Work Phone: [phone] Comment on above: [place] Diabetes As sociation guidelines indicate that patients with HgbA1c in the range 5.7-6.4% are at increased risk for development of diabetes, and intervention by lifestyle modification may be beneficial. HgbA1c greater or equal to 6.5% is considered diagnostic of diabetes. No Panel Informationon 04-06 49 {mL/min/1.73m???} below low threshold >=60 [facility] Work Phone: Comment on above: Estimated Glomerular Filtration Rate (eGFR) is calculated using the 2020 CKD-EPI creatinine equation. This equation utilizes serum creatinine, sex, and age as parameters. The creatinine assay has traceable calibration to isotope dilution-mass spectrometry. Refer to KDIGO guidelines for clinical interpretation. In patients with unstable renal function, e.g. those with acute kidney injury, the eGFR may not accurately reflect actual GFR. 4.5 mmol/L Normal 3.7-5.1 [facility] Work Phone: [phone] mmol/L Normal 136-144 [facility] Work Phone: [phone] 1.44 mg/dL above high threshold 0.73-1.22 [facility] Work Phone: [phone] 15 mg/dL Normal 9-24 [facility] Work Phone: [phone] mg/dL above high threshold 74-99 [facility] Work Phone: [phone] Comment on above: The [place] Diabete s Association (ADA) provides guidance for cutoff values for fasting glucose and random glucose. The ADA defines fasting as no caloric intake for at least 8 hours. Fasting plasma glucose results between 100 to 125 mg/dL indicate increased risk for diabetes (prediabetes).Fasting plasma glucose results greater than or equal to 126 mg/dL meet the criteria for diagnosis of diabetes. In the absence of unequivocal hyperglycemia, results should be confirmed by repeat testing. In a patient with classic symptoms of hyperglycemia or hyperglycemic crisis, random plasma glucose results greater than or equal to 200 mg/dL meet the criteria for diagnosis of diabetes.Reference: Standards of Medical Care in Diabetes 2016, [place] Diabetes Association. Diabetes Care. 2016.39(Suppl 1). 19 U/L Normal 10-54 [facility] Work Phone: [phone] mmol/L Normal 9-18 [facility] Work Phone: [phone] mmol/L Normal 22-30 [facility] Work Phone: [phone] mmol/L Normal 97-105 [facility] Work Phone: [phone] U/L Normal 14-40 [facility] Work Phone: [phone] U/L Normal 38-113 [facility] Work Phone: [phone] 0.9 mg/dL Normal 0.2-1.3 [facility] Work Phone: [phone] 9.3 mg/dL Normal 8.5-10.2 [facility] Work Phone: [phone] 4.2 g/dL Normal 3.9-4.9 [facility] Work Phone: [phone] 7.2 g/dL Normal 6.3-8.0 [facility] Work Phone: [phone] Medicare Annual Wellness Vis iton 04-05-2022 Medicare Annual Wellness Visit *Chief Complaint 81 y/o male presents for Medicare wellness and 3 month f/u Medications proposed History of Present Illness The patient is being seen for the subsequent annual wellness visit. Past Medical, Surgical and Family History: reviewed and updated in chart. Interval History: Patient has not been hospitalized previously. Medications and Supplements: Review of all medications by a prescribing practitioner or clinical pharmacist (such as prescriptions, OTCs, herbal therapies and supplements) documented in the medical record. No, the patient is not using opioids. Health Risk Assessment: During the past 4 weeks: How much have you been bothered by feeling anxious, depressed, irritable or sad, downhearted or blue? Not at all. Has your physical and emotional health limited your social activities with family, friends, neighbors or groups? Not at all. In general bodily pain: Moderate pain. Was someone available to help you if you needed or wanted help: Yes, as much as I wanted. The hardest physical activity you could do for at least 2 minutes: Light. Yes, can get to places out of walking distance without help. Yes, can shop for groceries or clothes without help. Yes, does prepare meals. Yes, does housework without help. Yes, handles money without help. Does not need help eating, bathing, dressing, or getting around home. Rates health in general: Good. How have things been going for you? Very well, could hardly be better. Having difficulties driving a car: No. Always fastens seatbelt when in a car: Yes, usually. Has fallen or gotten dizzy when standing up: Never Sexual problems: Never Has trouble eating: Never Has problems with teeth or dentures: Never Has problems using the telephone: Never Tired or fatigued: Never No, has not fallen 2 or more times in the past year. No, not afraid of falling. Number of drinks of wine, beer or other alcoholic beverages: No alcohol at all. Exercise for about 20 minutes 3 or more days a week: No, I usually do not exercise this much. Have you been given any information to help you with the following: Yes, has given information regarding hazards in the home that might hurt you. Yes, has been given information regarding keeping track of medications. Do you have trouble taking medicines the way told to take them: I always take them as prescribed. Confidence in control and management of most health problems: Somewhat cofident. Patient Self Assessment of Health Status: good. Tobacco use: Non-User Alcohol use: Non-User Illicit drug use: Non-User Current diet: well balanced diet, does consume adequate fluids and does consume caffeine. Exercise Frequency: the patient does not exercise. Depression/Suicide Screening: . During the past 2 weeks, the patient has not felt down, depressed or hopeless. During the past 2 weeks, the patient has not felt little interest or pleasure in doing things. Hearing Impairment: none. Cognitive Impairment: No cognitive impairment observed. Bathing: performs independently. Dressing: performs independently. Walking: performs independently. Toileting: performs independently. Feeding: performs independently. Personal Hygiene: performs independently. Bowels: continent. Bladder: continent. Managing Finances: performs independently. Shopping: performs independently. Managing Medications: performs independently. Housework / Basic Home Maintenance: performs independently. Handling Transportation: performs independently. Preparing Meals: performs independently. Using the Telephone/ Communication Devices: performs independently. Falls Risk Screening:. DEVI has not fallen in the last 6 months. Home safety risk factors: none. Advance directives:. Advanced Care Planning discussed and documented advance care plan or surrogate decision maker documented in the medical record. Patient has living will. Patient has healthcare POA. Patient's End of Life Decisions: I agree to follow the patient's decisions. Patient is here today for 3 mo follow up Patient states that he feels like he coughs a lot while he is walking and sometimes gets dizzy. He also has some numbness in his fingers. Patient denies any injury. patient is right handed . PAtients Blood work showed that he is diabetic. His a1c was 9.3% He has Tani taking metformin. He is finding that his back is getting worse. He had seen pain management. He has seen [facility]. He cannot do that Activities that he wants to do because his back. Review of Systems Constitutional: no fever, no chills and not feeling poorly. ENT: no nosebleeds, no nasal discharge and no sore throat. Cardiovascular: no chest pain, no palpitations and no lower extremity edema. Respiratory: no cough and not coughing up sputum. Gastrointestinal: no abdominal pain and no constipation. Musculoskeletal: arthralgias and back pain, but no joint swelling and no joint stiffness. *Acti (more content not included)... Normal [facility] PHQ-2 VITALSon 04-05-2022 Adult depression screening assessment No [facility] Work Phone: Fall risk assessment a) No falls within the last year [facility] Work Phone: [phone] Tobacco use status [facility] b) No [facility] Work Phone: [phone] PHQ-2 VITALS Adult [facility] Work Phone: [phone] Laboratory - Chemistry and C hemistry - challengeon 11-26-2021 Glucose [Mass/Vol] 232 mg/dL Normal [facility] Work Phone: Comment on above: eAG: (Estimated aver age glucose) is a calculated value from HgbA1c and is patient service representative of the average blood glucose level in the last 2-3 month period. Laboratory - Hematology and Cell countson 11-26-2021 HbA1c (Bld) [Mass fraction] 9.7 % above high threshold 4.3-5.6 [facility] Work Phone: Comment on above: [place] Diabetes As sociation guidelines indicate that patients with HgbA1c in the range 5.7-6.4% are at increased risk for development of diabetes, and intervention by lifestyle modification may be beneficial. HgbA1c greater or equal to 6.5% is considered diagnostic of diabetes. No Panel Informationon 11-26 52 {mL/min/1.73m???} below low threshold >=60 [facility] Work Phone: Comment on above: Estimated Glomerular Filtration Rate (eGFR) is calculated using the 2020 CKD-EPI creatinine equation. This equation utilizes serum creatinine, sex, and age as parameters. The creatinine assay has traceable calibration to isotope dilution-mass spectrometry. Refer to KDIGO guidelines for clinical interpretation. In patients with unstable renal function, e.g. those with acute kidney injury, the eGFR may not accurately reflect actual GFR. 10 mmol/L Normal 9-18 [facility] Work Phone: mmol/L Normal 22-30 [facility] Work Phone: [phone] mmol/L Normal 97-105 [facility] Work Phone: [phone] 4.4 mmol/L Normal 3.7-5.1 [facility] Work Phone: [phone] mmol/L Normal 136-144 [facility] Work Phone: [phone] 1.37 mg/dL above high threshold 0.73-1.22 [facility] Work Phone: [phone] 12 mg/dL Normal 9-24 [facility] Work Phone: [phone] mg/dL above high threshold 74-99 [facility] Work Phone: [phone] Comment on above: The [place] Diabete s Association (ADA) provides guidance for cutoff values for fasting glucose and random glucose. The ADA defines fasting as no caloric intake for at least 8 hours. Fasting plasma glucose results between 100 to 125 mg/dL indicate increased risk for diabetes (prediabetes).Fasting plasma glucose results greater than or equal to 126 mg/dL meet the criteria for diagnosis of diabetes. In the absence of unequivocal hyperglycemia, results should be confirmed by repeat testing. In a patient with classic symptoms of hyperglycemia or hyperglycemic crisis, random plasma glucose results greater than or equal to 200 mg/dL meet the criteria for diagnosis of diabetes.Reference: Standards of Medical Care in Diabetes 2016, [place] [employer]. Diabetes Care. 2016.39(Suppl 1). 25 U/L Normal 10-54 [facility] Work Phone: [phone] U/L Normal 14-40 [facility] Work Phone: [phone] U/L Normal 38-113 [facility] Work Phone: [phone] 0.9 mg/dL Normal 0.2-1.3 [facility] Work Phone: [phone] 9.4 mg/dL Normal 8.5-10.2 [facility] Work Phone: [phone] 4.3 g/dL Normal 3.9-4.9 [facility] Work Phone: [phone] 7.3 g/dL Normal 6.3-8.0 [facility] Work Phone: [phone] 30 mg/dL above high threshold <30 [facility] Work Phone: [phone] 1.00 1 Normal <2.54 [facility] Work Phone: [phone] Comment on above: Reference:1. [facility] Cholesterol Education Program ATP III Guideline At-A-Glance Quick Desk Reference: National Heart, Lung, and Blood [place]. National Institutes of Health. 2001: NIH Publication No. 01-3305.2. An International Atherosclerosis Society position paper: global recommendations for the management of dyslipidemia: executive summary, Atherosclerosis. 2014: 232(2):410-413. 31 mg/dL below low threshold >39 [facility] Work Phone: [phone] Comment on above: <100 mg/dL, Optimal 100-129 mg/dL, Near optimal/above optimal 130-159 mg/dL, Borderline high 160-189 mg/dL, High>189 mg/dL, Very highSecondary prevention optimal LDL Cholesterol levels are recommended to be < 70 mg/dL 40-59 mg/dL, Accepta ble>59 mg/dL, High: Negative risk factor for coronary heart disease<40 mg/dL, Low: Positive risk factor for coronary heart disease 2.97 1 Normal <5.10 [facility] Work Phone: [phone] 12 {hrs} Normal [facility] Work Phone: [phone] 61 mg/dL Normal <130 [facility] Work Phone: [phone] Comment on above: <130 mg/dL, Optimal 130-159 mg/dL, Near optimal/above optimal 160-189 mg/dL, Borderline high 190-219 mg/dL, High>219 mg/dL, Very highSecondary prevention optimal non HDL Cholesterol levels are recommended to be <100 mg/dL 150 mg/dL above high threshold <150 [facility] Work Phone: [phone] Comment on above: <150 mg/dL, Normal 1 50-199 mg/dL, Borderline high 200-499 mg/dL, High>499 mg/dL, Very high 92 mg/dL Normal <200 [facility] Work Phone: Comment on above: <200 mg/dL, Desirabl e 200-239 mg/dL, Borderline high>239 mg/dL, High 905 pg/mL Normal 232-1,245 [facility] Work Phone: Blood Pressure Cuff Sizeon 0 11-22-2021 Adult depression screening assessment No [facility] Work Phone: Fall risk assessment a) No falls within the last year [facility] Work Phone: Tobacco use status CPHS b) No [facility] Work Phone: Blood Pressure Cuff Size Adult [facility] Work Phone: Office Visit (Internal Medic ine)on 11-22-2021 Follow-up visit Diagnoses/Problems Assessed Numbness (782.0) (R20.0) HTN (hypertension) (401.9) (I10) Hyperlipidemia (272.4) (E78.5) DM II (diabetes mellitus, type II), controlled (250.00) (E11.9) Orders Diabetes Comprehensive Metabolic Panel; Status:Active; Requested for:22Nov2021; Perform:Lab Services - Lab To Draw (Blood Test); Due:[id number];Ordered; For:Diabetes; Ordered By:Gonzales Gray; Hemoglobin A1C; Status:Active; Requested for:[id number]; Perform:Lab Services - Lab To Draw (Blood Test); Due:[id number];Ordered; For:Diabetes; Ordered By:Gonzales Gray; Lipid Panel; Status:Active; Requested for:22Nov2021; Perform:Lab Services - Lab To Draw (Blood Test); Due:[id number];Ordered; For:Diabetes; Ordered By:Gonzales Gray; Numbness Vitamin B12, Serum; Status:Active; Requested for:22Nov2021; Perform:Lab Services - Lab To Draw (Blood Test); Due:[id number];Ordered; For:Numbness; Ordered By:Gonzales Gray; Provider Impressions 1. Type II DM - will order a1c, cmp and lipid panel - continue metformin 500mg po bid 2. HLD - continue simvastatin 40mg po daily 3. HTN - continue metoprolol Er 25mg po daily 4. 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 Tobacco Screening: DEVI does not use tobacco. History of Present Illness Patient is an 81 y.o. male patient who is here today He states that he has not seen a Dr in person in several years since 2019 when the pandemic started. Patient reports chronic back pain. He has seen pain management and he had cortisone injections a few years ago. Then he states that they told him that he was too overweight to do another one He had back surgery in 1984, 1985. DMII - need to update a1c , currently on metformin 500mg po bid and simvastatin 40mg po daily Review of Systems Constitutional: no fever, no chills, not feeling poorly, not feeling tired, no recent weight gain and no recent weight loss. ENT: no earache, no hearing loss, no nosebleeds, no nasal discharge, no sore throat and no hoarseness. Cardiovascular: the heart rate was not slow, the heart rate was not fast, no chest pain, no palpitations, no intermittent leg claudication and no lower extremity edema. Respiratory: no cough, not coughing up sputum and no wheezing that is consistent with asthma. Gastrointestinal: no abdominal pain, no constipation, no melena, no nausea, no diarrhea, no vomiting and no blood in stools. Musculoskeletal: back pain, but no arthralgias, no myalgias, no joint swelling, no joint stiffness, no limb pain and no limb swelling. Integumentary: no rashes, no skin lesions, no itching, no skin wound and no dry skin. Neurological: no headache, no confusion, no numbness, no dizziness, no tingling and no fainting. All other systems have been reviewed and are negative for complaint. Active Problems Problems Diabetes (250.00) (E11.9) HTN (hypertension) (401.9) (I10) Hyperlipidemia (272.4) (E78.5) Past Medical History Problems No pertinent past medical history (V49.89) (Z78.9) Surgical History Problems History of Back surgery History of Gallbladder surgery History of Tonsillectomy Family History Mother Family history of myocardial infarction (V17.3) (Z82.49) Father Family history of Non-small cell carcinoma of lung Sister Family history of malignant neoplasm of breast (V16.3) (Z80.3) Other Family history of malignant neoplasm (V16.9) (Z80.9) Social History Problems Daily caffeine consumption, 2-3 servings a day Former smoker (V15.82) (Z87.891) No illicit drug use Social alcohol use (V49.89) (Z78.9) Allergies Medication No Known Drug Allergies Recorded By: Janay Juan; 11/22/2021 2:25:06 PM Current Meds Medication NameInstruction Aspirin 81 MG Oral Tablet Delayed ReleaseTAKE 1 TABLET DAILY. metFORMIN HCl - 500 MG Oral TabletTAKE 1 TABLET TWICE DAILY WITH FOOD. Metoprolol Succinate ER 25 MG Oral Tablet Extended Release 24 HourTAKE 1 TABLET BY MOUTH ONCE DAILY Multivitamin Oral TabletTAKE 1 TABLET DAILY. Prevagen 10 MG Oral CapsuleTAKE 1 TABLET BY MOUTH DAILY Simvastatin 40 MG Oral TabletTAKE 1 TABLET AT BEDTIME. Vitals Vital Signs Recorded: [id number] 02:34PM Heart Rate80 [id number] Wryquqnza75 Blood Pressure Cuff SizeAdult Height5 ft 11 in Ehqbpx459 lb BMI Htnlmbaujg25.54 kg/m2 BSA Calculated2.52 Tobacco Useb) No PHQ-2 #1. Over the last 2 weeks have you felt down, depressed or hopeless? (If yes, answer PHQ-9 below)No Fall Screeninga) No falls within the last year Physical Exam Constitutional (more content not included)... Normal [place]unch US ANKLE BRACHIAL INDICESon 06-04-2019 US ANKLE BRACHIAL INDICES * * *Final Report* * * DATE OF EXAM: Jun 04 2019 12:00AM A2U 1086 - US ANKLE BRACHIAL INDICES / PROCEDURE REASON: pvd * * * * Physician Interpretation * * * * Non-Invasive Vascular Laboratory [facility] Lower Extremity Arterial Physiology Study Bilateral/Complete Date of service/time: 06/04/2019 9:09:00 AM Name: MR. DEVI THOMPSON Date of : 1940 Age: 78 years Gender: M Medical History Tobacco: Former Hypertension: Yes Diabetes: Yes Clinical Indication Pain in leg. TECHNIQUE -------- An arterial physiological examination was performed, including measurement of blood pressures using continuous wave Doppler and recording of plethysmographic with or without Doppler waveforms at the below-mentioned limb segments. FINDINGS -------- RIGHT SIDE AT REST Right Pressures Brachial: 140 mmHg Ankle dorsalis pedis: 175 mmHg JAZ: 1.25 Ankle posterior tibial: 174 mmHg JAZ: 1.24 Right PVR Waveforms Ankle: Normal. LEFT SIDE AT REST Left Pressures Brachial: 139 mmHg Ankle dorsalis pedis: 160 mmHg JAZ: 1.14 Ankle posterior tibial: 178 mmHg JAZ: 1.27 Left PVR Waveforms Ankle: Normal. IMPRESSION Pt has numerous complaints of back pain. he states legs hurt but most of his pain is in his back with and without walking. RIGHT SIDE Resting right ankle brachial index: 1.25 Normal ankle brachial index at rest in the right leg. LEFT SIDE Resting left ankle brachial index: 1.27 Normal ankle brachial index at rest in the left leg. Technologist: Emy Leigh Ordering physician: LELAND FRANCIS Interpreting physician: Bhavesh Montes MD Final RP Oil Well Logger: JAIME Transcribe Date/Time: Jun 04 2019 9:09A Dictated by : BHAVESH MONTES MD This examination was interpreted and the report reviewed and electronically signed by: BHAVESH MOTNES MD on Jun 04 2019 2:26PM EST Normal [facility] Vital Signs Date Time Vital Sign Value Performing Clinician Facility 04-27-2025 13:16-0400 Body temperature 98.1 [degF] Mei Mayo STUDENT 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 Work Phone: [facility] 04-27-2025 13:16-0400 Diastolic blood pressure 83 mm[Hg] Mei Mayo STUDENT 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 Work Phone: [facility] 04-27-2025 13:16-0400 Heart rate 87 /min Mei Mayo STUDENT 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 Work Phone: [facility] 04-27-2025 13:16-0400 Respiratory rate 14 /min Mei Mayo STUDENT 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 Work Phone: [facility] 04-27-2025 13:16-0400 SaO2% (BldA) [Mass fraction] 95 % Mei Mayo STUDENT 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 Work Phone: [facility] 04-27-2025 13:16-0400 Systolic blood pressure 170 mm[Hg] Mei Mayo STUDENT 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 Work Phone: [facility] 04-17-2025 10:19-0400 Body height 182.9 cm Gaby Ann STUDENT 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 Work Phone: [facility] 04-17-2025 10:19-0400 Body mass index (BMI) [Ratio] 44.21 kg/m2 Gaby Ann STUDENT 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 Work Phone: [facility] 04-17-2025 10:19-0400 Body weight 147.87 kg Gaby Ann STUDENT 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 Work Phone: [facility] 04-17-2025 10:19-0400 Diastolic blood pressure 83 mm[Hg] Gaby Ann STUDENT 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 Work Phone: [facility] 04-17-2025 10:19-0400 Heart rate 76 /min Gaby Ann STUDENT 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 Work Phone: [facility] 04-17-2025 10:19-0400 SaO2% (BldA) [Mass fraction] 98 % Gaby Ann STUDENT 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 Work Phone: [facility] 04-17-2025 10:19-0400 Systolic blood pressure 155 mm[Hg] Gaby Ann STUDENT 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 Work Phone: [facility] 03-10-2025 17:47-0400 Body height 182.9 cm Gaby Ann STUDENT 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 Work Phone: [facility] 03-10-2025 17:47-0400 Body mass index (BMI) [Ratio] 44.01 kg/m2 Gaby Ann STUDENT 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 Work Phone: [facility] 03-10-2025 17:47-0400 Body weight 147.19 kg Gaby Ann STUDENT 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 Work Phone: [facility] 03-10-2025 17:47-0400 Diastolic blood pressure 80 mm[Hg] Gaby Ann STUDENT 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 Work Phone: [facility] 03-10-2025 17:47-0400 Heart rate 83 /min Gaby Ann STUDENT 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 Work Phone: [facility] 03-10-2025 17:47-0400 SaO2% (BldA) [Mass fraction] 95 % Gaby Ann STUDENT 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 Work Phone: [facility] 03-10-2025 17:47-0400 Systolic blood pressure 124 mm[Hg] Gabyblake Ann STUDENT 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 Work Phone: [facility] 03-02-2025 14:24-0400 Body height 182.9 cm Jose E Ospina STUDENT 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 Work Phone: [facility] 03-02-2025 14:24-0400 Body mass index (BMI) [Ratio] 44.21 kg/m2 Jose E Ospina STUDENT 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 Work Phone: [facility] 03-02-2025 14:24-0400 Body temperature 98.71 [degF] Jose E Ospina STUDENT 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 Work Phone: [facility] 03-02-2025 14:24-0400 Body weight 147.87 kg Jose E Corbyrenata STUDENT 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 Work Phone: [facility] 03-02-2025 14:24-0400 Diastolic blood pressure 78 mm[Hg] Jose E Corbyrenata STUDENT 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 Work Phone: [facility] 03-02-2025 14:24-0400 Heart rate 87 /min Jose E Corbyrenata STUDENT 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 Work Phone: [facility] 03-02-2025 14:24-0400 SaO2% (BldA) [Mass fraction] 95 % Jose E Corbyrenata STUDENT 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 Work Phone: [facility] 03-02-2025 14:24-0400 Systolic blood pressure 140 mm[Hg] Jose E Ospina STUDENT 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 Work Phone: [facility] 03-02-2025 13:39-0400 Body height 182.9 cm Elizabeth Cardoso MD MPH Work Phone: [facility] 03-02-2025 13:39-0400 Body mass index (BMI) [Ratio] 44.21 kg/m2 Elizabeth Cardoso MD MPH Work Phone: [facility] 03-02-2025 13:39-0400 Body weight 147.87 kg Elizabeth Cardoso MD MPH Work Phone: [facility] 03-02-2025 13:39-0400 Diastolic blood pressure 78 mm[Hg] Elizabeth Cardoso MD MPH Work Phone: [facility] 03-02-2025 13:39-0400 Heart rate 83 /min Elizabeth Cardoso MD MPH Work Phone: [facility] 03-02-2025 13:39-0400 Systolic blood pressure 152 mm[Hg] Elizabeth Cardoso MD MPH Work Phone: [facility] 02-24-2025 13:26-0400 Diastolic blood pressure 81 mm[Hg] Rehan Spike DPM Work Phone: [facility] 02-24-2025 13:26-0400 Heart rate 78 /min Rehan Spike DPM Work Phone: [facility] 02-24-2025 13:26-0400 Systolic blood pressure 149 mm[Hg] Rehan Spike DPM Work Phone: [facility] 02-24-2025 13:13-0400 Body temperature 98.2 [degF] Rehan Miles DPM Work Phone: [facility] 02-09-2025 10:30-0400 Body mass index (BMI) [Ratio] 44.91 kg/m2 Danica Quiñonez STUDENT 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 Work Phone: [facility] 02-09-2025 10:30-0400 Body weight 146.06 kg Danica Quiñonez STUDENT 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 Work Phone: [facility] 02-09-2025 10:30-0400 Diastolic blood pressure 76 mm[Hg] Danica Quiñonez STUDENT 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 Work Phone: [facility] 02-09-2025 10:30-0400 Heart rate 92 /min Danica Quiñonez STUDENT 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 Work Phone: [facility] 02-09-2025 10:30-0400 Respiratory rate 16 /min Danica Quiñonez STUDENT 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 Work Phone: [facility] 02-09-2025 10:30-0400 Systolic blood pressure 134 mm[Hg] Danica Quiñonez STUDENT 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 Work Phone: [facility] 01-09-2025 13:21-0400 Body height 180.3 cm Gaby Ann STUDENT 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 Work Phone: [facility] 01-09-2025 13:21-0400 Body mass index (BMI) [Ratio] 45.05 kg/m2 Gaby Ann STUDENT 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 Work Phone: [facility] 01-09-2025 13:21-0400 Body weight 146.51 kg Gaby Ann STUDENT 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 Work Phone: [facility] 01-09-2025 13:21-0400 Diastolic blood pressure 80 mm[Hg] Gaby Ann STUDENT 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 Work Phone: [facility] 01-09-2025 13:21-0400 Heart rate 82 /min Gaby Issa STUDENT 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 Work Phone: [facility] 01-09-2025 13:21-0400 SaO2% (BldA) [Mass fraction] 98 % Gaby Ann STUDENT 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 Work Phone: [facility] 01-09-2025 13:21-0400 Systolic blood pressure 152 mm[Hg] Gaby Ann STUDENT 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 Work Phone: [facility] 12-23-2024 14:02-0400 Body mass index (BMI) [Ratio] 43.24 kg/m2 Gris Phippss STUDENT 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 Work Phone: [facility] 12-23-2024 14:02-0400 Body weight 140.62 kg Gris Díaz STUDENT 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 Work Phone: [facility] 12-23-2024 14:02-0400 Diastolic blood pressure 69 mm[Hg] Gris Díaz STUDENT 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 Work Phone: [facility] 12-23-2024 14:02-0400 Heart rate 82 /min Gris Phippss STUDENT 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 Work Phone: [facility] 12-23-2024 14:02-0400 SaO2% (BldA) [Mass fraction] 100 % Gris Díaz STUDENT 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 Work Phone: [facility] 12-23-2024 14:02-0400 Systolic blood pressure 146 mm[Hg] Gris Díaz STUDENT 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 Work Phone: [facility] 12-10-2024 18:30-0400 Diastolic blood pressure 87 mm[Hg] Jessy Sweet MD Work Phone: [facility] 12-10-2024 18:30-0400 Heart rate 75 /min Jessy Sweet MD Work Phone: [facility] 12-10-2024 18:30-0400 Respiratory rate 16 /min Jessy Sweet MD Work Phone: [facility] 12-10-2024 18:30-0400 SaO2% (BldA) [Mass fraction] 96 % Jessy Sweet MD Work Phone: [facility] 12-10-2024 18:30-0400 Systolic blood pressure 154 mm[Hg] Jessy Sweet MD Work Phone: [facility] 12-10-2024 15:18-0400 Body height 180.3 cm Jessy Sweet MD Work Phone: [facility] 12-10-2024 15:18-0400 Body mass index (BMI) [Ratio] 44.35 kg/m2 Jessy Sweet MD Work Phone: [facility] 12-10-2024 15:18-0400 Body temperature 98.2 [degF] Jessy Sweet MD Work Phone: [facility] 12-10-2024 15:18-0400 Body weight 144.24 kg Jessy Sweet MD Work Phone: [facility] 11-25-2024 13:51-0400 Diastolic blood pressure 85 mm[Hg] Rehan Miles DPM Work Phone: [facility] 11-25-2024 13:51-0400 Heart rate 80 /min Rehan Miles DPM Work Phone: [facility] 11-25-2024 13:51-0400 Systolic blood pressure 156 mm[Hg] Rehan Spike DPM Work Phone: [facility] 11-25-2024 13:18-0400 Body temperature 97.59 [degF] Rehan Spike DPM Work Phone: [facility] 10-16-2024 13:58-0500 Body height 175.9 cm Gaby Ann STUDENT 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 Work Phone: [facility] 10-16-2024 13:58-0500 Body mass index (BMI) [Ratio] 46.62 kg/m2 Gaby Ann STUDENT 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 Work Phone: [facility] 10-16-2024 13:58-0500 Body weight 144.24 kg Gaby Ann STUDENT 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 Work Phone: [facility] 10-16-2024 13:58-0500 Diastolic blood pressure 86 mm[Hg] Gaby Ann STUDENT 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 Work Phone: [facility] 10-16-2024 13:58-0500 Heart rate 84 /min Gaby Ann STUDENT 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 Work Phone: [facility] 10-16-2024 13:58-0500 SaO2% (BldA) [Mass fraction] 98 % Gaby Ann STUDENT 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 Work Phone: [facility] 10-16-2024 13:58-0500 Systolic blood pressure 138 mm[Hg] Gaby Ann STUDENT 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 Work Phone: [facility] 10-09-2024 12:56-0500 Body mass index (BMI) [Ratio] 42.09 kg/m2 Melisa Streeter PA-C Work Phone: [facility] 10-09-2024 12:56-0500 Body weight 144.7 kg Melisa Streeter PA-C Work Phone: [facility] 10-09-2024 12:56-0500 Diastolic blood pressure 81 mm[Hg] Melisa Streeter PA-C Work Phone: [facility] 10-09-2024 12:56-0500 Heart rate 85 /min Melisa Streeter PA-C Work Phone: [facility] 10-09-2024 12:56-0500 Respiratory rate 16 /min Melisa Streeter PA-C Work Phone: [facility] 10-09-2024 12:56-0500 Systolic blood pressure 182 mm[Hg] Melisa Streeter PA-C Work Phone: [facility] 09-18-2024 11:00-0500 Body mass index (BMI) [Ratio] 41.43 kg/m2 Melisa Streeter PA-C Work Phone: [facility] 09-18-2024 11:00-0500 Body weight 142.43 kg Melisa Streeter PA-C Work Phone: [facility] 09-18-2024 11:00-0500 Diastolic blood pressure 86 mm[Hg] Melisa Streeter PA-C Work Phone: [facility] 09-18-2024 11:00-0500 Heart rate 80 /min Melisayessenia Streeter PA-C Work Phone: [facility] 09-18-2024 11:00-0500 Respiratory rate 18 /min Melisa Streeter PA-C Work Phone: [facility] 09-18-2024 11:00-0500 Systolic blood pressure 164 mm[Hg] Melisa Streeter PA-C Work Phone: [facility] 08-29-2024 14:31-0500 Diastolic blood pressure 94 mm[Hg] [address] Comment on above: no c/o at this time 08-29-2024 14:31-0500 Heart rate 83 /min [address] 08-29-2024 14:31-0500 Respiratory rate 16 /min [address] 08-29-2024 14:31-0500 SaO2% (BldA) [Mass fraction] 96 % [address] 08-29-2024 14:31-0500 Systolic blood pressure 152 mm[Hg] [address] Comment on above: no c/o at this time 08-29-2024 14:05-0500 Body temperature 97.9 [degF] [address] 08-29-2024 13:28-0500 Body height 185.[address] 08-29-2024 13:28-0500 Body mass index (BMI) [Ratio] 40.5 kg/m2 [address] 08-29-2024 13:28-0500 Body weight 139.[address] 08-26-2024 13:06-0500 Diastolic blood pressure 84 mm[Hg] Rehan Miles DPM Work Phone: [facility] 08-26-2024 13:06-0500 Heart rate 90 /min Rehan Miles DPM Work Phone: [facility] 08-26-2024 13:06-0500 Systolic blood pressure 165 mm[Hg] Rehan Miles DPM Work Phone: [facility] 08-26-2024 13:03-0500 Body temperature 98.4 [degF] Rehan Miles DPM Work Phone: [facility] 07-22-2024 14:11-0500 Diastolic blood pressure 79 mm[Hg] Jessy Kramer MD Work Phone: [facility] 07-22-2024 14:11-0500 Heart rate 67 /min Jessy Kramer MD Work Phone: [facility] 07-22-2024 14:11-0500 Respiratory rate 18 /min Jessy Kramer MD Work Phone: [facility] 07-22-2024 14:11-0500 SaO2% (BldA) [Mass fraction] 94 % Jessy Kramer MD Work Phone: [facility] 07-22-2024 14:11-0500 Systolic blood pressure 145 mm[Hg] Jessy Kramer MD Work Phone: [facility] 07-22-2024 12:50-0500 Body temperature 96.6 [degF] Jessy Kramer MD Work Phone: [facility] 06-24-2024 10:38-0500 Body height 180.3 cm Gonzales Oberhauser DO Work Phone: [facility] 06-24-2024 10:38-0500 Body mass index (BMI) [Ratio] 43.1 kg/m2 Gonzales Oberhauser DO Work Phone: [facility] 06-24-2024 10:38-0500 Body weight 140.16 kg Gonzales Oberhauser DO Work Phone: [facility] 06-24-2024 10:38-0500 Diastolic blood pressure 77 mm[Hg] Gonzales Oberhauser DO Work Phone: [facility] 06-24-2024 10:38-0500 Heart rate 92 /min Gonzales Oberhauser DO Work Phone: [facility] 06-24-2024 10:38-0500 Systolic blood pressure 146 mm[Hg] Gonzales Oberhauser DO Work Phone: [facility] 05-26-2024 13:10-0400 Body temperature 98.29 [degF] Rehan Miles DPM Work Phone: [facility] 05-26-2024 13:10-0400 Diastolic blood pressure 103 mm[Hg] Rehan Miles DPM Work Phone: [facility] 05-26-2024 13:10-0400 Heart rate 77 /min Rehan Miles DPM Work Phone: [facility] 05-26-2024 13:10-0400 Systolic blood pressure 191 mm[Hg] Rehan Spike DPM Work Phone: [facility] 04-30-2024 13:02-0400 Body height 180.3 cm Jessy Sweet MD Work Phone: [facility] 04-30-2024 13:02-0400 Body mass index (BMI) [Ratio] 44.3 kg/m2 Jessy Sweet MD Work Phone: [facility] 04-30-2024 13:02-0400 Body weight 144.06 kg Jessy Sweet MD Work Phone: [facility] 04-30-2024 13:02-0400 Diastolic blood pressure 84 mm[Hg] Jessy Sweet MD Work Phone: [facility] 04-30-2024 13:02-0400 Systolic blood pressure 136 mm[Hg] Jessy Sweet MD Work Phone: [facility] 02-19-2024 16:23-0400 Body height 176.3 cm Emanuel Colon MD Work Phone: [facility] 02-19-2024 16:23-0400 Body mass index (BMI) [Ratio] 46.01 kg/m2 Emanuel Colon MD Work Phone: [facility] 02-19-2024 16:23-0400 Body weight 143 kg Emanuel Colon MD Work Phone: [facility] 02-19-2024 16:23-0400 Diastolic blood pressure 87 mm[Hg] Emanuel Colon MD Work Phone: [facility] 02-19-2024 16:23-0400 Heart rate 87 /min Emanuel Colon MD Work Phone: [facility] 02-19-2024 16:23-0400 Respiratory rate 16 /min Emanuel Colon MD Work Phone: [facility] 02-19-2024 16:23-0400 SaO2% (BldA) [Mass fraction] 94 % Emanuel Colon MD Work Phone: [facility] 02-19-2024 16:23-0400 Systolic blood pressure 167 mm[Hg] Emanuel Colon MD Work Phone: [facility] 11-27-2023 15:38-0400 Body height 180.3 cm Gonzales Gray DO Work Phone: [facility] 11-27-2023 15:38-0400 Body mass index (BMI) [Ratio] 44.07 kg/m2 Gonzales Oberhauser DO Work Phone: [facility] 11-27-2023 15:38-0400 Body weight 143.34 kg Gonzales Oberhauser DO Work Phone: [facility] 11-27-2023 15:38-0400 Diastolic blood pressure 81 mm[Hg] Gonzales Oberhauser DO Work Phone: [facility] 11-27-2023 15:38-0400 Heart rate 82 /min Gonzales Oberhauser DO Work Phone: [facility] 11-27-2023 15:38-0400 Systolic blood pressure 143 mm[Hg] Gonzales Oberhauser DO Work Phone: [facility] 09-06-2023 10:27-0500 Body height 180.3 cm Yimi Newbill PA-C Work Phone: [facility] 09-06-2023 10:27-0500 Body mass index (BMI) [Ratio] 43.77 kg/m2 Yimi Newbill PA-C Work Phone: [facility] 09-06-2023 10:27-0500 Body temperature 97.11 [degF] Yimi Newbill PA-C Work Phone: [facility] 09-06-2023 10:27-0500 Body weight 142.34 kg Yimi Newbill PA-C Work Phone: [facility] 09-06-2023 10:27-0500 Diastolic blood pressure 75 mm[Hg] Yimi Newbill PA-C Work Phone: [facility] 09-06-2023 10:27-0500 Heart rate 75 /min Yimi Newbill PA-C Work Phone: [facility] 09-06-2023 10:27-0500 Systolic blood pressure 134 mm[Hg] Yimi Newbill PA-C Work Phone: [facility] 04-26-2023 10:27-0400 Body height 181.6 cm Gonzales Oberhauser DO Work Phone: [facility] 04-26-2023 10:27-0400 Body mass index (BMI) [Ratio] 41.95 kg/m2 Gonzales Oberhauser DO Work Phone: [facility] 04-26-2023 10:27-040 Body weight 138.35 kg Gonzales Oberhauser DO Work Phone: [facility] 04-26-2023 10:27-0400 Diastolic blood pressure 67 mm[Hg] Gonzales Oberhauser DO Work Phone: [facility] 04-26-2023 10:27-0400 Heart rate 75 /min Gonzales Oberhauser DO Work Phone: [facility] 04-26-2023 10:27-0400 Systolic blood pressure 160 mm[Hg] Gonzales Oberhauser DO Work Phone: [facility] 12-26-2022 14:45-0400 Body height 181.6 cm Yimi Newbill PA-C Work Phone: [facility] 12-26-2022 14:45-0400 Body mass index (BMI) [Ratio] 41.67 kg/m2 Yimi Newbill PA-C Work Phone: [facility] 12-26-2022 14:45-0400 Body weight 137.44 kg Yimi Newbill PA-C Work Phone: [facility] 12-26-2022 14:45-0400 Diastolic blood pressure 90 mm[Hg] Yimi Newbill PA-C Work Phone: [facility] 12-26-2022 14:45-0400 Heart rate 97 /min Yimi Newbill PA-C Work Phone: [facility] 12-26-2022 14:45-0400 Systolic blood pressure 164 mm[Hg] Yimi Newbill PA-C Work Phone: [facility] 10-24-2022 11:36-0400 Body height 180.3 cm Gonzales Oberhauser DO Work Phone: [facility] 10-24-2022 11:36-0400 Body mass index (BMI) [Ratio] 41.42 kg/m2 Gonzales Oberhauser DO Work Phone: [facility] 10-24-2022 11:36-0400 Body weight 134.72 kg Gonzales Oberhauser DO Work Phone: [facility] 10-24-2022 11:36-0400 Diastolic blood pressure 86 mm[Hg] Gonzales Oberhauser DO Work Phone: [facility] 10-24-2022 11:36-0400 Heart rate 94 /min Gonzales Oberhauser DO Work Phone: [facility] 10-24-2022 11:36-0400 Systolic blood pressure 165 mm[Hg] Gonzales Oberhauser DO Work Phone: [facility] 09-26-2022 11:50-0500 Body mass index (BMI) [Ratio] 41.56 kg/m2 Gonzales L Oberhauser Work Phone: [facility] Work Phone: 09-26-2022 11:50-0500 Body surface area Derived from formula 2.5 m2 Gonzales L Oberhauser Work Phone: [facility] Work Phone: 09-26-2022 11:50-0500 Body weight 135.17 kg Gonzales L Oberhauser Work Phone: [facility] Work Phone: 09-26-2022 11:50-0500 Diastolic blood pressure 81 mm[Hg] Gonzales L Oberhauser Work Phone: [facility] Work Phone: 09-26-2022 11:50-0500 Heart rate 80 /min Gonzales L Oberhauser Work Phone: [facility] Work Phone: 09-26-2022 11:50-0500 Respiratory rate 16 /min Gonzales L Oberhauser Work Phone: [facility] Work Phone: 09-26-2022 11:50-0500 Systolic blood pressure 133 mm[Hg] Gonzales L Oberhauser Work Phone: [facility] Work Phone: 09-19-2022 11:12-0500 Body height 176.3 cm Emanuel Colon MD Work Phone: [facility] 09-19-2022 11:12-0500 Body weight 135.99 kg Emanuel Colon MD Work Phone: [facility] 09-19-2022 11:12-0500 Diastolic blood pressure 89 mm[Hg] Emanuel Colon MD Work Phone: [facility] 09-19-2022 11:12-0500 Heart rate 70 /min Emanuel Colon MD Work Phone: [facility] 09-19-2022 11:12-0500 SaO2% (BldA) [Mass fraction] 97 % Emanuel Colon MD Work Phone: [facility] 09-19-2022 11:12-0500 Systolic blood pressure 152 mm[Hg] Emanuel Colon MD Work Phone: [facility] 09-13-2022 08:59-0500 Body height 180.34 cm Gonzales L Oberhauser Work Phone: [facility] Work Phone: 09-13-2022 08:59-0500 Body mass index (BMI) [Ratio] 41.14 kg/m2 Gonzales L Oberhauser Work Phone: [facility] Work Phone: 09-13-2022 08:59-0500 Body surface area Derived from formula 2.49 m2 Gonzales L Oberhauser Work Phone: [facility] Work Phone: 09-13-2022 08:59-0500 Body weight 133.81 kg Gonzales L Oberhauser Work Phone: [facility] Work Phone: 09-13-2022 08:59-0500 Diastolic blood pressure 79 mm[Hg] Gonzales L Oberhauser Work Phone: [facility] Work Phone: 09-13-2022 08:59-0500 Heart rate 98 /min Gonzales L Oberhauser Work Phone: [facility] Work Phone: 09-13-2022 08:59-0500 Systolic blood pressure 150 mm[Hg] Gonzales L Oberhauser Work Phone: [facility] Work Phone: 07-11-2022 10:22-0500 Body mass index (BMI) [Ratio] 42.26 kg/m2 Gonzales L Oberhauser [facility] Work Phone: 07-11-2022 10:22-0500 Body surface area Derived from formula 2.52 m2 Gonzales L Oberhauser Work Phone: [facility] Work Phone: 07-11-2022 10:22-0500 Body weight 137.44 kg Gonzales L Oberhauser Work Phone: [facility] Work Phone: 07-11-2022 10:22-0500 Diastolic blood pressure 81 mm[Hg] Gonzales L Oberhauser [facility] Work Phone: 07-11-2022 10:22-0500 Heart rate 91 /min Gonzales L Oberhauser Work [facility] Work Phone: 07-11-2022 10:22-0500 Respiratory rate 16 /min Gonzales L Oberhauser Work [facility] Work Phone: 07-11-2022 10:22-0500 Systolic blood pressure 187 mm[Hg] Gonzales L Oberhauser Work [facility] Work Phone: 07-04-2022 09:45-0500 Body height 180.34 cm Gonzales L Oberhauser Work Phone: [facility] Work Phone: 07-04-2022 09:45-0500 Body mass index (BMI) [Ratio] 41.84 kg/m2 Gonzales L Oberhauser Work Phone: [facility] Work Phone: 07-04-2022 09:45-0500 Body surface area Derived from formula 2.51 m2 Gonzales L Oberhauser Work Phone: [facility] Work Phone: 07-04-2022 09:45-0500 Body weight 136.08 kg Gonzales L Oberhauser Work Phone: [facility] Work Phone: 07-04-2022 09:45-0500 Diastolic blood pressure 80 mm[Hg] Gonzales L Oberhauser Work Phone: [facility] Work Phone: 07-04-2022 09:45-0500 Heart rate 83 /min Gonzales L Oberhauser Work Phone: [facility] Work Phone: 07-04-2022 09:45-0500 Systolic blood pressure 152 mm[Hg] Gonzales L Oberhauser Work Phone: [facility] Work Phone: 04-05-2022 09:52-0400 Body height 180.34 cm Gonzales L Oberhauser Work Phone: [facility] Work Phone: 04-05-2022 09:52-0400 Body mass index (BMI) [Ratio] 41.84 kg/m2 Gonzales L Oberhauser Work Phone: [facility] Work Phone: 04-05-2022 09:52-0400 Body surface area Derived from formula 2.51 m2 Gonzales L Oberhauser Work Phone: [facility] Work Phone: 04-05-2022 09:52-0400 Body weight 136.08 kg Gonzales L Oberhauser Work Phone: [facility] Work Phone: 04-05-2022 09:52-0400 Diastolic blood pressure 86 mm[Hg] Gonzales L Oberhauser Work Phone: [facility] Work Phone: 04-05-2022 09:52-0400 Heart rate 89 /min Gonzales L Oberhauser Work Phone: [facility] Work Phone: 04-05-2022 09:52-0400 Systolic blood pressure 140 mm[Hg] Gonzales L Oberhauser Work Phone: [facility] Work Phone: 11-22-2021 14:34-0400 Body height 180.34 cm Gonzales L Oberhauser Work Phone: [facility] Work Phone: 11-22-2021 14:34-0400 Body mass index (BMI) [Ratio] 42.54 kg/m2 Gonzales May Oberhauser Work Phone: [facility] Work Phone: 11-22-2021 14:34-0400 Body surface area Derived from formula 2.52 m2 Gonzales May Oberhauser Work Phone: [facility] Work Phone: 11-22-2021 14:34-0400 Body weight 138.35 kg Gonzales May Oberhauser Work Phone: [facility] Work Phone: 11-22-2021 14:34-0400 Diastolic blood pressure 83 mm[Hg] Gonzales L Oberhauser Work Phone: [facility] Work Phone: 11-22-2021 14:34-0400 Heart rate 80 /min Gonzales May Oberhauser Work Phone: [facility] Work Phone: 11-22-2021 14:34-0400 Systolic blood pressure 133 mm[Hg] Gonzales L Oberhauser Work Phone: [facility] Work Phone: Encounters Encounter Date Encounter Type Care Provider Facility Start: 05-08-2025 ambulatory Gonzales Oberhauser [facility] Start: 04-27-2025 End: 04-27-2025 Office outpatient visit 15 minutes Mei L Maria Esther STUDENT 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 Work Phone: [facility] Comment on above: Allergic reaction, i nitial encounter (Primary Dx) Start: 04-27-2025 End: 04-27-2025 ambulatory GABY Dalton [facility] Start: 04-17-2025 End: 04-17-2025 Office outpatient visit 25 minutes Gaby Ann STUDENT 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 Work Phone: [facility] Comment on above: Cellulitis of right lower extremity (Primary Dx) Start: 04-17-2025 End: 04-17-2025 ambulatory [facility] Start: 03-10-2025 End: 03-10-2025 ambulatory [facility] Start: 03-10-2025 End: 03-10-2025 Office outpatient visit 15 minutes Gaby Ann STUDENT 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 Work Phone: [facility] Comment on above: Cellulitis of leg, r ight (Primary Dx) Start: 03-02-2025 End: 03-02-2025 Office outpatient visit 15 minutes Jose E Ospina STUDENT 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 Work Phone: [facility] Comment on above: Cellulitis of right anterior lower leg (Primary Dx) Start: 03-02-2025 End: 03-02-2025 Office outpatient visit 25 minutes Elizabeth Cardoso MD MPH Work Phone: [facility] Comment on above: Swelling of scrotum Start: 03-02-2025 End: 03-02-2025 ambulatory GABY Dalton [facility] Start: 02-24-2025 End: 02-24-2025 Patient encounter procedure Rehan Lala DPM Work Phone: [facility] Comment on above: Onychomycosis (Prima ry Dx); Pain due to onychomycosis of toenail of left foot; Pain due to onychomycosis of toenail of right foot; Diabetic peripheral neuropathy (HCC) Start: 02-24-2025 End: 02-24-2025 ambulatory REHAN LALA [facility] Start: 02-09-2025 End: 02-09-2025 Office outpatient visit 15 minutes Danica Quiñonez STUDENT 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 Work Phone: [facility] Comment on above: Spondylosis of lumbo sacral region, unspecified spinal osteoarthritis complication status (Primary Dx); Postlaminectomy syndrome, lumbar region; 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 stenosis Start: 02-09-2025 End: 02-09-2025 ambulatory DANICA QUIÑONEZ [facility] Start: 01-09-2025 End: 01-09-2025 Office outpatient visit 25 minutes Gaby Ann STUDENT 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 Work Phone: [facility] Comment on above: Acute exacerbation o f chronic low back pain; Sciatica of left side Start: 01-09-2025 End: 01-09-2025 ambulatory [facility] Start: 12-23-2024 End: 12-23-2024 Office outpatient visit 25 minutes Gris Senlins STUDENT 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 Work Phone: [facility] Comment on above: 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); Urinary frequency Start: 12-23-2024 End: 12-23-2024 ambulatory [facility] Start: 12-10-2024 End: 12-10-2024 Emergency department patient visit GABY Dalton [facility] Comment on above: Acute exacerbation o f chronic low back pain (Primary Dx); Sciatica of left side Start: 11-26-2024 End: 11-26-2024 ambulatory [facility] Start: 11-25-2024 End: 11-25-2024 Patient encounter procedure Rehan Lala DPM Work Phone: [facility] Comment on above: Onychomycosis (Prima ry Dx); Pain due to onychomycosis of toenail of left foot; Pain due to onychomycosis of toenail of right foot; Diabetic peripheral neuropathy (HCC) Start: 11-25-2024 End: 11-25-2024 ambulatory REHAN LALA [facility] Start: 11-19-2024 End: 11-19-2024 ambulatory GABY ANN [facility] Start: 11-12-2024 End: 11-12-2024 ambulatory GABY ANN [facility] Start: 11-05-2024 End: 11-05-2024 ambulatory GABY ANN [facility] Start: 10-27-2024 End: 10-27-2024 ambulatory GABY ANN [facility] Start: 10-21-2024 End: 10-21-2024 Office outpatient visit 15 minutes Danica Quiñonez STUDENT 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 Work Phone: [facility] Comment on above: Neurogenic claudicat ion due to lumbar spinal stenosis (Primary Dx); Chronic bilateral low back pain with bilateral sciatica; Postlaminectomy syndrome, lumbar region Start: 10-21-2024 End: 10-21-2024 ambulatory DANICA QUIÑONEZ [facility] Start: 10-16-2024 End: 10-16-2024 Office outpatient visit 25 minutes Gaby Ann STUDENT 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 Work Phone: [facility] Comment on above: 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); Controlled type 2 diabetes mellitus without complication, without long-term current use of insulin (Multi); Prostate cancer screening Start: 10-16-2024 End: 10-16-2024 ambulatory GABY ANN [facility] Start: 10-09-2024 End: 10-09-2024 Office outpatient visit 25 minutes Melisa Streeter PA-C Work Phone: [facility] Comment on above: Lumbar radiculopathy (Primary Dx); Postlaminectomy syndrome, lumbar region; S/P spinal fusion; 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 stenosis Start: 10-09-2024 End: 10-09-[address] [facility] Start: 09-19-2024 End: 09-19-2024 Subsequent hospital visit by physician [facility] Comment on above: Lumbar radiculopathy ; 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 stenosis; Chronic bilateral low back pain with bilateral sciatica; Osteoarthritis of spine with radiculopathy, lumbosacral region; Numbness Start: 09-19-2024 End: 09-19-[address] [facility] Start: 09-18-2024 End: 09-18-2024 Office outpatient visit 15 minutes Melisa Streeter PA-C Work Phone: [facility] Comment on above: Lumbar radiculopathy (Primary Dx); 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 stenosis; Chronic bilateral low back pain with bilateral sciatica; Osteoarthritis of spine with radiculopathy, lumbosacral region; Numbness Start: 09-18-2024 End: 09-18-[address] [facility] Start: 08-29-2024 End: 08-29-2024 Subsequent hospital visit by physician Aroldo Ann DO Work Phone: [facility] [place] Comment on above: Neurogenic claudicat ion due to lumbar spinal stenosis Start: 08-29-2024 End: 08-29-2024 ambulatory AROLDO ANN [facility] Start: 08-26-2024 End: 08-26-2024 ambulatory REHAN LALA [facility] Start: 08-26-2024 End: 08-26-2024 Patient encounter procedure Rehan Lala DPM Work Phone: [facility] Comment on above: Onychomycosis (Prima ry Dx); Pain due to onychomycosis of toenail of left foot; Pain due to onychomycosis of toenail of right foot; Diabetic peripheral neuropathy (HCC) Start: 08-04-2024 End: 08-04-2024 Refill Emanuel Colon MD Work Phone: Endocrinology Comment on above: Refill Request Start: 07-29-2024 End: 07-29-2024 ambulatory DANICA M [facility] Start: 07-22-2024 End: 07-22-2024 Emergency department patient visit Jessy Kramer MD Work Phone: [facility] Comment on above: Acute left-sided low back pain with sciatica, sciatica laterality unspecified (Primary Dx); DJD (degenerative joint disease), lumbosacral Start: 06-24-2024 End: 06-24-2024 Patient encounter procedure Gonzales Brayden Isaac DO Work Phone: [facility] Comment on above: Need for influenza v accination (Primary Dx); Primary hypertension; Mixed hyperlipidemia; Controlled type 2 diabetes mellitus without complication, without long-term current use of insulin (Multi); Benign prostatic hyperplasia with urinary frequency; Chronic bilateral low back pain with bilateral sciatica; 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 stenosis; Prolapsed lumbar disc; Medicare annual wellness visit, subsequent Start: 06-24-2024 End: 06-24-2024 ambulatory [facility] Start: 05-26-2024 End: 05-26-2024 Office outpatient new 30 minutes Rehan Lala DPM Work Phone: [facility] Comment on above: Comprehensive diabet ic foot examination, type 2 DM, encounter for (HCC); Diabetic peripheral neuropathy (HCC); Onychomycosis; Pain due to onychomycosis of toenail of left foot; Pain due to onychomycosis of toenail of right foot Start: 05-26-2024 End: 05-26-2024 [facility] Start: 04-30-2024 End: 04-30-2024 Office outpatient visit 25 minutes Jessy Sweet MD Work Phone: [facility] Comment on above: Hydrocele in adult ( Primary Dx); Benign prostatic hyperplasia with urinary frequency; Hydrocele, unspecified hydrocele type; Nocturia; Urinary frequency Start: 03-20-2024 End: 03-20-2024 ambulatory GONZALES GRAY Facility:[facility] Start: 02-19-2024 End: 02-19-2024 Patient encounter procedure Emanuel Colon MD Work Phone: Endocrinology Comment on above: 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, with long-term current use of insulin (HCC) (Primary Dx) Start: 11-27-2023 End: 11-27-2023 Office outpatient visit 25 minutes Gonzales Gray DO Work Phone: [facility] Comment on above: Primary hypertension (Primary Dx); Mixed hyperlipidemia; Controlled type 2 diabetes mellitus without complication, without long-term current use of insulin (Multi); Benign prostatic hyperplasia with urinary frequency; 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 stenosis; Osteoarthritis of spine with radiculopathy, lumbosacral region Start: 10-30-2023 Refill Emanuel Colon MD Work Phone: Endocrinology Comment on above: Refill Request Start: 10-26-2023 Telephone encounter Emanuel Moctezuma i, MD Work Phone: Endocrinology Start: 10-24-2023 Telephone encounter Emanuel Moctezuma i, MD Work Phone: Endocrinology Comment on above: Medication Problem ( TRESIBA FLEXTOUCH U-100 100 unit/mL (3 mL) injection pen/) Start: 10-23-2023 Refill Emanuel Colon MD Work Phone: Endocrinology Comment on above: Refill Request Start: 10-10-2023 End: 10-10-2023 Phys/qhp telephone evaluation 11-20 min Jessy Sweet MD Work Phone: [facility] Comment on above: Benign prostatic hyp erplasia with urinary frequency; Hydrocele, unspecified hydrocele type; Urinary frequency; Nocturia Start: 09-20-2023 End: 09-20-2023 Subsequent hospital visit by physician Andrei Skinner [address] [place] [address] Comment on above: Hydrocele, unspecifi ed hydrocele type; Swelling of scrotum Start: 09-19-2023 End: 09-19-2023 Office outpatient new 45 minutes Jessy Sweet MD Work Phone: [facility] Comment on above: Benign prostatic hyp erplasia with urinary frequency; Urinary frequency; Nocturia; Hydrocele, unspecified hydrocele type Start: 09-11-2023 End: 09-11-[address] [facility] Work Phone: Start: 09-11-2023 End: 09-11-[address] [facility], [facility] Work Phone: Start: 09-06-2023 End: 09-06-2023 Office outpatient visit 15 minutes Yimi De La Cruz PA-C Work Phone: [facility] Comment on above: Esotropia of right e ye (Primary Dx); Chronic bilateral low back pain with bilateral sciatica; Primary hypertension Start: 08-15-2023 End: 08-15-2023 ambulatory EMANUEL COLON Facility:[facility] Start: 04-28-2023 End: 04-28-2023 ambulatory GONZALES GRAY Facility:[facility] Start: 04-26-2023 End: 04-26-2023 Patient encounter procedure Gonzales Gray DO Work Phone: [facility] Comment on above: Screening for prosta te cancer (Primary Dx); Controlled type 2 diabetes mellitus without complication, with long-term current use of insulin ([facility]); Mixed hyperlipidemia; Primary hypertension; 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 stenosis; Prolapsed lumbar disc; Osteoarthritis of spine with radiculopathy, lumbosacral region; Medicare annual wellness visit, subsequent; Need for influenza vaccination; Iron deficiency anemia, unspecified iron deficiency anemia type Start: 01-15-2023 Refill Emanuel Colon MD Work Phone: Endocrinology Comment on above: Refill Request Start: 12-26-2022 End: 12-26-2022 Office outpatient visit 25 minutes Yimi De La Cruz PA-C Work Phone: [facility] Comment on above: Thoracic myofascial strain, initial encounter (Primary Dx); Hand arthritis Start: 10-24-2022 End: 10-24-2022 Office outpatient visit 25 minutes Gonzales Gray DO Work Phone: [facility] Comment on above: Primary hypertension (Primary Dx); Controlled type 2 diabetes mellitus without complication, without long-term current use of insulin ([facility]); 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 stenosis; Osteoarthritis of spine with radiculopathy, lumbosacral region; Mixed hyperlipidemia Start: 10-04-2022 AUDIT Gonzales Steele user Work Phone: [facility] Work Phone: Start: 09-26-2022 Patient encounter procedure Gonzales Gray [facility] Phone[facility] Work Phone: Start: 09-26-[address] Sara Alvarado [facility] Facility:[id number] Start: 09-19-2022 End: 09-19-2022 Nursing evaluation of patient and report Jay Wei RN Work Phone: Diabetic [facility] Comment on above: Poorly controlled ty pe 2 diabetes mellitus (HCC) Start: 09-19-2022 End: 09-19-2022 Patient encounter procedure Emanuel Colon MD Work Phone: Endocrinology Comment on above: Poorly controlled ty pe 2 diabetes mellitus (HCC) (Primary Dx); Type 2 diabetes mellitus with diabetic chronic kidney disease (HCC) Start: 09-13-2022 Office outpatient vi sit 25 minutes Gonzales Gray Work Phone: [facility] Work Phone: Start: 09-13-[address] 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 Sara Coombs Facility:[id number] Start: 07-17-2022 Chart Update Gonzales Steele user Work Phone: [facility] Work Phone: Start: 07-14-[address] Sara Coombs Facility:[id number] Start: 07-11-2022 NPV, Provider: Sara Coombs, Status: Pen, Time: 10:00 AM Gonzales Gray Work Phone: [facility] Work Phone: Start: 07-11-2022 Patient encounter procedure Gonzales Gray Work Phone: [facility] Work Phone: Start: 07-11-[address] Sara Coombs Facility:[id number] Start: 07-10-2022 Chart Update Gonzales Steele user Work Phone: [facility] Work Phone: Start: 07-04-2022 Office outpatient vi sit 25 minutes Gonzales Gray Work Phone: [facility] Work Phone: Start: 07-04-[address] Gonzales Gray Facility:[id number] Start: 04-07-2022 AUDIT Gonzales Steele user Work Phone: [facility] Work Phone: Start: 04-05-2022 Adv care pln tlkd & alt dcsn maker docd Gonzales Gray Work Phone: [facility] Work Phone: Start: 04-05-[address] Gonzales Gray Facility:[id number] Start: 03-13-2022 Refill Leland Marcano Work Phone: [facility] Comment on above: Refill Request Start: 12-01-2021 Chart Update Gonzales Aguilarkatie user Work Phone: [facility] Work Phone: Start: 11-29-2021 Chart Update Gonzales Aguilarkatie user Work Phone: [facility] Work Phone: Start: 11-22-2021 Current tobacco non- user cad cap copd pv dm Gonzales Gray Work Phone: [facility] Work Phone: Start: 11-22-[address] Gonzales Gray Facility:[id number] Patient encounter procedure Gonzales Gray Work Phone: [facility] Work Phone: Procedures Date Procedure Procedure Detail Performing Clinician Start: 02-24-2025 APPLY DRESSING Rehan Sab ry Spike DPM Work Phone: Start: 09-18-2024 Follow-up visit Follow-up MELISA STREETER Start: 08-29-2024 FL PAIN MANAGEMENT Jaki Quiñonez STUDENT 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 Work Phone: Start: 08-29-2024 Njx anes&/strd w/img tfrml edrl lmbr/sac 1 lvl Danica Quiñonez STUDENT 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 Work Phone: Start: 08-29-2024 Glucose quantitative blood xcpt reagent strip Aroldo Ann DO Work Phone: Start: 02-19-2024 Hemoglobin A1c/Hemoglobin.total in Blood Emanuel Colon MD Work Phone: Start: 09-11-2023 CT of head without contrast Start: 05-24-2020 Adult depression scr eening assessment Leland Francis MD Work Phone: Operation on gallbladder Sheree an L Oberhauser Work Phone: Procedure on back Gonzales L Ob erhauser Work Phone: Tonsillectomy Gonzales L Oberha user Work Phone: Plan of Treatment Date Care Activity Detail Author Start: 03-02-2035 DTaP/Tdap/Td Vaccine s (2 - Td or Tdap) DTaP/Tdap/Td Vaccines (2 - Td or Tdap) [facility] Start: 04-17-2026 Urine screening for protein Diabetes: Urine Protein Screening [facility] Start: 10-16-2025 End: 10-16-2025 Patient encounter procedure 10/16/2025 10:40 AM EST Office Visit [facility] [address] [place] [phone] Gaby Ann, STUDENT 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 [address] [facility], [address] [place] [address] [facility] Start: 09-07-2025 End: 09-07-2025 Patient encounter procedure 09/07/2025 2:00 PM EST Office Visit [facility] [address] [facility] [address] [place] [phone] Elizabeth Manriquez MD MPH [address] [place] [address] [facility] Start: 08-17-2025 End: 08-17-2025 Patient encounter procedure 08/17/2025 12:15 PM EST Appointment [facility] [address] [place] [address] [facility] Start: 07-17-2025 Hemoglobin A1c measurement Diabetes: Hemoglobin A1C [facility] Start: 07-10-2025 DIABETES SCREEN DIABETES SCREEN [facility] Start: 06-25-2025 Medicare Annual Wellness Visit Medicare Annual Wellness Visit (AWV) [facility] Start: 06-24-2025 Medicare Wellness Visit Medicare Wel lness Visit [facility] Start: 05-26-2025 End: 05-26-2025 Patient encounter procedure 05/26/2025 2:15 PM EDT Office Visit [facility] Physician [facility] [address] [place] [phone] Rehan Lala, DPM [address] [place] [address] [facility] Physician [facility] Start: 05-26-2025 Diabetic foot examination Diabetic Foot Exam [facility] Start: 04-17-2025 End: 04-17-2025 Patient encounter procedure 04/17/2025 10:40 AM EDT Office Visit [facility] [address] [place] [phone] Gaby Ann, STUDENT 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 [address] [facility], [address] [place] [address] [facility] Start: 04-13-2025 COVID-19 Vaccine ( season) COVID-19 Vaccine ( season) [facility] Start: 04-13-2025 Influenza vaccination Influenza Vacc ine (#1) [facility] Start: 03-20-2025 Hepatitis B surface antibody level LDL Cholesterol [facility] Start: 03-02-2025 End: 03-02-2026 US Scrotum and testicle US scrotum w doppler Imaging Routine Swelling of scrotum Expected: 03/02/2025 (Approximate), Expires: 03/02/2026 [facility] Service Area Work Phone: Comment on above: Expected: 03/02/2025 (Approximate), Expires: 03/02/2026 Start: 02-24-2025 End: 02-24-2025 Patient encounter procedure 02/24/2025 1:30 PM EDT Office Visit [facility] Physician [facility] Pod[facility] [address] [place] [phone] Rehan Lala, DPSha [address] [place] [address] [facility] Physician [facility] Start: 02-10-2025 End: 02-10-2025 Patient encounter procedure 02/10/2025 10:15 AM EDT Office Visit [facility] Medical Office Building [address] [place] [phone] Danica Quiñonez, STUDENT 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 [address] [place] [address] [facility] Building Start: 02-09-2025 End: 02-09-2025 Patient encounter procedure 02/09/2025 10:30 AM EDT Office Visit [facility] Medical Office [facility] [address] [place] [address] Dancia Quiñonez, STUDENT 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 [address] [place] [address] [facility] Office Building Start: 02-04-2025 End: 02-04-2025 Patient encounter procedure 02/04/2025 1:20 PM EDT Office Visit [facility] [address] [place] [phone] Gaby Ann, STUDENT 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 [address] [facility], [address] [place] [address] [facility] Start: 01-16-2025 Hemoglobin A1c measurement [facility] Start: 01-09-2025 End: 01-09-2025 Patient encounter procedure 01/09/2025 1:20 PM EDT Office Visit [facility] [address] [place] [phone] Gaby Ann, STUDENT 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 [address] [facility], [address] [place] [phone] [facility] Start: 12-23-2024 End: 12-23-2025 Urinalysis complete W Reflex Culture panel - Urine Urinalysis with Reflex Culture and Microscopic Lab Routine Urinary frequency Expected: 12/23/2024 (Approximate), Expires: 12/23/2025 [facility] Service Area Work Phone: Comment on above: Expected: 12/23/2024 (Approximate), Expires: 12/23/2025 Start: 11-26-2024 DIABETES SCREEN DIABETES SCREEN [facility] Start: 11-25-2024 End: 11-25-2024 Patient encounter procedure 11/25/2024 1:30 PM EDT Office Visit [facility] Physician Group Podiatry [address] [facility] [place] [phone] Rehan Lala, DPM [address] [place] [address] [facility] Pod[facility] Start: 11-12-2024 End: 11-12-2024 Patient encounter procedure 11/12/2024 1:45 PM EDT Office Visit [facility] [address] [facility] [address] [place] [phone] Jessy Sweet MD [address] [place] [address] [facility] Start: 10-29-2024 End: 10-29-2024 Patient encounter procedure 10/29/2024 1:45 PM EDT Office Visit [facility] [address] [facility] [address] [place] [phone] Jessy Sweet MD [address] [place] [phone] [facility] Start: 10-27-2024 End: 10-27-2024 ambulatory 10/27/2024 1:45 PM EDT Evaluation [facility] [address] [place] [address] Jeremy Paez, PT [address] [facility] [place] [phone] [facility] Start: 10-21-2024 End: 10-21-2024 Patient encounter procedure 10/21/2024 1:30 PM EDT Office Visit [facility] Medical Office [facility] [address] [place] [address] Danica Quiñonez, STUDENT 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 [address] [place] [phone] [facility] Medical Office [facility] Start: 10-16-2024 End: 10-16-2025 Basic metabolic 2000 panel - Serum or Plasma Basic Metabolic Panel Lab Routine Controlled type 2 diabetes mellitus without complication, without long-term current use of insulin (Multi) Expected: 10/16/2024 (Approximate), Expires: 10/16/2025 [facility] Service Area Work Phone: Comment on above: Expected: 10/16/2024 (Approximate), Expires: 10/16/2025 Start: 10-16-2024 End: 10-16-2025 Hemoglobin A1c/Hemoglobin.total in Blood Hemoglobin A1C Lab Routine Controlled type 2 diabetes mellitus without complication, without long-term current use of insulin (Multi) Expected: 10/16/2024 (Approximate), Expires: 10/16/2025 [facility] Work Phone: Comment on above: Expected: 10/16/2024 (Approximate), Expires: 10/16/2025 Start: 10-16-2024 End: 10-16-2025 Prostate specific Ag [Mass/volume] in Serum or Plasma Prostate Specific Antigen Lab Routine Prostate cancer screening Expected: 10/16/2024 (Approximate), Expires: 10/16/2025 [facility] Work Phone: Comment on above: Expected: 10/16/2024 (Approximate), Expires: 10/16/2025 Start: 10-16-2024 End: 10-16-2024 Patient encounter procedure 10/16/2024 1:40 PM EST Office Visit [facility] [address] [place] [phone] Gaby Ann, STUDENT 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 [address] [facility], [address] [place] [address] [facility] Start: 09-25-2024 End: 09-25-2024 Patient encounter procedure 09/25/2024 10:30 AM EST Office Visit [facility] Medical Office Building [address] [place], [place] [address] [place] [phone] Melisa Streeter, SURY [address] [place] [address] [facility] Medical Office Building Start: 09-20-2024 Hemoglobin A1c measurement [facility] Start: 09-19-2024 End: 09-19-2024 Patient encounter procedure 09/19/2024 1:30 PM EST Appointment [address] [phone] [facility] Start: 09-18-2024 End: 09-18-2025 MR Lumbar spine WO contrast MR lumbar spine wo IV contrast Imaging Routine Lumbar radiculopathy 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, lumbosacral region Numbness Expected: 09/18/2024, Expires: 09/18/2025 [facility] Service Area Work Phone: Comment on above: Expected: 09/18/2024 , Expires: 09/18/2025 Start: 09-18-2024 End: 09-18-2024 Patient encounter procedure 09/18/2024 10:45 AM EST Office Visit [facility] Office [address] [place] [phone] Melisa Streeter PA-C [address] [place] [address] [place] [address] [facility] Office [facility] Start: 09-09-2024 End: 09-09-2024 Patient encounter procedure 09/09/2024 4:20 PM EST Office Visit Endocrinology [address] [phone] Emanuel Colon MD [address] [place], [place] [phone] F/U Endocrinology Comment on above: F/U Start: 08-26-2024 End: 08-26-2024 Patient encounter procedure 08/26/2024 1:00 PM EST Office Visit [facility] Physician Group Podiatry [address] [place] [address] Rehan Lala, AVINASH [address] [place] [address] [facility] Start: 08-21-2024 Hemoglobin A1c measurement HbA1C [facility] Start: 07-29-2024 End: 07-29-2024 Patient encounter procedure 07/29/2024 11:00 AM EST Office Visit [facility] Office [facility] [address] [place] [phone] Danica Quiñonez, STUDENT 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 [address] [place] [address] [facility] Office [facility] Start: 06-24-2024 End: 06-24-2024 Patient encounter procedure 06/24/2024 11:40 AM EST Office Visit [facility] [address] [place] [address] Gonzales Gray DO [address] [facility] [place] [address] [facility] Start: 06-20-2024 Hemoglobin A1c measurement Diabetes: Hemoglobin A1C [facility] Start: 05-29-2024 End: 05-29-2024 Patient encounter procedure 05/29/2024 4:00 PM EDT Office Visit [facility] [address] [place] [address] Gonzales Gray DO [address] [facility] [place] [address] [facility] Start: 05-08-2024 Glaucoma screening Diabetes: R etinopathy Screening [facility] Start: 04-30-2024 End: 04-30-2024 Patient encounter procedure 04/30/2024 1:00 PM EDT Office Visit [place] [address] [address] [phone] Jessy Sweet MD [address] [place] [address] [facility] Start: 04-28-2024 Hepatitis B surface antibody level LDL Cholesterol [facility] Start: 04-27-2024 Medicare Annual Wellness Visit Medicare Annual Wellness Visit (AWV) [facility] Start: 04-26-2024 History and physical examination, annual for health maintenance Wellness Visit [facility] Start: 04-13-2024 COVID-19 Vaccine ( season) COVID-19 Vaccine ( season) [facility] Start: 04-13-2024 COVID-19 Vaccine ( season) COVID-19 Vaccine ( season) [facility] Start: 04-13-2024 Influenza vaccination Influenza Vacc ine (#1) [facility] Start: 04-13-2024 End: 10-10-2024 Prostate specific Ag [Mass/volume] in Serum or Plasma Prostate Specific Antigen Lab Routine Nocturia Expected: 04/13/2024 (Approximate), Expires: 10/10/2024 [facility] Service Area Work Phone: Comment on above: Expected: 04/13/2024 (Approximate), Expires: 10/10/2024 Start: 02-13-2024 Hemoglobin A1c measurement HbA1C [facility] Start: 11-27-2023 End: 11-27-2023 Patient encounter procedure 11/27/2023 3:40 PM EDT Office Visit [facility] [address] [place] [address] Gonzales Gray DO [address] [facility] Physician [place] [phone] [facility] Start: 11-14-2023 Hemoglobin A1c measurement Diabetes: Hemoglobin A1C [facility] Start: 10-31-2023 End: 10-31-2023 Patient encounter procedure 10/31/2023 11:40 AM EDT Office Visit [facility] [address] [place] [address] Gonzales Gray DO [address] [facility] [place] [address] [facility] Start: 10-25-2023 End: 10-25-2023 Patient encounter procedure 10/25/2023 11:20 AM EDT Office Visit [facility] [address] [place] [phone] Gonzales Gray DO [address] [facility] [place] [address] [facility] Start: 10-10-2023 End: 10-10-2023 Telemedicine consultation with patient 10/10/2023 10:00 AM EST Telemedicine [address] [phone] Jessy Sweet MD [address] [place] [address] [facility] Start: 09-20-2023 End: 09-20-2023 Patient encounter procedure 09/20/2023 12:15 PM EST Appointment [address] [phone] [facility] Start: 09-19-2023 End: 09-19-2023 Patient encounter procedure 09/19/2023 3:00 PM EST Office Visit [address] [phone] Jessy Sweet MD [address] [place] [address] [facility] Start: 09-19-2023 End: 09-19-2024 US.doppler Scrotum and testicle US scrotum Imaging Routine Hydrocele, unspecified hydrocele type Expected: 09/19/2023 (Approximate), Expires: 09/19/2024 [facility] Service Area Work Phone: Comment on above: Expected: 09/19/2023 (Approximate), Expires: 09/19/2024 Start: 09-11-2023 Hepatitis B surface antibody level LDL CHOLESTEROL [facility] Start: 08-13-2023 Advance Directive Discussion Advance Directive Discussion [facility] Start: 08-13-2023 Behavioral Health Screening Behavioral Health Screening [facility] Start: 08-13-2023 Depression Assessment Depression Ass essment [facility] Start: 05-08-2023 Glaucoma screening Diabetes: R etinopathy Screening [facility] Start: 04-26-2023 End: 04-26-2024 CBC W Auto Differential panel - Blood CBC and Auto Differential Lab Routine Iron deficiency anemia, unspecified iron deficiency anemia type Expected: 04/26/2023 (Approximate), Expires: 04/26/2024 [facility] Work Phone: Comment on above: Expected: 04/26/2023 (Approximate), Expires: 04/26/2024 Start: 04-26-2023 End: 04-26-2024 Comprehensive metabolic 2000 panel - Serum or Plasma Comprehensive Metabolic Panel Lab Routine Controlled type 2 diabetes mellitus without complication, with long-term current use of insulin (CMS/[facility]) Expected: 04/26/2023 (Approximate), Expires: 04/26/2024 [facility] Work Phone: Comment on above: Expected: 04/26/2023 (Approximate), Expires: 04/26/2024 Start: 04-26-2023 End: 04-26-2024 Ferritin [Mass/volume] in Serum or Plasma Ferritin Lab Routine Iron deficiency anemia, unspecified iron deficiency anemia type Expected: 04/26/2023 (Approximate), Expires: 04/26/2024 [facility] Work Phone: Comment on above: Expected: 04/26/2023 (Approximate), Expires: 04/26/2024 Start: 04-26-2023 End: 04-26-2024 Hemoglobin A1c/Hemoglobin.total in Blood Hemoglobin A1C Lab Routine Controlled type 2 diabetes mellitus without complication, with long-term current use of insulin (CMS/HCC) Expected: 04/26/2023 (Approximate), Expires: 04/26/2024 [facility] Service Area Work Phone: Comment on above: Expected: 04/26/2023 (Approximate), Expires: 04/26/2024 Start: 04-26-2023 End: 04-26-2024 Iron and Iron binding capacity panel - Serum or Plasma Iron and TIBC Lab Routine Iron deficiency anemia, unspecified iron deficiency anemia type Expected: 04/26/2023 (Approximate), Expires: 04/26/2024 [facility] Work Phone: Comment on above: Expected: 04/26/2023 (Approximate), Expires: 04/26/2024 Start: 04-26-2023 End: 04-26-2024 Lipid 1996 panel - Serum or Plasma Lipid Panel Lab Routine Controlled type 2 diabetes mellitus without complication, with long-term current use of insulin ([facility]) Expected: 04/26/2023 (Approximate), Expires: 04/26/2024 [facility] Work Phone: Comment on above: Expected: 04/26/2023 (Approximate), Expires: 04/26/2024 Start: 04-26-2023 End: 04-26-2024 Prostate specific Ag [Mass/volume] in Serum or Plasma Prostate Spec.Ag,Screen Lab Routine Screening for prostate cancer Expected: 04/26/2023 (Approximate), Expires: 04/26/2024 [facility] Work Phone: Comment on above: Expected: 04/26/2023 (Approximate), Expires: 04/26/2024 Start: 04-26-2023 End: 04-26-2023 Patient encounter procedure 04/26/2023 11:00 AM EDT Office Visit [facility] [address] [place] [id number] Gonzales Gray DO [address] [facility] [place] [address] [facility] Start: 04-13-2023 COVID-19 Vaccine ( season) COVID-19 Vaccine ( season) [facility] Start: 04-13-2023 Influenza vaccination [facility] Start: 12-10-2022 Hemoglobin A1c measurement Diabetes: Hemoglobin A1C [facility] Start: 12-10-2022 Hemoglobin A1c/Hemoglobin.total in Blood HBA1C [facility] Start: 11-26-2022 SERUM CREATININE SERUM CREATININE Cl [facility] Start: 10-17-2022 FUV, Provider: Gonzales Gray, Status: Pen, Time: 10:00 AM FUV, Provider: Gonzales Gray, Status: Pen, Time: 10:00 AM [facility] Work Phone: Start: 09-26-2022 FUV, Provider: Sara Coombs, Status: Pen, Time: 11:30 AM FUV, Provider: Sara Coombs, Status: Pen, Time: 11:30 AM [facility] Work Phone: Start: 08-13-2022 ADVANCE DIRECTIVE DISCUSSION ADVANCE DIRECTIVE DISCUSSION [facility] Start: 08-13-2022 DEPRESSION ASSESSMENT DEPRESSION ASS ESSMENT [facility] Start: 2022 FUV, Provider: Sara Coombs, Status: Pen, Time: 3:00 PM FUV, Provider: Sara Coombs, Status: Pen, Time: 3:00 PM [facility] Start: 07-11-2022 NPV, Provider: Sara Coombs, Status: Pen, Time: 10:00 AM NPV, Provider: Sara Coombs, Status: Pen, Time: 10:00 AM [facility] Work Phone: Start: 07-04-2022 FUV, Provider: Gonzales Gray, Status: Pen, Time: 10:00 AM FUV, Provider: Gonzales Gray, Status: Pen, Time: 10:00 AM [facility] Work Phone: Start: 04-13-2022 Influenza vaccination [facility] Start: 03-01-2022 FUV, Provider: Gonzales Gray, Status: Pen, Time: 10:40 AM FUV, Provider: Gonzales Gray, Status: Pen, Time: 10:40 AM [facility] Work Phone: Start: 08-13-2021 ADVANCE DIRECTIVE DISCUSSION ADVANCE DIRECTIVE DISCUSSION [facility] Start: 05-27-2021 HEMOGLOBIN/HEMATOCRIT HEMOGLOBIN/HEM ATOCRIT [facility] Start: 05-24-2021 Adult depression screening assessment DEPRESSION SCREENING [facility] Start: 05-24-2021 ANNUAL PCP TEAM TRADE MARK EXAMINER BREANN DISEASE VISIT ANNUAL PCP TEAM CHRONIC DISEASE VISIT [facility] Start: 04-13-2021 COVID-19 VACCINE (3 - Booster for Pfizer series) COVID-19 VACCINE (3 - Booster for Pfizer series) [facility] Start: 01-06-2021 COVID-19 VACCINE (3 - Booster for Pfizer series) COVID-19 VACCINE (3 - Booster for Pfizer series) [facility] Start: 01-06-2021 COVID-19 Vaccine (3 - Pfizer series) COVID-19 Vaccine (3 - Pfizer series) [facility] Start: 12-09-2020 COVID-19 Vaccine (3 - Pfizer risk series) COVID-19 Vaccine (3 - Pfizer risk series) [facility] Start: 05-13-2020 Hepatitis B screening URINE ALBUMIN:CREATININE RATIO [facility] Start: 2016 Respiratory Syncytia l Virus Immunization: Risk, 60-74 Risk, or 75+ (1 - 1-dose 75+ series) Respiratory Syncytial Virus Immunization: Risk, 60-74 Risk, or 75+ (1 - 1-dose 75+ series) [facility] Start: 2016 RSV High Risk: (Elde rly (60+) or Population) (1 - 1-dose 75+ series) RSV High Risk: (Elderly (60+) or Population) (1 - 1-dose 75+ series) [facility] Start: 2016 RSV Vaccine (1 - 1-d ose 75+ series) RSV Vaccine (1 - 1-dose 75+ series) [facility] Start: 06-15-2016 Pneumococcal Vaccine : 65+ Years (2 - PPSV23 if available, else PCV20) Pneumococcal Vaccine: 65+ Years (2 - PPSV23 if available, else PCV20) [facility] Start: 2006 Fall risk assessment Falls Risk Asse ssment [facility] Start: 2001 RSV patient s and/or patients aged 60+ years (1 - 1-dose 60+ series) RSV patients and/or patients aged 60+ years (1 - 1-dose 60+ series) [facility] Start: 2001 RSV Vaccine (1 - 1-d ose 60+ series) RSV Vaccine (1 - 1-dose 60+ series) [facility] Start: 1991 Administration of herpes zoster vaccine Zoster Vaccines (1 of 2) [facility] Start: 1991 SHINGRIX VACCINE (1 of 2) SHINGRIX VACCINE (1 of 2) [facility] Start: 1991 Zoster Vaccines (1 o f 2) Zoster Vaccines (1 of 2) [facility] Start: 1963 DTaP/Tdap/Td Vaccine s (1 - Tdap) DTaP/Tdap/Td Vaccines (1 - Tdap) [facility] Start: 1960 Urine microalbumin profile [facility] Start: 1960 Urine screening for protein Diabetes: Urine Protein Screening [facility] Start: 1959 Anxiety Screening Anxiety Screening [facility] Start: 1959 BP CONTROLLED (<130/80) BP CONTROLLE D (<130/80) [facility] Start: 1959 Depression Screening Depression Scre ening [facility] Start: 1953 Depression screening using PHQ-9 (Patient Health Questionnaire 9) score Depression Screening/Follow-Up (PHQ-2/9) [facility] Start: 1951 3 comp foot exam completed DIABETIC FOOT EXAM [facility] Start: 1951 Diabetic foot examination [facility] Start: 1951 eGFR Diabetes eGFR [facility] Start: 1951 Glaucoma screening [facility] Start: 1951 Hepatitis C antibody , confirmatory test DILATED RETINAL EXAM [facility] Start: 1951 Ophthalmic examinati on and evaluation Diabetes: Retinopathy Screening [facility] Start: 1951 Urine screening for protein [facility] Start: 1948 DTaP/Tdap/Td Vaccine s (1 - Tdap) DTaP/Tdap/Td Vaccines (1 - Tdap) [facility] Start: 1941 Hemoglobin A1c measurement Diabetes: Hemoglobin A1C [facility] Start: 1941 Lipid panel Lipid Panel [facility] Start: 1941 Medicare Annual Wellness Visit Medicare Annual Wellness Visit (AWV) [facility] Start: 1941 Tetanus vaccination Tetanus: Every 1 0yrs [facility] Start: 1941 Urine screening for protein Diabetes: Urine Protein Screening [facility] End: 09-19-2024 MR Lumbar spine WO contrast [facility] Service Area Work Phone: Comment on above: Once for 1 Occurrenc es starting 09/19/2024 until 09/19/2024 End: 09-20-2023 US Scrotum and testicle [facility] Service Are a Work Phone: Comment on above: Once for 1 Occurrenc es starting 09/20/2023 until 09/20/2023 [facility] Immunizations Immunization Date Immunization Notes Care Provider Jhoan evans 03-02-2025 tetanus toxoid, redu kobi diphtheria toxoid, and acellular pertussis vaccine, adsorbed Jose E Roseline STUDENT 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 Work Phone: [facility] 06-24-2024 influenza, high dose seasonal, preservative-free Gonzales Isaac DO Work Phone: [facility] Work Phone: 06-24-2024 influenza virus vaccine, unspecified formulation Rehan Lala DPM Work Phone: [facility] 04-26-2023 Flu vaccine, quadrivalent, high-dose, preservative free, age 65y+ (FLUZONE) Gonzales Gray DO Work Phone: [facility] 04-26-2023 influenza virus vaccine, unspecified formulation Emanuel Colon MD Work Phone: [facility] 11-11-2020 Pfizer-BioNTech COVID-19 Vacc 30 MCG/0.3ML Intramuscular Suspension Gonzales L Isaac Work Phone: [facility] 10-20-2020 Pfizer-BioNTech COVID-19 Vacc 30 MCG/0.3ML Intramuscular Suspension Gonzales L Oberlidia Work Phone: [facility] 05-24-2020 Fluzone High-Dose Quadrivalent 0.7 ML Intramuscular Suspension Prefilled Syringe Gonzales Gray Work Phone: [facility] 05-24-2020 influenza, seasonal, injectable Gonzales Oberhauser DO Work Phone: [facility] Work Phone: 05-24-2020 influenza virus vaccine, unspecified formulation Gonzales Gray DO Work Phone: [facility] Work Phone: 05-02-2019 influenza, high dose seasonal, preservative-free Gonzales May Obsy Work Phone: [facility] 08-21-2018 influenza, high dose seasonal, preservative-free Gonzales L Obyawer Work Phone: [facility] 06-21-2017 influenza, high dose seasonal, preservative-free Gonzales L Obyawer Work Phone: [facility] 06-01-2016 influenza, high dose seasonal, preservative-free Gonzales Brayden Obsy Work Phone: [facility] 04-20-2016 pneumococcal conjuga te vaccine, 13 valent Gonzales Gray Work Phone: [facility] 03-13-2007 pneumococcal polysaccharide vaccine, 23 valent Leland Francis MD Work Phone: [facility] Work Phone: 08-13-1995 pneumococcal polysaccharide vaccine, 23 valjojo Francis MD Work Phone: [facility] Payers Date Payer Category Payer Self-pay 2021 Private Health Insurance [employer] Barbara RAMOS PPO [id number] 2021-Present [phone] [address] [place] [address] PPO [id number] 2021 Medicare supplementa l policy (as second payer) [id number] 2021 Private Health Insurance [id number] 2021 Medicare [id number] 2009 Private Health Insurance [facility] [id number] 2006 Medicare MEDICARE MEDICAR E A AND B [id number] 2006-Present [phone] [place] [address] Medicare [id number] 2006 Medicare [id number] [id number]. [id number] 2006 Medicare [id number] 1941 Unknown [id number] 2.16.840.1.849370.3.579. 2.356 1941 Unknown [id number] 2.16840.1.506406.3.579. 2.356 1941 Unknown [id number] 2.16.840.1.422588.3.579. 2.356 1941 Unknown [id number] 2.16840.1.379890.3.579. 2.356 1941 Unknown [id number] 2.16.840.1.921479.3.579. 2.1069 1941 Unknown [id number] 2.16.840.1.029371.3.579. 2.1069 1941 Unknown [id number] 2.16.840.1.392562.3.579. 2.1069 1941 Unknown [id number] 2.16.840.1.511821.3.579. 2.1069 1941 Unknown [id number] 2.16840.1.593598.3.579. 2.903 1941 Unknown [id number] 2.16.840.1.212135.3.579. 2.3 1941 Unknown [id number] 2.16.840.1.858765.3.579. 2.3 1941 Unknown [id number] 2.16.840.1.334604.3.579. 2.3 1941 Unknown [id number] 2.16.840.1.183355.3.579. 2.1243 1941 Unknown [id number] 2.16.840.1.884714.3.579. 2.1242 1941 Unknown [id number] 2.16.840.1.083769.3.579. 2.1242 1941 Unknown [id number] 2.16.840.1.696000.3.579. 2.1242 1941 Unknown [id number] 2.16.840.1.234215.3.579. 2.1242 1941 Unknown [id number] 2.16.840.1.476420.3.579. 2.1242 1941 Unknown [id number] 2.16.840.1.524577.3.579. 2.3 1941 Unknown [id number] 2.16.840.1.867294.3.579. 2.1242 1941 Unknown [id number] 2.16.840.1.929715.3.579. 2.3 1941 Unknown [id number] 2.16.840.1.463501.3.579. 2.3 1941 Unknown [id number] 2.16.840.1.058872.3.579. 2.3 1941 Unknown [id number] 2.16.840.1.861340.3.579. 2.1243 1941 Unknown [id number] 2.16.840.1.845293.3.579. 2.1242 1941 Unknown [id number] 2.16.840.1.319987.3.579. 2.1242 1941 Unknown [id number] 2.16.840.1.187153.3.579. 2.1242 1941 Unknown [id number] 2.16.840.1.872405.3.579. 2.1242 1941 Unknown [id number] 2.16.840.1.056859.3.579. 2.1243 1941 Unknown [id number] 2.16.840.1.338423.3.579. 2.4 1941 Unknown [id number] 2.16.840.1.444243.3.579. 2.1243 1941 Unknown [id number] 2.16.840.1.019870.3.579. 2.1243 1941 Unknown [id number] 2.16.840.1.267112.3.579. 2.1243 1941 Unknown [id number] 2.16.840.1.075909.3.579. 2.4 1941 Unknown [id number] 2.16.840.1.312351.3.579. 2.1244 [id number] Unknown Unknown [id number] 2.16.840.1.306400.3.579. 2.462 Social History Date Type Detail Facility Start: 05-08-2012 End: 04-17-2025 Daily caffeine consumption, 2-3 servings a day Daily caffeine consumption, 2-3 servings a day [facility] Start: 05-08-2012 End: 09-10-2022 Tobacco smoking status NHIS Ex-smoker [facility] Start: 08-13-1960 End: 12-13-1970 History of tobacco use Current smoker [facility] Start: 08-13-1960 End: 12-13-1970 History of tobacco use Cigarette Smoker [facility] Start: 05-08-2012 End: 10-24-2022 Tobacco use and exposure Smokeless tobacco non-user [facility] Start: 05-24-2020 End: 04-17-2025 Alcohol intake Current drinker of alcohol (finding) [facility] Start: 08-10-2018 History SDOH Alcohol Comment yearly use [facility] Start: 1941 Sex Assigned At Not on file [facility] Start: 1941 Sex Assigned At [facility] Start: 06-30-2022 End: 01-09-2025 Exposure to SARS-CoV-2 (event) Not sure [facility] Start: 09-11-2022 History SDOH Financial 5 [facility] Start: 09-11-2022 History SDOH Food Worry 1 [facility] Start: 09-11-2022 History SDOH Transpo rt Med 2 [facility] Start: 10-24-2022 End: 05-26-2024 Tobacco smoking status NHIS Never smoked tobacco [facility] Start: 10-24-2022 End: 04-17-2025 Tobacco use panel [facility] Start: 10-24-2022 Alcohol Comment Occasional [facility] Work Phone: Start: 09-30-2023 End: 10-10-2023 Exposure to SARS-CoV-2 (event) Unable to assess [facility] Start: 07-07-2022 How hard is it for y ou to pay for the very basics like food, housing, medical care, and heating Not hard at all [facility] (I/We) worried angel er (my/our) food would run out before (I/we) got money to buy more. Never true [facility] In the past 12 month s, was there a time when you were not able to pay the mortgage or rent on time? No [facility] Start: 07-14-2022 Gender identity Identifies as male gender (finding) [facility] Start: 05-26-2024 End: 02-24-2025 Alcoholic beverage intake Ex-drinker (finding) [facility] Medical Equipment Procedure Code Equipment Code Equipment Original Text Equipment Identifier Dates [id number], [id number] Start: 09-11-2022 End: 12-10-2022 Comment on above: Inject 1 Each subcut aneously q 24 HR. Give with each insulin administration. 1 Each once daily. Functional Status Date Assessment Result Facility 04-17-2025 Patient Health [facility] ionnaire 2 item (PHQ-2) [Reported] [facility] Work Phone: 03-10-2025 Patient Health [facility] ionnaire 2 item (PHQ-2) [Reported] [facility] Work Phone: 03-02-2025 Patient Health [facility] ionnaire 2 item (PHQ-2) [Reported] [facility] Work Phone: 02-09-2025 Roca - suicide s everity rating scale screener - recent [C-SSRS] [facility] Work Phone: 01-09-2025 Patient Health Quest ionnaire 2 item (PHQ-2) [Reported] [facility] Work Phone: 12-10-2024 Roca - suicide s everity rating scale screener - recent [C-SSRS] [facility] Work Phone: Clinical Notes 11-23-2018 to 04-27-2025 Mei Mayo, [facility] - 04/27/2025 1:15 PM EDRoberta Ann [facility] - 04/17/2025 10:40 AM Russell [facility] - 03/10/2025 5:40 PM EDTMparminder Ospina [facility] - 03/02/2025 2:20 PM EDT Note Date & Type Note Facility 04-27-2025 History of Present illness Narrative [facility] FAIZAN NOTE: Name: Devi Thompson, 84 y.o. CSN:[id number] ALL: Allergies[1] Chief Complaint: Rash (Rash all over x 1 week after starting Bactrim for cellulitis ) Encounter Date: 04/27/2025 HPI: The history was obtained from the patient. Devi is a 84 y.o. male, who presents with a chief complaint of rash that appeared to the general body 7 days ago after starting Bactrim double strength. Patient stopped utilizing antibiotic 2 days ago. Reports the rash is red, raised and extremely itchy. Denies any swelling or drainage to the area. No known injury to the area or known irritants. Denies any fever, chills, malaise, dyspnea, nausea, vomiting, cold symptoms, or other constitutional signs and symptoms. Has not tried any OTC medications for the rash. PMHx: Medical History[2] Current Medications[3] PMSx: Surgical History[4] Fam Hx: Family History[5] SOC. Hx: Social History Socioeconomic History Marital status: Spouse name: Not on file Number of children: Not on file Years of education: Not on file Highest education level: Not on file Occupational History Not on file Tobacco Use Smoking status: Never Smokeless tobacco: Never Vaping Use Vaping status: Never Used Substance and Sexual Activity Alcohol use: Yes Comment: Occasional Drug use: Never Sexual activity: Not on file Other Topics Concern Not on file Social History Narrative Not on file Social Drivers of Health Financial Resource Strain: Low Risk (09/11/2022) Received from [facility] Overall Financial Resource Strain (CARDIA) Difficulty of Paying Living Expenses: Not hard at all Food Insecurity: No Food Insecurity (09/11/2022) Received from [facility] Hunger Vital Sign Within the past 12 months, you worried that your food would run out before you got the money to buy more.: Never true Within the past 12 months, the food you bought just didn't last and you didn't have money to get more.: Never true Transportation Needs: No Transportation Needs (09/11/2022) Received from [facility] PRAPARE - Transportation Lack of Transportation (Medical): No Lack of Transportation (Non-Medical): No Physical Activity: Not on file Stress: Not on file Social Connections: Not on file Intimate Partner Violence: Not on file Housing Stability: Low Risk (09/11/2022) Received from [facility] Housing Stability Vital Sign Unable to Pay for Housing in the Last Year: No Number of Places Lived in the Last Year: 1 Unstable Housing in the Last Year: No Vitals: 04/27/25 1316 BP: 170/83 Pulse: 87 Resp: 14 Temp: 36.7 C (98.1 F) SpO2: 95% Physical Exam Vitals and nursing note reviewed. Constitutional: General: He is not in acute distress. Appearance: Normal appearance. He is not ill-appearing. HENT: Head: Normocephalic and atraumatic. Mouth/Throat: Mouth: Mucous membranes are moist. Cardiovascular: Rate and Rhythm: Normal rate and regular rhythm. Heart sounds: Normal heart sounds. Pulmonary: Effort: Pulmonary effort is normal. Breath sounds: Normal breath sounds. Abdominal: General: Bowel sounds are normal. Skin: General: Skin is warm and dry. Capillary Refill: Capillary refill takes less than 2 seconds. Findings: Rash present. Comments: Generalized rash over entire body that began after starting Bactrim. Neurological: Mental Status: He is alert and oriented to person, place, and time. ____ I did personally review Devi's past medical history, surgical history, social history, as well as family history (when relevant). In this case, I also oversaw the his drug management by reviewing his medication list, allergy list, as well as the medications that I prescribed during the UC course and/or recommended as an out-patient (including possible OTC medications such as acetaminophen, NSAIDs , etc). After reviewing the items above, I did look at previous medical documentation, such as recent hospitalizations, office visits, and/or recent consultations with PCP/specialist. SDOH: Another factor that I considered in Devi's care was his Social Determinants of Health (SDOH). During this UC encounter, he did not have social determinants of health. Those SDOH influencing Devi's care are: none COURSE/MEDICAL DECISION MAKING: Devi is a 84 y.o., who presents with a working diagnosis of 1. Allergic reaction, initial encounter with a differential to include: atopic dermatitis (eczema), maculopapular drug eruptions, contact dermatitis, insect bites, erythema multiforme, and pityriasis rosea Plan: Depo-Medrol/Solu-Medrol IM injection in clinic today. Start tapering dose of prednisone tomorrow. Continue Benadryl every 6 hours as needed. Recommend utilizing at minimum twice daily Monitor blood glucose closely due to history of diabetes and steroid use. Patient reports blood sugars have been controlled with current plan of care Will not restart antibiotic therapy for cellulitis to the right foot. Patient and advised to monitor skin closely if redness, warmth begins to appear call into urgent care for antibiotic therapy Return to urgent care, primary care provider, or emergency department with worsening symptoms No red flags on exam. Plan of care reviewed with patient, agreeable to discharge Ko Mayo DNP Advanced Practice Provider [facility] Please note: While the patient may or may not have received printed discharge paperwork, all relevant medical findings, test results, and treatment details are accessible through the electronic medical record system. The patient is encouraged to review their chart via the patient portal for comprehensive information and follow-up instructions. [1] Allergies Allergen Reactions Sulfa (Sulfonamide Antibiotics) Hives Acetaminophen Other and Hallucinations He thinks it was PM formula to help him sleep Metoprolol Diarrhea [2] Past Medical History: Diagnosis Date Diabetes mellitus (Multi) Hypertension Other specified health status No pertinent past medical history [3] Current Outpatient Medications Medication Sig Dispense Refill aspirin 81 mg EC tablet Take 1 tablet (81 mg) by mouth once daily. blood-glucose meter misc TEST SUGARS ONCE DAILY 1 each 0 glipiZIDE (Glucotrol) 10 mg tablet Take 1 tablet (10 mg) by mouth 2 times a day before meals. 180 tablet 1 insulin glargine (Basaglar KwikPen U-100 Insulin) 100 unit/mL (3 mL) pen Inject 16 Units under the skin once daily at bedtime. Take as directed per insulin instructions. 6 mL 9 lancets misc TEST SUGARS ONCE DAILY 50 each 11 metFORMIN (Glucophage) 1,000 mg tablet Take 1 tablet (1,000 mg) by mouth 2 times a day with meals. 180 tablet 3 multivitamin tablet Take 1 tablet by mouth once daily. OneTouch Delica Plus Lancet 30 gauge misc Use to test BLOOD SUGAR ONCE DAILY OneTouch Verio test strips strip Use to test BLOOD SUGAR TWICE DAILY 100 strip 11 simvastatin (Zocor) 40 mg tablet TAKE 1 TABLET BY MOUTH AT BEDTIME 90 tablet 3 solifenacin (VESIcare) 5 mg tablet Take 1 tablet (5 mg) by mouth early in the morning.. baclofen (Lioresal) 5 mg tablet Take 1 tablet (5 mg) by mouth once daily at bedtime. 30 tablet 1 gabapentin (Neurontin) 300 mg capsule Take 1 capsule (300 mg) by mouth once daily at bedtime. 30 capsule 0 metoprolol succinate XL (Toprol-XL) 25 mg 24 hr tablet TAKE 1 TABLET BY MOUTH ONCE DAILY 90 tablet 3 predniSONE (Deltasone) 10 mg tablet 60 mg once daily x 1 days, then 50 mg once daily x 1 days, then 40 mg once daily x 1 days, then 30 mg once daily x 1 days, then 20 mg once daily x 1 days, then 10 mg once daily x 1 days. 21 tablet 0 No current facility-administered medications for this visit. [4] Past Surgical History: Procedure Laterality Date INJECTION Bilateral 08/29/2024 Bilat L4/5 TFESI OTHER SURGICAL HISTORY 11/22/2021 Gallbladder surgery OTHER SURGICAL HISTORY 11/22/2021 Back surgery OTHER SURGICAL HISTORY 11/22/2021 Tonsillectomy [5] Family History Problem Relation Name Age of Onset Heart attack Mother Lung cancer Father non-small cell carcinoma of lung Breast cancer Sister Cancer Other documented in this encounter [facility] Work Phone: 04-17-2025 History of Present illness Narrative Subjective Patient ID: Devi Thompson is a 84 y.o. male who presents for Follow-up (6 month: leg redness/Constantly itiching). Patient presents for complaint of cellulitis. Cellulitis: Patient has chronic bilateral lower extremity edema, was treated for right lower extremity cellulitis 1 month ago with doxycycline. Condition had resolved and then has started to come back. Will treat this time with Bactrim twice daily x 14 days and he will contact me if not improved. Review of Systems Constitutional: Negative for chills, diaphoresis, fatigue and unexpected weight change. HENT: Negative for dental problem, tinnitus and trouble swallowing. Eyes: Negative for visual disturbance. Respiratory: Negative for chest tightness and shortness of breath. Cardiovascular: Positive for leg swelling. Negative for chest pain and palpitations. Gastrointestinal: Negative for abdominal pain, constipation, diarrhea, nausea and rectal pain. Endocrine: Negative for polydipsia, polyphagia and polyuria. Genitourinary: Negative for difficulty urinating, frequency and urgency. Musculoskeletal: Negative for arthralgias and myalgias. Skin: Positive for color change. Negative for pallor and wound. Neurological: Negative for syncope, weakness, numbness and headaches. Psychiatric/Behavioral: Negative for suicidal ideas. The patient is not nervous/anxious. Objective BP 155/83 Pulse 76 Ht 1.829 m (6') Wt 148 kg (326 lb) SpO2 98% BMI 44.21 kg/m Physical Exam Constitutional: Appearance: Normal appearance. HENT: Head: Normocephalic. Mouth/Throat: Mouth: Mucous membranes are moist. Pharynx: Oropharynx is clear. Eyes: Pupils: Pupils are equal, round, and reactive to light. Cardiovascular: Rate and Rhythm: Normal rate. Pulmonary: Effort: Pulmonary effort is normal. Musculoskeletal: General: Normal range of motion. Cervical back: Normal range of motion. Right lower leg: Edema present. Left lower leg: Edema present. Skin: General: Skin is warm and dry. Findings: Erythema (Right lower leg) present. Neurological: General: No focal deficit present. Mental Status: He is alert and oriented to person, place, and time. Mental status is at baseline. Psychiatric: Mood and Affect: Mood normal. Behavior: Behavior normal. Thought Content: Thought content normal. Judgment: Judgment normal. Assessment/Plan Diagnoses and all orders for this visit: Cellulitis of right lower extremity - sulfamethoxazole-trimethoprim (Bactrim DS) 800-160 mg tablet; Take 2 tablets by mouth 2 times a day for 14 days. documented in this encounter [facility] Work Phone: 03-10-2025 History of Present illness Narrative Subjective Patient ID: Devi Thompson is a 84 y.o. male who presents for Follow-up (Pt is here today for an urgent care follow up for cellulitis in the right leg. Was on abx.). Patient presents today for follow-up evaluation of cellulitis. Cellulitis: Right leg affected. States this is improving. Was seen in urgent care and was started on doxycycline. Will extend his prescription for 5 more days for 14-day total therapy. If not improved by beginning of next week he will call me. They have access to [employer] and will send pictures of the affected limb as well. No medication side effects, no open wounds, no drainage. Review of Systems Constitutional: Negative for chills, diaphoresis, fatigue and unexpected weight change. HENT: Negative for dental problem, tinnitus and trouble swallowing. Eyes: Negative for visual disturbance. Respiratory: Negative for chest tightness and shortness of breath. Cardiovascular: Positive for leg swelling. Negative for chest pain and palpitations. Gastrointestinal: Negative for abdominal pain, constipation, diarrhea, nausea and rectal pain. Endocrine: Negative for polydipsia, polyphagia and polyuria. Genitourinary: Negative for difficulty urinating, frequency and urgency. Musculoskeletal: Negative for arthralgias and myalgias. Skin: Positive for color change. Negative for pallor and wound. Neurological: Negative for syncope, weakness, numbness and headaches. Psychiatric/Behavioral: Negative for suicidal ideas. The patient is not nervous/anxious. Objective BP 124/80 (BP Location: Left arm, Patient Position: Sitting, BP Cuff Size: Large adult) Pulse 83 Ht 1.829 m (6') Wt 147 kg (324 lb 8 oz) SpO2 95% BMI 44.01 kg/m Physical Exam Constitutional: Appearance: Normal appearance. HENT: Head: Normocephalic. Mouth/Throat: Mouth: Mucous membranes are moist. Pharynx: Oropharynx is clear. Eyes: Pupils: Pupils are equal, round, and reactive to light. Cardiovascular: Rate and Rhythm: Normal rate. Pulmonary: Effort: Pulmonary effort is normal. Musculoskeletal: General: Swelling (Right lower leg) present. Normal range of motion. Cervical back: Normal range of motion. Right lower leg: Edema (Right lower leg) present. Skin: General: Skin is warm and dry. Findings: Erythema (Right lower leg) present. Neurological: General: No focal deficit present. Mental Status: He is alert and oriented to person, place, and time. Mental status is at baseline. Psychiatric: Mood and Affect: Mood normal. Behavior: Behavior normal. Thought Content: Thought content normal. Judgment: Judgment normal. Assessment/Plan Diagnoses and all orders for this visit: Cellulitis of leg, right - doxycycline (Vibramycin) 100 mg capsule; Take 1 capsule (100 mg) by mouth 2 times a day for 5 days. Take with at least 8 ounces (large glass) of water, do not lie down for 30 minutes after documented in this encounter [facility] Work Phone: 03-02-2025 History of Present illness Narrative Objective 84 y.o. male presents for evaluation of rash to right lower leg that has been present for the past few weeks. States he has noticed increased swelling to this leg as well. Denies calf tenderness, chest pains, shortness of breath, fevers, fatigue, body aches or any other associated symptom complaint. No otc meds for symptoms. No known injury to area. Pt is diabetic. No other complaints. ROS See HPI Subjective Vitals: 03/02/25 1424 BP: 140/78 Pulse: 87 Temp: 37.1 C (98.7 F) SpO2: 95% RX Allergies[1] Medication Documentation Review Audit Reviewed by Taylor Chen MA ([employer]arm [employer]) on 03/02/25 at 1421 Medication Order Taking? Sig Documenting Provider Last Dose Status aspirin 81 mg EC tablet [id number] Yes Take 1 tablet (81 mg) by mouth once daily. Historical Provider, Active baclofen (Lioresal) 5 mg tablet [id number] Yes Take 1 tablet (5 mg) by mouth once daily at bedtime. RODRIGO Rhodes Active blood-glucose meter [facility] [id number] Yes TEST SUGARS ONCE DAILY Gonzales Gray, Active gabapentin (Neurontin) 300 mg capsule [id number] Yes Take 1 capsule (300 mg) by mouth once daily at bedtime. RODRIGO Bae Active glipiZIDE (Glucotrol) 10 mg tablet [id number] Yes Take 1 tablet (10 mg) by mouth 2 times a day before meals. RODRIGO Bae Active insulin glargine (Basaglar KwikPen U-100 Insulin) 100 unit/mL (3 mL) pen [id number] Yes Inject 16 Units under the skin once daily at bedtime. Take as directed per insulin instructions. RODRIGO Bae [facility] [id number] Yes TEST SUGARS ONCE DAILY Gonzales Gray DO Active metFORMIN (Glucophage) 1,000 mg tablet [id number] Yes Take 1 tablet (1,000 mg) by mouth 2 times a day with meals. Gonzales Gray DO Active metoprolol succinate XL (Toprol-XL) 25 mg 24 hr tablet [id number] TAKE 1 TABLET BY MOUTH ONCE DAILY Gonzales Gray DO Active multivitamin tablet [id number] Yes Take 1 tablet by mouth once daily. Historical Provider, Active Kinga Delica Plus Lancet 30 gauge misc [id number] Yes Use to test BLOOD SUGAR ONCE DAILY Historical Provider, Active Kinga Verio test strips strip [id number] Yes Use to test BLOOD SUGAR TWICE DAILY Gonzales Gray DO Active simvastatin (Zocor) 40 mg tablet [id number] Yes TAKE 1 TABLET BY MOUTH AT BEDTIME Gonzales Gray DO Active Medical History[2] Surgical History[3] Physical Exam Vitals and nursing note reviewed. Constitutional: Appearance: Normal appearance. Cardiovascular: Rate and Rhythm: Normal rate. Pulses: Dorsalis pedis pulses are 2+ on the right side. Posterior tibial pulses are 2+ on the right side. Musculoskeletal: Right lower le+ Edema (no calf tenderness, negative homans) present. Left lower le+ Edema present. Skin: General: Skin is warm and dry. Findings: Rash (erythema to anterior right lower leg with areas of excoration consistent with cellulitis) present. Neurological: General: No focal deficit present. Mental Status: He is alert and oriented to person, place, and time. Psychiatric: Mood and Affect: Mood normal. Behavior: Behavior normal. Assessment Assessment/Plan/MDM Devi was seen today for rash. Diagnoses and all orders for this visit: Cellulitis of right anterior lower leg (Primary) - doxycycline (Adoxa) 100 mg tablet; Take 1 tablet (100 mg) by mouth 2 times a day for 10 days. Take with a full glass of water and do not lie down for at least 30 minutes after Tetanus updated today. Discussed worsening symptoms and when to seek further care. Discussed precautions with doxycyline use. Encouraged patient to elevate lower extremity to assist with swelling. Patient's clinical presentation is otherwise unremarkable at this time. Patient is discharged with instructions to follow-up with primary care or seek emergency medical attention for worsening symptoms or any new concerns. I did personally review Devi's past medical history, surgical history, social history, as well as family history (when relevant). In this case, I also oversaw the his drug management by reviewing his medication list, allergy list, as well as the medications that I prescribed during the UC course and/or recommended as an out-patient (including possible OTC medications such as acetaminophen, NSAIDs , etc). After reviewing the items above, I did look at previous medical documentation, such as recent hospitalizations, office visits, and/or recent consultations with PCP/specialist. SDOH: Another factor that I considered in Devi's care was his Social Determinants of Health (SDOH). During this UC encounter, he did not have social determinants of health. Those SDOH influencing Devi's care are: none Jose E Ospina CNP [facility] [1] Allergies Allergen Reactions Acetaminophen Other and Hallucinations He thinks it was PM formula to help him sleep Metoprolol Diarrhea [2] Past Medical History: Diagnosis Date Diabetes mellitus (Multi) Hypertension Other specified health status No pertinent past medical history [3] Past Surgical History: Procedure Laterality Date INJECTION Bilateral 08/29/2024 Bilat L4/5 TFESI OTHER SURGICAL HISTORY 11/22/2021 Gallbladder surgery OTHER SURGICAL HISTORY 11/22/2021 Back surgery OTHER SURGICAL HISTORY 11/22/2021 Tonsillectomy documented in this encounter [facility] Work Phone: 03-02-2025 History of Present illness Narrative Subjective Patient ID: Devi Thompson is a 84 y.o. male HPI 84 y.o. male who presents for testicular swelling. Last seen by Dr. Sweet whom noted the patient Most recent PSA is 0.54 on 10/2024. Prior was 0.63 on 04/05. Prior PSA was 0.53 on 05/05. Chronic BPH sx are mild and stable. Denies urgency and frequency. Denies dysuria. Denies hematuria. Nocturia x1. He was taking Flomax and Gemtesa in the past. He stopped both of these. Not sure they helped. ED is chronic and is not an issue. Today, he reports testicular swelling. Notes having the hydrocele aspirated by Dr. Sweet in the past. Endorses urinary frequency. The most recent PSA, conducted on 10/16/2024, revealed: 0.54 ng/mL The most recent Scrotal US, conducted on 09/19/2023, revealed: 1. Normal sonographic appearance of the testicles. 2. Large bilateral hydroceles. Review of Systems All systems were reviewed. Anything negative was noted in the HPI. Objective Physical Exam General: Well developed, well nourished, alert and cooperative, appears in no acute distress Eyes: Non-injected conjunctiva, sclera clear, no proptosis Cardiac: Extremities are warm and well perfused. No edema, cyanosis or pallor Lungs: Breathing is easy, non-labored. Speaking in clear and complete sentences. Normal diaphragmatic movement MSK: Ambulatory with steady gait, unassisted Neuro: Alert and oriented to person, place, and time Psych: Demonstrates good judgment and reason, without hallucinations, abnormal affect or abnormal behaviors Skin: No obvious lesions, no rashes No CVA tenderness bilaterally No suprapubic pain or discomfort Abundio hydrocele Medical History[1] Surgical History[2] Assessment/Plan Hydrocele, Testicular Swelling, right leg cellulitis 84 y.o. male who presents for the above condition, We had a very long and extensive discussion with the patient regarding the pathophysiology, differential diagnosis, risk factor, management, natural history, incidence and diagnostic work-up of the condition. We had a very long and extensive discussion with the patient regarding the pathophysiology, differential diagnosis, risk factor, management, natural history, incidence and diagnostic work-up of the condition. We discussed at length option of management including hydrocelectomy. Discussed the risk, benefits, potential complications adverse events. He verbalized understanding and would like to proceed.We had a long and excess discussion with the patient regarding pathophysiology, differential diagnosis, risk factor, sick condition and management of hydrocele. Explained to him that the only permanent solution for hydrocele is to proceed with a surgical hydrocelectomy. I discussed the [id number] details of hydrocelectomy. We also went at length into the discussion of the risk, benefit, potential complication, adverse events including but not limited to infection, bleeding, pain, edema and swelling, injury to the surrounding structures. Patient was understanding like to proceed with observation. Plan: - Follow-up in 6 months with Scrotal US - Proceed to the Ed for cellulitis E&M visit today is associated with current or anticipated ongoing medical care services related to a patient's single, serious condition or a complex condition. 03/02/2025 Scribe Attestation By signing my name below, I, Ashli Erickson attest that this documentation has been prepared under the direction and in the presence of Dr. Elizabeth Cardoso. [1] Past Medical History: Diagnosis Date Diabetes mellitus (Multi) Hypertension Other specified health status No pertinent past medical history [2] Past Surgical History: Procedure Laterality Date INJECTION Bilateral 08/29/2024 Bilat L4/5 TFESI OTHER SURGICAL HISTORY 11/22/2021 Gallbladder surgery OTHER SURGICAL HISTORY 11/22/2021 Back surgery OTHER SURGICAL HISTORY 11/22/2021 Tonsillectomy documented in this encounter [facility] Work Phone: 02-24-2025 Note Jeet Sommer PM Patient Name: Devi Thompson. . Date of : 1940, 84 y.o.. Gender: male. Subjective: Patient is a pleasant 84-year-old male who presents to clinic for painful elongated and thickened toenails cause him pain and discomfort with ambulation and he struggles to be able to reach his toes to cut them on his own. Admits to some numbness and tingling to his toes. Denies any recent trauma or injury. Denies fevers, chills, nausea, vomiting, chest pain, shortness of breath, or any other constitutional symptoms. 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 Chronic back pain Decreased functional mobility Diabetes mellitus (HCC) Hydrocele in adult Hyperlipidemia Hypertension Lumbar radiculopathy Lumbosacral spondylosis 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 stenosis Nocturia Numbness Postlaminectomy syndrome, lumbar region Prolapsed lumbar disc Past Surgical History: Procedure Laterality Date CHOLECYSTECTOMY DISC REMOVAL TONSILLECTOMY Social History Socioeconomic History Marital status: Tobacco Use Smoking status: Never Smokeless tobacco: Never Substance and Sexual Activity Alcohol use: Not Currently Drug use: Never Social Drivers of Health Financial Resource Strain: Low Risk (09/11/2022) Received from [facility] Overall Financial Resource Strain (CARDIA) Difficulty of Paying Living Expenses: Not hard at all Food Insecurity: No Food Insecurity (09/11/2022) Received from [facility] Hunger Vital Sign Worried About Running Out of Food in the Last Year: Never true Ran Out of Food in the Last Year: Never true Transportation Needs: No Transportation Needs (09/11/2022) Received from [facility] PRAPARE - Transportation Lack of Transportation (Medical): No Lack of Transportation (Non-Medical): No Physical Examination: BP (!) 149/81 (BP Location: Right arm, Patient Position: Sitting, BP Cuff Size: Adult) Pulse 78 Temp 98.2 degrees F (36.8 degrees C) (Oral) General Appearance: Alert, cooperative, no distress, appears stated age. Podiatric Exam Vascular: DP and PT pulses are palpable 2/4. Capillary refill time is less than 3 secs to distal digits. Skin temperature is warm to warm from proximal tibial tuberosity to distal digit. +1 pitting edema noted to the lower extremities. Neurological: Gross sensation is intact. Protective sensation is diminished using the [place] monofilament. Dermatologic: Nails x 10 are elongated, thickened, dystrophic and mycotic subungual debris. Interdigital spaces are clean dry and intact. Musculoskeletal: Pain on palpation to the elongated and thickened toenails, bilateral feet. Ankle joint range of motion is intact. Muscle strength is 5/5 to dorsiflexors, plantar flexors, inverters and everters. Compartments soft and compressible. No calf pain Diagnoses: 1. Onychomycosis 2. Pain due to onychomycosis of toenail of left foot 3. Pain due to onychomycosis of toenail of right foot 4. Diabetic peripheral neuropathy (HCC) Imaging: Not required at this visit Assessment/Plan: Patient was seen and evaluated. Discussed all clinical findings. Patient has onychomycosis of nails x 10 which require mechanical debridement. Consent was obtained prior to debridement of all toenails on the right and left foot using podiatric nail nippers down to appropriate thickness and length. Patient expressed pain relief following the procedure. Patient qualifies for nail care due to at risk foot criteria based on Q9 Modifier secondary to diabetic peripheral neuropathy. All questions were answered to patient satisfaction. Patient understands to call with any questions or concerns. Follow-up in 3 months for at risk foot care. This note was partially created using voice recognition software and is inherently subject to errors including those of syntax and sound-alike substitutions which may escape proofreading. In such instances, original meaning may be extrapolated by contextual derivation. Rehan Lala DPM, MS Podiatric Physician & Surgeon AUTHENTICATED BY REHAN LALA, [place] 02/24/2025 13:37:29 [facility] 02-24-2025 History of Present illness Narrative Images from the original note were not included. Rehan Lala DPM Patient Name: Devi Thompson. . Date of : 1940, 84 y.o.. Gender: male. Subjective: Patient is a pleasant 84-year-old male who presents to clinic for painful elongated and thickened toenails cause him pain and discomfort with ambulation and he struggles to be able to reach his toes to cut them on his own. Admits to some numbness and tingling to his toes. Denies any recent trauma or injury. Denies fevers, chills, nausea, vomiting, chest pain, shortness of breath, or any other constitutional symptoms. 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 Chronic back pain Decreased functional mobility Diabetes mellitus (HCC) Hydrocele in adult Hyperlipidemia Hypertension Lumbar radiculopathy Lumbosacral spondylosis 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 stenosis Nocturia Numbness Postlaminectomy syndrome, lumbar region Prolapsed lumbar disc Past Surgical History: Procedure Laterality Date CHOLECYSTECTOMY DISC REMOVAL TONSILLECTOMY Social History Socioeconomic History Marital status: Tobacco Use Smoking status: Never Smokeless tobacco: Never Substance and Sexual Activity Alcohol use: Not Currently Drug use: Never Social Drivers of Health Financial Resource Strain: Low Risk (09/11/2022) Received from [facility] Overall Financial Resource Strain (CARDIA) Difficulty of Paying Living Expenses: Not hard at all Food Insecurity: No Food Insecurity (09/11/2022) Received from [facility] Hunger Vital Sign Worried About Running Out of Food in the Last Year: Never true Ran Out of Food in the Last Year: Never true Transportation Needs: No Transportation Needs (09/11/2022) Received from [facility] PRAPARE - Transportation Lack of Transportation (Medical): No Lack of Transportation (Non-Medical): No Physical Examination: BP (!) 149/81 (BP Location: Right arm, Patient Position: Sitting, BP Cuff Size: Adult) Pulse 78 Temp 98.2 F (36.8 C) (Oral) General Appearance: Alert, cooperative, no distress, appears stated age. Podiatric Exam Vascular: DP and PT pulses are palpable 2/4. Capillary refill time is less than 3 secs to distal digits. Skin temperature is warm to warm from proximal tibial tuberosity to distal digit. +1 pitting edema noted to the lower extremities. Neurological: Gross sensation is intact. Protective sensation is diminished using the [place] monofilament. Dermatologic: Nails x 10 are elongated, thickened, dystrophic and mycotic subungual debris. Interdigital spaces are clean dry and intact. Musculoskeletal: Pain on palpation to the elongated and thickened toenails, bilateral feet. Ankle joint range of motion is intact. Muscle strength is 5/5 to dorsiflexors, plantar flexors, inverters and everters. Compartments soft and compressible. No calf pain Diagnoses: 1. Onychomycosis 2. Pain due to onychomycosis of toenail of left foot 3. Pain due to onychomycosis of toenail of right foot 4. Diabetic peripheral neuropathy (HCC) Imaging: Not required at this visit Assessment/Plan: Patient was seen and evaluated. Discussed all clinical findings. Patient has onychomycosis of nails x 10 which require mechanical debridement. Consent was obtained prior to debridement of all toenails on the right and left foot using podiatric nail nippers down to appropriate thickness and length. Patient expressed pain relief following the procedure. Patient qualifies for nail care due to at risk foot criteria based on Q9 Modifier secondary to diabetic peripheral neuropathy. All questions were answered to patient satisfaction. Patient understands to call with any questions or concerns. Follow-up in 3 months for at risk foot care. This note was partially created using voice recognition software and is inherently subject to errors including those of syntax and "sound-alike" substitutions which may escape proofreading. In such instances, original meaning may be extrapolated by contextual derivation. Rehan Llaa DPM, MS Podiatric Physician & Surgeon documented in this encounter [facility] 02-09-2025 History of Present illness Narrative Subjective Patient ID: Devi Thompson is a 84 y.o. male who presents for Pain (FUV for Abundio low back pain. Pain score is 0/10 when he is sitting, can be 7/10 or more when up doing daily activities or if he is in one position too long. Pain is described as an ache. He also sleeps in a chair because it is more comfortable than his bed. He went to all his PT sessions except the last one because he had an eye emergency. He also did exercises at home. He quit doing them because he felt the pain was getting worse. He is ambulating with a cane.). Marine Daley RN 02/09/25 10:35 AM The patient is an 84 year old male who presents today for a follow up appointment after undergoing PT. He did not notice any benefit from this, saying the home exercises tend to make it worse. He currently rates his pain a 0/10 while sitting, but says it gets up to a 7/10 at it's worst. The pain worsens with activity such as standing and walking and performing ADLs, or staying in 1 position for too long. He sleeps in a chair because it is more comfortable than his bed. He tried the compound cream, but did not notice much relief from this, he gets a cheaper Mandaeism made ointment from drug [facility] in [place] that he says is very effective. He is wondering what his options are for pain relief, he has been hesitant to pursue repeat injections in the past, as the TFESI he tried in August of this year provided a couple days of good relief before the pain returned to his baseline. Review of Systems Constitutional: Negative. HENT: Negative. Eyes: Negative. Respiratory: Negative for cough, shortness of breath and wheezing. Cardiovascular: Negative for chest pain, palpitations and leg swelling. Endocrine: Negative. Genitourinary: Negative. Musculoskeletal: Positive for back pain and myalgias. Negative for arthralgias. Skin: Negative. Allergic/Immunologic: Negative. Neurological: Negative for facial asymmetry, weakness and light-headedness. Hematological: Negative for adenopathy. Does not bruise/bleed easily. Psychiatric/Behavioral: Negative for dysphoric mood and suicidal ideas. Objective Physical Exam Constitutional: General: He is not in acute distress. Appearance: Normal appearance. HENT: Head: Normocephalic. Mouth/Throat: Mouth: Mucous membranes are moist. Eyes: Extraocular Movements: Extraocular movements intact. Cardiovascular: Rate and Rhythm: Normal rate and regular rhythm. Pulses: Normal pulses. Heart sounds: Normal heart sounds. No murmur heard. No friction rub. No gallop. Pulmonary: Effort: Pulmonary effort is normal. Breath sounds: Normal breath sounds. No wheezing, rhonchi or rales. Abdominal: General: Abdomen is flat. Palpations: Abdomen is soft. Musculoskeletal: Cervical back: Normal range of motion. Right lower leg: No edema. Left lower leg: No edema. Comments: Ambulates with a cane Strength 5/5 BLE Facet loading positive Lymphadenopathy: Cervical: No cervical adenopathy. Skin: General: Skin is warm and dry. Neurological: General: No focal deficit present. Mental Status: He is alert and oriented to person, place, and time. Mental status is at baseline. Psychiatric: Mood and Affect: Mood normal. Behavior: Behavior normal. Assessment/Plan Diagnoses and all orders for this visit: Spondylosis of lumbosacral region, unspecified spinal osteoarthritis complication status Postlaminectomy syndrome, lumbar region 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 stenosis The patient is an 84-year-old male with past medical history significant for the above-mentioned problems. He is following up after completing physical therapy which seemed to only make his pain a little worse. We reviewed his imaging and discussed pursuing lumbar MBB/RFA, but he would like more time to think on this before pursuing it. We will provide him with information on the injection. When offered a 3 or 6-month follow-up appointment, he would like to follow-up with us as needed and will call us if he needs us or wants to pursue the injection. documented in this encounter [facility] Work Phone: 01-09-2025 History of Present illness Narrative Subjective Patient ID: Devi Thompson is a 84 y.o. male who presents for 2 week (PT is here today for 2 week FUV. AWV due 06/25/25). Patient presents today for regular checkup. Evaluation of back pain and diabetes. Type 2 diabetes mellitus: Patient has had better sugars on his new medication regimen. Reduced readings from last 13 days. Average 140 fasting in the morning over 30 days. Denies any polys, no side effects. States that his only highs, when he does not eat correctly. No need to change medications at this time. Lumbosacral pain: Was seen by [facility]INE[facility] in this office and had Flexeril changed to baclofen. Patient states that medication is not making major difference but he is not feeling any worse either. Primary issue is sleep related. Has difficulty getting comfortable sleeping. Did discuss treatment options with him will prescribe him gabapentin 300 mg for bedtime use only. Starting with 30-day prescription he will communicate to us if he wants to continue past that. He has a appointment in 3 days with pain management, possible injection for treatment. They performed recent MRI in September which showed minimal changes from previous chronic conditions. He has also stopped physical therapy as he felt it was exacerbating his pain but is still trying to do exercises at home. Review of Systems Constitutional: Negative for chills, diaphoresis, fatigue and unexpected weight change. HENT: Negative for dental problem, tinnitus and trouble swallowing. Eyes: Negative for visual disturbance. Respiratory: Negative for chest tightness and shortness of breath. Cardiovascular: Negative for chest pain, palpitations and leg swelling. Gastrointestinal: Negative for abdominal pain, constipation, diarrhea, nausea and rectal pain. Endocrine: Negative for polydipsia, polyphagia and polyuria. Genitourinary: Negative for difficulty urinating, frequency and urgency. Musculoskeletal: Positive for arthralgias, back pain, gait problem and myalgias. Skin: Negative for pallor and wound. Neurological: Negative for syncope, weakness, numbness and headaches. Psychiatric/Behavioral: Negative for suicidal ideas. The patient is not nervous/anxious. Objective BP 152/80 Pulse 82 Ht 1.803 m (5' 11") Wt 147 kg (323 lb) SpO2 98% BMI 45.05 kg/m Physical Exam Vitals and nursing note reviewed. Constitutional: General: He is not in acute distress. Appearance: Normal appearance. HENT: Head: Normocephalic. Nose: Nose normal. Mouth/Throat: Mouth: Mucous membranes are moist. Pharynx: Oropharynx is clear. Eyes: General: No scleral icterus. Pupils: Pupils are equal, round, and reactive to light. Neck: Vascular: No carotid bruit. Cardiovascular: Rate and Rhythm: Normal rate and regular rhythm. Pulses: Normal pulses. Heart sounds: Normal heart sounds. No murmur heard. Pulmonary: Effort: Pulmonary effort is normal. No respiratory distress. Breath sounds: Normal breath sounds. No stridor. No wheezing, rhonchi or rales. Abdominal: General: Bowel sounds are normal. There is no distension. Palpations: Abdomen is soft. Tenderness: There is no abdominal tenderness. There is no right CVA tenderness or left CVA tenderness. Musculoskeletal: General: Tenderness (Lower back) present. No swelling. Normal range of motion. Cervical back: Normal range of motion. Right lower leg: No edema. Left lower leg: No edema. Skin: General: Skin is warm and dry. Capillary Refill: Capillary refill takes less than 2 seconds. Neurological: General: No focal deficit present. Mental Status: He is alert and oriented to person, place, and time. Mental status is at baseline. Psychiatric: Mood and Affect: Mood normal. Behavior: Behavior normal. Thought Content: Thought content normal. Judgment: Judgment normal. Assessment/Plan Diagnoses and all orders for this visit: Acute exacerbation of chronic low back pain - Referral to Primary Care - gabapentin (Neurontin) 300 mg capsule; Take 1 capsule (300 mg) by mouth once daily at bedtime. Sciatica of left side - Referral to Primary Care documented in this encounter [facility] Work Phone: 12-23-2024 History of Present illness Narrative Subjective Patient ID: Devi Thompson is a 84 y.o. male who presents for ER Follow-up (Back pain 12/10/24 originally was on left side down outer leg through thigh, now pain on both sides/Did PT 1 x week //), Arm Pain (Left upper arm pain with lump (under skin)), and Urinary Frequency (Previously seen Dr. Sweet ). 84 yo male patient presents today for ER follow up with complaints of chronic low back pain. ER was on 12-10-24, MRI reviewed, PT was already ordered by pcp and Tramadol, Flexeril, and Prednisone was prescribed by ER. Patient states he is now having pain down both legs. Diabetes; BS 300 yesterday and 202 BS today. Past few days has had urinary frequency. States he took Flexeril and he felt fatigued and out of sorts the next day. He does have an appt with pain mgmt end of January. ER Follow-up Pertinent negatives include no abdominal pain, chest pain, coughing, fever, nausea, numbness, vomiting or weakness. Arm Pain Pertinent negatives include no chest pain or numbness. Urinary Frequency Associated symptoms include frequency. Pertinent negatives include no nausea or vomiting. Review of Systems Constitutional: Negative for fever. Respiratory: Negative for cough, shortness of breath and wheezing. Cardiovascular: Negative for chest pain and palpitations. Gastrointestinal: Negative for abdominal distention, abdominal pain, constipation, diarrhea, nausea and vomiting. Genitourinary: Positive for frequency. Denies any urinary or bowel incontinence. Musculoskeletal: Positive for back pain. Walks with a cane. No falls. Neurological: Negative for dizziness, weakness, light-headedness and numbness. Objective Physical Exam Vitals and nursing note reviewed. Constitutional: General: He is not in acute distress. Cardiovascular: Rate and Rhythm: Normal rate and regular rhythm. Pulses: Normal pulses. Heart sounds: Normal heart sounds. No murmur heard. No friction rub. No gallop. Pulmonary: Effort: Pulmonary effort is normal. Breath sounds: Normal breath sounds. No wheezing, rhonchi or rales. Abdominal: General: Bowel sounds are normal. Musculoskeletal: General: No swelling or tenderness. Right lower leg: No edema. Left lower leg: No edema. Comments: No swelling or erythema noted to left arm where injections given at ER. Skin: General: Skin is warm and dry. Neurological: Mental Status: He is alert. Psychiatric: Mood and Affect: Mood normal. BP 146/69 Pulse 82 Wt 141 kg (310 lb) SpO2 100% BMI 43.24 kg/m Current Medications[1] Medical History[2] Surgical History[3] Family History[4] Assessment/Plan Problem List Items Addressed This Visit Lumbosacral spondylosis - Primary Relevant Medications baclofen (Lioresal) 5 mg tablet Other Visit Diagnoses Urinary frequency Relevant Orders Urinalysis with Reflex Culture and Microscopic Urinary frequency probably due to elevated BS while on Prednisone. Avoid foods high in carbs. Will get UA to r/o UTI. Pt to bring in BS readings with him to his appt with pcp in 2 wks. Stop Flexeril and start Baclofen 5mg; take 1/2 tablet at hs. If no SE then may try one tablet at hs. Get appt with pain mgmt sooner. [1] Current Outpatient Medications: aspirin 81 mg EC tablet, Take 1 tablet (81 mg) by mouth once daily., Disp: , Rfl: blood-glucose meter misc, TEST SUGARS ONCE DAILY, Disp: 1 each, Rfl: 0 glipiZIDE (Glucotrol) 10 mg tablet, Take 1 tablet (10 mg) by mouth 2 times a day before meals., Disp: 180 tablet, Rfl: 1 insulin degludec (Tresiba FlexTouch) 100 unit/mL (3 mL) injection, Inject 16 Units under the skin once daily in the morning., Disp: 3 mL, Rfl: 11 lancets misc, TEST SUGARS ONCE DAILY, Disp: 50 each, Rfl: 11 metFORMIN (Glucophage) 1,000 mg tablet, Take 1 tablet (1,000 mg) by mouth 2 times a day with meals., Disp: 180 tablet, Rfl: 3 metoprolol succinate XL (Toprol-XL) 25 mg 24 hr tablet, TAKE 1 TABLET BY MOUTH ONCE DAILY, Disp: 90 tablet, Rfl: 3 multivitamin tablet, Take 1 tablet by mouth once daily., Disp: , Rfl: OneTouch Delica Plus Lancet 30 gauge misc, Use to test BLOOD SUGAR ONCE DAILY, Disp: , Rfl: OneTouch Verio test strips strip, Use to test BLOOD SUGAR TWICE DAILY, Disp: 100 strip, Rfl: 11 simvastatin (Zocor) 40 mg tablet, TAKE 1 TABLET BY MOUTH AT BEDTIME, Disp: 90 tablet, Rfl: 3 baclofen (Lioresal) 5 mg tablet, Take 1 tablet (5 mg) by mouth once daily at bedtime., Disp: 30 tablet, Rfl: 1 cyclobenzaprine (Flexeril) 10 mg tablet, Take 1 tablet (10 mg) by mouth 3 times a day as needed for muscle spasms. (Patient not taking: Reported on 12/23/2024), Disp: 30 tablet, Rfl: 0 [2] Past Medical History: Diagnosis Date Diabetes mellitus (Multi) Hypertension Other specified health status No pertinent past medical history [3] Past Surgical History: Procedure Laterality Date INJECTION Bilateral 08/29/2024 Bilat L4/5 TFESI OTHER SURGICAL HISTORY 11/22/2021 Gallbladder surgery OTHER SURGICAL HISTORY 11/22/2021 Back surgery OTHER SURGICAL HISTORY 11/22/2021 Tonsillectomy [4] Family History Problem Relation Name Age of Onset Heart attack Mother Lung cancer Father non-small cell carcinoma of lung Breast cancer Sister Cancer Other documented in this encounter [facility] Work Phone: 12-10-2024 Physician Emergency department Note Images from the original note were not included. Patient is an 83-year-old male who presents with left back pain radiating to his hip. Patient has a history of chronic back pain. States that he had a laminectomy in 1984 and has had chronic back problems since then. He states that he had at one point was managed by pain management. Recently had an appointment with pain management who recommended that he have physical therapy. He states that he saw his PCP who scheduled him for physical therapy and he has been going to physical therapy but reports that his pain has actually worsened since starting physical therapy. He states his pain is worse with movement and certain positions. He denies any bowel or bladder incontinence or retention. No saddle anesthesia. No fever or chills. He denies any injury or trauma. He states that this is his typical pain that he has when he has a flareup of his back. He had a similar presentation recently and was treated with medication. Patient reports that he had an MRI in September. He states that after his MRI, that is when he saw pain management. Review of Systems Constitutional: Negative for chills and fever. HENT: Negative for ear pain and sore throat. Eyes: Negative for pain and visual disturbance. Respiratory: Negative for cough and shortness of breath. Cardiovascular: Negative for chest pain and palpitations. Gastrointestinal: Negative for abdominal pain and vomiting. Genitourinary: Negative for dysuria and hematuria. Musculoskeletal: Positive for back pain. Negative for arthralgias. Skin: Negative for color change and rash. Neurological: Negative for seizures, syncope, weakness and numbness. All other systems reviewed and are negative. Physical Exam Vitals and nursing note reviewed. Constitutional: General: He is not in acute distress. Appearance: Normal appearance. He is well-developed. HENT: Head: Normocephalic and atraumatic. Mouth/Throat: Pharynx: No oropharyngeal exudate or posterior oropharyngeal erythema. Eyes: Extraocular Movements: Extraocular movements intact. Conjunctiva/sclera: Conjunctivae normal. Cardiovascular: Rate and Rhythm: Normal rate and regular rhythm. Heart sounds: No murmur heard. Pulmonary: Effort: Pulmonary effort is normal. No respiratory distress. Breath sounds: Normal breath sounds. No stridor. No wheezing, rhonchi or rales. Abdominal: General: There is no distension. Palpations: Abdomen is soft. There is no mass. Tenderness: There is no abdominal tenderness. There is no guarding or rebound. Hernia: No hernia is present. Musculoskeletal: General: No swelling. Cervical back: Normal range of motion and neck supple. No rigidity. Back: Comments: No ecchymosis, rash, erythema, or signs of trauma. No swelling Skin: General: Skin is warm and dry. Capillary Refill: Capillary refill takes less than 2 seconds. Neurological: Mental Status: He is alert. Psychiatric: Mood and Affect: Mood normal. Labs Reviewed - No data to display No orders to display Procedures Medical Decision Making Patient is an 83-year-old male with a history of chronic low back pain who presents today with an acute exacerbation of his back pain radiating to his left hip. No known injury. He did recently start physical therapy per recommendation of his PCP and pain management in which he states the physical therapy is exacerbating his symptoms. He denies any signs of cauda equina. Good strength on physical examination. Given that this is chronic with no new injury and no signs of cauda equina or weakness I do not feel that any new imaging is indicated. I did review the MRI performed in September. Patient was treated symptomatically. He reports improvement of his symptoms and will be discharged home with recommended follow-up with his PCP. Tramadol was prescribed along with Flexeril and prednisone. He was instructed to return for any new or worsening symptoms. DDX includes but not limited to: Acute exasperation of chronic low back pain, DDD, sciatica, spinal abscess, cauda equina Risk Prescription drug management. Diagnoses as of 12/10/241699 Acute exacerbation of chronic low back pain Sciatica of left side Maddie Scott PA-C 12/10/241699 [facility] Work Phone: 12-10-2024 Emergency department Note Images from the original note were not included. Patient is an 83-year-old male who presents with left back pain radiating to his hip. Patient has a history of chronic back pain. States that he had a laminectomy in 1984 and has had chronic back problems since then. He states that he had at one point was managed by pain management. Recently had an appointment with pain management who recommended that he have physical therapy. He states that he saw his PCP who scheduled him for physical therapy and he has been going to physical therapy but reports that his pain has actually worsened since starting physical therapy. He states his pain is worse with movement and certain positions. He denies any bowel or bladder incontinence or retention. No saddle anesthesia. No fever or chills. He denies any injury or trauma. He states that this is his typical pain that he has when he has a flareup of his back. He had a similar presentation recently and was treated with medication. Patient reports that he had an MRI in September. He states that after his MRI, that is when he saw pain management. Review of Systems Constitutional: Negative for chills and fever. HENT: Negative for ear pain and sore throat. Eyes: Negative for pain and visual disturbance. Respiratory: Negative for cough and shortness of breath. Cardiovascular: Negative for chest pain and palpitations. Gastrointestinal: Negative for abdominal pain and vomiting. Genitourinary: Negative for dysuria and hematuria. Musculoskeletal: Positive for back pain. Negative for arthralgias. Skin: Negative for color change and rash. Neurological: Negative for seizures, syncope, weakness and numbness. All other systems reviewed and are negative. Physical Exam Vitals and nursing note reviewed. Constitutional: General: He is not in acute distress. Appearance: Normal appearance. He is well-developed. HENT: Head: Normocephalic and atraumatic. Mouth/Throat: Pharynx: No oropharyngeal exudate or posterior oropharyngeal erythema. Eyes: Extraocular Movements: Extraocular movements intact. Conjunctiva/sclera: Conjunctivae normal. Cardiovascular: Rate and Rhythm: Normal rate and regular rhythm. Heart sounds: No murmur heard. Pulmonary: Effort: Pulmonary effort is normal. No respiratory distress. Breath sounds: Normal breath sounds. No stridor. No wheezing, rhonchi or rales. Abdominal: General: There is no distension. Palpations: Abdomen is soft. There is no mass. Tenderness: There is no abdominal tenderness. There is no guarding or rebound. Hernia: No hernia is present. Musculoskeletal: General: No swelling. Cervical back: Normal range of motion and neck supple. No rigidity. Back: Comments: No ecchymosis, rash, erythema, or signs of trauma. No swelling Skin: General: Skin is warm and dry. Capillary Refill: Capillary refill takes less than 2 seconds. Neurological: Mental Status: He is alert. Psychiatric: Mood and Affect: Mood normal. Labs Reviewed - No data to display No orders to display Procedures Medical Decision Making Patient is an 83-year-old male with a history of chronic low back pain who presents today with an acute exacerbation of his back pain radiating to his left hip. No known injury. He did recently start physical therapy per recommendation of his PCP and pain management in which he states the physical therapy is exacerbating his symptoms. He denies any signs of cauda equina. Good strength on physical examination. Given that this is chronic with no new injury and no signs of cauda equina or weakness I do not feel that any new imaging is indicated. I did review the MRI performed in September. Patient was treated symptomatically. He reports improvement of his symptoms and will be discharged home with recommended follow-up with his PCP. Tramadol was prescribed along with Flexeril and prednisone. He was instructed to return for any new or worsening symptoms. DDX includes but not limited to: Acute exasperation of chronic low back pain, DDD, sciatica, spinal abscess, cauda equina Risk Prescription drug management. Diagnoses as of 12/10/241699 Acute exacerbation of chronic low back pain Sciatica of left side Maddie Scott PA-C 12/10/241699 documented in this encounter [facility] Work Phone: 11-25-2024 Note Jeet Sommer PM Patient Name: Devi Thompson. . Date of : 1940, 84 y.o.. Gender: male. Subjective: Patient is a pleasant 84-year-old male who presents to clinic for painful elongated and thickened toenails cause him pain and discomfort with ambulation and he struggles to be able to reach his toes to cut them on his own. Admits to some numbness and tingling to his toes. Denies any recent trauma or injury. Denies fevers, chills, nausea, vomiting, chest pain, shortness of breath, or any other constitutional symptoms. 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 Chronic back pain Decreased functional mobility Diabetes mellitus (HCC) Hydrocele in adult Hyperlipidemia Hypertension Lumbar radiculopathy Lumbosacral spondylosis 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 stenosis Nocturia Numbness Postlaminectomy syndrome, lumbar region Prolapsed lumbar disc Past Surgical History: Procedure Laterality Date CHOLECYSTECTOMY DISC REMOVAL TONSILLECTOMY Social History Socioeconomic History Marital status: Tobacco Use Smoking status: Never Smokeless tobacco: Never Substance and Sexual Activity Alcohol use: Not Currently Drug use: Never Social Drivers of Health Financial Resource Strain: Low Risk (09/11/2022) Received from [facility] Overall Financial Resource Strain (CARDIA) Difficulty of Paying Living Expenses: Not hard at all Food Insecurity: No Food Insecurity (09/11/2022) Received from [facility] Hunger Vital Sign Worried About Running Out of Food in the Last Year: Never true Ran Out of Food in the Last Year: Never true Transportation Needs: No Transportation Needs (09/11/2022) Received from [facility] PRAPARE - Transportation Lack of Transportation (Medical): No Lack of Transportation (Non-Medical): No Physical Examination: BP (!) 208/99 (BP Location: Left arm, Patient Position: Sitting, BP Cuff Size: X-large Adult) Pulse 87 Temp 97.6 degrees F (36.4 degrees C) (Oral) General Appearance: Alert, cooperative, no distress, appears stated age. Podiatric Exam Vascular: DP and PT pulses are palpable 2/4. Capillary refill time is less than 3 secs to distal digits. Skin temperature is warm to warm from proximal tibial tuberosity to distal digit. +1 pitting edema noted to the lower extremities. Neurological: Gross sensation is intact. Protective sensation is diminished using the [place] monofilament. Dermatologic: Nails x 10 are elongated, thickened, dystrophic and mycotic subungual debris. Interdigital spaces are clean dry and intact. Musculoskeletal: Pain on palpation to the elongated and thickened toenails, bilateral feet. Ankle joint range of motion is intact. Muscle strength is 5/5 to dorsiflexors, plantar flexors, inverters and everters. Compartments soft and compressible. No calf pain Diagnoses: 1. Onychomycosis 2. Pain due to onychomycosis of toenail of left foot 3. Pain due to onychomycosis of toenail of right foot 4. Diabetic peripheral neuropathy (HCC) Imaging: Not required at this visit Assessment/Plan: Patient was seen and evaluated. Discussed all clinical findings. Patient has onychomycosis of nails x 10 which require mechanical debridement. Consent was obtained prior to debridement of all toenails on the right and left foot using podiatric nail nippers down to appropriate thickness and length. Patient expressed pain relief following the procedure. Patient qualifies for nail care due to at risk foot criteria based on Q9 Modifier secondary to diabetic peripheral neuropathy. All questions were answered to patient satisfaction. Patient understands to call with any questions or concerns. Follow-up in 3 months for at risk foot care. This note was partially created using voice recognition software and is inherently subject to errors including those of syntax and sound-alike substitutions which may escape proofreading. In such instances, original meaning may be extrapolated by contextual derivation. Rehan Lala DPM, MS Podiatric Physician & Surgeon AUTHENTICATED BY REHAN LALA, [place] 11/25/2024 13:44:39 [facility] 11-25-2024 History of Present illness Narrative Images from the original note were not included. Rehan Lala DPM Patient Name: Devi Thompson. . Date of : 1940, 84 y.o.. Gender: male. Subjective: Patient is a pleasant 84-year-old male who presents to clinic for painful elongated and thickened toenails cause him pain and discomfort with ambulation and he struggles to be able to reach his toes to cut them on his own. Admits to some numbness and tingling to his toes. Denies any recent trauma or injury. Denies fevers, chills, nausea, vomiting, chest pain, shortness of breath, or any other constitutional symptoms. 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 Chronic back pain Decreased functional mobility Diabetes mellitus (HCC) Hydrocele in adult Hyperlipidemia Hypertension Lumbar radiculopathy Lumbosacral spondylosis 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 stenosis Nocturia Numbness Postlaminectomy syndrome, lumbar region Prolapsed lumbar disc Past Surgical History: Procedure Laterality Date CHOLECYSTECTOMY DISC REMOVAL TONSILLECTOMY Social History Socioeconomic History Marital status: Tobacco Use Smoking status: Never Smokeless tobacco: Never Substance and Sexual Activity Alcohol use: Not Currently Drug use: Never Social Drivers of Health Financial Resource Strain: Low Risk (09/11/2022) Received from [facility] Overall Financial Resource Strain (CARDIA) Difficulty of Paying Living Expenses: Not hard at all Food Insecurity: No Food Insecurity (09/11/2022) Received from [facility] Hunger Vital Sign Worried About Running Out of Food in the Last Year: Never true Ran Out of Food in the Last Year: Never true Transportation Needs: No Transportation Needs (09/11/2022) Received from [facility] PRAPARE - Transportation Lack of Transportation (Medical): No Lack of Transportation (Non-Medical): No Physical Examination: BP (!) 208/99 (BP Location: Left arm, Patient Position: Sitting, BP Cuff Size: X-large Adult) Pulse 87 Temp 97.6 F (36.4 C) (Oral) General Appearance: Alert, cooperative, no distress, appears stated age. Podiatric Exam Vascular: DP and PT pulses are palpable 2/4. Capillary refill time is less than 3 secs to distal digits. Skin temperature is warm to warm from proximal tibial tuberosity to distal digit. +1 pitting edema noted to the lower extremities. Neurological: Gross sensation is intact. Protective sensation is diminished using the [place] monofilament. Dermatologic: Nails x 10 are elongated, thickened, dystrophic and mycotic subungual debris. Interdigital spaces are clean dry and intact. Musculoskeletal: Pain on palpation to the elongated and thickened toenails, bilateral feet. Ankle joint range of motion is intact. Muscle strength is 5/5 to dorsiflexors, plantar flexors, inverters and everters. Compartments soft and compressible. No calf pain Diagnoses: 1. Onychomycosis 2. Pain due to onychomycosis of toenail of left foot 3. Pain due to onychomycosis of toenail of right foot 4. Diabetic peripheral neuropathy (HCC) Imaging: Not required at this visit Assessment/Plan: Patient was seen and evaluated. Discussed all clinical findings. Patient has onychomycosis of nails x 10 which require mechanical debridement. Consent was obtained prior to debridement of all toenails on the right and left foot using podiatric nail nippers down to appropriate thickness and length. Patient expressed pain relief following the procedure. Patient qualifies for nail care due to at risk foot criteria based on Q9 Modifier secondary to diabetic peripheral neuropathy. All questions were answered to patient satisfaction. Patient understands to call with any questions or concerns. Follow-up in 3 months for at risk foot care. This note was partially created using voice recognition software and is inherently subject to errors including those of syntax and "sound-alike" substitutions which may escape proofreading. In such instances, original meaning may be extrapolated by contextual derivation. Rehan Lala DPM, MS Podiatric Physician & Surgeon documented in this encounter [facility] 10-21-2024 History of Present illness Narrative Subjective Patient ID: Devi Thompson is a 84 y.o. male who presents for Follow-up (FUV meds he report the Elavil did nothing for his pain and made him feel off balance he stopped taking them. Today he reports having pain in Today he reports lower back pain L>R mostly on the lt side rates pain 2/10 sitting and 4-5/10 with walking any distance and rolling over in bed and wakes him every 2 hours. He is not taking anything for his pain as it does not help, he has no HEP, uses a quad cane.) LYDIA score %. Lis Marks RN 10/21/24 1:20 PM The patient is an 84-year-old male who presents today for a 6-week follow-up appointment for medication management. He currently rates his pain a 2/10, says it does get up to a 5/10 at its worst across his lower back the left side is worse than the right. At his last appointment he was started on amitriptyline 10 mg nightly, but after 3 doses he said he did not like the way it made him feel, and he sometimes stopped taking it. In general, he says he tends to be more sensitive to medications, and is hesitant about trying any other medications. He is also not interested in injections at this time, saying the ones he has had in the past have not been helpful. He is wondering what other options he has to help with his pain. He did mention that his PCP recently referred him for PT, and he is set to start that soon. Review of Systems Constitutional: Negative. HENT: Negative. Eyes: Negative. Respiratory: Negative for cough, shortness of breath and wheezing. Cardiovascular: Negative for chest pain, palpitations and leg swelling. Endocrine: Negative. Genitourinary: Negative. Musculoskeletal: Positive for back pain and myalgias. Negative for arthralgias. Skin: Negative. Allergic/Immunologic: Negative. Neurological: Negative for facial asymmetry, weakness and light-headedness. Hematological: Negative for adenopathy. Does not bruise/bleed easily. Psychiatric/Behavioral: Negative for dysphoric mood and suicidal ideas. Objective Physical Exam Constitutional: General: He is not in acute distress. Appearance: Normal appearance. HENT: Head: Normocephalic. Mouth/Throat: Mouth: Mucous membranes are moist. Eyes: Extraocular Movements: Extraocular movements intact. Cardiovascular: Rate and Rhythm: Normal rate and regular rhythm. Pulses: Normal pulses. Heart sounds: Normal heart sounds. No murmur heard. No friction rub. No gallop. Pulmonary: Effort: Pulmonary effort is normal. Breath sounds: Normal breath sounds. No wheezing, rhonchi or rales. Abdominal: General: Abdomen is flat. Palpations: Abdomen is soft. Musculoskeletal: Cervical back: Normal range of motion. Right lower leg: No edema. Left lower leg: No edema. Comments: Ambulates with a cane Strength 5/5 BLE Lymphadenopathy: Cervical: No cervical adenopathy. Skin: General: Skin is warm and dry. Neurological: General: No focal deficit present. Mental Status: He is alert and oriented to person, place, and time. Mental status is at baseline. Psychiatric: Mood and Affect: Mood normal. Behavior: Behavior normal. Assessment/Plan Diagnoses and all orders for this visit: 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 stenosis Chronic bilateral low back pain with bilateral sciatica Postlaminectomy syndrome, lumbar region The patient is an 84-year-old male with a past medical history significant for the above-mentioned problems. We discussed different medication management options in depth, but as he seems to be very sensitive to medication side effects, we have decided to try a compound cream to see if this can bring him any pain relief without the systemic side effects. He is wanting to give this a try and try to be physical therapy his PCP ordered. He does not have any further questions or concerns about his pain at this time. He would like to follow-up in 3 to 4 months, call the clinic sooner if needed. documented in this encounter [facility] Work Phone: 10-16-2024 History of Present illness Narrative Subjective Patient ID: Devi Thompson is a 84 y.o. male who presents for Establish Care (Back pain, problems with sugar). Patient presents today to establish primary care, evaluation of chronic back pain. Chronic back pain: Seen by 's office. Has had injections and used amitriptyline recently for pain relief. Still has reduced range of motion in lower extremities. He has tried PT in the past with minimal success. We did discuss his approach to PT and he stated that he only performed the exercises at the facility and not at home and did not continue any therapeutics at home. We did discuss possible options for treatment of his back including medication, surgery and extended PT. At this time he feels he would like to start physical therapy program for the next 6 to 8 weeks with dedicated home exercise to see if he can increase his strength and range of motion. After that time he will contact us for reevaluation and possible different options. Type 2 diabetes: Last A1c 7.1, 7 months ago. He has had no other baseline labs drawn. Will order baseline lab panels today. No other acute or chronic complaints at this time. Review of Systems Constitutional: Negative for chills, diaphoresis, fatigue and unexpected weight change. HENT: Negative for dental problem, tinnitus and trouble swallowing. Eyes: Negative for visual disturbance. Respiratory: Negative for chest tightness and shortness of breath. Cardiovascular: Negative for chest pain, palpitations and leg swelling. Gastrointestinal: Negative for abdominal pain, constipation, diarrhea, nausea and rectal pain. Endocrine: Negative for polydipsia, polyphagia and polyuria. Genitourinary: Negative for difficulty urinating, frequency and urgency. Musculoskeletal: Positive for arthralgias, back pain and myalgias. Skin: Negative for pallor and wound. Neurological: Negative for syncope, weakness, numbness and headaches. Psychiatric/Behavioral: Negative for suicidal ideas. The patient is not nervous/anxious. Objective BP 138/86 (BP Location: Left arm, Patient Position: Sitting) Pulse 84 Ht 1.759 m (5' 9.25") Wt 144 kg (318 lb) SpO2 98% BMI 46.62 kg/m Physical Exam Vitals and nursing note reviewed. Constitutional: General: He is not in acute distress. Appearance: Normal appearance. HENT: Head: Normocephalic. Nose: Nose normal. Mouth/Throat: Mouth: Mucous membranes are moist. Pharynx: Oropharynx is clear. Eyes: General: No scleral icterus. Pupils: Pupils are equal, round, and reactive to light. Neck: Vascular: No carotid bruit. Cardiovascular: Rate and Rhythm: Normal rate and regular rhythm. Pulses: Normal pulses. Heart sounds: Normal heart sounds. No murmur heard. Pulmonary: Effort: Pulmonary effort is normal. No respiratory distress. Breath sounds: Normal breath sounds. No stridor. No wheezing, rhonchi or rales. Abdominal: General: Bowel sounds are normal. There is no distension. Palpations: Abdomen is soft. Tenderness: There is no abdominal tenderness. There is no right CVA tenderness or left CVA tenderness. Musculoskeletal: General: Tenderness (Lower back) present. No swelling. Normal range of motion. Cervical back: Normal range of motion. Right lower leg: No edema. Left lower leg: No edema. Skin: General: Skin is warm and dry. Capillary Refill: Capillary refill takes less than 2 seconds. Neurological: General: No focal deficit present. Mental Status: He is alert and oriented to person, place, and time. Mental status is at baseline. Motor: Weakness (Bilateral legs with extension and flexion against pressure) present. Psychiatric: Mood and Affect: Mood normal. Behavior: Behavior normal. Thought Content: Thought content normal. Judgment: Judgment normal. Assessment/Plan Diagnoses and all orders for this visit: Spondylosis of lumbosacral region without myelopathy or radiculopathy - Referral to Physical Therapy; Future Controlled type 2 diabetes mellitus without complication, without long-term current use of insulin (Multi) - Basic Metabolic Panel; Future - Hemoglobin A1C; Future Prostate cancer screening - Prostate Specific Antigen; Future documented in this encounter [facility] Work Phone: 10-09-2024 History of Present illness Narrative Subjective Patient ID: Devi Thompson is a 84 y.o. male who presents for Back Pain (FOLLOW UP ON LOWER BACK PAIN, WORSE ON THE LEFT THAN RIGHT SIDE, HE HAS MORE PAIN WITH WALKING, STANDING, TRANSITIONING, TWISTING TO THE LEFT, DESCRIBES TO BE SHARP PAIN, ). HE GETS SOME RELIEF WITH SITTING, HE TRIED HOME EXERCISES AND ISN'T ABLE TO MANEUVER, HE HAS TROUBLE EVEN ROLLING OVER IN BED HE WILL HAVE TO GET OUT OF BED AND SIT IN CHAIR FOR RELIEF, HE TAKES ALEVE PRN, HE AMBULATES WITH A QUAD CANE, PAIN SCORE SITTING 3/10, PAIN AT NIGHT IN BED 9/10, LYDIA=47%, ETOH NO [place]ana Sanon, RN ASSESSMENT 10/09/24 12:54 PM Patient is an 84-year-old male following up today after undergoing an updated lumbar MRI scan. Reports, he still has lower back pain with leg pain left side greater than right side. Worse with standing, walking, being upright and active but he also has pain with laying in bed at night. He rates the discomfort during the day at 3/10 but it can get up to a 9/10 depending on his activities. The more he does the worse he gets and then when he lays down the worst it gets. He states that he tried gabapentin in the past that did not help. Recent transforaminal epidural steroid injection at the L4-5 level did not give him any significant long-term relief. It did help but only short-term. At this time, he is just not sure what he wants to do. He does not want to be too aggressive and he states that he is not sure that it is even worth it as he is 84 years old but does wonder what he can do to try to get some relief. He has taken [id number] medications that do not help. He was given a home x-rays program but he was not able to do this because of the pain. Review of Systems Constitutional: Negative. HENT: Negative. Eyes: Negative. Respiratory: Negative. Cardiovascular: Negative. Gastrointestinal: Negative. Endocrine: Negative. Genitourinary: Negative. Musculoskeletal: Positive for arthralgias, back pain, gait problem and myalgias. Skin: Negative. Allergic/Immunologic: Negative. Neurological: Positive for weakness and numbness. Hematological: Negative. Psychiatric/Behavioral: Negative. Objective Physical Exam Vitals and nursing note reviewed. Constitutional: General: He is not in acute distress. Appearance: Normal appearance. He is not ill-appearing. HENT: Head: Normocephalic and atraumatic. Right Ear: External ear normal. Left Ear: External ear normal. Nose: Nose normal. Mouth/Throat: Pharynx: Oropharynx is clear. Eyes: Conjunctiva/sclera: Conjunctivae normal. Cardiovascular: Rate and Rhythm: Normal rate and regular rhythm. Pulses: Normal pulses. Pulmonary: Effort: Pulmonary effort is normal. Breath sounds: Normal breath sounds. Musculoskeletal: General: Normal range of motion. Cervical back: Normal range of motion. Comments: 4+/5 strength in the LE Some pain with compression of lumbar facet joints Skin: General: Skin is warm and dry. Neurological: General: No focal deficit present. Mental Status: He is alert and oriented to person, place, and time. Mental status is at baseline. Psychiatric: Mood and Affect: Mood normal. Behavior: Behavior normal. Thought Content: Thought content normal. Judgment: Judgment normal. MR lumbar spine wo IV contrast Status: Final result PACS Images Show images for MR lumbar spine wo IV contrast Signed by Signed Time Phone Pager Cy Marie MD 09/22/2024 06:55 [id number] Exam Information Status Exam Begun Exam Ended Final 09/19/2024 13:16 09/19/2024 14:14 Study Result Narrative & Impression Interpreted By: Cy Marie, and Phil Larios STUDY: MR LUMBAR SPINE WO IV CONTRAST; 09/19/2024 2:14 pm INDICATION: Signs/Symptoms:lower back and leg pain and leg fatigue and coldness. ,M54.16 Radiculopathy, lumbar region,M48.062 Spinal stenosis, lumbar region with neurogenic claudication,M54.42 Lumbago with sciatica, left side,M54.41 Lumbago with sciatica, right side,G89.29 Other chronic pain,M47.27 Other spondylosis with radiculopathy, lumbosacral region,R20.0 Anesthesia of skin COMPARISON: MR lumbar spine 07/14/2022. ACCESSION NUMBER(S): [id number] ORDERING CLINICIAN: MELISA STREETER TECHNIQUE: Sagittal T1, T2, STIR, axial T1 and T2 weighted images of the lumbar spine were acquired. FINDINGS: Segmentation: 5 lumbar-type vertebrae are noted. Alignment: Grade 1 retrolisthesis of L1 on L2, L2 on L3, and L3 on L4 is noted. Grade 1 anterolisthesis of L5 on S1 is noted. Findings are similar compared to 07/14/2022. Vertebrae/Intervertebral Discs: Status post laminectomies of L2 through L5. The vertebral bodies demonstrate expected height. Multilevel disc height loss and disc desiccation is noted, most pronounced and severe at L5-S1 with associated type 2 Modic changes, similar prior. Additional [id number] disc height loss and disc desiccation is present at L2-L3 and L3-L4. mixed type 1 and type 2 Modic changes noted involving the endplates of at L4-L5. Surgical hyperintensity is noted in the mid to posterior aspect of the L1-L2 intervertebral disc. Conus medullaris: The lower thoracic cord appears unremarkable. The conus medullaris terminates at L2. T12-L1: Disc osteophyte complex minimally effaces the ventral thecal sac. No spinal canal stenosis or neural foraminal narrowing. L1-2: Disc osteophyte complex asymmetric to the right and facet arthropathy. Minimal effacement of ventral thecal sac without significant spinal canal stenosis. Moderate right neural foraminal narrowing, similar to prior. No left neural foraminal narrowing. L2-3: Status post laminectomy. Disc osteophyte complex and facet arthropathy. No spinal canal stenosis. Moderate bilateral neural foraminal narrowing, similar to prior. L3-4: Status post laminectomy. Disc bulge and facet arthropathy. No spinal canal stenosis. Moderate to severe bilateral neural foraminal narrowing, similar to prior. L4-5: Status post laminectomy. Disc bulge and facet arthropathy. Interval development of a 5 mm x 10 mm herniated disc fragment ventral to the thecal sac and extending into the left lateral recess best appreciated on axial T2 weighted image 06/04 flattening and deformity of the anterior contour of the thecal sac in the interval since the previous exam. Marked narrowing of the left lateral recess and neural foramen. L5-S1: Status post laminectomy. Trace spondylolisthesis with pseudo bulging intervertebral disc. No measurable canal stenosis. Severe bilateral foraminal narrowing. Diffuse fatty atrophy of the paraspinal musculature. There is similar nonspecific STIR hyperintensity within the posterior spinal soft tissues L4 through S1. IMPRESSION: 1. Postsurgical changes from laminectomies of L2 through L5. 2. Interval progression of broad-based bulging or herniated nucleus polyposis at L4/L5 to the left since the previous exam. Marked narrowing of the left lateral recess and neural foramen 3. Spondylolisthesis with severe bilateral foraminal narrowing at L5/S1 is unchanged compared to the previous exam 4. Severe foraminal narrowing at L3/L4 bilaterally is unchanged compared to the previous exam. I personally reviewed the images/study and I agree with the findings as stated by Harriet Villarreal MD. This study was interpreted at [facility], [place], [place]. MACRO: None Signed by: Cy Marie 09/22/2024 6:55 AM Dictation workstation: [id number] Assessment/Plan Diagnoses and all orders for this visit: Lumbar radiculopathy - amitriptyline (Elavil) 10 mg tablet; Take 1 tablet (10 mg) by mouth once daily at bedtime. TAKE 1 TABLET at bedtime X 1 WEEK AND IF DOING WELL STAY THERE. IF TOLERATING BUT NO IMPROVEMENT GO TO 20 MG QHS Postlaminectomy syndrome, lumbar region - amitriptyline (Elavil) 10 mg tablet; Take 1 tablet (10 mg) by mouth once daily at bedtime. TAKE 1 TABLET at bedtime X 1 WEEK AND IF DOING WELL STAY THERE. IF TOLERATING BUT NO IMPROVEMENT GO TO 20 MG QHS S/P spinal fusion - amitriptyline (Elavil) 10 mg tablet; Take 1 tablet (10 mg) by mouth once daily at bedtime. TAKE 1 TABLET at bedtime X 1 WEEK AND IF DOING WELL STAY THERE. IF TOLERATING BUT NO IMPROVEMENT GO TO 20 MG QHS 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 stenosis - amitriptyline (Elavil) 10 mg tablet; Take 1 tablet (10 mg) by mouth once daily at bedtime. TAKE 1 TABLET at bedtime X 1 WEEK AND IF DOING WELL STAY THERE. IF TOLERATING BUT NO IMPROVEMENT GO TO 20 MG QHS Patient is an 84-year-old male with the above-mentioned medical diagnoses following up today after undergoing updated lumbar MRI scan. We reviewed this. We discussed different options. We reviewed the pathology on his MRI and discussed referral to a surgeon. At this time, he does not want to do this. We discussed spinal cord stimulation options. He does not want to do this. We discussed potential injection options including but not limited to a caudal epidural steroid injection. He is going to think about this. He will call if he decides he wants to proceed with a caudal epidural steroid injection. Procedure was discussed. Risk and benefits were discussed. If he calls to do this we will facilitate the authorization and the orders. Otherwise, he is going to trial amitriptyline. 10 mg at bedtime x 1 week and if doing okay but needing more relief he can go to 20 mg at bedtime. Potential side effects were discussed. If he decides to pursue the injection he will follow-up 2 weeks after. Otherwise if he continues on the medication he will follow-up in 6 weeks. Call back sooner if necessary. documented in this encounter [facility] Work Phone: 09-18-2024 History of Present illness Narrative Subjective Patient ID: Devi Thompson is a 84 y.o. male who presents for Follow-up (FUV Bilat L4/5 TFESI on 08/29/24 he reports the pain is no better. Today he reports lower back pain L>R mostly on the lt side rates pain 3/10 sitting and 9/10 with walking any distance and rolling over in bed and wakes him every 2 hours. He is taking Tylenol and Aleve, he has no HEP, uses a quad cane. He stopped taking gabapentin 300mg because it did not help his pain. ) LYDIA score 42%, COMM 0, screenings: depression positive due to pain no plan to harm himself, falls and smoking negative. Lis Marks RN 09/18/24 11:00 AM Patient is an 84-year-old male following up today after undergoing a bilateral L4-5 transforaminal epidural steroid injection that unfortunate, did not give patient much by way of relief. He has a history of spine surgery in 1984. He states that Dr. Burns did a laminectomy with a fusion with a "collarbone". Patient states that unfortunate, his symptoms then returned. He has undergone a multitude of injections and a multitude of different pain management facilities without any significant relief. He states that he had some at [facility] in the [facility]. At this time, he has lower back pain with some leg pain and leg numbness and coldness that is better with sitting sometimes and worse with walking and being upright. He has a history of physical therapy home exercises but he states that a few times that he tried to do the home exercises handout with Kiser's palsy and he wondered if it was related. He states that the exercises also did not give him much by the way of relief. He is taken [id number] medication without any long-term relief and he is here today to discuss other options once again. Review of Systems Constitutional: Negative. HENT: Negative. Eyes: Negative. Respiratory: Negative. Cardiovascular: Negative. Gastrointestinal: Negative. Endocrine: Negative. Genitourinary: Negative. Musculoskeletal: Positive for arthralgias, back pain, gait problem and myalgias. Skin: Negative. Allergic/Immunologic: Negative. Neurological: Positive for weakness and numbness. Hematological: Negative. Psychiatric/Behavioral: Negative. Objective Physical Exam Vitals and nursing note reviewed. Constitutional: General: He is not in acute distress. Appearance: Normal appearance. He is not ill-appearing. HENT: Head: Normocephalic and atraumatic. Right Ear: External ear normal. Left Ear: External ear normal. Nose: Nose normal. Mouth/Throat: Pharynx: Oropharynx is clear. Eyes: Conjunctiva/sclera: Conjunctivae normal. Cardiovascular: Rate and Rhythm: Normal rate and regular rhythm. Pulses: Normal pulses. Pulmonary: Effort: Pulmonary effort is normal. Breath sounds: Normal breath sounds. Musculoskeletal: General: Normal range of motion. Cervical back: Normal range of motion. Comments: 4+/5 strength in the LE Some pain with compression of lumbar facet joints Skin: General: Skin is warm and dry. Neurological: General: No focal deficit present. Mental Status: He is alert and oriented to person, place, and time. Mental status is at baseline. Psychiatric: Mood and Affect: Mood normal. Behavior: Behavior normal. Thought Content: Thought content normal. Judgment: Judgment normal. MR lumbar spine wo IV contrast Status: Final result PACS Images Show images for MR lumbar spine wo IV contrast Signed by Signed Time Phone Pager Dalia Betancur MD 07/17/2022 01:03 Exam Information Status Exam Begun Exam Ended Final 07/14/2022 19:00 07/14/2022 19:30 Study Result Narrative & Impression Patient Name: DEVI THOMPSON STUDY: MRI L-SPINE WO; 07/14/2022 7:30 pm INDICATION: pain M48.062: 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 stenosis M47.817: Lumbosacral spondylosis. COMPARISON: None. ACCESSION NUMBER(S): [id number] ORDERING CLINICIAN: SARA COOMBS TECHNIQUE: Sagittal T1, T2, STIR, axial T1 and T2 weighted images of the lumbar spine were acquired. FINDINGS: There are 5 lumbar type non rib-bearing vertebral bodies, with the lowest well-formed intervertebral disc space labeled L5-S1. There are postsurgical changes consistent with posterior decompression and laminectomies of L2 through L5. There is a 1-2 mm retrolisthesis of L1 on L2, 3-4 mm retrolisthesis of L2 on L3, 3-4 mm retrolisthesis of L3 on L4, and a 5-6 mm anterolisthesis of L5 on S1. There are multilevel insufficiency endplate changes, with mild associated height loss present along the L3-L4 and L5-S1 endplates, with minimal STIR hyperintense edema. There is no evidence of compression fractures. There is STIR hyperintense edema present along the L4-L5 facet joints bilaterally, and within the adjacent paraspinal musculature. No well-circumscribed fluid collections are identified. There is multilevel intervertebral disc height loss, severe at L5-S1, and mild to moderate at L2-L3 and L3-L4. Visualized lower thoracic spinal cord terminates at L2 and is unremarkable in appearance. T12-L1: Disc osteophyte complex, eccentric to the right, slightly deforms the anterior subarachnoid space, without significant spinal canal stenosis. No significant neural foraminal narrowing is present. L1-L2: Posterior disc bulge, eccentric to the right, slightly deforms the subarachnoid space, without significant spinal canal stenosis, and in combination with hypertrophic facet changes, causes [id number] right-sided neural foraminal stenosis. No significant left-sided neural foraminal stenosis is present. L2-L3: Combination of disc bulge, spondylolisthesis, and hypertrophic facet changes deform the subarachnoid space, without significant spinal canal stenosis. There is moderate bilateral neural foraminal stenosis due to hypertrophic facet changes and para foraminal osteophytic spurring. L3-L4: Combination of disc osteophyte complex and hypertrophic facet changes with ligamentum flavum thickening somewhat deform the subarachnoid space without significant spinal canal stenosis. Moderate to severe bilateral neural foraminal stenosis is present due to hypertrophic facet changes and endplate spurring. L4-L5: Hypertrophic facet changes and disc osteophyte spurring deform the subarachnoid space and partially efface the subarticular recesses bilaterally, without significant spinal canal stenosis. There is severe bilateral neural foraminal narrowing due to endplate spurring and hypertrophic facet changes. L5-S1: Spondylolisthesis and endplate spurring slightly deform the subarachnoid space, without significant spinal canal stenosis. There is whzn-[id number] right-sided and moderate to severe right-sided neural foraminal stenosis due to spondylolisthesis and hypertrophic facet changes of endplate spurring. Diffuse fatty atrophy of the paraspinal musculature is present. STIR hyperintense signal within the paraspinal musculature overlying the posterior elements of L4 through S1 is nonspecific. IMPRESSION: 1. Postsurgical changes suggestive of prior laminectomy and posterior decompression of L2 through L5. 2. Multilevel degenerative changes of the cervical spine, with without evidence of high-grade spinal canal stenosis, although there are varying degrees of moderate to severe neural foraminal narrowing present at several levels, as detailed above. 3. STIR hyperintense signal is present within the paraspinal musculature overlying the lower lumbar spine, surrounding the L4-5 and L5-S1 facets, favored to be degenerative secondary to facet osteoarthropathy, although other infectious and inflammatory etiologies cannot be entirely excluded. Assessment/Plan Diagnoses and all orders for this visit: Lumbar radiculopathy - MR lumbar spine wo IV contrast; Future 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 stenosis - MR lumbar spine wo IV contrast; Future Chronic bilateral low back pain with bilateral sciatica - MR lumbar spine wo IV contrast; Future Osteoarthritis of spine with radiculopathy, lumbosacral region - MR lumbar spine wo IV contrast; Future Numbness - MR lumbar spine wo IV contrast; Future Patient is an 84-year-old male with a past medical history significant for the above-mentioned medical diagnoses following up today after undergoing bilateral L4-5 transforaminal epidural steroid injection. Unfortunate this did not give him much by the way of relief. He still has lower back pain with bilateral buttock pain and leg heaviness as well as leg coldness and fatigue. This affects his ambulatory status. This affects his quality life. This affects his activities and he is somewhat disenchanted with the injections as he states that he has undergone a multitude of injections at a multitude of different pain management offices without any significant relief. At this time, we had a long stretch about his symptoms. I would recommend obtaining updated lumbar MRI to discuss other potential options including not limited to hospital spinal cord stimulation versus other potential injection options. He will follow-up after the MRI for reevaluation and discussion of options. His last MRI was over 2 years ago and I feel at this time it is imperative to assess his anatomy before we discussed other Interventional options. documented in this encounter [facility] Work Phone: 08-29-2024 Miscellaneous Notes Discharge instructions reviewed by Lissa Hamilton no questions and verbalized understanding. discharged amb steady gait, to exit to be driven home by Sujata castelan documented in this encounter [facility] Work Phone: 08-29-2024 Note Formatting of this n ote might be different from the original. Discharge instructions reviewed by Lissa Hamilton no questions and verbalized understanding. discharged amb steady gait, to exit to be driven home by Sujata castelan [facility] 08-29-2024 Note Table formatting fro m the original result was not included. Procedure Transforaminal Indication 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 stenosis Medications bupivacaine PF (Marcaine) 0.5 % (5 mg/mL) injection 2 mL methylPREDNISolone acetate (DEPO-Medrol) injection 40 mg iohexol (OMNIPaque) 300 mg iodine/mL solution 1 mL lidocaine PF (Xylocaine) 20 mg/mL (2 %) injection 3 mL (Totals for administrations occurring from 1351 to 1403 on 08/29/24) Preprocedure A history and physical has been performed, and patient medication allergies have been reviewed. The patient's tolerance of previous anesthesia has been reviewed. The risks and benefits of the procedure and the sedation options and risks were discussed with the patient. All questions were answered and informed consent obtained. Details of the Procedure Procedure: Bilateral L4/5 transforaminal epidural steroid injections under fluoroscopic guidance Anesthesia: Local Complications: None After informed consent was obtained, the patient was brought to the procedure suite and placed in the prone position. Pulse oximetry and blood pressure were monitored throughout. The low back area was prepped and draped in the usual sterile fashion. Using fluoroscopic guidance, the skin and subcutaneous tissue overlying the needle trajectory of the neuroforamina were anesthetized with 2.0% lidocaine. The 22-gauge Bouchra needles were then advanced under fluoroscopic guidance into the foramina. Needle tip positions were confirmed in at least two views. Injection of Omnipaque contrast revealed appropriate spread of the dye without vascular uptake. Next, at each site, 1.5 mL of 0.5% lidocaine and 5 mg dexamethasone were injected in divided doses through each needle tip. The needles were removed and the patient was then transferred to the recovery room in stable condition. The patient tolerated the procedure well. There were no apparent complications. FOLLOW UP: The patient will update us on their response to this procedure, and agrees to continue currently prescribed/recommended therapies. Procedure Provider Aroldo Ann DO Procedure Location [facility] OR [facility] [id number] Referring Provider Danica Quiñonez APRN-[facility] [address] Work Phone: 08-29-2024 History and physical note History Of Present Illness Devi Thompson is a 84 y.o. male presenting with pain. Past Medical History Past Medical History: Diagnosis Date Diabetes mellitus (Multi) Hypertension Other specified health status No pertinent past medical history Surgical History Past Surgical History: Procedure Laterality Date OTHER SURGICAL HISTORY 11/22/2021 Gallbladder surgery OTHER SURGICAL HISTORY 11/22/2021 Back surgery OTHER SURGICAL HISTORY 11/22/2021 Tonsillectomy Social History He reports that he has never smoked. He has never used smokeless tobacco. He reports current alcohol use. He reports that he does not use drugs. Family History Family History Problem Relation Name Age of Onset Heart attack Mother Lung cancer Father non-small cell carcinoma of lung Breast cancer Sister Cancer Other Allergies Acetaminophen Review of Systems All other systems reviewed and are negative. Physical Exam Last Recorded Vitals Blood pressure 176/73, pulse 76, temperature 36.5 C (97.7 F), resp. rate 16, height 1.854 m (6' 1"), weight 139 kg (307 lb), SpO2 97%. Relevant Results Constitutional: No acute distress, well appearing and well nourished. Patient appears stated age. Eyes: nonicteric sclerae ENT: Hearing is grossly intact. Neck: trachea midline Head and Face: grossly normal. Respiratory: nonlabored breathing Cardiovascular: rate per vitals. Neuro: alert, moving extremities. Assessment/Plan Assessment & Plan 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 stenosis Bilateral ltr I spent minutes in the professional and overall care of this patient. Aroldo Ann DO [facility] Work Phone: 08-29-2024 History and physical note History Of Present Illness Devi Thompson is a 84 y.o. male presenting with pain. Past Medical History Past Medical History: Diagnosis Date Diabetes mellitus (Multi) Hypertension Other specified health status No pertinent past medical history Surgical History Past Surgical History: Procedure Laterality Date OTHER SURGICAL HISTORY 11/22/2021 Gallbladder surgery OTHER SURGICAL HISTORY 11/22/2021 Back surgery OTHER SURGICAL HISTORY 11/22/2021 Tonsillectomy Social History He reports that he has never smoked. He has never used smokeless tobacco. He reports current alcohol use. He reports that he does not use drugs. Family History Family History Problem Relation Name Age of Onset Heart attack Mother Lung cancer Father non-small cell carcinoma of lung Breast cancer Sister Cancer Other Allergies Acetaminophen Review of Systems All other systems reviewed and are negative. Physical Exam Last Recorded Vitals Blood pressure 176/73, pulse 76, temperature 36.5 C (97.7 F), resp. rate 16, height 1.854 m (6' 1"), weight 139 kg (307 lb), SpO2 97%. Relevant Results Constitutional: No acute distress, well appearing and well nourished. Patient appears stated age. Eyes: nonicteric sclerae ENT: Hearing is grossly intact. Neck: trachea midline Head and Face: grossly normal. Respiratory: nonlabored breathing Cardiovascular: rate per vitals. Neuro: alert, moving extremities. Assessment/Plan Assessment & Plan 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 stenosis Bilateral ltr I spent minutes in the professional and overall care of this patient. Aroldo Ann DO documented in this encounter [facility] Work Phone: 08-26-2024 Note Jeet Sommer PM Patient Name: Devi Thompson. . Date of : 1940, 84 y.o.. Gender: male. Subjective: Patient is a pleasant 84-year-old male who presents to clinic for painful elongated and thickened toenails cause him pain and discomfort with ambulation and he struggles to be able to reach his toes to cut them on his own. Admits to some numbness and tingling to his toes. Denies any recent trauma or injury. Denies fevers, chills, nausea, vomiting, chest pain, shortness of breath, or any other constitutional symptoms. Past Medical History: Diagnosis Date Kiser's palsy Diabetes mellitus (HCC) Past Surgical History: Procedure Laterality Date CHOLECYSTECTOMY DISC REMOVAL TONSILLECTOMY Social History Socioeconomic History Marital status: Tobacco Use Smoking status: Never Smokeless tobacco: Never Substance and Sexual Activity Alcohol use: Not Currently Drug use: Never Social Drivers of Health Financial Resource Strain: Low Risk (09/11/2022) Received from [facility] Overall Financial Resource Strain (CARDIA) Difficulty of Paying Living Expenses: Not hard at all Food Insecurity: No Food Insecurity (09/11/2022) Received from [facility] Hunger Vital Sign Worried About Running Out of Food in the Last Year: Never true Ran Out of Food in the Last Year: Never true Transportation Needs: No Transportation Needs (09/11/2022) Received from [facility] PRAPARE - Transportation Lack of Transportation (Medical): No Lack of Transportation (Non-Medical): No Physical Examination: BP (!) 165/84 (BP Location: Left arm, Patient Position: Sitting, BP Cuff Size: Adult) Pulse 90 Temp 98.4 degrees F (36.9 degrees C) (Infrared) General Appearance: Alert, cooperative, no distress, appears stated age. Podiatric Exam Vascular: DP and PT pulses are palpable 2/4. Capillary refill time is less than 3 secs to distal digits. Skin temperature is warm to warm from proximal tibial tuberosity to distal digit. +1 pitting edema noted to the lower extremities. Neurological: Gross sensation is intact. Protective sensation is diminished using the [place] monofilament. Dermatologic: Nails x 10 are elongated, thickened, dystrophic and mycotic subungual debris. Interdigital spaces are clean dry and intact. Musculoskeletal: Pain on palpation to the elongated and thickened toenails, bilateral feet. Ankle joint range of motion is intact. Muscle strength is 5/5 to dorsiflexors, plantar flexors, inverters and everters. Compartments soft and compressible. No calf pain Diagnoses: 1. Onychomycosis 2. Pain due to onychomycosis of toenail of left foot 3. Pain due to onychomycosis of toenail of right foot 4. Diabetic peripheral neuropathy (HCC) Imaging: Not required at this visit Assessment/Plan: Patient was seen and evaluated. Discussed all clinical findings. Patient has onychomycosis of nails x 10 which require mechanical debridement. Consent was obtained prior to debridement of all toenails on the right and left foot using podiatric nail nippers down to appropriate thickness and length. Patient expressed pain relief following the procedure. Patient qualifies for nail care due to at risk foot criteria based on Q9 Modifier secondary to diabetic peripheral neuropathy. All questions were answered to patient satisfaction. Patient understands to call with any questions or concerns. Follow-up in 3 months for at risk foot care. This note was partially created using voice recognition software and is inherently subject to errors including those of syntax and sound-alike substitutions which may escape proofreading. In such instances, original meaning may be extrapolated by contextual derivation. Rehan Lala DPM, MS Podiatric Physician & Surgeon AUTHENTICATED BY REHAN LALA, [place] 08/26/2024 13:36:57 [facility] 08-26-2024 History of Present illness Narrative Images from the original note were not included. Rehan Lala DPM Patient Name: Devi Thompson. . Date of : 1940, 84 y.o.. Gender: male. Subjective: Patient is a pleasant 84-year-old male who presents to clinic for painful elongated and thickened toenails cause him pain and discomfort with ambulation and he struggles to be able to reach his toes to cut them on his own. Admits to some numbness and tingling to his toes. Denies any recent trauma or injury. Denies fevers, chills, nausea, vomiting, chest pain, shortness of breath, or any other constitutional symptoms. Past Medical History: Diagnosis Date Kiser's palsy Diabetes mellitus (HCC) Past Surgical History: Procedure Laterality Date CHOLECYSTECTOMY DISC REMOVAL TONSILLECTOMY Social History Socioeconomic History Marital status: Tobacco Use Smoking status: Never Smokeless tobacco: Never Substance and Sexual Activity Alcohol use: Not Currently Drug use: Never Social Drivers of Health Financial Resource Strain: Low Risk (09/11/2022) Received from [facility] Overall Financial Resource Strain (CARDIA) Difficulty of Paying Living Expenses: Not hard at all Food Insecurity: No Food Insecurity (09/11/2022) Received from [facility] Hunger Vital Sign Worried About Running Out of Food in the Last Year: Never true Ran Out of Food in the Last Year: Never true Transportation Needs: No Transportation Needs (09/11/2022) Received from [facility] PRAPARE - Transportation Lack of Transportation (Medical): No Lack of Transportation (Non-Medical): No Physical Examination: BP (!) 165/84 (BP Location: Left arm, Patient Position: Sitting, BP Cuff Size: Adult) Pulse 90 Temp 98.4 F (36.9 C) (Infrared) General Appearance: Alert, cooperative, no distress, appears stated age. Podiatric Exam Vascular: DP and PT pulses are palpable 2/4. Capillary refill time is less than 3 secs to distal digits. Skin temperature is warm to warm from proximal tibial tuberosity to distal digit. +1 pitting edema noted to the lower extremities. Neurological: Gross sensation is intact. Protective sensation is diminished using the [place] monofilament. Dermatologic: Nails x 10 are elongated, thickened, dystrophic and mycotic subungual debris. Interdigital spaces are clean dry and intact. Musculoskeletal: Pain on palpation to the elongated and thickened toenails, bilateral feet. Ankle joint range of motion is intact. Muscle strength is 5/5 to dorsiflexors, plantar flexors, inverters and everters. Compartments soft and compressible. No calf pain Diagnoses: 1. Onychomycosis 2. Pain due to onychomycosis of toenail of left foot 3. Pain due to onychomycosis of toenail of right foot 4. Diabetic peripheral neuropathy (HCC) Imaging: Not required at this visit Assessment/Plan: Patient was seen and evaluated. Discussed all clinical findings. Patient has onychomycosis of nails x 10 which require mechanical debridement. Consent was obtained prior to debridement of all toenails on the right and left foot using podiatric nail nippers down to appropriate thickness and length. Patient expressed pain relief following the procedure. Patient qualifies for nail care due to at risk foot criteria based on Q9 Modifier secondary to diabetic peripheral neuropathy. All questions were answered to patient satisfaction. Patient understands to call with any questions or concerns. Follow-up in 3 months for at risk foot care. This note was partially created using voice recognition software and is inherently subject to errors including those of syntax and "sound-alike" substitutions which may escape proofreading. In such instances, original meaning may be extrapolated by contextual derivation. Rehan Lala DPM, MS Podiatric Physician & Surgeon documented in this encounter [facility] 08-04-2024 Telephone encounter Note Prescription Refill Information The patient has been identified by name and date of : Yes Caregiver verified no other encounters exist for this prescription request: Yes Caregiver confirmed with patient/requestor that no other refills are due, in the near future, with this provider at this time: Yes The last office visit in the department: 02/19/24 Does the patient have a future office visit with this provider/department: Yes 09/09/24 Requested Prescriptions Pending Prescriptions Disp Refills glipiZIDE XL (GLUCOTROL XL) 5 mg 24 hr tablet 90 tablet 3 Sig: Take 1 tablet by mouth once daily. Bessie Flynn August 04, 2024 9:18 AM [facility] 08-04-2024 Miscellaneous Notes Prescription Refill Information The patient has been identified by name and date of : Yes Caregiver verified no other encounters exist for this prescription request: Yes Caregiver confirmed with patient/requestor that no other refills are due, in the near future, with this provider at this time: Yes The last office visit in the department: 02/19/24 Does the patient have a future office visit with this provider/department: Yes 09/09/24 Requested Prescriptions Pending Prescriptions Disp Refills glipiZIDE XL (GLUCOTROL XL) 5 mg 24 hr tablet 90 tablet 3 Sig: Take 1 tablet by mouth once daily. Bessie Flynn August 04, 2024 9:18 AM documented in this encounter [facility] 07-22-2024 Hospital Discharge instructions Jessy Kramer MD - 07/22/2024 1:48 PM EST ICE TO BACK START MEDROL DOSE PACK-WATCH BLOOD SUGAR CLOSESLY START FLEXERIL FOR MUSCLE SPASM-WATCH FOR SLEEPINESS START PERCOCET FOR PAIN The following attachments cannot be sent through Care Everywhere.Low Back Pain Discharge Instructions ([place])Sciatica ED ([place])documented in this encounter [facility] Work Phone: 07-22-2024 Emergency department Note Images from the original note were not included. Chief Complaint: BACK AND LEFT HIP PAIN This is an 83-year-old male who suffers from chronic back pain dating back to 1984 when he had a laminectomy he has had chronic back problems he has had dilations by pain management. Schedule again for pain management evaluation on the but the pain got so bad that he could not wait till then complains of pain in the lower back rating to the left hip. It is worse with certain positions he denies any paresthesias of the lower leg or any numbness lower leg no change in bowel or urine habits and presents now for evaluation he does admit to being overweight Review of Systems Constitutional: Negative. HENT: Negative. Eyes: Negative. Respiratory: Negative. Cardiovascular: Negative. Gastrointestinal: Negative for abdominal pain, nausea and vomiting. Genitourinary: Negative for difficulty urinating and flank pain. Musculoskeletal: Positive for arthralgias, back pain and myalgias. Negative for neck pain and neck stiffness. Skin: Negative for rash. Neurological: Negative for weakness and numbness. Hematological: Negative. Psychiatric/Behavioral: Negative. All other systems reviewed and are negative. Physical Exam Vitals and nursing note reviewed. Constitutional: General: He is not in acute distress. Appearance: He is obese. He is not toxic-appearing. Comments: Is a heavyset white male in some mild discomfort but not toxic or an extremis HENT: Head: Normocephalic and atraumatic. Nose: Nose normal. Mouth/Throat: Mouth: Mucous membranes are dry. Pharynx: Oropharynx is clear. Eyes: Extraocular Movements: Extraocular movements intact. Conjunctiva/sclera: Conjunctivae normal. Pupils: Pupils are equal, round, and reactive to light. Cardiovascular: Rate and Rhythm: Normal rate. Pulses: Normal pulses. Pulmonary: Effort: Pulmonary effort is normal. Breath sounds: Normal breath sounds. Abdominal: General: Bowel sounds are normal. Palpations: Abdomen is soft. There is no mass. Tenderness: There is no abdominal tenderness. There is no right CVA tenderness or left CVA tenderness. Musculoskeletal: General: No deformity. Normal range of motion. Cervical back: Normal range of motion and neck supple. Lumbar back: Tenderness and bony tenderness present. No swelling or deformity. Negative right straight leg raise test. Back: Right lower leg: No edema. Left lower leg: No edema. Skin: General: Skin is warm and dry. Capillary Refill: Capillary refill takes less than 2 seconds. Findings: No erythema or rash. Neurological: Mental Status: He is alert. Labs Reviewed - No data to display No orders to display Procedures Medical Decision Making Differential diagnose include lumbar radiculopathy sciatica degenerative joint disease. MRI from 2021 was reviewed reviewed and showed significant degenerative changes but no obvious disc issue at that time he did have findings consistent with a sciatica today with a positive straight leg raising he received Dilaudid 1 mg IM and Solu-Medrol 125 mg IM at this time. She had significant relief with Solu-Medrol and Dilaudid. His primary care physician had called in prescriptions for Medrol Dosepak Percocet as well as Flexeril and he will follow-up with pain management as scheduled Diagnoses as of 07/22/24 1349 Acute left-sided low back pain with sciatica, sciatica laterality unspecified DJD (degenerative joint disease), lumbosacral Jessy Kramer MD 07/22/24 1349 documented in this encounter [facility] Work Phone: 07-22-2024 Physician Emergency department Note Images from the original note were not included. Chief Complaint: BACK AND LEFT HIP PAIN This is an 83-year-old male who suffers from chronic back pain dating back to 1984 when he had a laminectomy he has had chronic back problems he has had dilations by pain management. Schedule again for pain management evaluation on the but the pain got so bad that he could not wait till then complains of pain in the lower back rating to the left hip. It is worse with certain positions he denies any paresthesias of the lower leg or any numbness lower leg no change in bowel or urine habits and presents now for evaluation he does admit to being overweight Review of Systems Constitutional: Negative. HENT: Negative. Eyes: Negative. Respiratory: Negative. Cardiovascular: Negative. Gastrointestinal: Negative for abdominal pain, nausea and vomiting. Genitourinary: Negative for difficulty urinating and flank pain. Musculoskeletal: Positive for arthralgias, back pain and myalgias. Negative for neck pain and neck stiffness. Skin: Negative for rash. Neurological: Negative for weakness and numbness. Hematological: Negative. Psychiatric/Behavioral: Negative. All other systems reviewed and are negative. Physical Exam Vitals and nursing note reviewed. Constitutional: General: He is not in acute distress. Appearance: He is obese. He is not toxic-appearing. Comments: Is a heavyset white male in some mild discomfort but not toxic or an extremis HENT: Head: Normocephalic and atraumatic. Nose: Nose normal. Mouth/Throat: Mouth: Mucous membranes are dry. Pharynx: Oropharynx is clear. Eyes: Extraocular Movements: Extraocular movements intact. Conjunctiva/sclera: Conjunctivae normal. Pupils: Pupils are equal, round, and reactive to light. Cardiovascular: Rate and Rhythm: Normal rate. Pulses: Normal pulses. Pulmonary: Effort: Pulmonary effort is normal. Breath sounds: Normal breath sounds. Abdominal: General: Bowel sounds are normal. Palpations: Abdomen is soft. There is no mass. Tenderness: There is no abdominal tenderness. There is no right CVA tenderness or left CVA tenderness. Musculoskeletal: General: No deformity. Normal range of motion. Cervical back: Normal range of motion and neck supple. Lumbar back: Tenderness and bony tenderness present. No swelling or deformity. Negative right straight leg raise test. Back: Right lower leg: No edema. Left lower leg: No edema. Skin: General: Skin is warm and dry. Capillary Refill: Capillary refill takes less than 2 seconds. Findings: No erythema or rash. Neurological: Mental Status: He is alert. Labs Reviewed - No data to display No orders to display Procedures Medical Decision Making Differential diagnose include lumbar radiculopathy sciatica degenerative joint disease. MRI from 2021 was reviewed reviewed and showed significant degenerative changes but no obvious disc issue at that time he did have findings consistent with a sciatica today with a positive straight leg raising he received Dilaudid 1 mg IM and Solu-Medrol 125 mg IM at this time. She had significant relief with Solu-Medrol and Dilaudid. His primary care physician had called in prescriptions for Medrol Dosepak Percocet as well as Flexeril and he will follow-up with pain management as scheduled Diagnoses as of 07/22/24 1349 Acute left-sided low back pain with sciatica, sciatica laterality unspecified DJD (degenerative joint disease), lumbosacral Jessy Kramer MD 07/22/24 1349 [facility] Work Phone: 06-24-2024 History of Present illness Narrative Chief Complaint: Medicare Wellness Exam/Comprehensive Problem Focused Follow Up and Physical Exam HPI: Patient is here today for [facility]. 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 He has been following with opthomology. Has a prism in his eye glasses now can drive. Active Problem List Patient Active Problem List Diagnosis Chronic back pain 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 stenosis DM II (diabetes mellitus, type II), controlled (Multi) HTN (hypertension) Hyperlipidemia Lumbosacral spondylosis Numbness Prolapsed lumbar disc Benign prostatic hyperplasia with urinary frequency Nocturia Hydrocele in adult Comprehensive Medical/Surgical/Social/Family History Past Medical History: Diagnosis Date Other specified health status No pertinent past medical history Past Surgical History: Procedure Laterality Date OTHER SURGICAL HISTORY 11/22/2021 Gallbladder surgery OTHER SURGICAL HISTORY 11/22/2021 Back surgery OTHER SURGICAL HISTORY 11/22/2021 Tonsillectomy Social History Tobacco Use Smoking status: Never Smokeless tobacco: Never Vaping Use Vaping status: Never Used Substance Use Topics Alcohol use: Yes Comment: Occasional Drug use: Never Family History Problem Relation Name Age of Onset Heart attack Mother Lung cancer Father non-small cell carcinoma of lung Breast cancer Sister Cancer Other Allergies and Medications Acetaminophen Current Outpatient Medications on File Prior to Visit Medication Sig Dispense Refill aspirin 81 mg EC tablet Take 1 tablet (81 mg) by mouth once daily. blood-glucose meter misc TEST SUGARS ONCE DAILY 1 each 0 celecoxib (CeleBREX) 100 mg capsule Take one pill twice daily for one week then take twice daily as needed thereafter 60 capsule 2 gabapentin (Neurontin) 300 mg capsule Take 1 capsule (300 mg) by mouth 3 times a day. glipiZIDE XL (Glucotrol XL) 5 mg 24 hr tablet Take 1 tablet (5 mg) by mouth once daily. insulin degludec (Tresiba FlexTouch) 100 unit/mL (3 mL) injection Inject 16 Units under the skin once daily in the morning. 3 mL 11 lancets misc TEST SUGARS ONCE DAILY 50 each 11 metFORMIN (Glucophage) 1,000 mg tablet Take 1 tablet (1,000 mg) by mouth 2 times a day with meals. 180 tablet 3 metoprolol succinate XL (Toprol-XL) 25 mg 24 hr tablet TAKE 1 TABLET BY MOUTH ONCE DAILY 90 tablet 3 multivitamin tablet Take 1 tablet by mouth once daily. OneTouch Delica Plus Lancet 30 gauge misc Use to test BLOOD SUGAR ONCE DAILY OneTouch Verio test strips strip Use to test BLOOD SUGAR TWICE DAILY 100 strip 11 simvastatin (Zocor) 40 mg tablet TAKE 1 TABLET BY MOUTH AT BEDTIME 90 tablet 3 [DISCONTINUED] methocarbamol (Robaxin) 500 mg tablet TAKE 1 TABLET BY MOUTH FOUR TIMES DAILY NEEDED FOR MUSCLE SPASMS (Patient not taking: Reported on 06/24/2024) 40 tablet 0 [DISCONTINUED] tamsulosin (Flomax) 0.4 mg 24 hr capsule Take 1 capsule (0.4 mg) by mouth once daily. (Patient not taking: Reported on 06/24/2024) 30 capsule 11 No current facility-administered medications on file prior to visit. Medicare Wellness Questionnaire How have you been on Medicare less than a year ? No Have you had a Medicare Wellness exam before ? Yes Have you had any surgeries in the last year ? No Have you developed any new diseases in the last year ? No Have any close family members developed new diseases in the last year ? No Have you been to a the hospital in the last year ? No Do you take any pills or supplements other than those prescribed for you ? Yes Do you take any opiates for pain such as Tramadol, Percocet or [place] ? No How do you consider your overall health ?Good Have you ever used tobacco products ? Yes Have you smoked more than 100 cigarettes in your life ? Yes What form of tobacco have you used ? Cigarettes How many packs per day ? Cigars for a few years How many years ? Smoked a few years in the Have you quit ? Yes Do you drink alcohol ? No Have you ever used illegal drugs at anytime in your life including Marijuana ? No Which of the following describes your diet ?Well balanced How many days per week on average do you exercise ? 0 days Do you have any loss of hearing ? No Do you have hearing aids ? No Have you or others noted you have loss of memory ? No Do you need someone to assist you with any of the following ? None Do you need someone to assist you with any of the following ? None Have you fallen in the last 6 months ? No Do you have any of the following in your house ? None Do you have a living will ? Yes Do you have a durable power of Operations Engineer for health care decisions ? Yes Medications and Supplements prescribed by me and other practitioners or clinical pharmacist (such as prescriptions, OTC's, herbal therapies and supplements) were reviewed and documented in the medical record. Tobacco/Alcohol/Opioid use, as well as Illicit Drug Use was screened for/reviewed and documented in Social History section and medication list as appropriate Activities of Daily Living In your present state of health, do you have any difficulty performing the following activities?: Preparing food and eating?: No Bathing yourself: No Getting dressed: No Using the toilet:No Moving around from place to place: No In the past year have you fallen or had a near fall?:No Depression Screen (Note: if answer to either of the following is "Yes", then a more complete depression screening is indicated) Q1: Over the past two weeks, have you felt down, depressed or hopeless? NO Q2: Over the past two weeks, have you felt little interest or pleasure in doing things? NO Current exercise habits: The patient does not participate in regular exercise at present. Dietary issues discussed: Yes Hearing difficulties: No Safe in current home environment: yes Visual Acuity assessed: no Cognitive Impairment assessed: yes Advance directives Advanced Care Planning (including a Living Will, Healthcare POA, as well as specific end of life choices and/or directives), was discussed for approximately 1 minutes with the patient and/or surrogate, voluntarily, and documented in the medical record. Cardiac Risk Assessment Cardiovascular risk was discussed and, if needed, lifestyle modifications recommended, including nutritional choices, exercise, and elimination of habits contributing to risk. We agreed on a plan to reduce the current cardiovascular risk based on above discussion as needed. Aspirin use/disuse was discussed after reviewing the updated guidelines below: Consider low dose Aspirin (81-162 mg) use if the benefit for cardiovascular disease prevention outweighs risk for bleeding complications. In general, low dose ASA should be considered: In patients WITHOUT prior IN/stroke/PAD (primary prevention): a. Age <60: Use if 10-year cardiovascular disease risk >20%, with discussion of risks and benefits with patient b. Age 60-<70: Use if 10-year cardiovascular disease risk >20% and low bleeding (e.g., gastrointenstinal) risk, with discussion of risks and benefits with patient c. Age >=70: Do not use In patients WITH prior IN/stroke/PAD (secondary prevention): Generally use unless extremely high bleeding (e.g., gastrointenstinal) risk, with discussion of risks and benefits with patient ROS otherwise negative aside from what was mentioned above in HPI. Vitals BP 146/77 Pulse 92 Ht 1.803 m (5' 11") Wt 140 kg (309 lb) BMI 43.10 kg/m Body mass index is 43.1 kg/m . Physical Exam Gen: Alert, NAD HEENT: PERRLA, EOMI, conjunctiva and sclera normal in appearance. Neck: Supple with FROM; No masses/nodes palpable; Thyroid nontender and without nodules; No LAURA Respiratory: Lungs CTAB Cardiovascular: Heart RRR. No M/R/G. Peripheral pulses equal bilaterally Abdomen: Soft, nontender, BS present throughout; No R/G/R; No HSM or masses palpated Extremities: FROM all extremities; Muscle strength grossly normal with good tone Neuro: CN II-XII intact; Reflexes 2+/2+; Gross motor and sensory intact Skin: No suspicious lesions present Assessment and Plan: Problem List Items Addressed This Visit Chronic back pain 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 stenosis DM II (diabetes mellitus, type II), controlled (Multi) (Chronic) HTN (hypertension) Hyperlipidemia Prolapsed lumbar disc Benign prostatic hyperplasia with urinary frequency Other Visit Diagnoses Need for influenza vaccination - Primary Relevant Orders Flu vaccine, trivalent, preservative free, HIGH-DOSE, age 65y+ (Fluzone) (Completed) Medicare annual wellness visit, subsequent DMII - seeing Endocrinology - A1c 6.6% in 09/05 in Endos office, 7.1% , Has appt in Sep 06 - continue glipizide 5mg po daily - continue lantus 15 units - continue metformin 1000mg po bid Pt needs to test 3-4 x a day or more as he uses insulin and can have hyperglycemic or hypoglycemic episodes. 2. 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 stenosis - following with pain management - 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 pT because he got bells palsy which has happened a few other times after he has started Pt 3. HLD - continue simvastatin 40mg po daily 4. HTN - continue metoprolol xl po daily 5. Given flu shot today Advised pt that I will be leaving in October and will need to find a new provider after that. During the course of the visit the patient was educated and counseled about age appropriate screening and preventive services. Completed preventive screenings were documented in the chart and orders were placed for outstanding screenings/procedures as documented in the Assessment and Plan. Patient Instructions (the written plan) was given to the patient at check out. Gonzales Gray DO documented in this encounter [facility] Work Phone: 05-26-2024 Note NEW Patient Visit Rehan Lala DPM Patient Name: Devi Thompson. . Date of : 1940, 83 y.o.. Gender: male. Subjective: Patient is a pleasant 83-year-old male who presents to clinic for a comprehensive diabetic foot examination. Patient states that his toenails cause him pain and discomfort with ambulation and he struggles to be able to reach his toes to cut them on his own. Patient reports that his last hemoglobin A1c was 7.1%. Admits to some numbness and tingling to his toes. Denies any recent trauma or injury. Denies fevers, chills, nausea, vomiting, chest pain, shortness of breath, or any other constitutional symptoms. Past Medical History: Diagnosis Date Kiser's palsy Diabetes mellitus (HCC) Past Surgical History: Procedure Laterality Date CHOLECYSTECTOMY DISC REMOVAL TONSILLECTOMY Social History Socioeconomic History Marital status: Tobacco Use Smoking status: Never Smokeless tobacco: Never Substance and Sexual Activity Alcohol use: Not Currently Drug use: Never Social Determinants of Health Financial Resource Strain: Low Risk (09/11/2022) Received from [facility] Overall Financial Resource Strain (CARDIA) Difficulty of Paying Living Expenses: Not hard at all Food Insecurity: No Food Insecurity (09/11/2022) Received from [facility] Hunger Vital Sign Worried About Running Out of Food in the Last Year: Never true Ran Out of Food in the Last Year: Never true Transportation Needs: No Transportation Needs (09/11/2022) Received from [facility] PRAPARE - Transportation Lack of Transportation (Medical): No Lack of Transportation (Non-Medical): No Physical Examination: BP (!) 191/103 (BP Location: Right arm, Patient Position: Sitting, BP Cuff Size: X-large Adult) Pulse 77 Temp 98.3 degrees F (36.8 degrees C) (Temporal) General Appearance: Alert, cooperative, no distress, appears stated age. Podiatric Exam Vascular: DP and PT pulses are palpable 2/4. Capillary refill time is less than 3 secs to distal digits. Skin temperature is warm to warm from proximal tibial tuberosity to distal digit. +1 pitting edema noted to the lower extremities. Neurological: Gross sensation is intact. Protective sensation is diminished using the [place] monofilament. Dermatologic: Nails x 10 are elongated, thickened, dystrophic and mycotic subungual debris. Interdigital spaces are clean dry and intact. Musculoskeletal: Pain on palpation to the elongated and thickened toenails, bilateral feet. Ankle joint range of motion is intact. Muscle strength is 5/5 to dorsiflexors, plantar flexors, inverters and everters. Compartments soft and compressible. No calf pain Diagnoses: 1. Comprehensive diabetic foot examination, type 2 DM, encounter for ([facility]) 2. Diabetic peripheral neuropathy ([facility]) 3. Onychomycosis 4. Pain due to onychomycosis of toenail of left foot 5. Pain due to onychomycosis of toenail of right foot Imaging: Not required at this visit Assessment/Plan: Patient was seen and evaluated. Discussed all clinical findings. A comprehensive diabetic foot examination was performed. Patient is doing well and has no open wounds. No signs of infection. Reviewed patient's hemoglobin A1c noted to be 7.1% on March 2024. Patient is to continue to follow-up with his primary care physician every 6 months. Patient was instructed to check his feet once daily and to wear good supportive shoes. Patient has onychomycosis of nails x 10 which require mechanical debridement. Consent was obtained prior to debridement of all toenails on the right and left foot using podiatric nail nippers down to appropriate thickness and length. Patient expressed pain relief following the procedure. Patient qualifies for nail care due to at risk foot criteria based on Q9 Modifier secondary to diabetic peripheral neuropathy. All questions were answered to patient satisfaction. Patient understands to call with any questions or concerns. Follow-up in 3 months for at risk foot care. This note was partially created using voice recognition software and is inherently subject to errors including those of syntax and sound-alike substitutions which may escape proofreading. In such instances, original meaning may be extrapolated by contextual derivation. Rehan Lala DPM, MS Podiatric Physician & Surgeon AUTHENTICATED BY REHAN LALA, [place] 05/26/2024 13:31:50 [facility] 05-26-2024 History of Present illness Narrative Images from the original note were not included. NEW Patient Visit Rehan Lala DPM Patient Name: Devi Thompson. . Date of : 1940, 83 y.o.. Gender: male. Subjective: Patient is a pleasant 83-year-old male who presents to clinic for a comprehensive diabetic foot examination. Patient states that his toenails cause him pain and discomfort with ambulation and he struggles to be able to reach his toes to cut them on his own. Patient reports that his last hemoglobin A1c was 7.1%. Admits to some numbness and tingling to his toes. Denies any recent trauma or injury. Denies fevers, chills, nausea, vomiting, chest pain, shortness of breath, or any other constitutional symptoms. Past Medical History: Diagnosis Date Kiser's palsy Diabetes mellitus (HCC) Past Surgical History: Procedure Laterality Date CHOLECYSTECTOMY DISC REMOVAL TONSILLECTOMY Social History Socioeconomic History Marital status: Tobacco Use Smoking status: Never Smokeless tobacco: Never Substance and Sexual Activity Alcohol use: Not Currently Drug use: Never Social Determinants of Health Financial Resource Strain: Low Risk (09/11/2022) Received from [facility] Overall Financial Resource Strain (CARDIA) Difficulty of Paying Living Expenses: Not hard at all Food Insecurity: No Food Insecurity (09/11/2022) Received from [facility] Hunger Vital Sign Worried About Running Out of Food in the Last Year: Never true Ran Out of Food in the Last Year: Never true Transportation Needs: No Transportation Needs (09/11/2022) Received from [facility] PRAPARE - Transportation Lack of Transportation (Medical): No Lack of Transportation (Non-Medical): No Physical Examination: BP (!) 191/103 (BP Location: Right arm, Patient Position: Sitting, BP Cuff Size: X-large Adult) Pulse 77 Temp 98.3 F (36.8 C) (Temporal) General Appearance: Alert, cooperative, no distress, appears stated age. Podiatric Exam Vascular: DP and PT pulses are palpable 2/4. Capillary refill time is less than 3 secs to distal digits. Skin temperature is warm to warm from proximal tibial tuberosity to distal digit. +1 pitting edema noted to the lower extremities. Neurological: Gross sensation is intact. Protective sensation is diminished using the [place] monofilament. Dermatologic: Nails x 10 are elongated, thickened, dystrophic and mycotic subungual debris. Interdigital spaces are clean dry and intact. Musculoskeletal: Pain on palpation to the elongated and thickened toenails, bilateral feet. Ankle joint range of motion is intact. Muscle strength is 5/5 to dorsiflexors, plantar flexors, inverters and everters. Compartments soft and compressible. No calf pain Diagnoses: 1. Comprehensive diabetic foot examination, type 2 DM, encounter for ([facility]) 2. Diabetic peripheral neuropathy ([facility]) 3. Onychomycosis 4. Pain due to onychomycosis of toenail of left foot 5. Pain due to onychomycosis of toenail of right foot Imaging: Not required at this visit Assessment/Plan: Patient was seen and evaluated. Discussed all clinical findings. A comprehensive diabetic foot examination was performed. Patient is doing well and has no open wounds. No signs of infection. Reviewed patient's hemoglobin A1c noted to be 7.1% on March 2024. Patient is to continue to follow-up with his primary care physician every 6 months. Patient was instructed to check his feet once daily and to wear good supportive shoes. Patient has onychomycosis of nails x 10 which require mechanical debridement. Consent was obtained prior to debridement of all toenails on the right and left foot using podiatric nail nippers down to appropriate thickness and length. Patient expressed pain relief following the procedure. Patient qualifies for nail care due to at risk foot criteria based on Q9 Modifier secondary to diabetic peripheral neuropathy. All questions were answered to patient satisfaction. Patient understands to call with any questions or concerns. Follow-up in 3 months for at risk foot care. This note was partially created using voice recognition software and is inherently subject to errors including those of syntax and "sound-alike" substitutions which may escape proofreading. In such instances, original meaning may be extrapolated by contextual derivation. Rehan Lala DPM, MS Podiatric Physician & Surgeon documented in this encounter [facility] 04-30-2024 History of Present illness Narrative Subjective Patient ID: Devi Thompson is a 83 y.o. male. HPI Patient is here for 6 month follow up with PSA. Most recent PSA was 0.63 on 04/05. . Prior PSA was 0.53 on 05/05. Chronic BPH sx are mild and stable. Denies urgency and frequency. Denies dysuria. Denies hematuria. Nocturia x1. He was taking Flomax and Gemtesa in the past. He stopped both of these. Not sure they helped. ED is chronic and is not an issue. Review of Systems Constitutional: Negative for chills and fever. HENT: Negative. Eyes: Negative. Respiratory: Negative for cough and shortness of breath. Cardiovascular: Negative for chest pain and leg swelling. Gastrointestinal: Negative for nausea. Endocrine: Negative. Genitourinary: Negative for difficulty urinating. Negative except for documented in HPI Allergic/Immunologic: Negative. Neurological: Alert & oriented X 3 Hematological: Denies blood thinners Psychiatric/Behavioral: Negative. Objective Physical Exam Vitals and nursing note reviewed. Constitutional: General: He is not in acute distress. Appearance: Normal appearance. Pulmonary: Effort: Pulmonary effort is normal. Abdominal: Tenderness: There is no abdominal tenderness. Genitourinary: Comments: Kidneys non palpable bilaterally Bladder non palpable or tender Scrotum no mass, LARGE LEFT hydrocele Epididymis- No spermatocele. Non Tender. Testicles: No mass Urethra: No discharge Penis within normal limits... No lesions. No phimosis Prostate - symmetric, no nodules. BENIGN Seminal Vesicals: No mass. Sphincter tone: normal Neurological: Mental Status: He is alert. Assessment/Plan Diagnoses and all orders for this visit: Hydrocele in adult Benign prostatic hyperplasia with urinary frequency Hydrocele, unspecified hydrocele type Nocturia Urinary frequency All available PSA values reviewed, Options discussed. Questions answered. Will follow PSA annually Diet changes for prostate health discussed and educational information given. Pros/Cons of prostate health supplements discussed. Treatment options for LUTS reviewed discontinue Flomax and Gemtesa-Done Discussed timed voiding. Discussed fluid and caffeine intake Treatment options for ED reviewed-Observe Lifestyle change to help prevent UTIs discussed. Encouraged fluid intake. Past UA reviewed Discussed options for Left Hydrocele-Will aspirate after Visit F/U 6 months After Visit I aspirated 400ml of clear yellow Fluid Hydrocele Area prepped with Betadine and draped. 18 gauge used to aspirate fluid. Sterile gauze placed over the puncture site Please see comments for description of fluid and volume drained. documented in this encounter [facility] Work Phone: 02-19-2024 Instructions Emanuel Colon MD - 02/19/2024 4:40 PM EDT - Continue metformin 1000 units twice a day - Continue glipizide XL 5 mg once a day - Increase the Tresiba insulin to 17 units once a day in the morning - Continue to check your blood sugar once a day - If you start having blood sugars below 70s, let us know documented in this encounter [facility] 02-19-2024 History of Present illness Narrative ENDOCRINOLOGY CLINIC NOTE Mr. Thompson is a 83 year old male with T2DM, HTN, CKD stage 2presented for post hospital follow up of diabetes HPI He was not sure when he was diagnosed with diabetes. He was admitted to the hospital in 08/2022 with facial droop. His glucose was 427. He was on metformin, and was started on basal insulin during and after the hospitalization. He was diagnosed Farxiga was suggested but cost was an issue, same with GLP-1 agonist. We added glipizide A1c: 6.8% today 09/11/22 04:54 04/28/23 09:45 08/15/23 16:37 Hemoglobin A1C 10.0 (H) 7.0 (H) Hemoglobin A1C (POCT) 6.6 ! Current regimen: Metformin 1000 mg twice a day Glipizide XL 5 mg once a day Tresiba 15 units daily in the morning Home glucose monitoring: He checks once a day in the morning and the range is 130-mostly high 100s Hypoglycemia: None Diet: He eats 3 meals Complications: Retinopathy: last year with no reported retinopathy Nephropathy: GFR 48 in 04/2023 Neuropathy: no suggestive of neuropathy CVS: lipid profile 06/2023: LDL 42, TG 106 on simvastatin 40 mg BP: 167/87 PAST MEDICAL HISTORY Diagnosis Date Abnormal stress test Angina pectoris (HCC) Kiser's palsy Chronic kidney disease (CKD) Stage 2 Diverticulitis Essential hypertension Impaired fasting glucose Influenza vaccination declined by patient 05/24/2015 Lumbar radiculopathy Urinary outflow obstruction PAST SURGICAL HISTORY Procedure Laterality Date CHOLECYSTECTOMY CHOLECYSTECTOMY HX LOW BACK DISK SURGERY NUCLEAR STRESS LEXISCAN (CARD) 04/03/2016 PAST SURGICAL HISTORY OF 1986 back surgery TONSILLECTOMY HX FAMILY HISTORY Problem Relation Age of Onset Hypertension Mother Diabetes Mother other (lung cancer) Father Hearing Loss Paternal Grandfather Heart Brother Heart Sister Social History Tobacco Use Smoking status: Former Packs/day: 2.00 Years: 10.00 Additional pack years: 0.00 Total pack years: 20.00 Types: Cigarettes Start date: 08/13/1960 Quit date: 12/13/1970 Years since quittin.2 Smokeless tobacco: Never Substance Use Topics Alcohol use: Yes Comment: yearly use Drug use: No (Not in a hospital admission) Allergies As of Date: 02/19/2024 Allergen Noted Reaction ACETAMINOPHEN 03/23/2016 Other: See Comments Fully Assessed 02/19/2024 Current Outpatient Medications Medication Sig Dispense Refill insulin degludec (TRESIBA FLEXTOUCH U-100) 100 unit/mL (3 mL) injection pen Inject subcutaneous 15 units daily in the morning. 15 mL 3 metFORMIN (GLUCOPHAGE) 1,000 mg tablet Take 1 tablet by mouth two times a day with meals. 180 tablet 3 glipiZIDE (GLUCOTROL XL) 5 mg 24 hr tablet Take 1 tablet by mouth once daily. 90 tablet 3 insulin needles, DISPOSABLE, (PEN NEEDLE) 31 gauge x 5/16" 1 Each once daily. 100 Each 3 simvastatin (ZOCOR) 40 mg tablet Take 1 tablet by mouth daily at bedtime. 90 tablet 1 aspirin, enteric coated (ADULT LOW DOSE ASPIRIN) 81 mg EC tablet Take 1 tablet by mouth once daily. 30 tablet 4 valACYclovir (VALTREX) 1 gram Take 1,000 mg by mouth once daily. 1 tablet TID for 21 doses (Patient not taking: Reported on 02/19/2024) metoprolol succinate ER (TOPROL XL) 25 mg 24 hr tablet Take 1 tablet by mouth once daily. (Patient not taking: Reported on 02/19/2024) 90 tablet 1 naproxen sodium 220 mg cap Take 1 capsule by mouth twice daily. PRN (Patient not taking: Reported on 02/19/2024) No current facility-administered medications for this visit. COMPLETE REVIEW OF SYSTEMS: Answers submitted by the patient for this visit: Core Review of Systems (Submitted on 02/15/2024) Fever : No Night sweats: No Recent unintentional weight change: No Nasal Congestion: No Hearing Loss: No Vision Disturbance: Yes A cough: No Difficulty Breathing?: No Chest pain: No Irregular heartbeat: No Leg Swelling: No Nausea: No Diarrhea: No Black tarry stools: No Difficulty Urinating?: No Awaken at Night More Than Once to Urinate?: No Joint pain or stiffness: Yes Muscle aches: Yes Leg or Foot Discomfort at Night?: Yes A rash: No Dizziness: No Headaches: No Memory Loss: No Seizures: No PHYSICAL EXAM: 02/19/24 1623 BP: 167/87 Pulse: 87 Resp: 16 SpO2: 94% Weight: (!) 143 kg (315 lb 4.1 oz) Height: 176.3 cm (5' 9.41") General: NAD, alert and cooperative, no facial plethora Previous exam: HEENT: EOMI, no proptosis/stare. Cardiovascular: RRR, +S1 and S2, no MRG appreciated Lungs: Clear to auscultation bilaterally Extremities: No LE oedema Neuro: Alert and oriented Psych: Normal affect Labs: As mentioned above Assessment and Recommendations: Mr. Thompson is a pleasant 83-year-old man presented with his for follow-up of T2DM with CKD stage III. Our goal is to achieve an A1c around 7.5% to lower the risks of diabetes related complications, while not significantly increasing the risk of hypoglycemia. His glucose levels are fairly controlled, but he is having fasting hyperglycemia. We will continue with metformin and glipizide, but slightly increase the Tresiba to 70 units once a day. The use of SGLT2 inhibitors and GLP-1 agonists is limited by cost. Instructions on how to adjust the Lantus doses were discussed and provided in the after visit summary His BP elevated because he stopped the metoprolol due to diarrhea. The diarrhea has resolved. He will contact his PCP to adjust his BP medications Follow-up in 6 months Some of the above has been copied from prior documentation on 08/15/2023 but alvarez elements reviewed, confirmed, and/or updated by me (Emanuel Colon MD) on 02/19/2024 Medical Decision Making: Problems: Low: Stable chronic illness Data: Unique test result(s) reviewed: 3+ Risk: Moderate: Moderate risk from testing/treatment Medical Decision Making Level: 4 - Moderate This note was created using [employer] dictation software. You may find errors that were missed during proofreading. They are purely unintentional and if there are any concerns regarding this dictation, please do not hesitate to contact the dictating provider for clarification. Emanuel Colon MD documented in this encounter [facility] 11-27-2023 History of Present illness Narrative Subjective Patient ID: Devi Thompson is a 83 y.o. male who presents for Follow-up (6 month) and Pain (Pt reports body pain since he was bent over cutting his toe nails ). Pain Pertinent negatives include no chest pain, diarrhea, fatigue, nausea, shortness of breath, vomiting, weakness or wheezing. Patient is here today for 6 mo follow up Review of Systems Constitutional: Negative for activity change, appetite change, chills and fatigue. HENT: Negative for congestion, postnasal drip, sinus pressure, sinus pain and sore throat. Respiratory: Negative for cough, shortness of breath and wheezing. Cardiovascular: Negative for chest pain and leg swelling. Gastrointestinal: Negative for abdominal distention, diarrhea, nausea and vomiting. Musculoskeletal: Positive for arthralgias. Negative for back pain. Neurological: Negative for weakness and numbness. Objective BP 143/81 Pulse 82 Ht 1.803 m (5' 11") Wt 143 kg (316 lb) BMI 44.07 kg/m Physical Exam Constitutional: General: He is not in acute distress. Appearance: Normal appearance. HENT: Head: Normocephalic. Nose: Nose normal. Mouth/Throat: Pharynx: No oropharyngeal exudate. Eyes: General: Right eye: No discharge. Left eye: No discharge. Extraocular Movements: Extraocular movements intact. Pupils: Pupils are equal, round, and reactive to light. Cardiovascular: Rate and Rhythm: Normal rate and regular rhythm. Heart sounds: No murmur heard. No gallop. Pulmonary: Effort: Pulmonary effort is normal. No respiratory distress. Breath sounds: Normal breath sounds. No wheezing. Musculoskeletal: General: No swelling. Normal range of motion. Skin: General: Skin is warm and dry. Coloration: Skin is not jaundiced. Neurological: General: No focal deficit present. Mental Status: He is alert and oriented to person, place, and time. Cranial Nerves: No cranial nerve deficit. Psychiatric: Mood and Affect: Mood normal. Behavior: Behavior normal. Immunizations Flu shot received COVID received PNA received 13 Shingles recommended RSV recommended Colonoscopy PSA ordered by sweet Assessment/Plan Problem List Items Addressed This Visit 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 stenosis DM II (diabetes mellitus, type II), controlled (Multi) (Chronic) HTN (hypertension) - Primary Hyperlipidemia Lumbosacral spondylosis Benign prostatic hyperplasia with urinary frequency DMII - seeing Endocrinology - A1c 6.6% in 09/05 in Endos office - continue glipizide 5mg po daily - continue lantus 15 units - continue metformin 1000mg po bid 2. 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 HLD - continue simvastatin 40mg po daily 4. HTN - continue metoprolol xl po daily Final diagnoses: [I10] Primary hypertension [E78.2] Mixed hyperlipidemia [E11.9] Controlled type 2 diabetes mellitus without complication, without long-term current use of insulin (Multi) [N40.1, R35.0] Benign prostatic hyperplasia with urinary frequency [M48.062] 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 stenosis [M47.27] Osteoarthritis of spine with radiculopathy, lumbosacral region documented in this encounter [facility] Work Phone: 10-30-2023 Miscellaneous Notes Please resend. documented in this encounter [facility] 10-30-2023 Miscellaneous Notes Called and spoke to the pharmacy, patient got generic medication for $62.95. Will send a refill request for generic. Closed There was a message about formulary switch from Lantus to Tresiba on 10/23/2023. I am not sure which one is covered by his insurance Thank you HH Please advise. Patient went to leaf size picker Tresiba RX at the pharmacy and it will cost $150. Patient would like an alternative RX. Please advise and call patient [phone]. Thank you documented in this encounter [facility] 10-24-2023 Miscellaneous Notes Called and relayed update to Elida. She confirmed understanding. Isabel Bai The patient is able to call and have this transferred themselves if it is retail to retail. Patient's spouse, Elida, called requesting RX for TRESIBA FLEXTOUCH U-100 100 unit/mL (3 mL) injection pen be sent to [facility] in [place] instead. Please contact Elida at [phone] to inform them when RX is sent to preferred pharmacy. Isabel Bai documented in this encounter [facility] 10-23-2023 Miscellaneous Notes Spoke with Devi Thompson on October 23, 2023. Informed of results / instructions as stated above. Mali Grande MA Requester: Patient FORMULARY SWITCH FROM LANTUS TO TRESIBA. Last Visit in Endocrinology: Provider name: Emanuel Colon MD , Date 08/15/2023 Next Scheduled Appt in Endo: 02/19/2024 Last Refill: 08/15/23 Number of Refills given: 3 Requested Prescriptions Pending Prescriptions Disp Refills TRESIBA FLEXTOUCH U-100 100 unit/mL (3 mL) injection pen 15 mL 3 Sig: Inject subcutaneous 15 units daily in the morning. Please review and advise. Marita Mcguire, BAL[place] documented in this encounter [facility] 10-10-2023 History of Present illness Narrative Subjective Patient ID: Devi Thompson is a 83 y.o. male. Virtual or Telephone Consent A telephone visit (audio only) between the patient (at the originating site) and the provider (at the distant site) was utilized to provide this telehealth service. Verbal consent was requested and obtained from Devi Thompson on this date, 10/10/23 for a telehealth visit. HPI Patient is here for scrotal US results and Med check. He was given Gemtesa and states this may of helped some. . He has failed Flomax. Hx of hydrocele. Recent Scrotal us showed large bilateral hydroceles. Recent PSA was 0.53 on 05/05. ED is not an issue. Review of Systems Constitutional: Negative for chills and fever. HENT: Negative. Eyes: Negative. Respiratory: Negative for cough and shortness of breath. Cardiovascular: Negative for chest pain and leg swelling. Gastrointestinal: Negative for nausea. Endocrine: Negative. Genitourinary: Negative for difficulty urinating. Negative except for documented in HPI Allergic/Immunologic: Negative. Neurological: Alert & oriented X 3 Hematological: Denies blood thinners Psychiatric/Behavioral: Negative. Objective Physical Exam No PE done given the virtual nature of visit. Assessment/Plan Diagnoses and all orders for this visit: Benign prostatic hyperplasia with urinary frequency Hydrocele, unspecified hydrocele type Urinary frequency Nocturia U/S reviewed Discussed options for Hydroceles All available PSA values reviewed, Options discussed. Questions answered. Diet changes for prostate health discussed and educational information given. Pros/Cons of prostate health supplements discussed. Treatment options for LUTS reviewed Patient to call if he wants refills on Gemtesa Discussed timed voiding. Discussed fluid and caffeine intake Treatment options for ED reviewed. Lifestyle change to help prevent UTIs discussed. Encouraged fluid intake. F/U 05/06 with PSA documented in this encounter [facility] Work Phone: 09-19-2023 History of Present illness Narrative Subjective Patient ID: Devi Thompson is a 83 y.o. male. HPI Patient is here to establish as a new patient for urinary frequency. He was started on Flomax, but has not helped sx. No hematuria, No dysuria.. Chronic BPH with LUTs, sx are chronic and worsening. He has a Hx of Back surgery and LUTS have worsened along with his back pain. PSA 0.53 (05/05) Nocturia x 1, depending on fluid intake. Cr was 1.47 05/05. ED is not an Issue Review of Systems Constitutional: Negative for chills and fever. HENT: Negative. Eyes: Negative. Respiratory: Negative for cough and shortness of breath. Cardiovascular: Negative for chest pain and leg swelling. Gastrointestinal: Negative for nausea. Endocrine: Negative. Genitourinary: Negative for difficulty urinating. Negative except for documented in HPI Allergic/Immunologic: Negative. Neurological: Alert & oriented X 3 Hematological: Denies blood thinners Psychiatric/Behavioral: Negative. Objective Physical Exam Vitals and nursing note reviewed. Constitutional: General: He is not in acute distress. Appearance: Normal appearance. Pulmonary: Effort: Pulmonary effort is normal. Abdominal: Tenderness: There is no abdominal tenderness. Genitourinary: Comments: Kidneys non palpable bilaterally Bladder non palpable or tender Scrotum no mass, BILATERAL LARGE hydrocele Epididymis- No spermatocele. Non Tender. Testicles: No mass Urethra: No discharge Penis within normal limits... No lesions. No phimosis Prostate - symmetric, no nodules. Benign Seminal Vesicals: No mass. Sphincter tone: normal Neurological: Mental Status: He is alert. Assessment/Plan Diagnoses and all orders for this visit: Benign prostatic hyperplasia with urinary frequency - Referral to Urology Urinary frequency Nocturia Scrotal U/S ordered for Hydroceles All available PSA values reviewed, Options discussed. Questions answered. Diet changes for prostate health discussed and educational information given. Pros/Cons of prostate health supplements discussed. Treatment options for LUTS reviewed discontinue Flomax Gemtesa Rx given Discussed timed voiding. Discussed fluid and caffeine intake Treatment options for ED reviewed. Lifestyle change to help prevent UTIs discussed. Encouraged fluid intake. F/U Med review with scrotal U/S documented in this encounter [facility] Work Phone: 08-15-2023 Note HNO ID: [id number] Author: Emanuel Colon MD Service: ? Author Type: Physician Type: Progress Notes Filed: 08/15/2023 4:58 PM Note Text: ENDOCRINOLOGY CLINIC NOTE Mr. Thompson is a 83 year old male with T2DM, HTN, CKD stage 2presented for post hospital follow up of diabetes HPI He was not sure when he was diagnosed with diabetes. He was admitted to the hospital in 08/2022 with facial droop. His glucose was 427. He was on metformin, and was started on basal insulin during and after the hospitalization. He was diagnosed Farxiga was suggested but cost was an issue, same with GLP-1 agonist. We added glipizide A1c: 6.6% today 07/10/22 09:32 09/11/22 04:54 04/28/23 09:45 Hemoglobin A1C 10.9 (H) 10.0 (H) 7.0 (H) Current regimen: Metformin 1000 mg twice a day Glipizide XL 5 mg once a day Lantus 15 units daily in the morning Home glucose monitoring: He checks once a day in the morning and the range is in the mid 100s Hypoglycemia: None Diet: He eats 3 meals Complications: Retinopathy: last year with no reported retinopathy Nephropathy: GFR 48 in 04/2023 Neuropathy: no suggestive of neuropathy CVS: lipid profile 06/2023: LDL 42, TG 106 on simvastatin 40 mg BP: 138/75 PAST MEDICAL HISTORY Diagnosis Date Abnormal stress test Angina pectoris (HCC) Kiser's palsy Chronic kidney disease (CKD) Stage 2 Diverticulitis Essential hypertension Impaired fasting glucose Influenza vaccination declined by patient 05/24/2015 Lumbar radiculopathy Urinary outflow obstruction PAST SURGICAL HISTORY Procedure Laterality Date CHOLECYSTECTOMY CHOLECYSTECTOMY HX LOW BACK DISK SURGERY NUCLEAR STRESS LEXISCAN (CARD) 04/03/2016 PAST SURGICAL HISTORY OF 1986 back surgery TONSILLECTOMY HX FAMILY HISTORY Problem Relation Age of Onset Hypertension Mother Diabetes Mother other (lung cancer) Father Hearing Loss Paternal Grandfather Heart Brother Heart Sister Social History Tobacco Use Smoking status: Former Packs/day: 2.00 Years: 10.00 Additional pack years: 0.00 Total pack years: 20.00 Types: Cigarettes Start date: 08/13/1960 Quit date: 12/13/1970 Years since quittin.7 Smokeless tobacco: Never Substance Use Topics Alcohol use: Yes Comment: yearly use Drug use: No (Not in a hospital admission) Allergies As of Date: 08/15/2023 Allergen Noted Reaction ACETAMINOPHEN 03/23/2016 Other: See Comments Fully Assessed 09/19/2022 Current Outpatient Medications Medication Sig Dispense Refill glipiZIDE (GLUCOTROL XL) 5 mg 24 hr tablet take 1 tablet by mouth once daily 30 tablet 3 valACYclovir (VALTREX) 1 gram Take 1,000 mg by mouth once daily. 1 tablet TID for 21 doses insulin glargine (LANTUS) 100 unit/mL injection Inject 16 Units subcutaneously every 24 hours. 10 mL 5 metFORMIN (GLUCOPHAGE) 1,000 mg tablet Take 1 tablet by mouth twice daily with meals. 180 tablet 0 metoprolol succinate ER (TOPROL XL) 25 mg 24 hr tablet Take 1 tablet by mouth once daily. 90 tablet 1 simvastatin (ZOCOR) 40 mg tablet Take 1 tablet by mouth daily at bedtime. 90 tablet 1 naproxen sodium 220 mg cap Take 1 capsule by mouth twice daily. PRN aspirin, enteric coated (ADULT LOW DOSE ASPIRIN) 81 mg EC tablet Take 1 tablet by mouth once daily. 30 tablet 4 No current facility-administered medications for this visit. COMPLETE REVIEW OF SYSTEMS: 10 point review of systems was negative other than what is mentioned in the HANDP PHYSICAL EXAM: 08/15/23 1632 BP: 138/75 Pulse: 85 SpO2: 96% Weight: (!) 144.8 kg (319 lb 3.6 oz) Height: 176.3 cm (5' 9.41") General: NAD, alert and cooperative, no facial plethora Previous exam: HEENT: EOMI, no proptosis/stare. Cardiovascular: RRR, +S1 and S2, no MRG appreciated Lungs: Clear to auscultation bilaterally Extremities: No LE oedema Neuro: Alert and oriented Psych: Normal affect Labs: As mentioned above Assessment and Recommendations: Mr. Thompson is a pleasant 83-year-old man presented with his for follow-up of T2DM with CKD stage III. Our goal is to achieve an A1c around 7.5% to lower the risks of diabetes related complications, while not significantly increasing the risk of hypoglycemia. Has been significant improvement in the glycemic control. We will continue with the current doses of metformin, glipizide and Lantus. However, we switched from Lantus vials to Lantus pens and he received teaching by my colleague nurse today. The use of SGLT2 inhibitors and GLP-1 agonists is limited by cost. Instructions on how to adjust the Lantus doses were discussed and provided in the after visit summary Follow-up in 6 months Some of the above has been copied from prior documentation on 09/19/2022 but alvarez elements reviewed, confirmed, and/or updated by me (Emanuel Colon MD) on 08/15/2023 Medical Decision Making: Problems: Low: Stable chronic illness Data: Unique test result(s) reviewed: 3+ (more content not included)... [facility] 04-26-2023 History of Present illness Narrative Chief Complaint: Medicare Wellness Exam/Comprehensive Problem Focused Follow Up and Physical Exam HPI: PATient is here today for MWV. Pt reports that he has been doing ok. Has not been back to see the meter calibrator. Would like flu shot today. Active Problem List Patient Active Problem List Diagnosis Chronic back pain 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 stenosis DM II (diabetes mellitus, type II), controlled ([facility]) HTN (hypertension) Hyperlipidemia Lumbosacral spondylosis Numbness Prolapsed lumbar disc Comprehensive Medical/Surgical/Social/Family History Past Medical History: Diagnosis Date Other specified health status No pertinent past medical history Past Surgical History: Procedure Laterality Date OTHER SURGICAL HISTORY 11/22/2021 Gallbladder surgery OTHER SURGICAL HISTORY 11/22/2021 Back surgery OTHER SURGICAL HISTORY 11/22/2021 Tonsillectomy Social History Tobacco Use Smoking status: Never Smokeless tobacco: Never Substance Use Topics Alcohol use: Yes Comment: Occasional Drug use: Never Family History Problem Relation Name Age of Onset Heart attack Mother Lung cancer Father non-small cell carcinoma of lung Breast cancer Sister Cancer Other Allergies and Medications Patient has no known allergies. Current Outpatient Medications on File Prior to Visit Medication Sig Dispense Refill OneTouch Verio test strips strip Use to test BLOOD SUGAR TWICE DAILY aspirin 81 mg EC tablet Take 1 tablet (81 mg) by mouth 1 (one) time each day. celecoxib (CeleBREX) 100 mg capsule Take one pill twice daily for one week then take twice daily as needed thereafter 60 capsule 2 glipiZIDE XL (Glucotrol XL) 5 mg 24 hr tablet Take 1 tablet (5 mg) by mouth once daily. insulin glargine (Lantus Solostar U-100 Insulin) 100 unit/mL (3 mL) pen Inject 15 Units under the skin once daily in the morning. Take as directed per insulin instructions. metFORMIN (Glucophage) 1,000 mg tablet Take 1 tablet (1,000 mg) by mouth. 2 times daily methocarbamol (Robaxin) 500 mg tablet TAKE 1 TABLET BY MOUTH FOUR TIMES DAILY NEEDED FOR MUSCLE SPASMS 40 tablet 0 metoprolol succinate XL (Toprol-XL) 25 mg 24 hr tablet take 1 tablet by mouth once daily 90 tablet 3 multivitamin tablet Take 1 tablet by mouth 1 (one) time each day. simvastatin (Zocor) 40 mg tablet Take 1 tablet (40 mg) by mouth once daily at bedtime. 90 tablet 1 No current facility-administered medications on file prior to visit. Medicare Wellness Questionnaire How have you been on Medicare less than a year ? No Have you had a Medicare Wellness exam before ? No Have you had any surgeries in the last year ? No Have you developed any new diseases in the last year ? No Have any close family members developed new diseases in the last year ? No Have you been to a the hospital in the last year ? No Do you take any pills or supplements other than those prescribed for you ? No Do you take any opiates for pain such as Tramadol, Percocet or [place] ? No How do you consider your overall health ?Good Have you ever used tobacco products ? Yes Have you smoked more than 100 cigarettes in your life ? Yes What form of tobacco have you used ? Cigarettes How many packs per day ? 1ppd How many years ? <5 Have you quit ? Yes Do you drink alcohol ? Yes What is the most you drink in one day ? 0 How many drinks usually in 1 Week ? 0 Have you ever used illegal drugs at anytime in your life including Marijuana ? No Which of the following describes your diet ?Well balanced How many days per week on average do you exercise ? 0 days Do you have any loss of hearing ? No Do you have hearing aids ? No Have you or others noted you have loss of memory ? No Do you need someone to assist you with any of the following ?none Do you need someone to assist you with any of the following ?none Have you fallen in the last 6 months ? No Do you have any of the following in your house ? None Do you have a living will ? Yes Do you have a durable power of Operations Engineer for health care decisions ? Yes Medications and Supplements prescribed by me and other practitioners or clinical pharmacist (such as prescriptions, OTC's, herbal therapies and supplements) were reviewed and documented in the medical record. Tobacco/Alcohol/Opioid use, as well as Illicit Drug Use was screened for/reviewed and documented in Social History section and medication list as appropriate Activities of Daily Living In your present state of health, do you have any difficulty performing the following activities?: Preparing food and eating?: No Bathing yourself: No Getting dressed: No Using the toilet:No Moving around from place to place: No In the past year have you fallen or had a near fall?:No Depression Screen (Note: if answer to either of the following is "Yes", then a more complete depression screening is indicated) Q1: Over the past two weeks, have you felt down, depressed or hopeless? Q2: Over the past two weeks, have you felt little interest or pleasure in doing things? Current exercise habits: The patient does not participate in regular exercise at present. Dietary issues discussed: Yes Hearing difficulties: No Safe in current home environment: no Visual Acuity assessed: no Cognitive Impairment assessed: no Advance directives Advanced Care Planning (including a Living Will, Healthcare POA, as well as specific end of life choices and/or directives), was discussed for approximately 1 minutes with the patient and/or surrogate, voluntarily, and documented in the medical record. Cardiac Risk Assessment Cardiovascular risk was discussed and, if needed, lifestyle modifications recommended, including nutritional choices, exercise, and elimination of habits contributing to risk. We agreed on a plan to reduce the current cardiovascular risk based on above discussion as needed. Aspirin use/disuse was discussed after reviewing the updated guidelines below: Consider low dose Aspirin (81-162 mg) use if the benefit for cardiovascular disease prevention outweighs risk for bleeding complications. In general, low dose ASA should be considered: In patients WITHOUT prior IN/stroke/PAD (primary prevention): a. Age <60: Use if 10-year cardiovascular disease risk >20%, with discussion of risks and benefits with patient b. Age 60-<70: Use if 10-year cardiovascular disease risk >20% and low bleeding (e.g., gastrointenstinal) risk, with discussion of risks and benefits with patient c. Age >=70: Do not use In patients WITH prior IN/stroke/PAD (secondary prevention): Generally use unless extremely high bleeding (e.g., gastrointenstinal) risk, with discussion of risks and benefits with patient ROS otherwise negative aside from what was mentioned above in HPI. Vitals BP 160/67 (BP Location: Left arm, Patient Position: Sitting, BP Cuff Size: Adult) Pulse 75 Ht 1.816 m (5' 11.5") Wt 138 kg (305 lb) BMI 41.95 kg/m Body mass index is 41.95 kg/m . Physical Exam Gen: Alert, NAD HEENT: PERRLA, EOMI, conjunctiva and sclera normal in appearance. Neck: Supple with FROM; No masses/nodes palpable; Thyroid nontender and without nodules; No LAURA Respiratory: Lungs CTAB Cardiovascular: Heart RRR. No M/R/G. Peripheral pulses equal bilaterally Abdomen: Soft, nontender, BS present throughout; No R/G/R; No HSM or masses palpated Extremities: FROM all extremities; Muscle strength grossly normal with good tone Neuro: CN II-XII intact; Reflexes 2+/2+; Gross motor and sensory intact Skin: No suspicious lesions present Assessment and Plan: Problem List Items Addressed This Visit 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 stenosis DM II (diabetes mellitus, type II), controlled (CMS/HCC) (Chronic) Relevant Orders Hemoglobin A1C Comprehensive Metabolic Panel Lipid Panel HTN (hypertension) Hyperlipidemia Lumbosacral spondylosis Prolapsed lumbar disc Other Visit Diagnoses Screening for prostate cancer - Primary Relevant Orders Prostate Spec.Ag,Screen DMII - seeing Endocrinology now, will repeat A1c, cmp, lipid - continue glipizide 5mg po daily - continue lantus 20 units - continue metformin 1000mg po bid 2. 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 HLD - continue simvastatin 40mg po daily - check lipid panel 4. HTN - continue metoprolol xl po daily During the course of the visit the patient was educated and counseled about age appropriate screening and preventive services. Completed preventive screenings were documented in the chart and orders were placed for outstanding screenings/procedures as documented in the Assessment and Plan. Patient Instructions (the written plan) was given to the patient at check out. Gonzales Gray DO documented in this encounter [facility] Work Phone: 01-15-2023 Miscellaneous Notes Requester: Pharmacy Last Visit in Endocrinology: Provider name: Emanuel Colon MD , Date 09/19/2022 Next Scheduled Appt in Endo: Visit date not found Last Refill: 09/19/2022 Number of Refills given: 3 Requested Prescriptions Pending Prescriptions Disp Refills glipiZIDE XL (GLUCOTROL XL) 5 mg 24 hr tablet [Pharmacy Med Name: glipizide ER 5 mg tablet, extended release 24 hr] 30 tablet 3 Sig: Take 1 tablet by mouth once daily. Please review and advise. Cira Costello MA documented in this encounter [facility] 12-26-2022 History of Present illness Narrative Subjective Patient ID: Devi Thompson is a 82 y.o. male who presents for Back Pain (Right mid back discomfort that radiates to the front rib area x 3 weeks. 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 HPI Patient presents for evaluation of thoracic pain and radiculopathy. Patient states that pain started approximately 3 weeks ago while working outside. Patient has applied topical formulations and rested only modest improvement. Pain is located around T6 and there is right-sided radiculopathy. No trauma or fall. Patient also reports chronic intermittent left hand arthritic pain. There is associated reduced range of motion. No reported attempted conservative management. Pain is alleviated by rest and massage. Review of Systems Constitutional: See HPI Musculoskeletal: See HPI Neurologic: Alert and oriented X4, No numbness, No tingling. All other systems are negative Objective BP 164/90 (BP Location: Left arm, Patient Position: Sitting, BP Cuff Size: Adult) Pulse 97 Ht 1.816 m (5' 11.5") Wt 137 kg (303 lb) BMI 41.67 kg/m Physical Exam General: Alert and oriented, No acute distress. Eye: Pupils are equal, round and reactive to light, Normal conjunctiva. HENT: Normocephalic, Neck: Supple Respiratory: Respirations are non-labored Musculoskeletal: Right paravertebral muscle tenderness to palpation; no midline tenderness or step-offs Integumentary: Warm, Dry, Intact, No pallor, No rash. Neurologic: Alert, Oriented, Normal sensory, Cranial Nerves II-XII are grossly intact Psychiatric: Cooperative, Appropriate mood & affect. Assessment/Plan Thoracic strain with radiculopathy: Celebrex and Robaxin. Arthritic pain of the left hand: Celebrex 100 mg as needed Problem List Items Addressed This Visit None Visit Diagnoses Thoracic myofascial strain, initial encounter - Primary Relevant Medications methocarbamol (Robaxin) 500 mg tablet celecoxib (CeleBREX) 100 mg capsule Hand arthritis Relevant Medications celecoxib (CeleBREX) 100 mg capsule Final diagnoses: [S29.019A] Thoracic myofascial strain, initial encounter [M19.049] Hand arthritis documented in this encounter [facility] Work Phone: 10-24-2022 Evaluation + Plan note Associated Problem(s): Hyperlipidemia - continue simvastatin 40mg po daily [facility] Work Phone: 10-24-2022 Miscellaneous Notes Associated Problem(s): Hyperlipidemia - continue simvastatin 40mg po daily Associated Problem(s): Lumbosacral spondylosis - see above Associated Problem(s): 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 stenosis - following with pain management - had lumbar mri - 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 Associated Problem(s): HTN (hypertension) Continue metoprolol xl po daily Associated Problem(s): DM II (diabetes mellitus, type II), controlled (CMS/[facility]) - seeing Endocrinology now, will have labs in 3 mo - continue glipizide 5mg po daily - continue lantus 20 units - continue metformin 1000mg po bid documented in this encounter [facility] Work Phone: 10-24-2022 Evaluation + Plan note Associated Problem(s): Lumbosacral spondylosis - see above [facility] Work Phone: 10-24-2022 Evaluation + Plan note Associated Problem(s): 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 stenosis - following with pain management - had lumbar mri - 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 [facility] Work Phone: 10-24-2022 Evaluation + Plan note Associated Problem(s): HTN (hypertension) Continue metoprolol xl po daily [facility] Work Phone: 10-24-2022 Evaluation + Plan note Associated Problem(s): DM II (diabetes mellitus, type II), controlled ([facility]) - seeing Endocrinology now, will have labs in 3 mo - continue glipizide 5mg po daily - continue lantus 20 units - continue metformin 1000mg po bid [facility] Work Phone: 10-24-2022 History of Present illness Narrative Subjective Patient ID: Devi Thompson is a 82 y.o. male who presents for Follow-up (3 month/BS readings: 129; 131; 138; 141; 107; 146; 135). HPI Patient is here today for 3 mo follow up on DMII Pt had URI recently but that has resolved, is sick now. Pt reports that his has been limited his sweets, overall his blood sugars are much improved. [place] palsy resolved. Review of Systems Constitutional: Negative for activity change, appetite change, chills and fatigue. HENT: Negative for congestion, postnasal drip, sinus pressure, sinus pain and sore throat. Respiratory: Negative for cough, shortness of breath and wheezing. Cardiovascular: Negative for chest pain and leg swelling. Gastrointestinal: Negative for abdominal distention, diarrhea, nausea and vomiting. Musculoskeletal: Positive for back pain. Neurological: Negative for weakness and numbness. Objective BP 165/86 (BP Location: Right arm, Patient Position: Sitting, BP Cuff Size: Adult) Pulse 94 Ht 1.803 m (5' 11") Wt 135 kg (297 lb) BMI 41.42 kg/m Physical Exam Constitutional: General: He is not in acute distress. Appearance: Normal appearance. HENT: Head: Normocephalic. Nose: Nose normal. Mouth/Throat: Mouth: Mucous membranes are dry. Pharynx: No oropharyngeal exudate. Eyes: General: Right eye: No discharge. Left eye: No discharge. Extraocular Movements: Extraocular movements intact. Pupils: Pupils are equal, round, and reactive to light. Cardiovascular: Rate and Rhythm: Normal rate and regular rhythm. Heart sounds: No murmur heard. No gallop. Pulmonary: Effort: Pulmonary effort is normal. No respiratory distress. Breath sounds: Normal breath sounds. No wheezing. Musculoskeletal: General: No swelling. Normal range of motion. Skin: General: Skin is warm and dry. Coloration: Skin is not jaundiced. Neurological: General: No focal deficit present. Mental Status: He is alert and oriented to person, place, and time. Cranial Nerves: No cranial nerve deficit. Psychiatric: Mood and Affect: Mood normal. Behavior: Behavior normal. 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 Lumbosacral spondylosis - see above Endocrine/Metabolic DM II (diabetes mellitus, type II), controlled (CMS/HCC) (Chronic) - seeing Endocrinology now, will have labs in 3 mo - continue glipizide 5mg po daily - continue lantus 20 units - continue metformin 1000mg po bid Relevant Medications simvastatin (Zocor) 40 mg tablet Other Hyperlipidemia - continue simvastatin 40mg po daily Final diagnoses: [I10] Primary hypertension [E11.9] Controlled type 2 diabetes mellitus without complication, without long-term current use of insulin (CMS/HCC) [M48.062] 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 stenosis [M47.27] Osteoarthritis of spine with radiculopathy, lumbosacral region [E78.2] Mixed hyperlipidemia documented in this encounter [facility] Work Phone: 09-26-2022 History of Present illness Narrative On a scale of 0 to 10, the patient rates the pain at 8.Pain Location: Low Back Pain.Pain Quality: Aching.Sensory/ Motor: Numbness, Pins and [place] and fingers on left hand.Timing/Duration: Intermittent and > 12 weeks duration.Controlled Substance:I have personally reviewed the [place]AR[place] report for DEVI THOMPSON. I have considered the risks of abuse, dependence, addiction and diversion.Goals for Pain Management:Oswestry Disability Index = 21. [facility] Work Phone: 09-19-2022 History of Present illness Narrative DIABETES SELF-MANAGEMENT EDUCATION AND SUPPORT Location: [place] Type of visit: In person individual Types of DSMES: Initial/Comprehensive (add to or update ADA spreadsheet) PATIENT'S MAIN CONCERN TODAY: What can I be allowed to eat? Support person present for education today: spouse Cognitive ability: Alert and oriented Motivation to learn: Interested Learning barriers identified by educator: none Method of instruction: written, verbal, and demonstration INTERVENTIONS/TOPICS COVERED: -Diabetes Pathophysiology: role of insulin in the body, role of glucose in the body, difference between Type 1 and Type 2, insulin resistance, relationship of glucose and insulin in the body, hepatic glucose release, and Type 2 diabetes risk factors -Monitoring: rationale for HGM, A1c meaning and target <7%, and using a home glucose monitor -Healthy Eating: foods with carbs, reading food labels, and carb counting tools (books, Internet, smartphone apps) -Medications: medication safety/timing, medication side effects, insulin storage, site selection/rotation, pen injection instruction, sharps disposal, basal insulin, and oral agents discussed: glipizide (Glucotrol) and metformin -Physical Activity: benefits of exercise and impact of exercise on BG -Acute Complications: hypoglycemia s/sx/tx, hyperglycemia s/sx/tx, sick day rules, and pattern management -Chronic Complications: LT complications and importance of BG control to reduce risks -Healthy Coping and Support: impact of stress on BG DIABETES ASSESSMENT: Referring Physician: Emanuel Colon Previous Diabetes Education? Yes, if so when? asked/not answered What are you hoping to gain from this visit? asked/not answered In your words, what is diabetes? Elevated sugars What concerns you about having diabetes? asked/not answered Diabetes History: Type of Diabetes: Type 2 What year were you diagnosed? asked/not answered Does anyone in your family have diabetes? asked/not answered How do you learn best? asked/not answered Demographics: Highest level of education: not discussed Race/Ethnic Origin: White/ Does your culture or scientology require any of the following: No cultural/amish practices affecting DM Do you have problems with: No difficulty seeing/hearing/reading/writing/s peaking Occupation: asked/not answered Work hours: asked/not answered Support System: How often does someone help you read hospital materials? rarely How often does someone help you read your pill bottles? rarely How often does someone have to help you take care of your diabetes? rarely Major stressors:asked/not answered How do you manage stress? asked/not answered Do any of the following things get in the way of managing your diabetes? No self-identified issues Health History: Most recent eye exam: Asked/not answered Most recent dental exam:Asked/not answered Most recent foot exam:Asked/not answered How often do you inspect your feet at home? Sometimes Do you use tobacco? No Do you use alcohol? Yes, How much? asked/not answered In the past 12 months have you had any: Hospital Admissions: Yes, Number of Times? 1 ER Visits: Yes, Number of Times? 1 Primary Care Visits: No What are your general feelings about you overall health? 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 Asked/not answered Sick Days: How do you manage your diabetes when you are sick? Asked/not answered Sleep: Do you get at least 7 hrs of sleep most nights? yes Current Outpatient Medications Medication Sig valACYclovir (VALTREX) 1 gram Take 1,000 mg by mouth once daily. 1 tablet TID for 21 doses glipiZIDE (GLUCOTROL XL) 5 mg 24 hr tablet Take 1 tablet by mouth once daily. insulin glargine (LANTUS) 100 unit/mL injection Inject 16 Units subcutaneously every 24 hours. metFORMIN (GLUCOPHAGE) 1,000 mg tablet Take 1 tablet by mouth twice daily with meals. Insulin Syringe-Needle U-100 0.5 mL 31 gauge x 5/16" Inject 1 Each subcutaneously q 24 HR. Give with each insulin administration. metoprolol succinate ER (TOPROL XL) 25 mg 24 hr tablet Take 1 tablet by mouth once daily. simvastatin (ZOCOR) 40 mg tablet Take 1 tablet by mouth daily at bedtime. naproxen sodium 220 mg cap Take 1 capsule by mouth twice daily. PRN aspirin, enteric coated (ADULT LOW DOSE ASPIRIN) 81 mg EC tablet Take 1 tablet by mouth once daily. No current facility-administered medications for this visit. Injections Technique: Do you take insulin or a medication you inject for your diabetes? Yes;then if so answer the following questions: How do you inject your medicine Pen Where are your injections done? Asked/not answered Who prepares your syringes, pen, or pump infusion set? Asked/not answered Who gives you injections or changes your pump sites? Asked/not answered Where do you throw away your needles? Sharps container Blood Sugar Monitoring: Do you have a blood sugar monitor? Asked/not answered Management of Low Blood Sugar: What has been your lowest blood sugar in the last month? asked/not answered What are your symptoms of lows?Asked/not answered How do you treat lows? asked/not answered Do you drive? asked/not answered Management of High Blood Sugar: What has been you highest blood sugar in the last month? 487 What are your symptoms of highs? Tired and Frequent urination How do you treat your highs? asked/not answered Meal Planning: Are you currently following any meal plan? None Who does the cooking in your house? Spouse Who does the grocery shopping? Spouse How often do you eat out? asked/not answered How many meals do you eat per day? Asked/not answered Which meals do you tend to skip? Asked/not answered Beverages: water and diet drinks Reproductive Status (Females): Have you reached menopause? N/A (male patient) EDUCATION HANDOUTS: Healthy You: Survival Skills and Healthy You: Planning Healthy Meals LEARNING RESPONSE: Diabetes pathophysiology: Demonstrated understanding/competency today or at previous visit Healthy eating: Demonstrated understanding/competency today or at previous visit Being active: Demonstrated understanding/competency today or at previous visit Taking medications: Demonstrated understanding/competency today or at previous visit Monitoring glucose: Demonstrated understanding/competency today or at previous visit Acute complications: Demonstrated understanding/competency today or at previous visit Chronic complications: Not assessed at the visit Healthy coping: Demonstrated understanding/competency today or at previous visit Diabetes distress and support: Demonstrated understanding/competency today or at previous visit PATIENT SELECTED THE FOLLOWING GOALS: -Healthy eating goal: making better food choices 2: I might be ready to make a plan POSSIBLE FUTURE TOPICS: 1. The following topics were not assessed due to time limitations, but should be assessed at the next visit: all areas were assessed today or within the last 12 months. 2. The following topics should be taught or reinforced at the next visit: . DIABETES EDUCATION PLAN: Individual follow-up Time Spent (Minutes): 45 This visit note will be communicated to the healthcare provider via access to shared medical record. SIGNATURE: Jay Wei RN PATIENT NAME: Devi Thompson DATE: September 19, 2022 TIME: 12:05 PM PAGER: documented in this encounter [facility] 09-19-2022 Instructions Emanuel Colon MD - 09/19/2022 11:46 AM EST - Continue metformin 1000 mg twice a day - Start taking a new pill called Glipizide XL 5 mg once a day in the morning - Lower the lantus insulin to 16 units once a day This is how you adjust the lantus dose: If your overnight or morning blood sugar is ever lower than 90, please decrease your lantus insulin by 1 unit permanently, and repeat as needed If your morning blood sugar is higher than 140 for 3 days in a row, please increase your lantus insulin by 1 unit permanently, and repeat as needed - If your blood sugars drop to below 90 frequently, please let us know - Meet with the Jay (dietitian). - See the diabetes nurse Helen in 2-3 months, and see me in 6 months documented in this encounter [facility] 09-19-2022 History of Present illness Narrative ENDOCRINOLOGY CLINIC NOTE Mr. Thompson is a 82 year old male with T2DM, HTN, CKD stage 2presented for post hospital follow up of diabetes HPI He was not sure when he was diagnosed with diabetes. He was admitted to the hospital in 08/2022 with facial droop. His glucose was 427. He was on metformin, and was started on basal insulin during and after the hospitalization. He was diagnosed Farxiga was suggested but cost was an issue A1c: 11/26/21 09:36 04/06/22 13:29 07/10/22 09:32 09/11/22 04:54 Hemoglobin A1C 9.7 (H) 9.8 (H) 10.9 (H) 10.0 (H) Current regimen: Metformin 1000 mg twice a day Lantus 20 units daily in the morning Home glucose monitoring: He started checking few days ago. 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 Diverticulitis Essential hypertension Impaired fasting glucose Influenza vaccination declined by patient 05/24/2015 Lumbar radiculopathy Urinary outflow obstruction PAST SURGICAL HISTORY Procedure Laterality Date CHOLECYSTECTOMY CHOLECYSTECTOMY HX LOW BACK DISK SURGERY NUCLEAR STRESS LEXISCAN (CARD) 04/03/2016 PAST SURGICAL HISTORY OF 1986 back surgery TONSILLECTOMY HX FAMILY HISTORY Problem Relation Age of Onset Hypertension Mother Diabetes Mother other (lung cancer) Father Hearing Loss Paternal Grandfather Heart Brother Heart Sister Social History Tobacco Use Smoking status: Former Packs/day: 2.00 Years: 10.00 Pack years: 20.00 Types: Cigarettes Start date: 08/13/1960 Quit date: 12/13/1970 Years since quittin.7 Smokeless tobacco: Never Substance Use Topics Alcohol use: Yes Comment: yearly use Drug use: No (Not in a hospital admission) Allergies As of Date: 09/19/2022 Allergen Noted Reaction ACETAMINOPHEN 03/23/2016 Other: See Comments Fully Assessed 09/11/2022 Current Outpatient Medications Medication Sig Dispense Refill metFORMIN (GLUCOPHAGE) 1,000 mg tablet Take 1 tablet by mouth twice daily with meals. 180 tablet 0 valACYclovir (VALTREX) 1 gram Take 1 tablet by mouth three times daily for 21 doses. 21 tablet 0 insulin glargine (LANTUS) 100 unit/mL injection Inject 20 Units subcutaneously every 24 hours. 10 mL 5 Insulin Syringe-Needle U-100 0.5 mL 31 gauge x 5/16" Inject 1 Each subcutaneously q 24 HR. Give with each insulin administration. 90 Each 0 metoprolol succinate ER (TOPROL XL) 25 mg 24 hr tablet Take 1 tablet by mouth once daily. 90 tablet 1 simvastatin (ZOCOR) 40 mg tablet Take 1 tablet by mouth daily at bedtime. 90 tablet 1 naproxen sodium (ALEVE) 220 mg cap Take 1 capsule by mouth twice daily. aspirin, enteric coated (ADULT LOW DOSE ASPIRIN) 81 mg EC tablet Take 1 tablet by mouth once daily. 30 tablet 4 No current facility-administered medications for this visit. COMPLETE REVIEW OF SYSTEMS: 10 point review of systems was negative other than what is mentioned in the H&P PHYSICAL EXAM: 09/19/22 1112 BP: 152/89 BP Site: Left Arm BP Position: Sitting BP Cuff Size: Large Adult Pulse: 70 SpO2: 97% Weight: 136 kg (299 lb 12.8 oz) Height: 176.3 cm (5' 9.4") General: NAD, alert and cooperative, no facial plethora HEENT: EOMI, no proptosis/stare. Cardiovascular: RRR, +S1 and S2, no MRG appreciated Lungs: Clear to auscultation bilaterally Extremities: No LE oedema Neuro: Alert and oriented Psych: Normal affect Labs: As mentioned above Assessment and Recommendations: Mr. Thompson is a pleasant 82-year-old man presented with his to establish care for T2DM. His diabetes is poorly controlled as evidenced by the A1c level and the reported glucose values. Our goal is to achieve an A1c around 7.5% to lower the risks of diabetes related complications, while not significantly increasing the risk of hypoglycemia The use of SGLT2 inhibitors and GLP-1 agonists is limited by cost. We will continue with metformin, and we will start glipizide XL 5 mg once a day. We will lower the Lantus to 16 units once a day to lower the risk of hypoglycemia after adding the glipizide. Instructions on how to further adjust the Lantus doses were discussed and provided in the after visit summary They will meet with my colleague AUGUSTIN today to discuss dietary management I spent a total of 50 minutes on the date of the service which included preparing to see the patient, [id number] patient care, completing clinical documentation, obtaining and/or reviewing separately obtained history, performing a medically appropriate examination, counseling and educating the patient/family/caregiver, and ordering medications, tests, or procedures. This note was created using [employer] dictation software. You may find errors that were missed during proofreading. They are purely unintentional and if there are any concerns regarding this dictation, please do not hesitate to contact the dictating provider for clarification. Emanuel Colon MD documented in this encounter [facility] 09-11-2022 Note HNO ID: [id number] Author: Yelena Travis RN Service: ? Author Type: Registered Nurse Type: Nursing Progress Note Filed: 09/11/2022 3:20 PM Note Text: Other: 1415: pt back from MRI. MRI negative. Dr. Negron ok to DC stroke protocol. [facility] 09-11-2022 Note HNO ID: [id number] Author: Jay Wei RN Service: Diabetes Education Author Type: Registered Nurse Type: Patient Education Filed: 09/11/2022 11:51 AM Note Text: DIABETES EDUCATION INPATIENT PROGRESS NOTE INITIAL OR FOLLOW-UP: First diabetes care AND education visit this admission VISIT TYPE: in-person SERVICE DATE: 09/11/2022 SERVICE TIME: 1145 RECOMMENDATIONS TO DISCHARGING PROVIDER FOR DISCHARGE ORDERS: Follow-up with PCP after discharge Scripts needed for diabetes supplies: Lancets, 100/box, epic code 28800 Blood glucose test strips, 50 per box, epic code [id number] (in comments section instruct pharmacy to dispense the test strips covered by patient's insurance) Blood-glucose meter kit, disp 1, epic code [id number] (enter in comment that pharm should fill with the meter covered by patient's insurance) Humalog Kwikpen U100, 5 pens/box, epic code [id number] Lantus Solostar, 5 pens/box, epic code 93920 BD Ultra-fine pen needles - Dinora (32g x 5/32"), 100/box, epic code [id number] RECOMMENDATIONS TO INPATIENT NURSE: Allow patient to dial up insulin pen dose (supervised) and Allow patient to self-inject insulin (supervised) PATIENT HISTORY/ASSESSMENT: Previously diagnosed: Type 2 Treatment prior to hospitalization: Oral Agent(s): Metformin Introduced myself to patient, he denies having checked sugars or used anything other than oral agents in past. Transport arrived to take patient to MRI, will follow up later to do education with the patient. SIGNATURE: Jay Wei RN PATIENT NAME: Devi Thompson DATE: September 11, 2022 TIME: 11:49 AM PAGER: [phone] [facility] 08-29-2022 History of Present illness Narrative Episode Visit Count: 4 Therapist That Will Accept/Oversee The Plan Of Care: Bharati Armenta Start of Care Date: 08/08/22 Onset Date: (long standing history, post surgery in 1984, injections '2016, and none recently.) Plan of Care Certification Date: 08/08/22 Next Certification Due Date: 10/07/22 Patient Identified by Name and Date of : Yes REHABILITATION AND SPORTS THERAPY PHYSICAL THERAPY TREATMENT NOTE ASSESSMENT: Devi Thompson tolerated the session with decreased symptoms and expected muscle soreness. He demonstrated difficulty with habitual lateral shift right with gait and standing posture and improvements in performance and knowledge of home exercise program. The patient will continue to benefit from ongoing skilled physical therapy to progress toward set goals. PLAN FOR NEXT VISIT: progress neutral spine by decreasing side bent right posture , progress glut med /max strength stretch hamstrings hip flexors , calf and hip flexor muscles as needed SUBJECTIVE: Patient Reason for Visit: patient reports little change in back over the last week , feels right leg is tighter and weaker than left Pain: Pain Pain Level: 8 Pain Location: Low Back/Lumbar Spine - Right;Low Back/Lumbar Spine - Left Description: Aching Frequency: Continuous Post Treatment Pain Post Treatment Pain Level: 3 Post Treatment Pain Location: Low Back/Lumbar Spine - Left;Low Back/Lumbar Spine - Right Post Treatment Pain Description: Aching OBJECTIVE MEASURES WITH LEVEL OF FUNCTION: TREATMENT: Therapeutic Exercise: 1: *standing side shift left 5 second hold x 5 x 2 2: supine manual hamstring and calf stretches right and left le , 30 sec x 2 each 3: seated pull downs, isometric pull down 5 second hold verbal cues to breath 4: seated isometric upper trunk rotation 5 sec x 5 right /left 5: *standing hip abduction with bilateral ue support 10 x 2 each 6: sit to stand 23 inch height , 10 x , 21 inch height 10 x with and without ue support Skilled Intervention: Patient was educated in proper exercise technique and purpose for exercises. Reviewed and educated patient on additions/changes for home exercise program as above (*). Skilled judgment was provided in selection of appropriate interventions. Provided written instruction for home exercise program to facilitate proper performance and compliance. Gait Trainin: gait walking toward mirror to decrease side shift right in right stance Skilled Intervention: verbal , visual and tactile cues Billing Therapeutic Exercise Treatment Minutes: 40 Gait Training Treatment Minutes: 5 Total Treatment Time Minutes (timed/untimed): 45 Vasyl Wilson PTA documented in this encounter [facility] 08-22-2022 History of Present illness Narrative Episode Visit Count: 3 Therapist That Will Accept/Oversee The Plan Of Care: Bharati Armenta Start of Care Date: 08/08/22 Onset Date: (long standing history, post surgery in 1984, injections '2016, and none recently.) Plan of Care Certification Date: 08/08/22 Next Certification Due Date: 10/07/22 Patient Identified by Name and Date of : Yes REHABILITATION AND SPORTS THERAPY PHYSICAL THERAPY TREATMENT NOTE ASSESSMENT: Devi Thompson tolerated the session with decreased symptoms and expected muscle soreness. He demonstrated difficulty with correct performance of home exercises , rectus diastasis with transfers and attempting to fire abdominals and improvements in sit to stand transfers with engaging abdominals, and improved knowledge and performance of home exercise post review and with verbal and tactile cues . The patient will continue to benefit from ongoing skilled physical therapy to progress toward set goals. PLAN FOR NEXT VISIT: assess current HEP , for technique and purpose , strengthen left glut medius and checi pelvic symmetry and pssible right leg length discrepency SUBJECTIVE: Patient Reason for Visit: patient reports increased pain in low back worse after doing HEP Pain: Pain Pain Level: 7 Pain Location: Low Back/Lumbar Spine - Left;Low Back/Lumbar Spine - Right (worse on left) Description: Aching Frequency: Continuous (worse with standing and walking) Post Treatment Pain Post Treatment Pain Level: Better OBJECTIVE MEASURES WITH LEVEL OF FUNCTION: TREATMENT: Therapeutic Exercise: 1: nu step seat 11 ue/le level 2 5 min 2: supine manual hamstring and calf stretches right and left le , 30 sec x 2 each 3: supine manual hip ER stretch 30 sec x 3 right /left 4: hooklying isometric hip extension with straight leg 5 second hold x 5 x 2 right /left 5: *hooklying isometric shoulder pull down 5 second hold 5 x 2, gave seated at kitchen table for HEP 6: *hooklying isometric upper trunk rotation alternating , gave seated at door frame for HEP 7: *long sitting at EOB with heels on foot stool for self hamstring stretch verbal cues to decrease rounded back 8: *sit to stand with ue support , with abdominal brace , andincreased hip extension 9: educated patient on purpose and technique of HEP , and addressed use of abdominal muscles without increased rectus diastisis Skilled Intervention: Patient was educated in proper exercise technique and purpose for exercises. Reviewed and educated patient on additions/changes for home exercise program as above (*). Skilled judgment was provided in selection of appropriate interventions. Provided written instruction for home exercise program to facilitate proper performance and compliance. Patient education as noted. Manual Therapy: 1: hooklying left psoas and illiacus release 5 min Skilled Intervention: Manual skills to improve joint mobility, ROM, and decrease pain. Utilized anatomy knowledge of the therapist, and assessment of patient's response to intervention. Billing Therapeutic Exercise Treatment Minutes: 50 Manual TherapyTreatment Minutes: 5 Total Treatment Time Minutes (timed/untimed): 55 Vasyl Wilson PTA documented in this encounter [facility] 08-08-2022 History of Present illness Narrative Episode Visit Count: 1 Therapist That Will Accept/Oversee The Plan Of Care: Bharati Armenta Start of Care Date: 08/08/22 Onset Date: (long standing history, post surgery in 1984, injections '2016, and none recently.) Plan of Care Certification Date: 08/08/22 Next Certification Due Date: 10/07/22 Patient Identified by Name and Date of : Yes REHABILITATION AND SPORTS THERAPY PHYSICAL THERAPY EVALUATION PLAN OF CARE: Assessment: Devi Thompson presents with diagnosis of lumbosacral spondylosis with chief complaint of LBP s/p 2 lumbar surgeries , one in 1984, where pt reports he feels he had a Lumbar fusion x 1 level; second surgery in [address] Urena , and pt is uncertain what was performed , and upon exam of pt spine it appears that pt scar courses all of L-spine L1-5, pt states " he used a device , like a tube," - sounding like a cage possibly , which interferes with standing;walking;bending;lifting ;physical activities;recreational activities . He presents with impairments in balance, flexibility, gait, joint mobility, overall function, patient reported outcome measures, posture, strength , and tissue tenderness. PROMIS (Patient-Reported Outcomes Measurement Information System) scores were reviewed and were not performed. Prognosis for therapy is Good due to: good support system/ coping skills Fair due to: multiple co- morbidities;chronic nature of impairments . He will benefit from skilled therapy services to meet the goals established for this plan of care as noted below. Goals for Episode of Care: created on 08/08/22 through 10/07/22 [place] in home exercise program. Patient will decrease pain rating by 2 points to meet minimal clinical important difference for numeric pain rating scale. Patient will increase active ROM of spine, as tolerated to WFL and lower extremity flexibility WFL to allow pt to to improve postural alignment, to improve gait mechanics / gait pattern , and to decrease falls risks . Patient will demonstrate increase in bilateral lower extremity, and core abdominal, trunk strength strength to 4+ to 5/5 during manual muscle testing in order to improve function for leisure / recreation skills, light functional tasks, and prior functional tasks. Patient will increase flexibility of bilateral Hip flex, and hams, gastrocs, hips to WFL to improve ability to maintain proper posture, improve mechanics, and decrease pain. Perform HEP, daily act's without pain. Patient will Improve/ tolerate Timed Up and Go in < 30 seconds to demonstrate decreased risk of falling. Patient will improve 10MWT to 1.0 m/s as tolm/s with assistive device to demonstrate improvement in functional community ambulation. Improve postural awareness. Normal gait. Patient Goals: To decrease pain and increase my strength Planned Interventions, Frequency, and Duration: Current Frequency: 2x/week Duration: Two months Total Number of Visits Planned: 18 Planned Treatment Interventions: Therapeutic exercise (84054);Manual therapy (89277);Therapeutic activities (68537);Gait Training (34222);Self-alf management (70880);Body Mechanics Training PLAN FOR NEXT VISIT: Progress ROM, LE flexibility, core strengthening, LE strength Patient demonstrates good understanding of plan of care and treatment. The above goals and plan of care were discussed and agreed upon by patient/family. 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 Cancer Clinical Reasoning: No identified risk factors. Infection Clinical Reasoning: No identified risk factors. Cauda Equina Syndrome Clinical Reasoning: No identified risk factors. Red Flags - Cervical Cancer Clinical Reasoning: No identified risk factors. Infection Clinical Reasoning: No identified risk factors. Spine History Symptoms Location at Onset: Back Symptoms Since Onset: Worsening Pain is Worse Always: Sitting;Prolonged positions;Standing Pain: Pain Pain Level: 6 Pain Location: Low Back/Lumbar Spine - Left (pain moreso L> R L5-S1, incision is long: approx L1-5) Description: Aching Frequency: Continuous;With movement;Standing;Walking Post Treatment Pain Post Treatment Pain Level: No Change PROMIS Scales T-scores: mean of general population = 50. 5 points is clinically meaningfully difference Percentiles provide an indication of how the patient's score ranks in relation to the general population. Higher percentile rankings indicate better function/quality of life. 50th percentile is the average of the general population and indicates half of respondents had a worse score. T-scores: mean of general population = 50. 5 points is clinically meaningfully difference Percentiles provide an indication of how the patient's score ranks in relation to the general population. Higher percentile rankings indicate better function/quality of life. 50th percentile is the average of the general population and indicates half of respondents had a worse score. OBJECTIVE MEASURES WITH LEVEL OF FUNCTION: Posture / Alignment Posture: Decreased lumbar lordosis;Hip asymmetry;Forward head;Rounded shoulders (leans to R ( trunk ) and inc WB RLE vs L , habit per pt ,) LE Observations: pt reports feeling coldness b feet since his 1st surgery Sitting Posture: Decreased lumbar lordosis;Increased thoracic kyphosis (rounded shoulders) Spine Observations R Lumbar Spine Palpation Tenderness: (L side > R at L5-S1) Sensation - Lumbar Sensation: Grossly Intact Lumbar Spine AROM Lumbar Flexion: Minimal limitation;Moderate limitation;End range pain (Hams and calf tightness) Lumbar Extension: Moderate limitation;End range pain Lumbar R Rotation: Moderate limitation Lumbar L Rotation: Moderate limitataion Thoracic Spine AROM Thoracic Extension: Moderate limitation Thoracic Rotation Right: Moderate limitation Thoracic Rotation Left: Moderate limitation LE Flexibility Flexibility: Hamstring Flexibility;Hip Flexor Flexibility R Hamstring Flexibility: -50per SLR L Hamstring Flexibility: -55 per SLR R Hip Flexor Flexibility: -8 L Hip Flexor Flexibility: -8 Spine Joint Mobility Spine Joint Mobility : Lumbar/Thoracic Joint Mobility Comment: mod decreased L& S mobility LE Strength Trunk Strength: grossly latiss, and scap. muscles 4/5; core muscles 3-/5 R LE Strength: Hips grossly 4- to 4/5, knees 4+, L LE Strength: Hips grossly 4- to 4/5, knees 4+, Gait Weight Bearing Status: FWB Gait: Modified Independent Gait Distance (feet): 150' x 1 Gait Deviations: General Deviations General Deviations/Observations: Page decreased;Difficulty changing direction/turning;Lateral sway increased;Flexed trunk posture;Scissoring of LEs;Step length decreased Functional Performance Test Results 10 Meter Walk Test Trial 1 (seconds): 9.2 10 Meter Walk Test Average (m/sec): 0.65 Education: Education Learning Preferences: Demonstration;Explanation;Perfor brea;Printed Materials Barriers: Acuity of Illness Learning/educational needs: Lifestyle changes;Health promotion;Safety;Home exercise program;Changes in Plan of Care;Posture Education Provided: Yes, see treatment interventions for education provided Education Provided To: Patient Education Mode/Type: Demonstration;Explanation/Discus efrain;Literature/Printed Materials;Performance;Teach Back Response to Education/Teach Back: Return Demonstration TREATMENT: PT Treatment Interventions: Therapeutic Exercise;Therapeutic Activity Evaluation Therapeutic Exercise: 1: Hamstring stretching , manual by PT 2: Hams stretches x HEP with LE on step / stool 20s x 5 l/r 3: LAQ x 5 x 2 4: DF/PF x 10 5: Posture ther ex: seated and standing trunk ext/ lumbar lordosis 6: standing wt shifts l/r with erect posture Skilled Intervention: Patient was educated in proper exercise technique and purpose for exercises. Reviewed and educated patient on additions/changes for home exercise program as above (*). Skilled judgment was provided in selection of appropriate interventions. Therapeutic Activity: 1: PT eval and POC discussed with pt. 2: Pt education jarvis body mechanics and spine anatome and effects of tioghtness and weakness on the spine Skilled Intervention: Educated on proper/safe technique for activities performed today. Activity progression based on professional judgment. Billing * Evaluation Low Complexity: 1 Unit Therapeutic Exercise Treatment Minutes: 15 Therapeutic Activity Treatment Minutes: 10 Total Treatment Time Minutes (timed/untimed): 55 Chelsea Armenta PT documented in this encounter [facility] 07-11-2022 History of Present illness Narrative On a scale of 0 to 10, the patient rates the pain at 1.now and 9/10 with standing or walking.Pain Quality: Aching and gets very intense with standing.Sensory/ Motor: Weakness and Rt leg >lt leg.Timing/Duration: Constant and > 12 weeks duration.Controlled Substance:I have personally reviewed the [place] report for DEVI THOMPSON. I have considered the risks of abuse, dependence, addiction and diversion.Exacerbating Factors: standing, stairs, walking and weightbearing.Alleviating Factors: Moist Heat, Repositioning, Other: ___.24 Hour Behavior:Symptoms are the same in the am.Symptoms are the same as the day progresses.Symptoms are the same in the pm.Symptoms are the same when lying down.Effect of Movement on Symptoms:Bending doesn't change symptoms. is unsteady.Lying doesn't change symptoms.Rising from sitting doesn't change symptoms.Sitting makes symptoms worse. gets stiff.Standing makes symptoms worse.Rising from supine to sitting doesn't change symptoms.Turning doesn't change symptoms.Walking makes symptoms worse.Twisting doesn't change symptoms.Weather doesn't change symptoms.Pushing motion doesn't change symptoms.Pulling motion doesn't change symptoms.Lifting: Same. cannot lift anymore.Psychosocial Factors vs Last Visit:Physical Functioning: Worse.Family Relationships: Same.Social Relationships: Same.Mood: Same.Sleep Patterns: Same.Overall Functioning: Worse.Self Management Tools: patient is resting with positive response, patient is using heat with positive response, patient is using mindfulness with positive response and patient is using relaxation with positive response.Goals for Pain Management:Opioid Risk Tool 0. [facility] Work Phone: 04-22-2022 Chief complaint Narrative - Reported NPV here for evaluation of bilat lower back pain rates 1/10 sitting and 9/10 standing or walking describes as a ache that gets more intense with walking or standing, feels like his legs are weak and rt leg drags when walking, pain is relieved with sitting. The pain started years ago 1979's no obvious injury, he had surgery discectomy 1984 at [facility] in [place], he tried Aleve use to get relief and now no relief, GPN 100mg TID reports no side effects but no real pain relief, Chiropractor before surgery, no PT.This is an 81-year-old male here for a new patient appointment for chief complaint of bilateral lower back pain. He reports this has been going on for many years. He reports the pain is mild when he is sitting but gets much more severe when he stands and walks. It limits his ambulation. He has found that it will help if he can lean forward on something. He will get weakness and heaviness in the legs. He states the right is worse than the left. He underwent back surgery 30 years ago for right leg pain. He reports at that time the right leg was not completely numb and the surgery was successful. He has tried NSAIDs and gabapentin with limited relief. He has tried chiropractic treatments but no therapy recently. He denies additional neurologic symptoms or issues with bladder or bowel control.The patient's past medical, social, and family history along with medications and allergies are available and were reviewed. [facility] History of Present illness Narrative Patient is here today for 3 mo follow upPatient reports that he has been having some back pain when he walks. He had a disc removed years ago. He does nnot have numbness or tingling or sciatica. Patient reports that he has to sit down after he walks for a while. He is not sure if the injection helped or not. LAst saw [facility] 3 years ago.Tolerating higher dose of metformin well, doesn ot check blood sugars. [facility] Work Phone: 07-04-2019 History of Present illness Narrative Patient is here today for 3 mo follow upPatient reports that he has been having some back pain when he walks. He had a disc removed years ago. He does nnot have numbness or tingling or sciatica. Patient reports that he has to sit down after he walks for a while. He is not sure if the injection helped or not. LAst saw [facility] 3 years ago.Tolerating higher dose of metformin well, doesn ot check blood sugars. [facility] Work Phone: 05-02-2019 History of Past i llness Narrative Problem Noted Date Resolved Date Obesity, Class III, BMI >= 40 05/02/2019 documented as of this encounter (statuses as of 03/14/2022) [facility] of [facility] illness Narrative* Problem Noted Date Resolved Date Obesity, Class III, BMI >= 40 05/02/2019 documented as of this encounter (statuses as of 08/14/2022) [facility] History of [facility] illness Narrative* Problem Noted Date Resolved Date Obesity, Class III, BMI >= 40 05/02/2019 documented as of this encounter (statuses as of 08/22/2022) [facility] History of Past illness Narrative* Problem Noted Date Resolved Date Obesity, Class III, BMI >= 40 05/02/2019 documented as of this encounter (statuses as of 08/29/2022) [address]20-2019 History of Past illness Narrative* Problem Noted Date Resolved Date Obesity, Class III, BMI >= 40 05/02/2019 documented as of this encounter (statuses as of 09/19/2022) [facility] of Past illness Narrative* Problem Noted Date Resolved Date Obesity, Class III, BMI >= 40 05/02/2019 documented as of this encounter (statuses as of 09/19/2022) [facility] History of Past illness Narrative* Problem Noted Date Resolved Date Obesity, Class III, BMI >= 40 05/02/2019 documented as of this encounter (statuses as of 01/16/2023) [facility] History of Past illness Narrative* Problem Noted Date Diagnosed Date Resolved Date Obesity, Class III, BMI >= 40 05/02/2019 05/20/2020 documented as of this encounter (statuses as of 10/24/2023) [facility] History of Past illness Narrative* Problem Noted Date Diagnosed Date Resolved Date Obesity, Class III, BMI >= 40 05/02/2019 05/20/2020 documented as of this encounter (statuses as of 10/25/2023) [facility] History of Past illness Narrative* Problem Noted Date Diagnosed Date Resolved Date Obesity, Class III, BMI >= 40 05/02/2019 05/20/2020 documented as of this encounter (statuses as of 10/30/2023) [facility] of Past illness Narrative* Problem Noted Date Diagnosed Date Resolved Date Obesity, Class III, BMI >= 40 05/02/2019 05/20/2020 documented as of this encounter (statuses as of 11/21/2023) [facility] History of Present illness Narrative* Patient is an 81 y.o. male patient who is here today * He states that he has not seen a Dr in person in several years since 2019 when the pandemic started. * Patient reports chronic back pain. * He has seen pain management and he had coritsone injections a few years ago. * Then he states that they told him that he was too overweight to do another one * He had back surgery in 1984, 1985. [facility] Work Phone: Evaluation note* Diagnosis Lumbosacral spondylosis without myelopathy- Primary Chronic bilateral low back pain without sciatica Radiculopathy, lumbar region Thoracic or lumbosacral neuritis or radiculitis, unspecified Abnormality of gait [facility] Diagnosis Lumbosacral spondylosis without myelopathy- Primary Chronic bilateral low back pain without sciatica Abnormality of gait [facility] Diagnosis Lumbosacral spondylosis without myelopathy- Primary Chronic bilateral low back pain without sciatica Abnormality of gait [facility] Diagnosis Poorly controlled type 2 diabetes mellitus (HCC)- Primary Type II or unspecified type diabetes mellitus without mention of complication, not stated as uncontrolled Type 2 diabetes mellitus with diabetic chronic kidney disease (HCC) Type II or unspecified type diabetes mellitus with renal manifestations, not stated as uncontrolled [facility] Diagnosis Poorly controlled type 2 diabetes mellitus (HCC) Type II or unspecified type diabetes mellitus without mention of complication, not stated as uncontrolled [facility] Diagnosis Thoracic myofascial strain, initial encounter- Primary Hand arthritis Unspecified arthropathy, hand documented in this encounter [facility] Work Phone: Evaluation note* Diagnosis Screening for prostate cancer- Primary Special screening for malignant neoplasm of prostate Controlled type 2 diabetes mellitus without complication, with long-term current use of insulin ([facility]) Mixed hyperlipidemia Primary hypertension Unspecified essential hypertension 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 stenosis Spinal stenosis of lumbar region 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, lumbosacral region Medicare annual wellness visit, subsequent Need for influenza vaccination Need for prophylactic vaccination and inoculation against influenza Iron deficiency anemia, unspecified iron deficiency anemia type documented in this encounter [facility] Work Phone: Evaluation note* Diagnosis Esotropia of right eye- Primary Unspecified esotropia Chronic bilateral low back pain with bilateral sciatica Primary hypertension Unspecified essential hypertension documented in this encounter [facility] Work Phone: Evaluation noteNo assessment information available [facility] Work Phone: Evaluation note* Diagnosis Benign prostatic hyperplasia with urinary frequency Urinary frequency Nocturia Hydrocele, unspecified hydrocele type documented in this encounter [facility] Work Phone: Evaluation note* Diagnosis Hydrocele, unspecified hydrocele type Swelling of scrotum Edema of male genital organs documented in this encounter [facility] Work Phone: Evaluation note* Diagnosis Benign prostatic hyperplasia with urinary frequency Hydrocele, unspecified hydrocele type Urinary frequency Nocturia documented in this encounter [facility] Work Phone: Evaluation note* Diagnosis Poorly controlled type 2 diabetes mellitus (HCC)- Primary Type II or unspecified type diabetes mellitus without mention of complication, not stated as uncontrolled documented in this encounter [facility] note* Diagnosis Poorly controlled type 2 diabetes mellitus (HCC) Type II or unspecified type diabetes mellitus without mention of complication, not stated as uncontrolled documented in this encounter [facility] note* Diagnosis Primary hypertension- Primary Unspecified essential hypertension Mixed hyperlipidemia Controlled type 2 diabetes mellitus without complication, without long-term current use of insulin (Multi) Benign prostatic hyperplasia with urinary frequency 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 stenosis Spinal stenosis of lumbar region Osteoarthritis of spine with radiculopathy, lumbosacral region documented in this encounter [facility] Work Phone: Evaluation note* Diagnosis Type 2 diabetes mellitus with stage 3a chronic kidney disease, with long-term current use of insulin (HCC)- Primary documented in this encounter [facility] note* Diagnosis Comprehensive diabetic foot examination, type 2 DM, encounter for (HCC) Diabetic peripheral neuropathy (HCC) Type II or unspecified type diabetes mellitus with neurological manifestations, not stated as uncontrolled Onychomycosis Dermatophytosis of nail Pain due to onychomycosis of toenail of left foot Pain due to onychomycosis of toenail of right foot documented in this encounter [facility] note* Diagnosis Primary hypertension- Primary Unspecified essential hypertension Controlled type 2 diabetes mellitus without complication, without long-term current use of insulin (Multi) 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 stenosis Spinal stenosis of lumbar region Osteoarthritis of spine with radiculopathy, lumbosacral region Mixed hyperlipidemia Need for influenza vaccination- Primary Need for prophylactic vaccination and inoculation against influenza Primary hypertension Unspecified essential hypertension Mixed hyperlipidemia Controlled type 2 diabetes mellitus without complication, without long-term current use of insulin (Multi) Benign prostatic hyperplasia with urinary frequency 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 Spinal stenosis of lumbar region Prolapsed lumbar disc Medicare annual wellness visit, subsequent documented in this encounter [facility] Work Phone: Evaluation note* Diagnosis Primary hypertension- Primary Unspecified essential hypertension Controlled type 2 diabetes mellitus without complication, without long-term current use of insulin (Multi) 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 stenosis Spinal stenosis of lumbar region Osteoarthritis of spine with radiculopathy, lumbosacral region Mixed hyperlipidemia Acute left-sided low back pain with sciatica, sciatica laterality unspecified- Primary DJD (degenerative joint disease), lumbosacral Degeneration of lumbar or lumbosacral intervertebral disc documented in this encounter [facility] Work Phone: Evaluation note* Diagnosis Primary hypertension- Primary Unspecified essential hypertension Controlled type 2 diabetes mellitus without complication, without long-term current use of insulin (CMS/HCC) 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 stenosis Spinal stenosis of lumbar region Osteoarthritis of spine with radiculopathy, lumbosacral region Mixed hyperlipidemia documented in this encounter [facility] Work Phone: Evaluation note* Diagnosis Primary hypertension- Primary Unspecified essential hypertension Controlled type 2 diabetes mellitus without complication, without long-term current use of insulin (Multi) 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 stenosis Spinal stenosis of lumbar region Osteoarthritis of spine with radiculopathy, lumbosacral region Mixed hyperlipidemia Hydrocele in adult- Primary Benign prostatic hyperplasia with urinary frequency Hydrocele, unspecified hydrocele type Nocturia Urinary frequency documented in this encounter [facility] Work Phone: Evaluation note* Diagnosis Onychomycosis- Primary Dermatophytosis of nail Pain due to onychomycosis of toenail of left foot Pain due to onychomycosis of toenail of right foot Diabetic peripheral neuropathy (HCC) Type II or unspecified type diabetes mellitus with neurological manifestations, not stated as uncontrolled [facility] Primary hypertension- Primary Unspecified essential hypertension Controlled type 2 diabetes mellitus without complication, without long-term current use of insulin (Multi) 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 stenosis Spinal stenosis of lumbar region Osteoarthritis of spine with radiculopathy, lumbosacral region Mixed hyperlipidemia 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 stenosis Spinal stenosis of lumbar region documented in this encounter [facility] Work Phone: Evaluation note* Diagnosis Primary hypertension- Primary Unspecified essential hypertension Controlled type 2 diabetes mellitus without complication, without long-term current use of insulin (Multi) 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 stenosis Spinal stenosis of lumbar region Osteoarthritis of spine with radiculopathy, lumbosacral region Mixed hyperlipidemia Lumbar radiculopathy- Primary Thoracic or lumbosacral neuritis or radiculitis, unspecified 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 stenosis Spinal stenosis of lumbar region 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, lumbosacral region Numbness Disturbance of skin sensation documented in this encounter [facility] Work Phone: Evaluation note* Diagnosis Primary hypertension- Primary Unspecified essential hypertension Controlled type 2 diabetes mellitus without complication, without long-term current use of insulin (Multi) 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 stenosis Spinal stenosis of lumbar region Osteoarthritis of spine with radiculopathy, lumbosacral region Mixed hyperlipidemia Lumbar radiculopathy Thoracic or lumbosacral neuritis or radiculitis, unspecified 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 stenosis Spinal stenosis of lumbar region 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, lumbosacral region Numbness Disturbance of skin sensation documented in this encounter [facility] Work Phone: Evaluation note* Diagnosis Primary hypertension- Primary Unspecified essential hypertension Controlled type 2 diabetes mellitus without complication, without long-term current use of insulin (Multi) 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 stenosis Spinal stenosis of lumbar region Osteoarthritis of spine with radiculopathy, lumbosacral region Mixed hyperlipidemia Lumbar radiculopathy- Primary Thoracic or lumbosacral neuritis or radiculitis, unspecified Postlaminectomy syndrome, lumbar region S/P spinal fusion Arthrodesis status 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 stenosis Spinal stenosis of lumbar region documented in this encounter [facility] Work Phone: Evaluation note* Diagnosis Primary hypertension- Primary Unspecified essential hypertension Controlled type 2 diabetes mellitus without complication, without long-term current use of insulin (Multi) 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 stenosis Spinal stenosis of lumbar region Osteoarthritis of spine with radiculopathy, lumbosacral region Mixed hyperlipidemia Spondylosis of lumbosacral region without myelopathy or radiculopathy- Primary Controlled type 2 diabetes mellitus without complication, without long-term current use of insulin (Multi) Prostate cancer screening Special screening for malignant neoplasm of prostate documented in this encounter [facility] Work Phone: Evaluation note* Diagnosis Primary hypertension- Primary Unspecified essential hypertension Controlled type 2 diabetes mellitus without complication, without long-term current use of insulin (Multi) 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 stenosis Spinal stenosis of lumbar region Osteoarthritis of spine with radiculopathy, lumbosacral region Mixed hyperlipidemia 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 stenosis- Primary Spinal stenosis of lumbar region Chronic bilateral low back pain with bilateral sciatica Postlaminectomy syndrome, lumbar region documented in this encounter [facility] Work Phone: Evaluation note* Diagnosis Onychomycosis- Primary Dermatophytosis of nail Pain due to onychomycosis of toenail of left foot Pain due to onychomycosis of toenail of right foot Diabetic peripheral neuropathy (HCC) Type II or unspecified type diabetes mellitus with neurological manifestations, not stated as uncontrolled [facility] Primary hypertension- Primary Unspecified essential hypertension Controlled type 2 diabetes mellitus without complication, without long-term current use of insulin 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 stenosis Spinal stenosis of lumbar region Osteoarthritis of spine with radiculopathy, lumbosacral region Mixed hyperlipidemia Acute exacerbation of chronic low back pain- Primary Sciatica of left side documented in this encounter [facility] Work Phone: Evaluation note* Diagnosis Primary hypertension- Primary Unspecified essential hypertension Controlled type 2 diabetes mellitus without complication, without long-term current use of insulin 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 stenosis Spinal stenosis of lumbar region Osteoarthritis of spine with radiculopathy, lumbosacral region Mixed hyperlipidemia Spondylosis of lumbosacral region without myelopathy or radiculopathy- Primary Urinary frequency documented in this encounter [facility] Work Phone: Evaluation note* Diagnosis Primary hypertension- Primary Unspecified essential hypertension Controlled type 2 diabetes mellitus without complication, without long-term current use of insulin 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 stenosis Spinal stenosis of lumbar region Osteoarthritis of spine with radiculopathy, lumbosacral region Mixed hyperlipidemia Acute exacerbation of chronic low back pain Sciatica of left side documented in this encounter [facility] Work Phone: Evaluation note* Diagnosis Primary hypertension- Primary Unspecified essential hypertension Controlled type 2 diabetes mellitus without complication, without long-term current use of insulin 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 stenosis Spinal stenosis of lumbar region Osteoarthritis of spine with radiculopathy, lumbosacral region Mixed hyperlipidemia Spondylosis of lumbosacral region, unspecified spinal osteoarthritis complication status- Primary Postlaminectomy syndrome, lumbar region 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 stenosis Spinal stenosis of lumbar region documented in this encounter [facility] Work Phone: Evaluation note* Diagnosis Onychomycosis- Primary Dermatophytosis of nail Pain due to onychomycosis of toenail of left foot Pain due to onychomycosis of toenail of right foot Diabetic peripheral neuropathy (HCC) Type II or unspecified type diabetes mellitus with neurological manifestations, not stated as uncontrolled [facility] Primary hypertension- Primary Unspecified essential hypertension Controlled type 2 diabetes mellitus without complication, without long-term current use of insulin 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 stenosis Spinal stenosis of lumbar region Osteoarthritis of spine with radiculopathy, lumbosacral region Mixed hyperlipidemia Swelling of scrotum Edema of male genital organs documented in this encounter [facility] Work Phone: Evaluation note* Diagnosis Primary hypertension- Primary Unspecified essential hypertension Controlled type 2 diabetes mellitus without complication, without long-term current use of insulin 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 stenosis Spinal stenosis of lumbar region Osteoarthritis of spine with radiculopathy, lumbosacral region Mixed hyperlipidemia Cellulitis of right anterior lower leg- Primary documented in this encounter [facility] Work Phone: Evaluation note* Diagnosis Primary hypertension- Primary Unspecified essential hypertension Controlled type 2 diabetes mellitus without complication, without long-term current use of insulin 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 stenosis Spinal stenosis of lumbar region Osteoarthritis of spine with radiculopathy, lumbosacral region Mixed hyperlipidemia Cellulitis of leg, right- Primary documented in this encounter [facility] Work Phone: Evaluation note* Diagnosis Primary hypertension- Primary Unspecified essential hypertension Controlled type 2 diabetes mellitus without complication, without long-term current use of insulin 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 stenosis Spinal stenosis of lumbar region Osteoarthritis of spine with radiculopathy, lumbosacral region Mixed hyperlipidemia Cellulitis of right lower extremity- Primary documented in this encounter [facility] Work Phone: Evaluation note* Diagnosis Primary hypertension- Primary Unspecified essential hypertension Controlled type 2 diabetes mellitus without complication, without long-term current use of insulin 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 * Past Medical, Surgical and Family History: reviewed and updated in chart. * Interval History: Patient has not been hospitalized previously. * Medications and Supplements: Review of all medications by a prescribing practitioner or clinical pharmacist (such as prescriptions, OTCs, herbal therapies and supplements) documented in the medical record. * No, the patient is not using opioids. * Health Risk Assessment: * During the past 4 weeks: * How much have you been bothered by feeling anxious, depressed, irritable or sad, downhearted or blue? Not at all. * Has your physical and emotional health limited your social activities with family, friends, neighbors or groups? Not at all. * In general bodily pain: Moderate pain. * Was someone available to help you if you needed or wanted help: Yes, as much as I wanted. * The hardest physical activity you could do for at least 2 minutes: Light. * Yes, can get to places out of walking distance without help. * Yes, can shop for groceries or clothes without help. * Yes, does prepare meals. * Yes, does housework without help. * Yes, handles money without help. * Does not need help eating, bathing, dressing, or getting around home. * Rates health in general: Good. * How have things been going for you? Very well, could hardly be better. * Having difficulties driving a car: No. * Always fastens seatbelt when in a car: Yes, usually. * Has fallen or gotten dizzy when standing up: Never * Sexual problems: Never * Has trouble eating: Never * Has problems with teeth or dentures: Never * Has problems using the telephone: Never * Tired or fatigued: Never No, has not fallen 2 or more times in the past year. No, not afraid of falling. * Number of drinks of wine, beer or other alcoholic beverages: No alcohol at all. * Exercise for about 20 minutes 3 or more days a week: No, I usually do not exercise this much. * Have you been given any information to help you with the following: Yes, has given information regarding hazards in the home that might hurt you. Yes, has been given information regarding keeping track of medications. * Do you have trouble taking medicines the way told to take them: I always take them as prescribed. * Confidence in control and management of most health problems: Somewhat cofident. * Patient Self Assessment of Health Status: good. * Tobacco use: Non-User * Alcohol use: Non-User * Illicit drug use: Non-User * Current diet: well balanced diet, does consume adequate fluids and does consume caffeine. * Exercise Frequency: the patient does not exercise. * Depression/Suicide Screening: . * During the past 2 weeks, the patient has not felt down, depressed or hopeless. * During the past 2 weeks, the patient has not felt little interest or pleasure in doing things. * Hearing Impairment: none. * Cognitive Impairment: No cognitive impairment observed. * Bathing: performs independently. * Dressing: performs independently. * Walking: performs independently. * Toileting: performs independently. * Feeding: performs independently. * Personal Hygiene: performs independently. * Bowels: continent. * Bladder: continent. * Managing Finances: performs independently. * Shopping: performs independently. * Managing Medications: performs independently. * Housework / Basic Home Maintenance: performs independently. * Handling Transportation: performs independently. * Preparing Meals: performs independently. * Using the Telephone/ Communication Devices: performs independently. * Falls Risk Screening:. DEVI has not fallen in the last 6 months. * Home safety risk factors: none. * Advance directives:. Advanced Care Planning discussed and documented advance care plan or surrogatedecision maker documented in the medical record. Patient has living will. Patient has healthcare POA. * Patient's End of Life Decisions: I agree to follow the patient's decisions. * Patient is here today for 3 mo follow up * Patient states that he feels like he coughs a lot while he is walking and sometimes gets dizzy. * He also has some numbness in his fingers. * Patient denies any injury. * patient is right handed . * PAtients Blood work showed that he is diabetic. * His a1c was 9.3% * He has Tani taking metformin. * He is finding that his back is getting worse. * He had seen pain management. * He has [facility]. * He cannot do that Activities that he wants to do because his back. [facility] Work Phone: History of Present illness Narrative* Patient is here today for hospital follow up * Pt presented to [facility] on 08/3022 for facial droop, he has a History of bells palsy but this seemed different. Pt was noted to have a glucose of 427, negative troponins, CXR negative, CT brain negative. * We got the original ED note but no further notes. * Pt STAtes that he had Brain MRI and saw neurology and they did not think that he had a stroke. * Patient was discharged home with valtrex. * Was started on Insulin. Lantus. * A1c was 10.9.% * Pt has been having trouble with getting reading of blood sugars * Able to check it in the office and it was 329. * He has an appt with an Head Golf Professional on 09/19 at [facility]. [facility] Work Phone: History of Present illness Narrative* Yimi De La Cruz PA-C - 09/06/2023 10:50 AM EST Subjective Patient ID: Devi Thompson is a 83 y.o. male who presents for Hypertension (Patient here today for hypertension, has concerns of increased BP's, advised by eye doctor to follow with PCP./Patient scheduled for CT scan next week, ordered by his eye doctor in [place].). HPI Patient presents for possible elevated blood pressure readings. Patient is currently being worked up by ophthalmology for new onset esotropia of the right eye. At the visit, patient's blood pressure was elevated. Patient has known history of hypertension currently managed with metoprolol. Intake blood pressure today was okay Review of Systems Constitutional: See HPI Eye: See HPI Neurologic: Alert and oriented X4, No numbness, No tingling. All other systems are negative Objective BP 134/75 Pulse 75 Temp 36.2 C (97.1 F) (Temporal) Ht 1.803 m (5' 11") Wt 142 kg (313 lb 12.8 oz) BMI 43.77 kg/m Physical Exam General: Alert and oriented, No acute distress. Eye: Inward deviation of the right eye noted HENT: Normocephalic, Neck: Supple Respiratory: Respirations are non-labored Musculoskeletal: Normal ROM and strength Integumentary: Warm, Dry, Intact, No pallor, No rash. Neurologic: Alert, Oriented, Normal sensory, Cranial Nerves II-XII are grossly intact Psychiatric: Cooperative, Appropriate mood & affect. Assessment/Plan Hypertension: Prescription for blood pressure monitor. Take twice daily for 1 week and contact primary with results. Esotropia of the right eye: Continue with ophthalmology as scheduled. 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 * Sciatica ED (Kenyan) * Low Back Pain Discharge Instructions (Kenyan) [facility] Instructions* Attachments The following attachments cannot be sent through Care Everywhere. * Lumbar spinal stenosis (Kenyan) * Low Back Pain ED (Kenyan) * Sciatica Exercises ([place]) [facility]: Reason for referral (narrative)* Consultation (Routine) - Authorized Specialty Diagnoses / Procedures Referred By Contac t Referred To Contact Primary Care Procedures Follow Up In Primary Care - Established Gonzales Gray DO [address] [place] [address] Physician [place] [phone] Referral ID Status Reason Start Date Expiration Date V isits Requested Visits Authorized [id number] Authorized 04/26/2023 10/23/2023 1 1 [facility] Work Phone: Reason for referral (narrative)* Consultation (Routine) - Authorized Specialty Diagnoses / Procedures Referred By Contac t Referred To Contact Primary Care Procedures Follow Up In Primary Care - Established Gonzales Gray DO [address] [place] [address] Physician [place] [phone] Referral ID Status Reason Start Date Expiration Date V isits Requested Visits Authorized [id number] Authorized 11/27/2023 11/26/2024 1 1 [facility] Work Phone: Remvza for referral (narrative)* Consultation (Routine) - Authorized Specialty Diagnoses / Procedures Referred By Contac t Referred To Contact Primary Care Procedures Follow Up In Primary Care Gonzales Gray DO [address] [place] [address] Physician [place] [phone] Referral ID Status Reason Start Date Expiration Date V isits Requested Visits Authorized [id number] Authorized 10/24/2022 04/22/2023 1 1 [facility] Work Phone: reason for visit Narrative* Consultation (Routine) - Authorized Specialty Diagnoses / Procedures Referred By Contac t Referred To Contact Urology Diagnoses Benign prostatic hyperplasia with urinary frequency Yimi De La Cruz PA-C [address] [facility] [place] [address] Referral ID Status Reason Start Date Expiration Date Visits Requested Visits Authorized [id number] Authorized Specialty Services Required 08/16/2023 08/15/2024 1 1 [facility] Work Phone: reason for visit Narrative* Procedure (Routine) - Authorized Specialty Diagnoses / Procedures Referred By Contac t Referred To Contact Pain Medicine / Procedural Diagnoses 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 stenosis Procedures Transforaminal DC NJX AA&/STRD TFRML EPI LUMBAR/SACRAL 1 LEVEL Danica Quiñonez, STUDENT 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 [address] [place] [address] Phone: tel: fax: [facility] [place] [address] [place] [phone] fax: Referral ID Status Reason Start Date Expiration Date Visits Requested Visits Authorized [id number] Authorized Perform Procedure 4 07/29/2025 1 1 [facility] Work Phone: reason for visit Narrative* Imaging (Routine) - Authorized Specialty Diagnoses / Procedures Referred By Contac t Referred To Contact Radiology Diagnoses Lumbar radiculopathy 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, lumbosacral region Numbness Procedures MR lumbar spine wo IV contrast Melisa Streeter PA-C [address] [place] [address] Phone: tel: fax: Referral ID Status Reason Start Date Expiration Date Visits Requested Visits Authorized [id number] Authorized Perform Procedure 09/18/2024 09/18/2025 1 1 [facility] Work Phone: Summary Purpose Family History No Family History Records FoundUnknown Family Member Name Dates Details Family history of malignant neoplasm: Other(V16.9, Z80.9) Status:Active Non-small cell carcinoma of lung: Father Status:Active Family history of malignant neoplasm of breast: Sister(V16.3, Z80.3) Status:Active Family history of myocardial infarction: Mother(V17.3, Z82.49) Status:Active Unknown Family Member Name Dates Details Family history of malignant neoplasm: Other(V16.9, Z80.9) Status:Active Non-small cell carcinoma of lung: Father Status:Active Family history of malignant neoplasm of breast: Sister(V16.3, Z80.3) Status:Active Family history of myocardial infarction: Mother(V17.3, Z82.49) Status:Active Unknown Family Member Name Dates Details Family history of malignant neoplasm: Other(V16.9, Z80.9) Status:Active Non-small cell carcinoma of lung: Father Status:Active Family history of malignant neoplasm of breast: Sister(V16.3, Z80.3) Status:Active Family history of myocardial infarction: Mother(V17.3, Z82.49) Status:Active Unknown Family Member Name Dates Details Family history of malignant neoplasm: Other(V16.9, Z80.9) Status:Active Non-small cell carcinoma of lung: Father Status:Active Family history of malignant neoplasm of breast: Sister(V16.3, Z80.3) Status:Active Family history of myocardial infarction: Mother(V17.3, Z82.49) Status:Active Unknown Family Member Name Dates Details Family history of malignant neoplasm: Other(V16.9, Z80.9) Status:Active Non-small cell carcinoma of lung: Father Status:Active Family history of malignant neoplasm of breast: Sister(V16.3, Z80.3) Status:Active Family history of myocardial infarction: Mother(V17.3, Z82.49) Status:Active Unknown Family Member Name Dates Details Family history of malignant neoplasm: Other(V16.9, Z80.9) Status:Active Non-small cell carcinoma of lung: Father Status:Active Family history of malignant neoplasm of breast: Sister(V16.3, Z80.3) Status:Active Family history of myocardial infarction: Mother(V17.3, Z82.49) Status:Active Unknown Family Member Name Dates Details Family history of malignant neoplasm: Other(V16.9, Z80.9) Status:Active Non-small cell carcinoma of lung: Father Status:Active Family history of malignant neoplasm of breast: Sister(V16.3, Z80.3) Status:Active Family history of myocardial infarction: Mother(V17.3, Z82.49) Status:Active Unknown Family Member Name Dates Details Family history of malignant neoplasm: Other(V16.9, Z80.9) Status:Active Non-small cell carcinoma of lung: Father Status:Active Family history of malignant neoplasm of breast: Sister(V16.3, Z80.3) Status:Active Family history of myocardial infarction: Mother(V17.3, Z82.49) Status:Active Unknown Family Member Name Dates Details Family history of malignant neoplasm: Other(V16.9, Z80.9) Status:Active Non-small cell carcinoma of lung: Father Status:Active Family history of malignant neoplasm of breast: Sister(V16.3, Z80.3) Status:Active Family history of myocardial infarction: Mother(V17.3, Z82.49) Status:Active Unknown Family Member Name Dates Details Family history of malignant neoplasm: Other(V16.9, Z80.9) Status:Active Non-small cell carcinoma of lung: Father Status:Active Family history of malignant neoplasm of breast: Sister(V16.3, Z80.3) Status:Active Family history of myocardial infarction: Mother(V17.3, Z82.49) Status:Active Unknown Family Member Name Dates Details Family history of malignant neoplasm: Other(V16.9, Z80.9) Status:Active Non-small cell carcinoma of lung: Father Status:Active Family history of malignant neoplasm of breast: Sister(V16.3, Z80.3) Status:Active Family history of myocardial infarction: Mother(V17.3, Z82.49) Status:Active Advance Directives No Advanced Directives Records FoundDocuments on File Type Date Recorded 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 Advance Directive(s) 08/11/2018 10:14 AM Advance Directive(s) 08/10/2018 10:49 PM Advance Directive(s) 07/18/2017 9:59 AM Healthcare Agents on File Name Relationship Healthcare Agent Relationshi p Communication Elida Thompson Spouse Health Care Agent [id number] [id number] (Home) Healthcare Agents on File Name Relationship Healthcare Agent Relationshi p Communication Elida Thompson Spouse Health Care Agent Healthcare Agents on File Name Relationship Healthcare Agent Relationshi p Communication Elida Thompson Spouse Health Care Agent Healthcare Agents on File Name Relationship Healthcare Agent Relationshi p Communication Elida Thompson Spouse Health Care Agent Healthcare Agents on File Name Relationship Healthcare Agent Relationshi p Communication Elida Thompson Spouse Health Care Agent Healthcare Agents on File Name Relationship Healthcare Agent Relationshi p Communication Elida Thompson Spouse Health Care Agent Healthcare Agents on File Name Relationship Healthcare Agent Relationshi p Communication Elida Thompson Spouse Health Care Agent Healthcare Agents on File Name Relationship Healthcare Agent Relationshi p Communication Elida Thompson Spouse Health Care Agent Healthcare Agents on File Name Relationship Healthcare Agent Relationshi p Communication Elida Thompson Spouse Health Care Agent Healthcare Agents on File Name Relationship Healthcare Agent Relationshi p Communication Elida Thompson Spouse Health Care Agent Healthcare Agents on File Name Relationship Healthcare Agent Relationshi p Communication Elida Thompson Spouse Health Care Agent Healthcare Agents on File Name Relationship Healthcare Agent Relationshi p Communication Elida Thompson Spouse Health Care Agent Healthcare Agents on File Name Relationship Healthcare Agent Relationshi p Communication Elida Thompson Spouse Health Care Agent Healthcare Agents on File Name Relationship Healthcare Agent Relationshi p Communication Elida Thompson Spouse Health Care Agent Chief Complaint * 81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 * Denies needing medication RF's * 81 y/o male presents for Medicare wellness and 3 month f/u * Medications proposed * 81 y/o male presents for 3 month f/u * Denies needing medication RF's * Pt states it hurts to walk and it hurts to stand * States its been this way for awhile * 81 y/o male presents for 3 month f/u * Denies needing medication RF's * Pt states it hurts to walk and it hurts to stand * States its been this way for awhile * 82 y/o male presents for hospital f/u for [place] Palsy * Pt is currently on Valtrex for treatment and feels it is not helping * He states his LT eyes has also been watering constantly * He was also placed on insulin which he states he has been having trouble with * Requesting that the Lantus pen be sent instead of the solution * Originally they thought the patient had a stroke but that was ruled out after brain MRI and echo * In [facility] for abundio low back pain; 03/22 today. Was doing PT once a week x 3 weeks until diagnosed with [place] Palsy. Patient states pain increases when standing or walking. * This is an 82-year-old male here for a follow-up appointment for chief complaint of bilateral lowerback pain. He reports since his last visit the symptoms have been persistent and unchanged. He reports the pain is constant to an extent but its only severe when he is standing or walking. It limits h is. He will get a sensation of heaviness in the legs when he stands. He reports the pain starts on the left but it will eventually get to both sides and both sides are bad enough to limit his function. He reports at this point the 2 sides are roughly equal. He went through physical therapy but did not get any real long-term relief. He has also not sure that the gabapentin is doing much. He deniesside effects. He is undergoing more treatment now for his diabetes and has been able to lose a little bit of weight. He is hopeful that would help. He denies additional neurologic symptoms or issues with bladder or bowel control. * The patient's past medical, social, and family history along with medications and allergies are available and were reviewed. Reason for Referral Specialty Diagnoses / Procedures Referred By Brady russell Referred To Contact Diagnoses Poorly controlled type 2 diabetes mellitus (HCC) Procedures CONSULT TO DIABETES EDUCATION OFFICE/OUTPATIENT [facility] 60-74 MINUTES Emanuel Colon MD [address] [place] [address] Referral ID Status Reason Start Date Expiration Date V isits Requested Visits Authorized [id number] Closed PCP Requested Referral 09/19/2022 09/19/2023 1 1 Specialty Diagnoses / Procedures Referred By Contac t Referred To Contact Radiology Diagnoses Hydrocele, unspecified hydrocele type [place] [address] [place] [id number] Referral ID Status Reason Start Date Expiration Date Visits Requested Visits Authorized [id number] Authorized Perform Procedure 09/19/2023 09/18/2024 1 1 Specialty Diagnoses / Procedures Referred By Srikanthac t Referred To Contact Radiology Diagnoses Hydrocele, unspecified hydrocele type Swelling of scrotum Procedures US scrotum w doppler US scrotum Jessy Sweet MD [address] [place] [id number] Chief Complaint and Reason for Visit Chief Complaint SIXTH NERVE PALSY RI GHT EYE Additional Source Comments (unrecognized sect ion and content) No Status Records FoundNo Status Records FoundNo Status Records FoundNo Status Records FoundNo Status Records FoundNo Status Records FoundNo Status Records FoundNo Status Records FoundNo Status Records FoundNo Status Records FoundNo Status Records FoundNo Status Records Found INFORMATION SOURCE (unrecogn ized section and content) DATE CREATED AUTHOR 05/24/2020 [facility] DATE CREATED AUTHOR AUTHOR'S ORGANIZ ATION 09/12/2022 [facility] DATE CREATED AUTHOR AUTHOR'S ORGANIZ ATION 09/13/2022 [facility] DATE CREATED AUTHOR AUTHOR'S ORGANIZ ATION 09/29/2022 [facility] DATE CREATED AUTHOR AUTHOR'S ORGANIZ ATION 10/05/2022 [facility] DATE CREATED AUTHOR AUTHOR'S ORGANIZ ATION 11/22/2023 [facility] DATE CREATED AUTHOR AUTHOR'S ORGANIZ ATION 03/22/2024 [facility] DATE CREATED AUTHOR AUTHOR'S ORGANIZ ATION 02/28/2025 [facility] DATE CREATED AUTHOR AUTHOR'S ORGANIZ ATION 04/21/2025 [facility] DATE CREATED AUTHOR AUTHOR'S ORGANIZ ATION 04/28/2025 [facility] DATE CREATED AUTHOR AUTHOR'S ORGANIZ ATION 05/06/2025 [facility] DATE CREATED AUTHOR AUTHOR'S ORGANIZ ATION 05/07/2025 [facility] Source Comments (unrecognize d section and content) In the event this informatio n is protected by the Federal Confidentiality of Alcohol and Drug Abuse Patient Records regulations: The Federal rules restrict any use of the information to criminally investigate or prosecute any alcohol or drug abuse patient.[facility] Center[facility] the event this information is protected by the Federal Confidentiality of Alcohol and Drug Abuse Patient Records regulations: The Federal rules restrict any use of the information to criminally investigate or prosecute any alcohol or drug abuse patient.[facility] CenterIn the event this information is protected by the Federal Confidentiality of Alcohol and Drug Abuse Patient Records regulations: The Federal rules restrict any use of the information to criminally investigate or prosecute any alcohol or drug abuse patient.[facility] CenterIn the event this information is protected by the Federal Confidentiality of Alcohol and Drug Abuse Patient Records regulations: The Federal rules restrict any use of the information to criminally investigate or prosecute any alcohol or drug abuse patient.[facility] the event this information is protected by the Federal Confidentiality of Alcohol and Drug Abuse Patient Records regulations: The Federal rules restrict any use of the information to criminally investigate or prosecute any alcohol or drug abuse patient.[facility] Center[facility] the event this information is protected by the Federal Confidentiality of Alcohol and Drug Abuse Patient Records regulations: The Federal rules restrict any use of the information to criminally investigate or prosecute any alcohol or drug abuse patient.[facility] CenterIn the event this information is protected by the Federal Confidentiality of Alcohol and Drug Abuse Patient Records regulations: The Federal rules restrict any use of the information to criminally investigate or prosecute any alcohol or drug abuse patient.[facility] the event this information is protected by the Federal Confidentiality of Alcohol and Drug Abuse Patient Records regulations: The Federal rules restrict any use of the information to criminally investigate or prosecute any alcohol or drug abuse patient.[facility] Center[facility] the event this information is protected by the Federal Confidentiality of Alcohol and Drug Abuse Patient Records regulations: The Federal rules restrict any use of the information to criminally investigate or prosecute any alcohol or drug abuse patient.[facility] CenterIn the event this information is protected by the Federal Confidentiality of Alcohol and Drug Abuse Patient Records regulations: The Federal rules restrict any use of the information to criminally investigate or prosecute any alcohol or drug abuse patient.[facility] Center[facility] the event this information is protected by the Federal Confidentiality of Alcohol and Drug Abuse Patient Records regulations: The Federal rules restrict any use of the information to criminally investigate or prosecute any alcohol or drug abuse patient.[facility] CenterIn the event this information is protected by the Federal Confidentiality of Alcohol and Drug Abuse Patient Records regulations: The Federal rules restrict any use of the information to criminally investigate or prosecute any alcohol or drug abuse patient.[facility] CenterIn the event this information is protected by the Federal Confidentiality of Alcohol and Drug Abuse Patient Records regulations: The Federal rules restrict any use of the information to criminally investigate or prosecute any alcohol or drug abuse patient.[facility] Reason for Visit (unrecogniz ed section and content) Reason Comments Physical Therapy Specialty Diagnoses / Procedures Referred By Contac t Referred To Contact Physical Therapy / PHYSICAL THERAPY Diagnoses lumbosacral spondylosis Procedures NEW RS PT ORTH Sara Reina [address] [facility] [place] [address] Chelsea Armenta PT Referral ID Status Reason Start Date Expiration Date V isits Requested Visits Authorized [id number] Authorized 07/19/2022 09/12/2022 99 99 Reason Comments Refill Request Reason Comments PT Eval Reason Comments Follow Up Specialty Diagnoses / Procedures Referred By Contac t Referred To Contact Diagnoses Poorly controlled type 2 diabetes mellitus (HCC) Procedures CONSULT TO DIABETES EDUCATION OFFICE/OUTPATIENT NEW HIGH MDM 60-74 MINUTES Emanuel Colon MD [address] [place] [address] Referral ID Status Reason Start Date Expiration Date V isits Requested Visits Authorized [id number] Closed PCP Requested Referral 09/19/2022 09/19/2023 1 1 Reason Comments Back Pain Right mid back disco mfort that radiates to the front rib area x 3 weeks. States has been weeding outside. Reason Comments Medicare Annual Wellness Visit Jacquelin russell Specialty Diagnoses / Procedures Referred By Brady russell Referred To Contact Primary Care Procedures Follow Up In Primary Care Gonzales Gray [address] [place] [address] Referral ID Status Reason Start Date Expiration Date Visits Re quested Visits Authorized [id number] Closed 10/24/2022 04/22/2023 1 1 Reason Comments Hypertension Patient here today f or hypertension, has concerns of increased BP's, advised by eye doctor to follow with PCP.Patient scheduled for CT scan next week, ordered by his eye doctor in [place]. Specialty Diagnoses / Procedures Referred By Brady russell Referred To Contact Radiology Diagnoses Hydrocele, unspecified hydrocele type Swelling of scrotum Procedures US scrotum w doppler US scrotum Jessy Sweet MD [address] [place] [address] Referral ID Status Reason Start Date Expiration Date Visits Requested Visits Authorized [id number] Authorized Perform Procedure 09/19/2023 09/18/2024 1 1 Reason Comments scrotal us and med check Reason Onset Date Comments Refill Request 10/23/2023 Reason Comments Medication Problem TRESIBA FLEXTOUCH U- 100 100 unit/mL (3 mL) injection pen Reason Onset Date Comments Refill Request 10/30/2023 Reason Comments Follow-up 6 month Pain Pt reports body pain since he was bent over cutting his toe nails Specialty Diagnoses / Procedures Referred By Brady t Referred To Contact Primary Care Procedures Follow Up In Primary Care - Established Gonzales Gray [address] [place] [address] Referral ID Status Reason Start Date Expiration Date Visits Re quested Visits Authorized [id number] Closed 04/26/2023 10/23/2023 1 1 Reason Comments Follow Up Established Patient Reason Comments Diabetic Foot Exam Patient due for exam Nail Care Patient presents for diabetic nail care. Last A1c 7.1 Reason Comments Medicare Annual Wellness Visit Subsequen t +6 month Specialty Diagnoses / Procedures Referred By Brady russell Referred To Contact Primary Care Procedures Follow Up In Primary Care - Established Gonzales Gray DO [address] [place] [address] Phone: tel: fax: Referral ID Status Reason Start Date Expiration Date V isits Requested Visits Authorized [id number] Authorized 11/27/2023 11/26/2024 1 1 Reason Comments Hip Pain Left hip/buttock kilo n. Denies numbness or tingling. Loss of bowel or bladder. Reason Comments Follow-up 3 monthBS readings: 129; 131; 138; 141; 107; 146; 135 Reason Onset Date Comments Refill Request 08/04/2024 Reason Comments Nail Care Diabetic A1c 7.1 Reason Comments Follow-up FUV Bilat L4/5 TFESI on 08/29/24 he reports the pain is no better. Today he reports lower back pain L>R mostly on the lt side rates pain 3/10 sitting and 9/10 with walking any distance and rolling over in bed and wakes him every 2 hours. He is taking Tylenol and Aleve, he has no HEP, uses a quad cane. He stopped taking gabapentin 300mg because it did not help his pain. Reason Comments Back Pain FOLLOW UP ON LOWER B ACK PAIN, WORSE ON THE LEFT THAN RIGHT SIDE, HE HAS MORE PAIN WITH WALKING, STANDING, TRANSITIONING, TWISTING TO THE LEFT, DESCRIBES TO BE SHARP PAIN, Reason Comments Establish Care Back pain, problems with sugar Reason Comments Follow-up FUV meds he report t he Elavil did nothing for his pain and made him feel off balance he stopped taking them. Today he reports having pain in Today he reports lower back pain L>R mostly on the lt side rates pain 2/10 sitting and 4-5/10 with walking any distance and rolling over in bed and wakes him every 2 hours. He is not taking anything for his pain as it does not help, he has no HEP, uses a quad cane. Reason Comments Nail Care diab nail care A1C 8 .3 on 10/16/24 Reason Comments Hip Pain Patient c/o LBP/ L h ip pain. Has a history of back pain and was going to rehab for this, has also had an MRI, patient states that 2 weeks ago, while at rehab he developed R side back pain, patient states that has gotten better however L hip/back has gotten worse lately, no new injury. Reason Comments ER Follow-up Back pain 12/10/24 or iginally was on left side down outer leg through thigh, now pain on both sidesDid PT 1 x week Arm Pain Left upper arm pain with lump (under skin) Urinary Frequency Previously seen Dr. Sweet Reason Comments 2 week PT is here today for 2 week FUV. AWV due 06/25/25 Specialty Diagnoses / Procedures Referred By Brady russell Referred To Contact Family Medicine / Primary Care Diagnoses Acute exacerbation of chronic low back pain Sciatica of left side Maddie Scott PA-C [address] [facility] [place] [address] Phone: tel: fax: Referral ID Status Reason Start Date Expiration Date Visits Requested Visits Authorized [id number] Authorized Specialty Services Required 12/10/2024 12/10/2025 1 1 Reason Comments Pain FUV for Abundio low back pain. Pain score is 0/10 when he is sitting, can be 7/10 or more when up doing daily activities or if he is in one position too long. Pain is described as an ache. He also sleeps in a chair because it is more comfortable than his bed. He went to all his PT sessions except the last one because he had an eye emergency. He also did exercises at home. He quit doing them because he felt the pain was getting worse. He is ambulating with a cane. Reason Comments Nail Care Diabetic A1c 8.3 R l ower leg has red rash that has been there for about a week Reason Comments Urinary Frequency Reason Comments Rash Right leg skin irrit ation X 2 weeks Reason Comments Follow-up Pt is here today for an urgent care follow up for cellulitis in the right leg. Was on abx. Reason Comments Follow-up 6 month: leg redness Constantly itiching Reason Comments Rash Rash all over x 1 we ek after starting Bactrim for cellulitis Specialty Diagnoses / Procedures Referred By Contac t Referred To Contact Diagnoses Allergic reaction, initial encounter Mei Mayo Brayden, STUDENT 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 [address] [place] [address] Phone: tel: fax: Referral ID Status Reason Start Date Expiration Date V isits Requested Visits Authorized [id number] Pending Review 04/27/2025 04/27/2026 1 1 Care Teams (unrecognized sec tion and content) Water Commissioner Relationship Specialty Start Date End Date Gonzales Gray [address] [place], [place] [id number] PCP - General Internal Medicine 01/05/22 Water Commissioner Relationship Specialty Start Date End Date Gonzales Gray [address] [place] [id number] PCP - General Internal Medicine 01/05/22 Water Commissioner Relationship Specialty Start Date End Date Gonzales Gray [address] [place], [place] [id number] PCP - General Internal Medicine 01/05/22 Water Commissioner Relationship Specialty Start Date End Date Gonzales Gray [address] [place] [id number] PCP - General Internal Medicine 01/05/22 Water Commissioner Relationship Specialty Start Date End Date Gonzales Gray [address] [place] [address] PCP - General Internal Medicine 01/05/22 Water Commissioner Relationship Specialty Start Date End Date Gonzales Gray [address] [place] [address] PCP - General Internal Medicine 01/05/22 Water Commissioner Relationship Specialty Start Date End Date Gonzales Gray DO [address] [place] [address] [place] [address] PCP - General 11/22/21 Water Commissioner Relationship Specialty Start Date End Date Gonzales Gray DO [address] [place] [address] PCP - General Internal Medicine 01/05/22 Water Commissioner Relationship Specialty Start Date End Date Gonzales Gray DO [address] [facility] [place] [address] PCP - General 11/22/21 Gonzales Gray DO [address] [place] [address] PCP - MSSP ACO Attributed Provider 08/13/22 Water Commissioner Relationship Specialty Start Date End Date Gonzales Gray DO [address] [place] [address] PCP - General 11/22/21 Gonzales Gray DO [address] [place] [address] PCP - MSSP ACO Attributed Provider 08/13/22 Team Status: Active Member Role Status Dates Dr. Gonzales Gary DO Primary Care Provider Active Team Status: Inactive Member Role Status Dates Dr. Justino Rios MD Attending Provider, Referring Provider Active Dr. Gonzales Gray DO Primary Care Provider Active Water Commissioner Relationship Specialty Start Date End Date Gonzales Gray DO [address] [place] [address] PCP - General 11/22/21 Gonzales Gray DO [address] [place] [address] [facility] - [facility] Attributed Provider 08/13/22 Jessy Sweet MD [address] [place] [address] Surgeon Urology 09/19/23 Water Commissioner Relationship Specialty Start Date End Date Gonzales Gray DO [address] [place] [address] PCP - General 11/22/21 Gonzales Gray DO [address] [place] [address] PCP - MSSP ACO Attributed Provider 08/13/22 Jessy Sweet MD [address] [place] [address] Surgeon Urology 09/19/23 Water Commissioner Relationship Specialty Start Date End Date Gonzales Gray DO [address] [place] [address] PCP - General 11/22/21 Gonzales Gray DO [address] [place] [address] PCP - MSSP ACO Attributed Provider 08/13/22 Jessy Sweet MD [address] [place] [address] Surgeon Urology 09/19/23 Water Commissioner Relationship Specialty Start Date End Date Gonzales Gray DO [address] [facility] [place] [address] PCP - General Internal Medicine 01/05/22 Water Commissioner Relationship Specialty Start Date End Date Gonzales Gray DO [address] [facility] [place] [address] PCP - General Internal Medicine 01/05/22 Water Commissioner Relationship Specialty Start Date End Date Gonzales Gray DO [address] [facility] [place] [address] PCP - General Internal Medicine 01/05/22 Water Commissioner Relationship Specialty Start Date End Date Gonzales Gray DO [address] [facility] [place] [address] PCP - General 11/22/21 Gonzales Gray DO [address] [facility] [place] [address] PCP - MSSP ACO Attributed Provider 08/13/22 Jessy Sweet MD [address] [place] [address] Surgeon Urology 09/19/23 Water Commissioner Relationship Specialty Start Date End Date Gonzales Gray DO [address] [facility] [place] [address] PCP - General Internal Medicine 01/05/22 Water Commissioner Relationship Specialty Start Date End Date Gonzales Gray DO [address] [place] [address] PCP - General Internal Medicine 05/19/24 Water Commissioner Relationship Specialty Start Date End Date Gonzales Gray DO [address] [place] [address] PCP - General 11/22/21 Gonzales Gray DO [address] [place] [address] PCP - MSSP ACO Attributed Provider 11/12/23 Jessy Sweet MD [address] [place] [address] Surgeon Urology 09/19/23 Water Commissioner Relationship Specialty Start Date End Date Gonzales Gray DO [address] [place] [address] PCP - General 11/22/21 Gonzales Gray DO [address] [place] [address] PCP - [facility] Attributed Provider 11/12/23 Jessy Sweet MD [address] [place] [address] Surgeon Urology 09/19/23 Water Commissioner Relationship Specialty Start Date End Date Gonzales Gray DO [address] [place] [address] PCP - General 11/22/21 Water Commissioner Relationship Specialty Start Date End Date Gonzales Gray DO [address] [place] [address] PCP - General 11/22/21 Gonzales Gray DO [address] [facility] [place] [address] PCP - MSSP ACO Attributed Provider 11/12/23 Jessy Sweet MD [address] [place] [address] Surgeon Urology 09/19/23 Water Commissioner Relationship Specialty Start Date End Date Gonzales Gray DO [address] [facility] [place] [address] PCP - General Internal Medicine 01/05/22 Water Commissioner Relationship Specialty Start Date End Date Gonzales Gray DO [address] [place] [address] PCP - General Internal Medicine 05/19/24 Water Commissioner Relationship Specialty Start Date End Date Gonzales Gray DO [address] [facility] [place] [address] PCP - General 11/22/21 Yimi De La Cruz PA-C [address] [place] [address], [address] [address] PCP - MSSP ACO Attributed Provider 02/11/24 Jessy Sweet MD [address] [place] [address] Surgeon Urology 09/19/23 Water Commissioner Relationship Specialty Start Date End Date Gonzales Gray DO [address] [facility] [place] [address] PCP - General 11/22/21 Yimi De La Cruz PA-C [address] [place] [address], [address] [address] PCP - MSSP ACO Attributed Provider 02/11/24 Jessy Sweet MD [address] [place] [address] Surgeon Urology 09/19/23 Water Commissioner Relationship Specialty Start Date End Date Gonzales Gray DO [address] [facility] [place] [address] PCP - General 11/22/21 Yimi De La Cruz PA-C [address] [place] [address], [address] [address] PCP - MSSP ACO Attributed Provider 02/11/24 Jessy Sweet MD [facility] [place] [address] Surgeon Urology 09/19/23 Water Commissioner Relationship Specialty Start Date End Date Gonzales Gray DO [address] [facility] [place] [address] PCP - General 11/22/21 Gonzales Gray DO [address] [facility] [place] [address] PCP - MSSP ACO Attributed Provider 05/13/24 Jessy Sweet MD [address] [place] [address] Surgeon Urology 09/19/23 Water Commissioner Relationship Specialty Start Date End Date Gonzales Gray DO [address] [facility] [place] [address] PCP - MSSP ACO Attributed Provider 05/13/24 Gaby Ann, STUDENT 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 [address] [facility] [place] [id number] PCP - General Family Medicine 10/16/24 Jessy Sweet MD [address] [place] [phone] Surgeon Urology 09/19/23 Water Commissioner Relationship Specialty Start Date End Date Gonzales Gray PCP - MSSP ACO Attributed Provider 05/13/24 Gaby Ann, STUDENT 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 [address] [facility] [address] [address] PCP - General Family Medicine 10/16/24 Jessy Sweet MD [address] [place] [address] Surgeon Urology 09/19/23 Water Commissioner Relationship Specialty Start Date End Date Gaby Ann CNP [address] [facility] [place] [address] [place] [address] PCP - General Family Medicine 11/25/24 Water Commissioner Relationship Specialty Start Date End Date Gonzales Gray DO [address] [place] [address] PCP - MSSP ACO Attributed Provider 05/13/24 Gaby Ann APRN-CNP [address] [facility], [place] [address] [place] [address] PCP - General Family Medicine 10/16/24 Jessy Sweet MD [address] [place], [place] [id number] Surgeon Urology 09/19/23 Water Commissioner Relationship Specialty Start Date [place] [address] PCP - MSSP ACO Attributed Provider 05/13/24 Gaby Ann APRN-ELECTRONIC DEVICE REPAIRER [address] [facility], [address] [address] PCP - General Family Medicine 10/16/24 Jessy Sweet MD [address] [place] [address] Surgeon Urology 09/19/23 Water Commissioner Relationship Specialty Start Date [place] [address] PCP - MSSP ACO Attributed Provider 05/13/24 Gaby Ann APRN-MATTHEW [address] [facility], [address] [place] [address] PCP - General Family Medicine 10/16/24 Jessy Sweet MD [address] [place] [phone] Surgeon Urology 09/19/23 Water Commissioner Relationship Specialty Start Date End Date Gonzales Gray DO [address] [place] [address] PCP - MSSP ACO Attributed Provider 05/13/24 Gaby Ann STUDENT 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 [address] [facility], [place] [address] [place] [id number] PCP - General Family Medicine 10/16/24 Jessy Sweet MD [address] [place] [id number] Surgeon Urology 09/19/23 Water Commissioner Relationship Specialty Start Date End Date Gaby Ann CNP [address] [facility], [place] [address] [place] [id number] PCP - General Family Medicine 11/25/24 Water Commissioner Relationship Specialty Start Date End Date Gonzales Gray DO [address] [place] [id number] PCP - MSSP ACO Attributed Provider 05/13/24 Gaby Ann, STUDENT 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 [address] [facility], [place] [address] [place] [address] PCP - General Family Medicine 10/16/24 Jessy Sweet MD [address] [place] [phone] Surgeon Urology 09/19/23 Water Commissioner Relationship Specialty Start Date End Date Gonzales Gray DO [address] [place] [id number] PCP - [facility] Attributed Provider 05/13/24 Gaby Ann APRN-ELECTRONIC DEVICE REPAIRER [address] [facility], [place] [phone] PCP - General Family Medicine 10/16/24 Jessy Sweet MD [address] [place] [address] Surgeon Urology 09/19/23 Water Commissioner Relationship Specialty Start Date End Date Gonzales Gray DO [address] [place], [place] [id number] PCP - MSSP ACO Attributed Provider 05/13/24 Gaby Ann, STUDENT 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 [address] [facility], [place] [address] PCP - General Family Medicine 10/16/24 Jessy Sweet MD [address] [place] [address] Surgeon Urology 09/19/23 Goals (unrecognized section and content) Goals may be documented in a n alternate section Scheduled Active and Recently Administ ered Medications (unrecognized section and content) Medication Order 07/20/2024 07/21/2024 07/22/2024 HYDROmorphone (Dilaudid) injection 1 mg (COMPLETED) 1 mg, intramuscular, Once, On Sun07/22/24 at 1300, For 1 dose 1314 (Given - Provid er: Chiara Michaud RN) methylPREDNISolone sod succinate (SOLU-Medrol) injection 125 mg (COMPLETED) 125 mg, intramuscular, Once, On Sun07/22/24 at 1300, For 1 dose 1313 (Given - Provid er: Chiara Michaud RN) Scheduled Medication Order 12/08/2024 12/09/2024 12/10/2024 HYDROmorphone (Dilaudid) injection 1 mg (COMPLETED) 1 mg, intramuscular, Once, On Sun12/10/24 at 1540, For 1 dose 1600 (Given - Provid er: Alvina Figueroa RN) methylPREDNISolone sod succinate (SOLU-Medrol) injection 125 mg (COMPLETED) 125 mg, intramuscular, Once, On Sun12/10/24 at 1540, For 1 dose 1557 (Given - Provid er: Alvina Figueroa RN) ondansetron ODT (Zofran-ODT) disintegrating tablet 4 mg (COMPLETED) 4 mg, oral, Once, On Sun12/10/24 at 1540, For 1 dose 1556 (Given - Provid er: Alvina Figueroa RN) FOR RECORDS PERTAINING TO PATIENTS WHO ARE OR HAVE BEEN ENROLLED IN A CHEMICAL DEPENDENCY/SUBSTANCEABUSE PROGRAM, SOME INFORMATION MAY BE OMITTED. This clinical summary was aggregated from multiple sources. Caution should be exercised in using it in the provision of clinical care. This summary normalizes information from multiple sources, and as a consequence, information in this document may materially change the coding, format and clinical context of patient data. In addition, data may be omitted in some cases. CLINICAL DECISIONS SHOULD BE BASED ON THE PRIMARY CLINICAL RECORDS. [employer] [facility]. provides no warranty or guarantee of the accuracy or completeness of information in this document.
[2025-05-08] MEDS: Lactated Ringers 1,000 ML 15 ML IV (12:22)
--- NOTE | 2025-05-08 12:47 | PCM.PRE.AN2 ---
ASA Classification* ASA Classification ASA Classification: 2 Assessment & Plan Anesthesia* Anesthesia Assessment Anesthesia Assessment: Discussed sedation and/or anesthesia options, risks, benefits, and alternatives with patient/parents/legal guardian/POA. Questions invited. The patient/parents/legal guardian/POA seems to understand and agrees to proceed with anesthesia plan. Reviewed the physical assessment, medical history, allergy history and patient home medications list prior to surgery/procedure/anesthetic and documented any changes. Performed airway and anesthesia risk assessments. Anesthesia Type Anesthesia Type: General History Source History Obtained from:: Patient, Chart and Parent/ Guardian (Spouse present in the room) Anesthesia Focused Assessment* Temperature: 98.8 F Pulse Rate: 71 Blood Pressure: 154/89 Respiratory Rate: 18 Pulse Ox: 95 Oxygen Delivery Method: Room Air Airway Assessment Mouth opens: >3 cm Mallampati Score: II Teeth Condition: Missing Neck Range of motion (ROM): Limited ROM Labs Anesthesia Preop lab: CBC CHEMISTRY COAG Pre-Assessment Diagnosis/Proposed Procedure Planned Operative Procedure(s): BILAT HYDROCELECTONY Anesthesia History Anesthesia History - rn provider relations: Anesthesia History - rn provider relations Hx Hospitalization No 04/20/25 13:33 Any Problems With Anesthesia No 04/20/25 13:33 Cholinesterase deficiency No 04/20/25 13:33 You/Your Family Experience No 04/20/25 13:33 fever (hyperthermia) with Relationship Recent Exposure to Contagious No 05/08/25 12:25 Disease Does patient have nerve No 04/20/25 13:33 stimulator Patient instructed to have device shut off --Does patient have Pacemaker No 05/08/25 12:25 or ICD? When Was Last Pacemaker Check QUESTION #4 FULL TEXT: You/Your Family Experience fever (hyperthermia) with Anesthesia Last Oral Intake Last Oral intake: Last Oral Intake NPO since 06:00 05/08/25 12:25 Meds taken in AM with sips of Yes 05/08/25 12:25 water? Meds patient instructed to take am of surgery PONV PONV - rn provider relations: PONV - rn provider relations Female No 04/20/25 13:33 HX of Motion Sickness No 04/20/25 13:33 HX of N/V After Surgery No 04/20/25 13:33 Non-Smoker Yes 04/20/25 13:33 Duration of Surgery greater Yes 04/20/25 13:33 than 60 minutes Number of Risk Factors 2 04/20/25 13:33 PONV Score Moderate Risk 04/20/25 13:33 Height & Weight Height & Weight: Anesthesia: Height & Weight Height 5 ft 11 in 05/08/25 12:25 Weight: 143.3 kg 05/08/25 12:25 Body Mass Index (BMI) 44.0 05/08/25 12:25 Respiratory Assessment Respiratory Assessment - rn provider relations: Respiratory Tract Infection Hx - rn provider relations Hx Respiratory Tract Infection No 04/20/25 13:33 STOP Sleep Apnea STOP Sleep Apnea - rn provider relations: STOP Sleep Apnea - rn provider relations Hx Hypertension Yes: CONTROLLED WITH MED 04/20/25 13:33 Hx Sleep Apnea No 04/20/25 13:33 CPAP BIPAP Do you snore loudly (louder No 04/20/25 13:33 than talking or can be heard Do you often feel tired/ No 04/20/25 13:33 fatigued/ sleepy during daytime? Has anyone observed you stop No 04/20/25 13:33 breathing during sleep? STOP Results Negative 04/20/25 13:33 QUESTION #5 FULL TEXT : Do you snore loudly (louder than talking or can be heard through closed doors)? Tobacco Use History Tobacco Use History - rn provider relations: Tobacco Use History - rn provider relations Tobacco Use Smoking Status Never smoker 04/20/25 13:33 Hx Tobacco Use No 04/20/25 13:33 Years Smoking Packs Smoked per Day Smoking Cessation Date was within the last 15 years Hx Smoking Cessation Date Hx Smoking Cessation Counseling Hematologic Medial History Hematologic Hx - rn provider relations: Hematologic Medical Hx - clinical documentation nurse Hx of Blood Transfusion No 04/20/25 13:33 Hx of Transfusion in last 3 No 04/20/25 13:33 Months Date of Last Transfusion (if within last 3 months) Ever experience any problems No 04/20/25 13:33 with transfusion(s)? Specify any problems Hx of Preganancy in last 3 N/A 04/20/25 13:33 Months Nurse Filling Out Transfusion DSCHRIBER 04/20/25 13:33 & Questions: Date: 04/20/25 04/20/25 13:33 Time: 13:35 04/20/25 13:33 Patient unable to answer at this time (ie. confused, unrespo /Reproduction History /Reproductive History - rn provider relations: /Reproductive Hx- rn provider relations Hx Now No 04/20/25 13:33 Gestational Age (in weeks): EDC: Hx Hx Para Hx Section SAB No 04/20/25 13:33 Active Medications Active Medications: Current Medications Generic Name Dose Route Start Last Admin Trade Name Freq PRN Reason Stop Dose Admin Cefazolin Sodium 2 gm/ Sodium 110 mls @ 200 mls/hr 05/08/25 14:15 Chloride IV 05/08/25 14:47 INTRAOP ONE Lactated Ringer's 1,000 mls @ 15 mls/hr 05/08/25 12:00 05/08/25 12:22 IV 15 mls/hr .Q48H LAURI Administration PFSH Medical History Loss of hearing Wears glasses Depression Alcohol use Insulin dependent diabetes mellitus Arthritis Bladder disease Cellulitis Loss of consciousness Injury of head and neck Dietary restriction Heartburn Non-smoker Back pain History of pain when walking History of edema History of stress test Hypertension Pain Home Medications Medication Instructions Recorded Last Taken Type aspirin 81 mg tablet,delayed 81 mg PO DAILY 04/20/25 04/15/25 History release (Zeb Low Dose Aspirin) gabapentin 300 mg capsule 300 mg PO QHS 04/20/25 05/07/25 History glipizide 10 mg tablet 10 mg PO BID 04/20/25 05/08/25 05:45 History insulin glargine 100 unit/mL (3 15 unit subcut DAILY 04/20/25 05/08/25 05:45 History mL) subcutaneous pen (Basaglar KwikPen U-100 Insulin) metformin 1,000 mg tablet 1,000 mg PO BID 04/20/25 05/08/25 05:45 History jultkrge-np-ifaxi 300 mcg-K 60 1 tab PO DAILY 04/20/25 Unknown History mcg-lycop 600 mcg-lutein 300 mcg tablet (Centrum Silver Men) simvastatin 40 mg tablet 40 mg PO QHS 04/20/25 Unknown History solifenacin 5 mg tablet 5 mg PO DAILY 04/20/25 Unknown History sulfamethoxazole 800 2 tab PO BID 04/20/25 Unknown History mg-trimethoprim 160 mg tablet Allergy/AdvReac Type Severity Reaction Status Date / Time metoprolol AdvReac Intermediate Diarrhea Verified 04/20/25 13:24 sulfamethoxazole (From AdvReac Unknown Rash Verified 05/08/25 12:10 Sulfamethoxazole-Trimethoprim) trimethoprim (From AdvReac Unknown Rash Verified 05/08/25 12:10 Sulfamethoxazole-Trimethoprim) Surgical History Hx of colonoscopy Hx of tonsillectomy Hx laparoscopic cholecystectomy Hx of lumbar discectomy Social History Smoking Status: Never smoker Review of Systems (Anesthesia) ROS Narrative System reviewed and no additional complaints, except as documented.
[2025-05-08] MEDS: Lactated Ringers 1,000 ML 1000 ML IV (14:50)
[2025-05-08] MEDS: Cefazolin 1 GM/5 ML Vial 3 GM IV (15:00)
[2025-05-08] MEDS: Lidocaine 1% (5 ml sdv) 5 ML Vial IV (15:01)
--- NOTE | 2025-05-08 15:04 | PCM.DC ---
Discharge Instructions DC O2, CPAP, BIPAP needs Home O2 Discharge instructions: No Dressing / Incision Discharge Activity: Return to Normal Activity and May Not Drive (while taking narcotic pain medications.) Additional Activity Instructions:: ADALBERTO drain care Dressing / Incision Call your doctor if you observe: Fever of 101 or Higher Follow Up Care Please Follow Up With: Matheus Mckinley MD When: Call [phone] for an appointment Test Results: Test results from this visit will be discussed in further detail at your follow-up appointment, if applicable. Discharge Plan Admission Primary Reason for Your Visit: Hydrocelectomy Attending Provider: Matheus Mckinley Primary Care Provider: Sebas Parsons Instructions Print Language: Somali Discharge Orders/Prescriptions Prescriptions: New ciprofloxacin HCl [Cipro] 250 mg tablet 250 mg PO BID Qty: 20 0RF oxycodone 5 mg tablet 5 mg PO Q6H PRN (Reason: pain) 5 Days Qty: 14 0RF Continued glipizide 10 mg tablet 10 mg PO BID simvastatin 40 mg tablet 40 mg PO QHS metformin 1,000 mg tablet 1,000 mg PO BID solifenacin 5 mg tablet 5 mg PO DAILY insulin glargine [Basaglar KwikPen U-100 Insulin] 100 unit/mL (3 mL) insulin pen 15 unit subcut DAILY sulfamethoxazole-trimethoprim 800-160 mg tablet 2 tab PO BID gabapentin 300 mg capsule 300 mg PO QHS Centrum Silver Men [phone] mcg tablet 1 tab PO DAILY Held aspirin [Zeb Low Dose Aspirin] 81 mg tablet,delayed release (DR/EC) 81 mg PO DAILY Hold Instructions: Resume on 05/15/25. Referrals / Follow Up: Matheus Mckinley MD [Med Staff - Active Staff, Urology] Sebas Parsons, [employer] [Primary Care Provider, Family Practice] Disposition Disposition (needs filled in before D/C Order can be placed): Home, Self Care
--- NOTE | 2025-05-08 15:04 | PCM.OPRPT ---
Operative Report (Standard) Operative Information Date of Procedure: 05/08/25 Pre-Operative Diagnosis: Large hydroceles Post-Operative Diagnosis: Same Surgery/Procedure Performed: Bilateral hydrocelectomy ecological risk assessor: No Type of Anesthesia: General RN Documented Start/Stop Times: Operation Date: 05/08/25 14:15 Case Time Into Pre-Op 05/08/25 11:49 Out of Pre-Op 05/08/25 14:44 Anesthesia Start 05/08/25 14:48 Into Room 05/08/25 14:48 Procedure Start 05/08/25 15:12 Procedure Start Time: 15:12 Procedure Stop Time: 15:43 Select all DRAINS/GRAFTS/IMPLANTS that apply: Drains Drain details: ADALBERTO drain Estimated Blood Loss: 10 cc Specimen collected: No Description of surgery: Patient presents for surgical removal of a symptomatic hydrocele. We discussed in the preoperative setting what to expect with the surgery. We discussed the expected results with surgery. He understands with removal of a hydrocele there is a risk of bleeding, infection, hematoma formation, abscess formation, recurrence of hydrocele, pain and swelling. He will be given postoperative antibiotics and anti-inflammatories he was given instructions for no heavy lifting or heavy activity. And to wear tight supportive underwear and ice to scrotum as necessary for swelling. After discussion with the patient and review of the risk and benefits were to proceed with a hydrocelectomy. Patient was taken back to the operating room, he was placed supine on the operating room table, a timeout procedure was performed and the patient was identified in the side of the surgery was marked and confirmed by the operating room staff. Patient then underwent general anesthesia by the anesthesiology team. Once general anesthesia was secured then to the scrotum penis area was shaved prepped and draped in usual sterile fashion. On inspection he could see palpate the hydrocele that was quite large. I then made a small incision over the hydrocele sacs infiltrated the skin with Marcaine. I then made a small incision over the hydrocele sac dissected down to the hydrocele sac itself and then infiltrated the sac with lidocaine. The hydrocele sac was then grabbed with Allis clamps on both sides and drained and then through the small incision the testicle and hydrocele sac was delivered. Then using electrocautery and pinpoint dissection I removed the hydrocele sac from the testicle. We then used electrocautery and pinpoint electrocautery and suture ligation to control and get perfect hemostasis to stop all bleeding from around the testicle. The testicle itself was identified the vas deferens of the testicle the spermatic cord. There is no injury to the spermatic cord during the dissection section. After the hydrocele sac was excised I then created a dartos space in the scrotum and the testicle was placed back in the ductal space sac. same procedure was then performed on the other side. We made sure that there was good hemostasis. We then closed over the testicle in 2 layers closing the dartos layer and then the subcutaneous layer and then the skin layer with subcuticular stitches. All sponges and needles were accounted for patient's anesthetic was reversed and he was taken back to the PACU in stable condition and with tight supportive scrotal support. Surgical Findings: Both hydrocele sacs removed Complications Complications: No Admit VTE Documentation VTE Present on Admission: No VTE Mechan Device Prophylaxis: SCD's VTE Pharm Prophylaxis ordered?: No
[2025-05-08] MEDS: fentaNYL 100 MCG/2 ML Ampul IV (15:27)
--- NOTE | 2025-05-08 16:00 | PCM.POST.ANE ---
Anesthesia: Postop Eval I Current Vital Signs Temperature: 97.5 F Pulse Rate: 76 Blood Pressure: 154/70 Respiratory Rate: 18 Pulse Ox: 99 Oxygen Delivery Method: Simple Mask Oxygen Flow Rate (L/min): 6 Assessment Airway patent: Yes Spontaneous unlabored respirations: Yes Mental status: Awake and Calm nausea: No Vomiting: No Anesthesia Complication: No Fluid Hydration Crystalloid volume administer (ml): 1,000 Total IV fluid infused: 1,000 Progress Note Anesthesia document: Postop Eval 1 completed: Yes
--- NOTE | 2025-05-08 16:29 | POSTOPAN2_ITS ---
Anesthesia Postop Eval I Sum Postop Eval Completion status Anesthesia document: Postop Eval 1 completed: Yes Anesthesia Postop Eval I Summary Anesthesia Postop Eval I Summary: Anesthesia Postop Eval I: Assessment Summary Airway patent Yes 05/08/25 16:01 CHIN [email or web address] Spontaneous unlabored Yes 05/08/25 16:01 CHIN [email or web address] [email or web address] respirations Mental status Awake,Calm 05/08/25 16:01 CHIN [email or web address] nausea No 05/08/25 16:01 CHIN [email or web address] [email or web address] Vomiting No 05/08/25 16:01 CHIN [email or web address] Anesthesia Postop Eval I: Fluid Summary Crystalloid volume administer 1,000 05/08/25 16:01 CHIN [email or web address] (ml) Colloids volume administered ( ml) Blood Product volume administered (ml) Total IV fluid infused 1,000 05/08/25 16:01 CHIN [email or web address] [email or web address] Anesthesia Postop Eval I: Summary Notes Anesthesia Complication No 05/08/25 16:01 CHIN [email or web address] Anesthesia Complication Comment: Post-operative progress note Anesthesia: Postop Eval II Evaluation Mental status: Awake and Calm Pain Level: 1 nausea: No Vomiting: No Complications Anesthesia Complication: No
--- NOTE | 2025-05-08 16:29 | PCM.POSTANE2 ---
Anesthesia Postop Eval I Sum Postop Eval Completion status Anesthesia document: Postop Eval 1 completed: Yes Anesthesia Postop Eval I Summary Anesthesia Postop Eval I Summary: Anesthesia Postop Eval I: Assessment Summary Airway patent Yes 05/08/25 16:01 [email or web address] Spontaneous unlabored Yes 05/08/25 16:01 [email or web address] [email or web address] respirations Mental status Awake,Calm 05/08/25 16:01 [email or web address] nausea No 05/08/25 16:01 [email or web address] Vomiting No 05/08/25 16:01 [email or web address] Anesthesia Postop Eval I: Fluid Summary Crystalloid volume administer 1,000 05/08/25 16:01 [email or web address] (ml) Colloids volume administered ( ml) Blood Product volume administered (ml) Total IV fluid infused 1,000 05/08/25 16:01 [email or web address] Anesthesia Postop Eval I: Summary Notes Anesthesia Complication No 05/08/25 16:01 [email or web address] Anesthesia Complication Comment: Post-operative progress note Anesthesia: Postop Eval II Evaluation Mental status: Awake and Calm Pain Level: 1 nausea: No Vomiting: No Complications Anesthesia Complication: No
== END 2025-05-08 17:48 | disposition home or self-care (01) ==
LOC: SDC 11:47 → AC 11:47
PROVIDERS: Referring Provider Urology; Visit Provider Urology
PROC: (CPT 55041; principal; 2025-05-08 14:00)
DX: N43.0 Encysted hydrocele (principal); E11.9 Type 2 diabetes mellitus without complications; Z79.82 Long term (current) use of aspirin; Z90.49 Acquired absence of other specified parts of digestive tract; N40.1 Benign prostatic hyperplasia with lower urinary tract symptoms; R35.0 Frequency of micturition
CPT/HCPCS: 55041; 00920; 82962; J2405